=== PATIENT | female | born 1955 | race Caucasian/White ===

== ENCOUNTER 2022-06-26 14:57 | Outpatient (REF) | payer OTHER, SELFPAY ==
[2022-06-26 15:29] LABS: Abs Immature Grans 0.02 10^3/uL (0.0-0.06); Absolute Basophil Count 0.05 10^3/uL (0.0-0.2); Absolute Eosinophil Count 0.04 10^3/uL (0.0-0.7); Absolute Monocyte Count 0.63 10^3/uL (0.1-0.8); Absolute Neutrophil Count 4.91 10^3/uL (1.2-6.7); Basophils % 0.7; Eosinophils % 0.5; HCT 41.4 % (36.0-46.0); HGB 14.4 g/dL (11.2-15.7); Immature Grans % 0.3; Lymphocytes % 25.2; MCH 32.6 pg (27.0-33.0); MCHC 34.8 % (32.0-36.0); MCV 94 fL (80-95); MPV 9.5 fL (8.0-11.0); Monocytes % 8.3; Platelet Count 318 10^3/uL (130-400); RBC 4.42 10^6/uL (3.93-5.22); RDW 11.6 % (11.7-14.6); RDW-SD 40.3 fL; WBC 7.55 10^3/uL (4.4-10.8)
[2022-06-26 16:32] LABS: ALT 29 U/L (14-59); AST 20 U/L (15-37); Albumin 4.1 g/dL (3.4-5.0); Alkaline Phosphatase 99 U/L (46-116); Anion Gap 15.5 mmol/L (3-11); BUN 14 mg/dL (7-18); Bilirubin, Total 0.5 mg/dL (0.2-1.0); CO2 18.5 mmol/L (21.0-32.0); Calcium 9.5 mg/dL (8.5-10.1); Chloride 105 mmol/L (98-107); Estimated GFR 62.91 (mL/min/1.73m2); Glucose 101 mg/dL (74-106); Potassium 4.3 mmol/L (3.5-5.1); Sodium 139 mmol/L (136-145); Total Protein 7.5 g/dL (6.4-8.2)
== END 2022-06-26 14:58 | disposition home or self-care (01) ==
LOC: LBN 14:57
PROVIDERS: PCP Physician Assistant Medical; Visit Provider Nurse Practitioner Family
DX: R10.9 Unspecified abdominal pain (principal)
CPT/HCPCS: 80053; 85025; 87086

== ENCOUNTER 2022-07-04 22:45 | Outpatient (REF) | payer OTHER, SELFPAY ==
[2022-07-11 13:55] LABS: Source: Right Kidney
== END 2022-07-04 22:46 | disposition home or self-care (01) ==
LOC: LBN 22:45
PROVIDERS: PCP Physician Assistant Medical; Visit Provider Nurse Practitioner Family
DX: R10.9 Unspecified abdominal pain (principal)
CPT/HCPCS: 82365

== ENCOUNTER 2024-02-01 00:10 | Emergency (ER) | payer MEDICARE, OTHER, SELFPAY ==
[2024-02-01 00:14] VITALS: BP 150/63; PULSE 82; RESP 18; TEMP 36.8
--- NOTE | 2024-02-01 00:15 | ED.GENADUL_ITS ---
Discharge Plan Disposition Patient Disposition: Home Condition: Good Discharge Details Clinical Impression: Rash and other nonspecific skin eruption Primary Care Provider: Yadira Llanes ED Provider: Aldo Burr Home Meds and New Rx's Prescriptions: No Action No Known Home Meds Discharge Instructions Additional Instructions: You were seen in the ED for a rash on your wrist. Because it is itchy as opposed to painful with no extensive redness suspect more of an allergic type reaction as opposed to infection. Your exam is otherwise reassuring. Would recommend using a diphenhydramine cream or hydrocortisone cream for the next day or 2. Follow-up with primary care next week. Return to ED for any severe worsening pain, redness extending out and around the extremity, other concerns. HPI General Mode of arrival: ambulatory . Date/Time Provider Initiated Documentation: 02/01/24 00:15 . Limitations to Documentation: no limitations . Information obtained by: patient . HPI Narrative: Patient presenting to ED with concern for rash on her left wrist with associated temp at home of 99.9 and some nausea. Patient reports working out in her garden essentially all day. Aylett a pain in her wrist that she thought might have been an ant bite or something. Did not think anything of it. Started to feel tired and took a break for dinner. Then went back out and work another 3 hours. Was unable to fall asleep and did not feel well. She is having some pruritus in the wrist region but no pain. She took temperature at home. Continued to be restless and developed some nausea. Called her PCP and was referred to the ED. She has no headache, URI symptoms, chest pain, shortness of breath, abdominal pain, urinary symptoms. She has no pain in the wrist and has normal range of motion. She is now concerned after looking things up on the Internet that she was bit by a spider. Related Data Home Medications Medication Instructions Recorded Confirmed Unknown [No Known Home Meds] 02/01/24 02/01/24 Allergies Allergy/AdvReac Type Severity Reaction Status Date / Time No Known Allergies Allergy Unverified 02/01/24 00:18 Review of Systems Narrative: Per HPI Exam Narrative Exam Narrative: Const: WDWN female in NAD. VS per triage. HEENT: NC/AT. Normal facial exam. Neck: Supple. Trachea midline. Lungs: Normal respiratory effort. Lungs are clear. Cor: RRR without murmur. Good radial pulses. Neuro: A+O x 3. Normal speech, mentation, gait. Cranial nerves II - XII grossly intact. No gross motor or sensory deficit. Ext: No C/C/E. Skin: 3 small macular/papular lesions left anterior wrist which norris. No surrounding erythema. No warmth, no tenderness. Medical Decision Making Patient presenting with a nondescript rash on her left anterior wrist which she was concerned was related to a possible spider bite. This was the wrist she was wearing her watch on. If anything the maculopapular lesions look more reactive likely to the sweat and rubbing of her watch. Definitely no evidence of cellulitis or infection. She is afebrile here and technically was afebrile at home has a temp of 99.9 is not considered fever. She is not tachycardic. She otherwise looks completely well. In regards to potential poisonous spider bites she is not having symptoms of black or brown recluse bite. Patient reassured and asked to try diphenhydramine cream or hydrocortisone cream over the next day or 2 and follow-up with primary care. Return precautions provided. Quality:[facility] Health Related Social Needs: No Data to Display [facility] All Active Problems Rash and other nonspecific skin eruption (Acute) Medical History No significant past medical history Social History Smoking risk assessment performed?: No
== END 2024-02-01 00:39 | disposition home or self-care (01) ==
LOC: ER 00:54
PROVIDERS: Emergency Provider Emergency Medicine; PCP Physician Assistant Medical
DX: R21 Rash and other nonspecific skin eruption (principal)
CPT/HCPCS: 99282; 99283

== ENCOUNTER 2024-03-19 07:27 | Day surgery (SDC) | payer MEDICARE, OTHER, SELFPAY ==
[2024-03-19] VITALS (13 sets, daily range): BP systolic 124–152; BP diastolic 40–82; PULSE 56–78; RESP 13–20; TEMP 36.1–36.6; O2SAT 92–99; BMI 27.4
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
--- NOTE | 2024-03-19 08:05 | DI.RAD_ITS ---
Exam(s) XR FOREARM LT XR WRIST LT COMPLETE EXAM: XR WRIST LT COMPLETE CLINICAL HISTORY: fall likely distal rad/ulnar fracture. TECHNIQUE: 2D digital imaging was performed. Three views of the wrist. Two views of the forearm.. COMPARISON: CR XR FOREARM LT from 03/19/2024 FINDINGS: BONES: Comminuted intra-articular fracture of the distal radius. There is some impaction and dorsal angulation. Fracture of the ulnar styloid also present and not significantly displaced. Carpal bone s appear intact. No additional fractures are seen more proximally in the radius or ulna. no bony de structive lesion is seen. JOINTS: The carpal bones are normally aligned. The elbow alignment is normal. SOFT TISSUE: Normal swelling around wrist. IMPRESSION: Comminuted intra-articular fracture of the distal radius. Ulnar styloid fracture. DATA REPOSITORY: RADIATION DOSE DELIVERED:
--- NOTE | 2024-03-19 09:15 | DI.CT_ITS ---
Exam(s) CT UPPER EXTREMITY LT WO EXAM: CT UPPER EXTREMITY LT WO CLINICAL HISTORY: distal radius/ulnar fracture, pre op TECHNIQUE: Imaging Protocol: Axial computed tomography images with coronal and sagittal reformatted images were created and reviewed. CONTRAST MATERIAL: Noncontrast COMPARISON: CR XR WRIST LT COMPLETE from 03/19/2024 FINDINGS: Bones: Comminuted intra-articular fracture of the distal radius again noted. There is minimal separa tion at the articular surface at the level of the lunate. There is mild impaction and slight dorsal displacement. Nondisplaced ulnar styloid fracture. Carpal alignment is normal. No cellulitic or osteomyelitic changes are identified. No lytic or sclerotic lesions are identified. Mild degenerative changes. Soft Tissues: Swelling around wrist. IMPRESSION: Comminuted intra-articular fracture of the distal radius. Ulnar styloid fracture. RADIATION DOSE DELIVERED: 116.23mGy.cm Total DLP DATA REPOSITORY: All CT scans at this facility are submitted to the National Radiology Data Registry (NRDR) Dose Index Registry (DIR) with the [employer] (ACR). RADIATION OPTIMIZATION: All CT scans at this facility use at least one of these dose optimization te chniques: automated exposure control; mA and/or kV adjustment per patient size (includes targeted exa ms where dose is matched to clinical indication); or iterative reconstruction.
[2024-03-19] MEDS: Ketorolac 15 MG/ML VIAL IVP (10:18)
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
[2024-03-19] MEDS: Normal Saline Flush 10 ML SYR IVP (12:29)
[2024-03-19] MEDS: Lactated Ringers 1,000 ML 75 ML IV (12:30)
[2024-03-19] MEDS: Acetaminophen 500 MG TAB 1000 MG PO (12:41)
[2024-03-19] MEDS: Celecoxib 200 MG CAP 400 MG PO (12:42)
--- NOTE | 2024-03-19 13:10 | W.PM.DSUDISC ---
Date of service: 03/19/24 Time of Service: 13:11 Discharge Plan Disposition Patient Disposition: Home Condition: Good Discharge Details Reason For Visit: left wrist injury Attending Provider: Matty Minaya Primary Care Provider: Yadira Llanes Home Meds and New Rx's Prescriptions: New acetaminophen 500 mg tablet 1,000 mg PO TID Qty: 90 3RF ibuprofen 600 mg tablet 600 mg PO TID PRN (Reason: pain) Qty: 90 0RF oxycodone 5 mg tablet 5 mg PO Q8H MDD 15mg PRN (Reason: pain) Qty: 10 0RF Discharge Instructions Additional Instructions: Wrist Fracture Fixation Discharge Instructions Activity: You should keep the hand/wrist elevated as much as possible for the first few days. You may use the other fingers as tolerated but avoid trying to do too much too soon. You may perform light activities with the splint in place. Dressing/Cast: Your splint should stay in place at all times. Do NOT get it wet. You may loosen the SCOTT wrap if you feel it is too tight and then rewrap more loosely. Medications: - You should take Tylenol and Ibuprofen for baseline pain control. - You have been prescribed a stronger pain medication, Oxycodone, for breakthrough pain. - You may apply ice over the wrist, just double bag so it doesn't get wet. Follow-up: 10-14 days Referrals: Matty Minaya MD [ [facility] STAFF PHYSICIAN] - Equipment/Supplies: Splint Activity:: Elevate Remove Dressings/Wound Care:: Do Not Remove Shower/Bathe:: Cover Diet:: As Tolerated Discharge Orders Discharge Orders: Discharge Order (Routine); Ordered 03/19/24 Ordered By: Orville Monzon DS: Diagnosis Discharge Diagnosis (1) Intra-articular fracture of distal end of left radius with volar angulation: Status: Acute (2) Displaced fracture of left ulna styloid process, initial encounter for closed fracture: Status: Acute
[2024-03-19] MEDS: ceFAZolin 2 GM/50 ML BAG IVPB (13:55)
[2024-03-19] MEDS: Bupivacaine 0.5% Pres-Free W/EPI 30 ML VIAL (14:26)
--- NOTE | 2024-03-19 15:35 | ROE_ITS ---
Date of service: 03/19/24 Time of Service: 14:20 Operative Note Operative Note DATE OF PROCEDURE: 03/19/24 PRE-OP DIAGNOSIS: Left Intra-Articular Distal Radius Fracture POST-OP DIAGNOSIS: same PROCEDURE: Open Reduction and Internal Fixation of Left Distal Radius Intra-articular Fracture (2 parts) SURGEON: Matty Minaya ELECTRONIC ASSEMBLY: Orville Monzon ANESTHESIA TYPE: General LMA/ETT Refer to Anesthesia Record ESTIMATED BLOOD LOSS: 30 PATHOLOGY: none sent COMPLICATIONS: None Patient was transported to: PACU Patient's condition: stable Indications: Mag is a 68 year old female who I have seen for a distal radius fracture. Given the deformity, displacement, fracture pattern, and effect on daily function, I recommended surgical fixation. I reviewed the risk of the procedure to include bleeding, infection co-pay, stiffness, damage to nerves and vessels, damage to muscles and tendons, malunion, nonunion, hardware prominence, tendon rupture, need for repeat procedures. Despite these risks, the patient elected to proceed. Findings: There is a distal radius fracture which had 2 parts. It was reduced and fixed with a Synthes volar locking plate. Procedure Description: Mag was greeted in the preoperative holding area. The correct patient and site was confirmed and marked. The history and physical was updated. The consent was reviewed the patient and signed. The patient was taken to the operating room and placed in the supine position. All bony problems were well- padded. The left arm was placed onto a radiolucent hand table. A nonsterile tourniquet was placed high up on the arm. Prophylactic antibiotics in the form of cefazolin were administered. The left arm was prepped with ChloraPrep and draped in a standard fashion. A timeout was performed for safe surgery. A standard longitudinal incision was made overlying the flexor carpi radialis tendon starting at the distal wrist crease and moving proximally. The skin was incised sharply. The flexor carpi radialis tendon and its sheath is identified. The sheath was opened. The tendon was moved ulnarly in the floor of the sheath was incised. Blunt dissection the flexor pollicis longus muscle belly and tendon were also made radially exposing the pronator quadratus and the distal radius. The printer quadratus was elevated with an ulnar-based flap. This exposed the volar distal radius and the fracture. A georges elevator was used for full exposure of the volar surface of the distal radius. The primary fracture line was exposed. Using a series of elevators, curettes, and knife, the fracture was fully debrided of any fibrous tissue and callus formation. I used a freer elevator to help mobilize the fragments. There was a primary fracture line traversing across the volar aspect of the distal radius. I then performed a closed reduction. Using gentle traction and fracture manipulation, this reduction was held. Fluoroscopic images were used to confirm adequate reduction. An appropriately sized Synthes volar locking plate was then placed onto the bony surface of the distal radius. Was then held there with a distal radius clamp sandwiching the plate to the distal segment. A single K wire was placed through the distal end. Fluoroscopy was once again used to confirm appropriate positioning of the plate on the distal radius. A reduction K wire was placed into the slotted hole on the shaft but not tightened all the way to allow for manipulation of the distal segment onto the proximal shaft. A single nonlocking screw was placed to the distal portion of the plate securing the plate against the bone of the distal radial metaphysis. Once again, the plate was evaluated to make sure it was aligned appropriately. The single screw was also checked to make sure it was in appropriate positioning for trajectory of future screws. The remainder of the screws within the volar locking plate were filled with locking screws. These were made sure not to penetrate the dorsal cortex. Once these were applied the proximal portion of the plate was further reduced down onto the shaft, which further reduce the distal segment. This was held in position with a tightened reduction K wire. Fluoroscopy was then used against confirm appropriate reduction. Nonlocking screws were placed within the 3 shaft screw holes. Final x-rays were obtained which demonstrated adequate reduction and positioning of hardware. The dorsal sunrise view was also obtained to ensure correct sizing of screws. The wound was then thoroughly irrigated. The pronator quadratus was unable to be reapproximated. Sutures pulled through the muscle and the fascia. The fingers were warm and well-perfused. The deep dermal layer was closed with a 2-0 Vicryl. The skin was closed with 4-0 Monocryl in a buried, subcuticular fashion. The wound was dressed with Xeroform, 4 x 4's, web roll. A short arm splint was applied. At the end the case all counts are correct. Patient was transferred back to the PACU in stable condition.
--- NOTE | 2024-03-19 15:36 | DI.RAD_ITS ---
Exam(s) XR WRIST LT LIMITED EXAM: XR WRIST LT LIMITED CLINICAL HISTORY: Left distal radius fracture TECHNIQUE: 2D and realtime digital imaging was performed. CONTRAST MATERIAL: Refer to procedure report. COMPARISON: CR XR FOREARM LT from 03/19/[address] UPPER EXTREMITY LT WO from 03/19/2024 CR XR WRIST LT COMPLETE from 03/19/2024 FINDINGS: Fluoroscopy was provided for Dr. Minaya during the performance of a reduction and internal fixatio n of the distal radial fracture. Please refer to the procedure report for complete details. Kar=1.22 mGy IMPRESSION: RADIATION DOSE DELIVERED: 0.0 0.0 0
--- NOTE | 2024-03-21 11:55 | W.ANESPOSTOP ---
Postoperative Evaluation Date, Time and Location Date Performed: 03/19/24 Time Performed: 16:20 Patient Location: Day Surgery Unit Vital Signs Most Recent Imported Vital Signs: Most Recent Vital Signs Temp Pulse Resp BP Pulse Ox 36.2 C L 56 L 16 131/47 L 95 03/19/24 16:50 03/19/24 16:50 03/19/24 16:50 03/19/24 16:50 03/19/24 16:50 Pain Score Most Recent Pain Score: Most Recent Pain Score Pain Level 0 03/19/24 16:50 Assessment Mental Status: Awake (Alert & Oriented to Patient Baseline) Airway and Respiratory Function: Patent airway with normal (patient baseline) respiratory exam Cardiovascular Function: Hemodynamically Stable Hydration Status: Adequately Hydrated Nausea & Vomiting: No Nausea or Vomiting Pain: Pt. Denies Any Pain Peripheral Nerve Block: Patient did not receive a nerve block
== END 2024-03-19 17:40 | disposition home or self-care (01) ==
LOC: ER 10:09 → SUR 12:20
PROVIDERS: Emergency Provider Emergency Medicine; PCP Physician Assistant Medical; Visit Provider Student in an Organized Health Care Education/Training Program
PROC: (CPT 25606; principal; 2024-03-19 14:15)
DX: S52.572A Other intraarticular fracture of lower end of left radius, initial encounter for closed fracture (principal); S52.612A Displaced fracture of left ulna styloid process, initial encounter for closed fracture; V19.9XXA Pedal cyclist (driver) (passenger) injured in unspecified traffic accident, initial encounter
CPT/HCPCS: 25606; 76000; 73090; 73100; 73110; 73200; J0690; J1100; J1885; J2001; J2405; J2704; J3010

== ENCOUNTER 2024-03-27 13:38 | Outpatient (CLI) | payer MEDICARE, OTHER, SELFPAY ==
--- NOTE | 2024-03-27 13:15 | DI.RAD_ITS ---
Exam(s) XR WRIST LT LIMITED EXAM: XR WRIST LT LIMITED INDICATION: F/U FRACTURE. COMPARISON: RF XR WRIST LT LIMITED from 03/19/[address] UPPER EXTREMITY LT WO from 03/19/2024 TECHNIQUE: 2D digital imaging was performed. Two views. FINDINGS: There has been no change in fracture or hardware alignment. DATA REPOSITORY: RADIATION DOSE DELIVERED:
== END 2024-03-27 13:39 | disposition home or self-care (01) ==
LOC: DIORS 13:38
PROVIDERS: PCP Physician Assistant Medical; Referring Provider Physician Assistant Medical
DX: S52.572D Other intraarticular fracture of lower end of left radius, subsequent encounter for closed fracture with routine healing; X58.XXXD Exposure to other specified factors, subsequent encounter
CPT/HCPCS: 73100

== ENCOUNTER 2024-04-02 11:24 | Emergency (ER) | payer MEDICARE, OTHER, SELFPAY ==
[2024-04-02 11:33] VITALS: BP 151/70; PULSE 76; RESP 18; O2SAT 96
--- NOTE | 2024-04-02 12:08 | ED.GENADUL_ITS ---
Discharge Plan Disposition Patient Disposition: Home Condition: Stable Discharge Details Clinical Impression: Pain in throat, Cervical muscle strain Primary Care Provider: Yadira Llanes ED Provider: Adelita Gonsalves Home Meds and New Rx's Prescriptions: No Action No Known Home Meds Discharge Instructions Instructions: Cervical Muscle Strain, Sore Throat, Adult ED Additional Instructions: You may have strained the muscles in your neck. Please take the muscle relaxer when you get home as prescribed. This may make you sleepy. Alternate ice and heat. You are also given Maalox and lidocaine which will make your throat numb. No evidence for allergic reaction at this time. No rash. Please return to the ER for any worsening trouble swallowing, cough or wheezing lip swelling rash or concerns. Follow up with primary care provider in 3-5 days. Return to ED sooner if any worsening or concerns. Please take Tylenol or Ibuprofen with food every 4-6 hours as needed for pain and swelling. You may also gargle with warm salt water. Thank you for allowing us to care for you today. Referrals: Yadira Llanes [Primary Care Provider] - 3 days Discharge Data Discharge Date/Time-TO BE ENTERED AT DEPARTURE: 04/02/24 14:30 HPI General Mode of arrival: ambulatory . Date/Time Provider Initiated Documentation: 04/02/24 11:58 . Limitations to Documentation: no limitations . Information obtained by: patient, RN notes reviewed and old records reviewed . HPI Narrative: 68-year-old female presents to the ER with throat pain after eating some arugula approximately 2 hours ago, she is able to handle her secretions and is able to drink water, she is speaking in full sentences she has no stridor noted no wheezing no runny nose. She is complaining of pain to her throat which is worsening. She reports that it from her neck to her ears. Related Data Home Medications ?Medication ?Instructions ?Recorded ?Confirmed Unknown [No Known Home Meds] 03/27/24 04/02/24 Allergies Allergy/AdvReac Type Severity Reaction Status Date / Time No Known Allergies Allergy Unverified 03/27/24 13:27 General Stated Complaint: ThroatFB MAXWELL: 3 Review of Systems All systems reviewed & are unremarkable except as noted in HPI and below Constitutional Constitutional: Reports as per HPI ENT Ears, Nose, Mouth, and Throat: Reports dysphagia, Reports neck pain and Reports sore throat Gastrointestinal Gastrointestinal: Reports dysphagia Musculoskeletal Musculoskeletal: Reports neck pain Integumentary/Breasts Skin/Breast: Reports system reviewed and no additional complaints, except as documented Exam Narrative Exam Narrative: Constitutional: Alert and oriented x3. Appears stated age. Normal body habitus. Head: Normocephalic, no trauma. Eyes: Pupils PERRL, Red reflex noted, EOM's intact. Eyelids symmetrical without lesions, discharge, or swelling. ENT: Bilateral TM's WNL, External ear normal to inspection, no mastoid TTP, swelling, or erythema, Nasal turbinates WNL, no nasal discharge. Normal dentition, Posterior pharynx slightly red otherwise uvula midline, no swelling noted WNL, no exudate. Neck: Tenderness with palpation anteriorly, does have some tenderness with palpation posteriorly as well. No swelling no stridor, swallowing without difficulty, speaking in full sentences. Chest: RRR, Normal S1, S2, distal pulses intact. Resp: Lungs clear to auscultation bilaterally, no wheezes, rales, or rhonchi. Abdomen: Soft, non-distended, Normoactive bowel sounds all 4 quads. Musculoskeletal: Normal gait, Moves all 4 extremities without difficulty. Is wearing a brace on her left wrist. Skin: No suspicious rashes or lesions. Capillary refill less than 2 sec. Neurologic: Cranial nerves II-XII intact. Alert and oriented x 3. Motor: No def icits noted. Sensory: Intact bilaterally all 4 extremities. Hematologic/Lymphatic: No ecchymosis, no lymphadenopathy. Course Vital Signs Vital signs: Vital Signs Pulse 76 04/02/24 11:33 Respiratory Rate 18 04/02/24 11:33 Blood Pressure 151/70 H 04/02/24 11:33 Pulse Oximetry 96 04/02/24 11:33 Pulse 76 04/02/24 11:33 Respiratory Rate 18 04/02/24 11:33 Respiratory Effort Normal 04/02/24 11:43 Respiratory Pattern Normal 04/02/24 11:43 Blood Pressure 151/70 H 04/02/24 11:33 Blood Pressure Position Sitting 04/02/24 11:33 Pulse Oximetry 96 04/02/24 11:33 Oxygen Delivery Method Room Air 04/02/24 11:33 Oxygen Flow Rate 0 04/02/24 11:33 Pain Level 10 04/02/24 11:33 Medical Decision Making 68-year-old female presents to the ER with throat pain after eating some arugula approximately 2 hours ago, she is able to handle her secretions and is able to stable drink water, she is speaking in full sentences she has no stridor noted no wheezing no runny nose. She is complaining of pain to her throat which is worsening. She reports that it from her neck to her ears. She has no rash noted. No swelling of her lips or mouth uvula is midline, no posterior oropharynx swelling she does have slightly erythemic posterior oropharynx. She was at home when she was eating a salad denies any other food allergies. Denies any other associated symptoms or complaints. She is wearing a wrist splint to her left wrist. Will give 40 of Pepcid p.o. and 10 mg of dexamethasone p.o. 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 Will reevaluate in approximately 10 to 15 minutes after medication administration will consider effervescent granules if no improvement. On patient reevaluation she reports no change in the neck pain. She also reports that it is hurting in the back differential diagnosis includes but not limited to allergic reaction, cervical muscle strain, adverse reaction arugula. She denies any foreign body in her throat. Foreign body sensation. Will give her GI cocktail here in the department and 3 Flexeril tablets to go home with. Will instruct on home care, strict return instructions and follow-up care. This text was generated using [employer] dictation system, please disregard any oddities of phrase or misspellings. Quality:SDOH Health Related Social Needs: No Data to Display PFSH All Active Problems Cervical muscle strain (Acute) Pain in throat (Acute) Displaced fracture of left ulna styloid process, initial encounter for closed fracture (Acute 03/19/24) Intra-articular fracture of distal end of left radius with volar angulation (Acute 03/19/24) S/P ORIF: 03/19/2024 Medical History No significant past medical history Surgical History History of total left hip arthroplasty Social History Smoking/Tobacco Use Status: Never Smoking risk assessment performed?: Yes Alcohol Intake: never Drug use: Never Substance use type: does not use Housing: house Do you feel safe at home: Yes Do you feel safe in your relationship?: Yes
[2024-04-02] MEDS: Dexamethasone 10 MG/ML VIAL PO (12:30)
[2024-04-02] MEDS: Famotidine 20 MG TAB 40 MG PO (12:31)
[2024-04-02 13:23] VITALS: BP 120/74; PULSE 80; RESP 16; TEMP 36.6; O2SAT 98
[2024-04-02] MEDS: Cyclobenzaprine 10 MG TAB, 3 TABS/BTL PO (14:27)
[2024-04-02 14:29] VITALS: BP 116/70; PULSE 72; RESP 18; TEMP 36.7; O2SAT 98
== END 2024-04-02 14:30 | disposition home or self-care (01) ==
PROVIDERS: Emergency Provider Registered Nurse Emergency; PCP Physician Assistant Medical
DX: S16.1XXA Strain of muscle, fascia and tendon at neck level, initial encounter (principal); R07.0 Pain in throat; X50.0XXA Overexertion from strenuous movement or load, initial encounter
CPT/HCPCS: 99282; J1100

== ENCOUNTER 2024-04-21 03:20 | Emergency (ER) | payer MEDICARE, OTHER, SELFPAY ==
[2024-04-21 03:25] VITALS: BP 104/79; PULSE 79; RESP 18; O2SAT 95
--- NOTE | 2024-04-21 04:08 | W.ED.GENAD ---
Discharge Plan Disposition Patient Disposition: Eloped Condition: Good Discharge Details Chief Complaint: Orthopedic Clinical Impression: Acute pain of right knee Primary Care Provider: Yadira Llanes ED Provider: Marla Carter Home Meds and New Rx's Prescriptions: No Action No Known Home Meds Discharge Instructions Instructions: Knee Pain ED, Knee Brace ED Additional Instructions: Tylenol over the counter for pain; follow the directions on the bottle. Rest and ice. You can use the knee immobilizer if you find it helpful, until you are able to see your primary care doctor and discuss with them. Call your primary care doctor today to schedule an appointment within the next three days to followup on your visit here. You can also call your orthopedist to see if they can see you earlier than your currently scheduled followup appointment. Return to the emergency department for new or worsening symptoms including new/different/worse pain, swelling, numbness or weakness, or if you have any other concerns. Referrals: Yadira Llanes [Primary Care Provider] - [facility] General Mode of arrival: ambulatory. Date/Time Provider Initiated Documentation: 04/21/24 03:42. Limitations to Documentation: no limitations. Information obtained by: patient. HPI Narrative: 68yo F presenting with atraumatic right knee pain. Symptoms started about 4 days ago; during the prior week she began running up to 4 miles a day uphill, attempting to increase her activity level as she has been unable to bike due to a recent wrist fracture. 4 days ago she began to notice pain and tenderness in her right knee while running; continued to run (no pain no gain) . The next morning pain was severe, worse with ambulating. No falls or injury. No locking or popping. Minimal pain with flexing and extending while in bed. No numbness or tingling. Has tried tylenol, rest, ice, and heat with minimal improvement. Systemically well wtih no fevers, chills, rash, nausea, vomiting, or other concerns. Related Data Home Medications ?Medication ?Instructions ?Recorded ?Confirmed Unknown [No Known Home Meds] 03/27/24 04/21/24 Allergies Allergy/AdvReac Type Severity Reaction Status Date / Time No Known Allergies Allergy Unverified 04/21/24 03:28 General Stated Complaint: Orthopedic MAXWELL: 3 Review of Systems Narrative: see HPI Exam Narrative Exam Narrative: General: Alert, well appearing, well nourished, in no acute distress. Head: Normocephalic, atraumatic Neck: Trachea midline, ?Neck supple. ENT: ?MMM.? No oropharygeal lesions or exudate. Cardiac: No cyanosis. Resp: No respiratory distress. Speaking in full sentences. Abd: ?Non-distended, Extremities: ?No deformities.? No peripheral edema. Right knee with no bony tenderness at patella or fibular head. No palpable effusion. No warmth or erythema. Some tenderness over medial inferior aspect. Full active ROM. 5/5 strength with flexion and extension. Sensation to light touch intact and symmetric right compared to left. Neurologic: GCS 15. ? Moves all extremities freely against gravity Course Vital Signs Vital signs: Vital Signs Pulse 79 04/21/24 03:25 Respiratory Rate 18 04/21/24 03:25 Blood Pressure 104/79 04/21/24 03:25 Pulse Oximetry 95 04/21/24 03:25 Pulse 79 04/21/24 03:25 Respiratory Rate 18 04/21/24 03:25 Respiratory Effort Normal 04/21/24 03:28 Blood Pressure 104/79 04/21/24 03:25 Blood Pressure Position Sitting 04/21/24 03:25 Pulse Oximetry 95 04/21/24 03:25 Oxygen Delivery Method Room Air 04/21/24 03:25 Oxygen Flow Rate 0 04/21/24 03:25 Medical Decision Making 68yo F presenting with atraumatic right knee pain in the setting of recent increase in activity. Symptoms started about 4 days ago; during the prior week she began running up to 4 miles a day uphill, attempting to increase her activity level as she has been unable to bike due to a recent wrist fracture. 4 days ago she began to notice pain and tenderness in her right knee, worse with ambulating. No falls or injury. Vital signs reassuring on arrival. Neurovascular intact on exam, no palpable effusion, good active ROM. No bony tenderness. Unlikely bony injury however given patient age offered knee xray which patient declined; I believe this is reasonable. I am not concerned for septic joint, gout, DVT, dislocation; unlikely significant ligamentous injury. Drove herself to the ED and ambulated into triage. She presents primarily requesting corticosteroid injection to knee which I do not feel comfortably performing. We discussed symptomatic treatment at home with plan for IM toradol here (has GI distress with oral NSAIDs) and knee immobilizer for comfort for a short time and ambulation is quite painful; if able to ambulate and pain improved would discharge home otherwise would encourage her to accept XR and possibly PT consult in the morning. Patient subsequently able to ambulate to the bathroom without distress. Left department without waiting for re-assessment/repeat vital signs/discharge instructions. As we had already discussed the plan including followup and return precautions, will mail discharge instructions home. Prior to departure she had verbalized understanding of instructions and return precautions; all questions were answered. Quality:SDOH Health Related Social Needs: No Data to Display PFS All Active Problems Acute pain of right knee (Acute) Cervical muscle strain (Acute) Pain in throat (Acute) Displaced fracture of left ulna styloid process, initial encounter for closed fracture (Acute 03/19/24) Intra-articular fracture of distal end of left radius with volar angulation (Acute 03/19/24) S/P ORIF: 03/19/2024 Medical History No significant past medical history Surgical History History of total left hip arthroplasty Social History Smoking/Tobacco Use Status: Never Smoking risk assessment performed?: Yes Alcohol Intake: never Drug use: Never Substance use type: does not use Housing: house Do you feel safe at home: Yes Do you feel safe in your relationship?: Yes
--- OUTSIDE RECORDS SUMMARY | 2024-04-21 04:19 | XMS_ITS | Encounter Summary ---
Author Organization [facility] Address [address] [place] [address] Care Team Providers Care Pourer Off Name Role Phone Unknown, Provider Primary Care Provider [phone] Encounter Details Date Type Department Care Team (Late st Contact Info) Description 01/19/2019 Historical Results Only [facility] Radiology Results [address] [place], [place] [id number] Olegario Lee, INVESTOR RELATIONS MANAGER [address] [place], [place] [id number] Social History Tobacco Use Types Packs/Day Years Used Date Smoking Tobacco: Never Assessed Sex and Gender Information Value Date Recorded Sex Assigned at Not on file Gender Identity Not on file Sexual Orientation Not on file documented as of this encounter Plan of Treatment Not on file documented as of this encounter Procedures Procedure Name Priority Date/Time Associated Diagnosis Comments XR HIP LEFT 2-3 VIEWS, OPTIONAL PELVIS 01/19/2019 17:28 EDT documented in this encounter Results * XR HIP LEFT 2-3 VIEWS, OPTIONAL PELVIS (01/19/2019 17:28 EDT) Anatomical Region Laterality Modality Lower Extremities Left Other 01/19/2019 17:2 8 EDT Narrative 01/19/2019 17:28 EDT ? EXAM: RADIOLOGY EXPRESS CARE/EXP CARE HIP EX. D/ (1649) ? CLINICAL INFORMATION: ? M25.552, 6 MONTHS OF PROGRESSIVE PAIN. RULE OUT OA, JOINT EFFUSION. ? EXAM: ?XR Left Hip with Pelvis when Performed, 2 or 3 Views ? EXAM DATE/TIME: ?01/19/2019 4:38 PM ? CLINICAL HISTORY: ?63 years old, female; Hip pain; Bilateral; Additional info: ? M25.552, 6 months of progressive pain. Rule out oa, joint effusion. ? TECHNIQUE: ?Imaging protocol: XR Left hip with pelvis when performed, 2 or 3 ? views ? COMPARISON: ?No relevant prior studies available. ? FINDINGS: ?Bones/joints: There is severe joint space narrowing in both hips. ? There is a subchondral bony cystic change in both acetabular rims . ? In the left hip there is osteophytic spurring of the acetabular ? rims. Hip joint impingement is suspected. ? There is no sign of fracture or dislocation. ?Soft tissues: Normal. ? IMPRESSION: ? 1. Severe bilateral primary osteoarthritis in the hips. ? 2. Hip joint impingement is suspected in the left hip. ? REPORT SIGNED IN OTHER VENDOR SYSTEM 01/19/2019 ?Reported By: Amauri Calvert DO ? CC: ? Transcribed Date/Time: 01/19/2019 (6028) ? Lumber Piler: ? Printed Date/Time: 05/28/2019 (2602) ? PAGE 1 ? Signed Report ? Procedure Note Amauri Calvert DO - 07/15/2019 EXAM: RADIOLOGY EXPRESS CARE/EXP CARE HIP EX. D/ (1649) CLINICAL INFORMATION: M25.552, 6 MONTHS OF PROGRESSIVE PAIN. RULE OUT OA, JOINT EFFUSION. EXAM: XR Left Hip with Pelvis when Performed, 2 or 3 Views EXAM DATE/TIME: 01/19/2019 4:38 PM CLINICAL HISTORY: 63 years old, female; Hip pain; Bilateral; Additional info: M25.552, 6 months of progressive pain. Rule out oa, joint effusion. TECHNIQUE: Imaging protocol: XR Left hip with pelvis when performed, 2 or 3 views COMPARISON: No relevant prior studies available. FINDINGS: Bones/joints: There is severe joint space narrowing in both hips. There is a subchondral bony cystic change in both acetabular rims . In the left hip there is osteophytic spurring of the acetabular rims. Hip joint impingement is suspected. There is no sign of fracture or dislocation. Soft tissues: Normal. IMPRESSION: 1. Severe bilateral primary osteoarthritis in the hips. 2. Hip joint impingement is suspected in the left hip. REPORT SIGNED IN OTHER VENDOR SYSTEM 01/19/2019 Reported By: Amauri Calvert DO CC: Transcribed Date/Time: 01/19/2019 ([id number]) Lumber Piler: Printed Date/Time: 05/28/2019 (0870) PAGE 1 Signed Report Olegario Lee INVESTOR RELATIONS MANAGER IMG DIAGNOSTIC IMAG ING ORDERABLES documented in this encounter Visit Diagnoses Not on filedocumented in this encounter Care Teams Pourer Off Relationship Specialty Start Date End Date Unknown, Provider, PCP - General 12/24/12 documented as of this encounter
--- OUTSIDE RECORDS SUMMARY | 2024-04-21 04:19 | XMS_ITS | Referral Summary ---
Author Organization [facility] Address [address] [place] [address] Care Team Providers Care Inspector Subassembly Name Role Phone Unknown, Provider Primary Care Provider Allergies Active Allergy Reactions Criticality Noted Date Comments Codeine 04/06/2010 N & V Active Problems Problem Noted Date Diagnosed Date Headache 11/09/2007 Overview: ICD10 Update Auto Replacement Gastroesophageal reflux disease Overview: Esophagram 03/2008 Social History Tobacco Use Types Packs/Day Years Used Date Smoking Tobacco: Never Assessed Interpersonal Safety Answer Date Record ed Physically Hurt Never 04/11/2020 Verbally Threaten Not on file 04/11/2020 Sex and Gender Information Value Date Recorded Sex Assigned at Not on file Gender Identity Not on file Sexual Orientation Not on file Plan of Treatment Not on file Care Teams Inspector Subassembly Relationship Specialty Start Date End Date Unknown, Provider, PCP - General 12/24/12
--- OUTSIDE RECORDS SUMMARY | 2024-04-21 04:19 | XMS_ITS | Data Portability ---
Author Organization [place] [facility], Historical Import Interface Address [address] [place] [address] Assessment Encounter Date Assessment Date Assessment LastModified by Organization Details LastModified Time 12/25/2022 12/25/2022 DOS: 12/25/2022 [place]: BRIAN and FMX 90 min with res Completed Procedures D0220 - Intraoral - periapical first radiographic image Teeth:?? 18 D0140 - Limited oral evaluation - problem focused D7140 - Extraction, erupted tooth or exposed root (elevation and/or forceps removal) Teeth: 18 ?? Tx: JEISON, 1PA, Simple?? Ext #18 CC: presents for JEISON with CC I'm just here because this tooth is really hurting me lately, I lost a filling sometime ago ?? Hx: see EMR ?? BP: 141/72 P: 62 ?? HPI: ?? - Location: LL ?? - Onset: a few months (pt was not?? able name exactly when the tooth fractured or started having symptoms)?? - Quality: dull sharp throbbing aching ??--all depending on what she's doing - Sensitive to: cold sweet hot chewing ??-all of the above - Wakes pt up at night: no ?? - Improves with: pt does not like to take medication, pt does not take anything to soothe the pain - Swelling: yes at first but not as much now ?? - Fever/aches/chil ls: no ?? - Trouble swallowing/breat joanne:?? no ? Radiographic Findings:? #18: caries to the pulp, widened PDL space, PARL on distal root, fracture mesial tooth structure? #19: large composite, widened PDL, no apical radiolucency? Endo Testing for teeth #18 and #19:? - Thermal Sensitivity (cold): (+++) #18 (lingering cold sensitivity), (+) #19 (no lingering cold sensitivity)?? - Percussion: WNL both #18, 19 - Tooth Sleuth: WNL both #18, 19?? - Mobility: yes?? #18- Class III (recession on buccal ~4mm with exposed roots)?? #19- Class II ?? Diagnosis: ?? Pulpal:?? 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 Tooth #19 reversible pulpitis, symptomatic apical periodontitis? Discussion: - Informed pt of findings, tx options, risks benefits and potential consequences on no tx which pt understood. Addressed all pt? s questions and concerns.?? - Reviewed tx plan options for tooth #18 with RCT + crown vs. extraction.?? - Reviewed tx plan options for tooth #19 with crown d/t large composite with compromised seal and break down of composite. Recommend a crown to provide cuspal protection and reduce cold sensitivity.?? - Pt decided to extract tooth #18 today d/t finances, guarded prognosis, and the amount of visits needed to perform RCT and crown.?? - Pt expressed interest in a crown for #19 since it is the only molar on her LL, and is worried of losing #19.?? - Informed consent obtained for ext #18.? Consent forms reviewed and signed ?? Radiograph available? Anesthesia: ? 20% Benzocaine topical anesthesia ?? 1 carp 2% Lidocaine w/1:100k epi via local infiltration, IANB ?? 2 carp 4% Articaine w/1:200k epi via local infiltration? Procedure:? Simple: ?? Elevate and deliver with elevators and forceps without complications ?? Removed with root picks/elevators with no complications. ? Socket curetted ?? Copious irrigation with saline ?? No sinus communication detected ?? No nerve visualized? All adjacent teeth intact? No sutures necessary? Gauze placed? Good hemostasis achieved. ? P/O instructions given written and verbally, which pt understood? Pain Management: 600mg ibuprofen, 500mg acetaminophen q6h PRN pain? Pt tolerated procedure well, Pt was discharged in stable condition; alert, oriented and ambulatory ?? 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 pt mentions it is difficult for her to set aside time to take care of herself because she is busy with her work.? Pairing Machine Operator: Bisi ?? Bibi Bartholomew DMD? , 11:42 AM. I attest that the treatment rendered today is completed and treatment met the standard of care. , 1:58 PM. [id number] Not available 12/28/2022 15:03:23 Plan of Treatment Reminders Order Date Submit Date Provider Last Modified By Organization Details Last Modified Time Details Appointments None record ed. Lab None record ed. Referral None record ed. Procedures None record ed. Surgeries None record ed. Imaging None record ed. Medication Orders None record ed. Patient TargetsNo targets recorded. Patient InstructionsNo instructions recorded. Reason for Referral None Reported. Problems Name Status Onset Date Resolution Date Notes Provider Name and Address Organization Details Recorded Time Urinary tract infectious disease Active 2013 UTI; Entered By: Griselda Anaya PA-C Signed By: Griselda Anaya PA-C Not Available [facility] 3 14:12:37 Fracture of phalanx of foot Active 2021 Other physeal fracture of phalanx of left toe, subsequent encounter for fracture with routine healing; Entered By: Lidia Levin APRN Signed By: Lidia Levin APRN Annotate : 5th toe, happened when slipped on ice spring 2021 Not Available [facility] 3 14:12:37 Disorder of skin Active 2021 Skin lesions, multiple; Entered By: Lidia Levin APRN Signed By: Lidia Levin APRN Skin lesion; Entered By: Rosi Austin Signed By: Rosi Jordan Reason: Removed; Start Date : 01/20/2015 Sk in lesion; Entered By: Lidia Levin APRN Signed By: Lidia Levin APRN Stop Reason: Resolved; Start Date : 01/20/2015 Not Available [facility] 3 14:12:37 Chest pain Completed 201105/14/2013 CHEST PAIN; Entered By: Rosalia Duran Signed By: Rosalia Duran Stop Reason: Removed CHEST PAIN; Entered By: Katty Duran MD Signed By: Katty Duran MD Stop Reason: Ruled Out Not Available [facility] 3 14:12:37 Screening - health check Active 2012 PREVENTIVE HEALTH CARE; Entered By: Court Childerss Signed By: Court Childress Not Available [facility] 3 14:12:37 Procedure carried out on subject Active 2014 Nutrition treatment for vegetarianism ; Entered By: Lidia Levin APRN Signed By: Lidia Levin APRN Not Available [facility] 3 14:12:37 Osteoarthriti s of hip Completed 201810/22/2022 OA, hips, bilateral (h/o bilateral hip replacement); Entered By: Lidia Levin APRN Signed By: Lidia Levin APRN OA, hip, left; Entered By: Sydnee White PA-C Signed By: Sydnee White PA-C Stop Reason: Changed Not Available [facility] 3 14:12:38 Otitis media Completed 201412/05/2014 OM; Entered By: Yadira Llanes PA-C Signed By: Yadira Llanes PA-C Not Available [facility] 3 14:12:38 Fatigue Active 2021 Fatigue; Entered By: Lidia Levin APRN Signed By: Lidia Levin APRN Not Available [facility] 3 14:12:38 Menopausal syndrome Completed 201410/22/2022 Menopausal syndrome; Entered By: Rosi Austin Signed By: Rosi Jordan Reason: Changed MENOP AUSAL SYNDROME; Entered By: Rosalia Duran Signed By: Rosalia Jordan Reason: Removed; Start Date : 05/14/2012 ME NOPAUSAL SYNDROME; Entered By: Katty Duran MD Signed By: Katty Duran MD Stop Reason: Inactive; Start Date : 05/14/2012 Not Available [facility] 3 14:12:39 Pain of joint of knee Active 2021 Knee pain, left; Entered By: Lidia Levin APRN Signed By: Lidia Levin APRN Annotate : saw orthopedics, did PT Approx OnSet Date: spring 2021 Not Available [facility] 3 14:12:39 Vitamin D deficiency Active 2014 Vitamin D deficiency; Entered By: Lidia Levin APRN Signed By: Lidia Levin APRN Not Available [facility] 3 14:12:39 Ulcer of duodenum Active 2011 DUODENAL ULCER; Entered By: Katty Duran MD Signed By: Katty Duran MD Not Available [facility] 3 14:12:39 Infection of sebaceous cyst Completed 201710/22/2022 Sebacceous cyst-infected ; Entered By: Yadira Llanes PA-C Signed By: Yadira Llanes PA-C Stop Reason: Removed Sebac ceous cyst-infected ; Entered By: Lidia Levin APRN Signed By: Lidia Levin APRN Stop Reason: Resolved Not Available [facility] 3 14:12:40 Cough Completed 201506/16/2022 Cough; Entered By: Yadira Llanes PA-C Signed By: Yadira Llanes PA-C Stop Reason: Removed Cough ; Entered By: Lidia Levin APRN Signed By: Lidia Levin APRN Stop Reason: Resolved Not Available [facility] 3 14:12:40 Abdominal pain Completed 201201/10/2014 ABDOMINAL PAIN; Entered By: Yadira Llanes PA-C Signed By: Yadira Llanes PA-C Not Available [facility] 3 14:12:40 Pre-surgery evaluation Completed 201807/01/2019 Preoperative exam; Entered By: Griselda Anaya PA-C Signed By: Griselda Anaya PA-C Not Available [facility] 3 14:12:40 Spasm of piriformis muscle Completed 201510/22/2022 Piriformis muscle spasm, right; Entered By: Yadira Llanes PA-C Signed By: Yadira Llanes PA-C Stop Reason: Removed Pirif ormis muscle spasm, right; Entered By: Lidia Levin APRN Signed By: Lidia Levin APRN Stop Reason: Resolved Not Available [facility] 3 14:12:40 Heartburn Active 2011 HEARTBURN; Entered By: Katty Duran MD Signed By: Katty Duran MD Not Available [facility] 3 14:12:40 Chronic dacryocystiti s Active 2013 CHRONIC DACRYOCYSTITI S; Entered By: Griselda Anaya PA-C Signed By: Griselda Anaya PA-C Not Available [facility] 3 14:12:41 Osteoarthriti s of multiple joints Active 2021 Osteoarthriti s, multiple joints; Entered By: Lidia Levin APRN Signed By: Lidia Levin APRN Not Available [facility] 3 14:12:41 Abnormal weight gain Completed 201410/22/2022 Weight gain; Entered By: Yadira Llanes PA-C Signed By: Yadira Llanes PA-C Stop Reason: Removed Weigh t gain; Entered By: Lidia Levin APRN Signed By: Lidia Levin APRN Stop Reason: Resolved Not Available [facility] 3 14:12:41 Gastric ulcer Active 2011 GASTRIC ULCERS; Entered By: Katty Duran MD Signed By: Katty Duran MD Not Available [facility] 3 14:12:41 Knee pain Completed 201810/22/2022 Knee pain, left; Entered By: Mara Espana Signed By: Mara Espana Stop Reason: Changed Not Available [facility] 3 14:12:41 Postmenopausa l state Active 2014 Postmenopausa l state; Entered By: Lidia Levin APRN Signed By: Lidia Levin APRN Not Available [facility] 3 14:12:42 Alopecia areata Active 2017 Alopecia areata; Entered By: Griselda Anaya PA-C Signed By: Griselda Anaya PA-C Not Available [facility] 3 14:12:43 Melanoma in situ of face Active 2022 Lidia Levin APRN [address] [place], [address] , [facility] 3 07:07:08 Problem Notes None recorded. Medical Equipment None Reported. Allergies Allergen ID Allergen Name Allergen Category Reaction Reaction Severity Criticality Documentation Date Start Date Code Code System Note Provider Name and Address Organization Details Recorded Time 21946 codeine medicatio n nausea moderate Not available 10/21/20222011 2670 RxNorm React ion: nause a;Sev erity : Moder ate; Comme nt: Enter ed By: Peter Abraham Sig suman By: Peter Abraham Typ e: GPI C ode: [id number] Unco ded: N; Not Available [facility] 3 17:39:09 Medications Name Sig Start Date Stop Date Status Note LastModified by Organization Details LastModified Time cyclobenz aprine 10 mg tablet Take 1 tab 1 hour prior to bedtime 11/05 completed Entered By: Yadira vAina PA-C Sig suman By: Yadira Avina PA-C Unc max: N BMN: N Not Available Not Available Not Available Multi-Vit miner tablet occ 06/16 completed Entered By: Surya CHOPRA Sign ed By: Katty Shane MD Uncod ed: N BMN: N Not Available Not Available Not Available Akne-Myci n 2 % topical ointment Apply to 1/4 inch to inner canthus and inner aspect of lower eyelid, to affect eye, 3-4 times daily for 10 days. 01/10 completed Entered By: Brigette Dugan d By: Yadira Avina PA-C Unc max: N BMN: N Not Available Not Available Not Available Carafate 1 gram tablet Take one tablet four times per day for abd pain 12/04 completed Entered By: Yadira Avina PA-C Sig suman By: Yadira Avina PA-C Cli nical Date: 013 Rx ID: [id number] Authori zed By: Yadira Llanes PA-C [facility] max: N BMN: N Not Available Not Available Not Available aspirin 325 mg tablet Take one daily 04/29 completed Entered By: Carolina delarosa RN Carola d By: Yadira Avina PA-C [facility] max: N BMN: N Not Available Not Available Not Available Keflex 500 mg capsule Take one tablet three times per day FOR SKIN INFECTIO N 04/18 completed Entered By: Yadira Avina PA-C Sig suman By: Yadira Avina PA-C Cli nical Date: 018 Rx ID: [id number] Authori zed By: Yadira Llanes PA-C [facility] max: N BMN: N Not Available Not Available Not Available Nexium 40 mg capsule,d elayed release Take one tablet one time per day 12/04 completed Entered By: Yadira Avina PA-C Sig suman By: Yadira Avina PA-C [facility] max: N BMN: N Not Available Not Available Not Available amoxicill in 500 mg tablet Take 1 tablet every eight hours 06/16 completed Entered By: Marla Delvalle LPN Sign ed By: Marla Delvalle LPN Unco ded: N BMN: N Not Available Not Available Not Available meloxicam 7.5 mg tablet take one twice a day 02/17 completed Entered By: Drew Srivastava d By: Drew alcala RN Clini leny Date: Rx ID: [id number] Authori zed By: Sydnee White PA-C Unc max: N BMN: N Not Available Not Available Not Available doxycycli ne monohydra te 100 mg capsule Take one tablet two times per day 07/21 completed Entered By: Yadira Avina PA-C Sig suman By: Yadira Avina PA-C Cli nical Date: 016 Rx ID: [id number] Authori zed By: Yadira Llanes PA-C [facility] max: N BMN: N Not Available Not Available Not Available erythromy prasanna 5 mg/gram (0.5 %) eye ointment apply to eyes four times per day for 5-7 days 07/11 completed Entered By: Yadira Avina PA-C Sig suman By: Yadira Avina PA-C [facility] max: N BMN: N Not Available Not Available Not Available nitrofura ntoin macrocrys fara 100 mg capsule Take one tablet two times per day 11/05 completed Entered By: Yadira Avina PA-C Sig suman By: Yadira Leroy max: N BMN: N Not Available Not Available Not Available Advil 200 mg tablet take two three times a day for cyst discomfo rt. 04/29 completed Entered By: Son Jane LPN Sign ed By: Griselda Anaya PA-C [facility] max: N BMN: N Not Available Not Available Not Available omeprazol e 20 mg capsule,d elayed release Take one tablet one time per day for stomach acid 07/11 completed Entered By: Yadira Avina PA-C Sig suman By: Yadira Avina PA-C Cli nical Date: Rx ID: [id number] Authori zed By: Yadira Llanes PA-C [facility] max: N BMN: N Not Available Not Available Not Available Nitrostat 0.3 mg sublingua l tablet use as needed for esophage al spasm 12/04 completed Entered By: Surya CHOPRA Sign ed By: Griselda Anaya PA-C [facility] max: N BMN: N Not Available Not Available Not Available Pepcid 20 mg tablet Take one tablet two times per day 01/20 completed Entered By: Yadria Avina PA-C Sig suman By: Yadira Avina PA-C [facility] max: N BMN: N Not Available Not Available Not Available Vitamin D2 1,250 mcg (50,000 unit) capsule Take one capsule every week 07/11 completed Entered By: Yadira Avina PA-C Sig suman By: Yadira Avina PA-C [facility] max: N BMN: N Not Available Not Available Not Available doxycycli ne hyclate 100 mg tablet Take 1 tablet twice a day by oral route as directed for 10 days. 2022 active Not Available Not Available Not Avai lable Tylenol Extra Strength 500 mg tablet 1 tab daily for pain 04/29 completed Entered By: Son Jane LPN Sign ed By: Griselda Anaya PA-C [facility] max: N BMN: N Not Available Not Available Not Available Vitals None Recorded Social History None recorded. Functional Status None recorded. Mental Status None recorded. Family History Relationship Description Onset Age of this Age Resolved Age Notes Notes:Mother- [place] s/p CABG, [place], skin cancer (unsure what type but localized), MGM: 58 [place], Father- [place] age 57 s/p CABG, 60s, PGM: breast cancer, Children: one with Type I DM, otherwise healthy Medical History No medical history recorded. Gynecological HistoryNo gynecological history recorded. Obstetrics History GPAL:G 0 P 0 0 0 0 Immunizations Vaccine Type Date Status Provider Name and Address Organization Details Recorded Time influenza, unspecified formulation 03/28/2012 completed Not Available [facility] 10/21/2022 04:46:37 Past Encounters Encounter ID Performer Location Encounter Start Date Encounter Closed Date Diagnosis/Indication Diagnosis SNOMED-CT Code [id number] [facility] [address] [place] [address] 12/25/2022 08:24:42 12/28/2022 15:03:21 Health Concerns Section Related Observation LastModified by Organization Detai ls LastModified Time None Recorded Concern Status LastModified by Organization Details LastModified Time None Recorded Advance Directives Directive None Recorded Payers Encounter Date Sequence Insurance Name Policy Number Policy Bonds Covered Member ID Bonds Member ID Guarantor Name 12/25/2022 [employer]DER (MOVED TO HOLD) Mag Rider DENTALINSID Mag Rider 12/25/2022 *SELF PAY* [facility] Episode No OBEpisode recorded.
--- OUTSIDE RECORDS SUMMARY | 2024-04-21 04:19 | XMS_ITS | Continuity of Care Document ---
Author Organization [facility] Address [address] [place] [id number] Care Team Providers Care Technical Service Engineer Name Role Phone Yadira Llanes Primary Care Physician Encounter [facility] [id number] Date(s): 07/24/23 - 07/24/[address] Discharge Disposition: Home or Self Care Attending Physician: Joe Chamorro MD Admitting Physician: Joe Chamorro MD Referring Physician: Yadira Llanes Social History Social History Type Response Sex Female Patient Care team information Care Team Personnel Name: Yadira Llanes Position: No Access Member Role: Primary Care Physician Address: Address: [address] [place] [id number] [place]
--- OUTSIDE RECORDS SUMMARY | 2024-04-21 04:19 | XMS_ITS | Encounter Summary ---
Author Organization [facility] Address [address] [place] [address] Care Team Providers Care Tablet Making Machine Operator Name Role Phone Unknown, Provider Primary Care Provider [phone] Encounter Details Date Type Department Care Team (Late st Contact Info) Description 04/23/2019 Historical Results Only [facility] - Main [place] [address], [place] [address] Yadira Llanes PA [address] [place], [place] [id number] Social History Tobacco Use Types Packs/Day Years Used Date Smoking Tobacco: Never Assessed Sex and Gender Information Value Date Recorded Sex Assigned at Not on file Gender Identity Not on file Sexual Orientation Not on file documented as of this encounter Plan of Treatment Not on file documented as of this encounter Procedures Procedure Name Priority Date/Time Associated Diagnosis Comments PROTIME Routine 04/23/2019 16:30 EDT BASIC METABOLIC PANEL POCT - [facility] Routine 04/23/2019 12:06 EDT CBC W/PLT & DIFF,POINT OF CARE - [facility] Routine 04/23/2019 12:06 EDT documented in this encounter Results * PROTIME (04/23/2019 16:30 EDT) PROTHROMBIN TIME - [facility] 10.4 10.3 - 13.4 SECONDS 04/23/2019 18:12 EDT [facility] 04/23/2019 16:3 0 EDT 04/23/2019 17:51 EDT Narrative [facility] - 05/27/2019 16:21 EDT Does PT Have a Latex Allergy? NO Yadira DIAZ HEMATOLOGY & PF4 ORD ERABLES [facility] * (ABNORMAL) CBC W/PLT & DIFF,POINT OF CARE - [facility] (04/23/2019 12:06 EDT) Gran # 4.2 1.4 - 6.5 X10E3/UL 04/24/2019 12:07 [facility] GRAN % - [facility] 66.1 42.2 - 75.2 % 04/24/2019 12:07 [facility] HEMATOCRIT - [facility] 36.8 35.0 - 60.0 % 04/24/2019 12:07 [facility] HEMOGLOBIN - [facility] 12.1 11.0 - 18.0 G/DL 04/24/2019 12:07 [facility] LYMPH # - [facility] 1.8 1.2 - 3.4 X10E3/UL 04/24/2019 12:07 [facility] LYMPH% - [facility] 28.7 20.5 - 51.1 % 04/24/2019 12:07 [facility] MEAN CORPUSCULAR HGB - [facility] 32.5(H) 27.0 - 31.0 PG 04/24/2019 12:07 [facility] MEAN CORPUSCULAR HGB CONC - [facility] 32.9(L) 33.0 - 37.0 G/DL 04/24/2019 12:07 [facility] MEAN CELL VOLUME - [facility] 98.8 80.0 - 99.9 FL 04/24/2019 12:07 [facility] MONO # - [facility] 0.3 0.1 - 0.6 X10E3/UL 04/24/2019 12:07 [facility] MONO% - [facility] 5.2 1.7 - 9.3 % 04/24/2019 12:07 [facility] MEAN PLATELET VOLUME - [facility] 7.2(L) 7.8 - 11.0 FL 04/24/2019 12:07 [facility] PLATELET COUNT 377 150 - 450 X10E3/UL 04/24/2019 12:07 [facility] RED BLOOD COUNT - [facility] 3.73(L) 4.00 - 6.00 X10E6/UL 04/24/2019 12:07 [facility] RED CELL DISTRI WIDTH - [facility] 12.6 11.6 - 13.7 % 04/24/2019 12:07 [facility] WHITE BLOOD COUNT - [facility] 6.4 4.5 - 10.5 X10E3/UL 04/24/2019 12:07 [facility] 04/23/2019 12:0 6 EDT 04/23/2019 12:06 EDT Yadira DIAZ CHEMISTRY & BLOOD GA S ORDERABLES [facility] * BASIC METABOLIC PANEL POCT - [facility] (04/23/2019 12:06 EDT) BUN - [facility] 11 7.00 - 20.00 MG/DL 04/24/2019 12:07 [facility] CALCIUM - [facility] 9.4 8.50 - 10.50 MG/DL 04/24/2019 12:07 [facility] Chloride 106 98.00 - 107.00 MMOL/L 04/24/2019 12:07 [facility] CO2 Total 25 22.00 - 30.00 MMOL/L 04/24/2019 12:07 [facility] CREATININE 0.8 0.70 - 1.50 MG/DL 04/24/2019 12:07 [facility] Anion Gap 10 7 - 17 MMOL/L 04/24/2019 12:07 [facility] GLUCOSE - [facility] 92 70.00 - 100.00 MG/DL 04/24/2019 12:07 [facility] Potassium 3.9 3.50 - 5.10 MMOL/L 04/24/2019 12:07 EDT [facility] Sodium 141 137.00 - 145.00 MMOL/L 04/24/2019 12:07 EDT [facility] 04/23/2019 12:0 6 EDT 04/23/2019 12:06 EDT Yadira DIAZ POINT OF CARE TEST O RDERABLES [facility] documented in this encounter Visit Diagnoses Not on filedocumented in this encounter Care Teams Tablet Making Machine Operator Relationship Specialty Start Date End Date Unknown, Provider, PCP - General 12/24/12 documented as of this encounter
--- OUTSIDE RECORDS SUMMARY | 2024-04-21 04:19 | XMS_ITS | Encounter Summary ---
Author Organization [facility] Address [address] [place] [address] Care Team Providers Care Cutter Woodwind Reeds Name Role Phone Unknown, Provider Primary Care Provider Encounter Details Date Type Department Care Team (Late st Contact Info) Description 04/11/[address] [facility] Radiology Results [address] [place], [place] [address] Griselda Anaya PA [address] [place], [place] Social History Tobacco Use Types Packs/Day Years Used Date Smoking Tobacco: Never Assessed Sex and Gender Information Value Date Recorded Sex Assigned at Not on file Gender Identity Not on file Sexual Orientation Not on file documented as of this encounter Plan of Treatment Not on file documented as of this encounter Procedures Procedure Name Priority Date/Time Associated Diagnosis Comments XR KNEE LEFT 4 OR MORE VIEWS 04/11/2019 12:41 EDT documented in this encounter Results * XR KNEE LEFT 4 OR MORE VIEWS (04/11/2019 12:41 EDT) Anatomical Region Laterality Modality Lower Extremities Left Other 04/11/2019 12:4 1 EDT Narrative 04/11/2019 12:44 EDT ? EXAM: RADIOLOGY/KNEE COMPLETE LT 4+VIEW ?? EX. D/ (1050) ? CLINICAL INFORMATION: ? M25.562 (L) KNEE PAIN ? SNOWBOARDING ACCIDENT ? INDICATION: M25.562 (L) KNEE PAIN, SNOWBOARDING ACCIDENT . ? COMPARISON: None. ? TECHNIQUE: 4+ views of the left knee were obtained. ? FINDINGS: ? No bone, joint or soft tissue abnormality is identified. No fracture ? is seen. ? Impression: No radiographic abnormality identified. ? REPORT SIGNED IN OTHER VENDOR SYSTEM 04/11/2019 ?Reported By: Hugh Tinajero MD ? CC: Brett David MD ? Transcribed Date/Time: 04/11/2019 (8144) ? Stock Room Manager: ? Printed Date/Time: 05/28/2019 (0201) ? PAGE 1 ? Signed Report ? Procedure Note Hugh Tinajero MD - 07/15/2019 EXAM: RADIOLOGY/KNEE COMPLETE LT 4+VIEW EX. D/ (1050) CLINICAL INFORMATION: M25.562 (L) KNEE PAIN SNOWBOARDING ACCIDENT INDICATION: M25.562 (L) KNEE PAIN, SNOWBOARDING ACCIDENT . COMPARISON: None. TECHNIQUE: 4+ views of the left knee were obtained. FINDINGS: No bone, joint or soft tissue abnormality is identified. Nofracture is seen. Impression: No radiographic abnormality identified. REPORT SIGNED IN OTHER VENDOR SYSTEM 04/11/2019 Reported By: Hugh Tinajero MD CC: Brett David MD Transcribed Date/Time: 04/11/2019 (1244) Stock Room Manager: Printed Date/Time: 05/28/2019 (0852) PAGE 1 Signed Report Griselda DIAZ IMG DIAGNOSTIC IMAGI NG ORDERABLES documented in this encounter Visit Diagnoses Not on filedocumented in this encounter Care Teams Cutter Woodwind Reeds Relationship Specialty Start Date End Date Unknown, Provider, PCP - General 12/24/12 documented as of this encounter
--- OUTSIDE RECORDS SUMMARY | 2024-04-21 04:19 | XMS_ITS | Encounter Summary ---
Author Organization [facility] Address [address] [place] [address] Care Team Providers Care Vice President [employer] Name Role Phone Unknown, Provider Primary Care Provider [phone] Encounter Details Date Type Department Care Team (Late st Contact Info) Description 04/23/[address] [facility] Lab - Main [place] [address] [place], [place] [address] Yadira Llanes PA [address] [place], [place] [id number] Social History Tobacco Use Types Packs/Day Years [...] Diagnosis Comments PROTIME Routine 04/23/2019 16:30 EDT documented in this encounter Results * PROTIME (04/23/2019 16:30 EDT) INR - [facility] 0.9 0.9 - 1.1 04/23/2019 18:12 EDT [facility] Comment: Moderate Intensity Coumadin INR = 2.0-3.0 Adjustments in anticoagulant therapy dose should be based upon the INR and NOT the Protime. 04/23/2019 16:3 0 EDT 04/23/2019 17:51 EDT Narrative [facility] - 05/27/2019 16:21 EDT Does PT Have a Latex Allergy? NO Yadira DIAZ HEMATOLOGY & PF4 ORD ERABLES [facility] documented in this encounter Visit Diagnoses Not on filedocumented in this encounter Care Teams Vice President [employer] Relationship Specialty Start Date End Date Unknown, Provider, PCP - General 12/24/12 documented as of this encounter
--- OUTSIDE RECORDS SUMMARY | 2024-04-21 04:19 | XMS_ITS | Clinical Summary ---
Author Organization [facility] Address [address] [place] [address] Care Team Providers Care Secondary Education Professor Name Role Phone Unknown, Provider Primary Care Provider [phone] Allergies Active Allergy Reactions Criticality Noted Date Comments Codeine 04/06/2010 N & V Active Problems Problem Noted Date Diagnosed Date Headache 11/09/2007 Overview: ICD10 Update Auto Replacement Gastroesophageal reflux disease Overview: Esophagram 03/2008 Surgical History Surgery Date Site/Laterality Comments EYE SURGERY 11/09/2007 tear duct surgery Medical History Medical History Date Comments GERD (gastroesophageal reflux disease) Family History Medical History Relation Comments Heart Disease Father aortic disection *Other(comment) Mother cholecystectomy Arthritis-Rheumatoid Mother Coronary Artery Disease Mother Relation Status Comments Father Mother Social History Tobacco Use Types Packs/Day Years Used Date Smoking Tobacco: Never Assessed Interpersonal Safety Answer Date Record ed Physically Hurt Never 04/11/2020 Verbally Threaten Not on file 04/11/2020 Sex and Gender Information Value Date Recorded Sex Assigned at Not on file Gender Identity Not on file Sexual Orientation Not on file Obstetrics History Plan of Treatment Health Maintenance Due Date Last Done Comments Hepatitis C Screen 1955 RSV Immunization ( o r 60+ Years) (1 - 1-dose 60+ series) 2017 Fall Risk Screening 2022 COVID-19 Vaccine ( - 2022-24 season) 2023 Care Teams Secondary Education Professor Relationship Specialty Start Date End Date Unknown, Provider, PCP - General 12/24/12
--- OUTSIDE RECORDS SUMMARY | 2024-04-21 04:19 | XMS_ITS | Encounter Summary ---
Author Organization [facility] Address [address] [place] [address] Care Team Providers Care Independent Insurance Adjuster Name Role Phone Unknown, Provider Primary Care Provider [phone] Encounter Details Date Type Department Care Team (Latest Contact Info) Description 01/19/2019 13:20 EDT - 01/19/2019 23:59 EDT Hospital Encounter [facility] [address] [place] [address] Unknown, ProviderMD Discharge Disposition: Home or Self Care Social History Tobacco Use Types Packs/Day Years Used Date Smoking Tobacco: Never Assessed Sex and Gender Information Value Date Recorded Sex Assigned at Not on file Gender Identity Not on file Sexual Orientation Not on file documented as of this encounter Discharge Disposition Disposition Code Departure Means Destination Home or Self Jail documented in this encounter Plan of Treatment Not on file documented as of this encounter Visit Diagnoses Not on filedocumented in this encounter Care Teams Independent Insurance Adjuster Relationship Specialty Start Date End Date Unknown, Provider, PCP - General 12/24/12 documented as of this encounter
--- OUTSIDE RECORDS SUMMARY | 2024-04-21 04:19 | XMS_ITS | Encounter Summary ---
Author Organization [facility] Address [address] [place] [address] Care Team Providers Care Mass Spectrometry Manager Name Role Phone Unknown, Provider Primary Care Provider [phone] Encounter Details Date Type Department Care Team (Late st Contact Info) Description 02/14/2019 Historical Results Only [facility] Radiology Results [address] [place], [place] [address] Nataly Rendon PA-C [address] [facility] [address] [place], [place] [address] Social History Tobacco Use Types Packs/Day Years Used Date Smoking Tobacco: Never Assessed Sex and Gender Information Value Date Recorded Sex Assigned at Not on file Gender Identity Not on file Sexual Orientation Not on file documented as of this encounter Plan of Treatment Not on file documented as of this encounter Procedures Procedure Name Priority Date/Time Associated Diagnosis Comments FL GUIDED INJECT/ASPIR RIGHT HIP 02/14/2019 16:08 EDT FL GUIDED INJECT/ASPIR LEFT HIP 02/14/2019 11:00 EDT documented in this encounter Results * FL GUIDED INJECT/ASPIR RIGHT HIP (02/14/2019 16:08 EDT) Anatomical Region Laterality Modality Other 02/14/2019 16:0 8 EDT Narrative 02/14/2019 16:11 EDT ? EXAM: RADIOLOGY/FLUORO GUIDED INJEC/ASP R EX. D/ (1045) ? CLINICAL INFORMATION: ? M16.0 BILATERAL HIP JOINT ARTHRITIS ? Exam: Fluoroscopic guided right hip injection ? Indication: M16.0 BILATERAL HIP JOINT ARTHRITIS BILATERAL HIP JOINT ? ARTHRITIS ? Procedure: Following a discussion of the risks and benefits ? associated with this procedure (including, but not limited to; ? infection, bleeding, pain, damage to joint), informed verbal and ? written consent was obtained. Fluoroscopy time 12 seconds. ? On the right, The skin over the right hip was cleaned and draped in ? the usual sterile fashion. 5 mL of 1% lidocaine was placed for local ? anesthesia. A 3-1/2 inch 22-gauge spinal needle was then directed ? into the right hip joint utilizing an oblique anterior approach under ? fluoroscopic guidance. 1 mL 3 cc of the Omnipaque-300 was placed to ? confirm position. 6 mL of a solution containing 1 mL of 40 mg Kenalog ? and 1% lidocaine was administered. The needle was withdrawn and a ? sterile dressing applied. No immediate complications were ? experienced. ? On the left, The skin over the left hip was cleaned and draped in the ? usual sterile fashion. 5 mL of 1% lidocaine was placed for local ? anesthesia. A 3-1/2 inch 22-gauge spinal needle was then directed ? into the right hip joint utilizing an oblique anterior approach under ? fluoroscopic guidance. 1 mL 3 cc of the Omnipaque-300 was placed to ? confirm position. 6 mL of a solution containing 1 mL of 40 mg Kenalog ? and 1% lidocaine was administered. The needle was withdrawn and a ? sterile dressing applied. No immediate complications were ? experienced. ? Impression: ? 1. Bilateral hip fluoroscopic guided joint injection performed ? without immediate complication. ? REPORT SIGNED IN OTHER VENDOR SYSTEM 02/14/2019 ?Reported By: Fareed De MD ? CC: Nataly Rendon ? Transcribed Date/Time: 02/14/2019 (1611) ? Licsw: ? Printed Date/Time: 05/28/2019 (1157) ? PAGE 1 ? Signed Report ? Procedure Note Fareed De MD - 07/15/2019 EXAM: RADIOLOGY/FLUORO GUIDED INJEC/ASP R EX. D/ (1045) CLINICAL INFORMATION: M16.0 BILATERAL HIP JOINT ARTHRITIS Exam: Fluoroscopic guided right hip injection Indication: M16.0 BILATERAL HIP JOINT ARTHRITIS BILATERAL HIP JOINT ARTHRITIS Procedure: Following a discussion of the risks and benefits associated with this procedure (including, but not limited to; infection, bleeding, pain, damage to joint), informed verbal and written consent was obtained. Fluoroscopy time 12 seconds. On the right, The skin over the right hip was cleaned and draped in the usual sterile fashion. 5 mL of 1% lidocaine was placed forlocal anesthesia. A 3-1/2 inch 22-gauge spinal needle was then directed into the right hip joint utilizing an oblique anterior approachunder fluoroscopic guidance. 1 mL 3 cc of the Omnipaque-300 was placed to confirm position. 6 mL of a solution containing 1 mL of 40 mgKenalog and 1% lidocaine was administered. The needle was withdrawn and a sterile dressing applied. No immediate complications were experienced. On the left, The skin over the left hip was cleaned and draped inthe usual sterile fashion. 5 mL of 1% lidocaine was placed for local anesthesia. A 3-1/2 inch 22-gauge spinal needle was then directed into the right hip joint utilizing an oblique anterior approachunder fluoroscopic guidance. 1 mL 3 cc of the Omnipaque-300 was placed to confirm position. 6 mL of a solution containing 1 mL of 40 mgKenalog and 1% lidocaine was administered. The needle was withdrawn and a sterile dressing applied. No immediate complications were experienced. Impression: 1. Bilateral hip fluoroscopic guided joint injection performed without immediate complication. REPORT SIGNED IN OTHER VENDOR SYSTEM 02/14/2019 Reported By: Fareed De MD CC: Nataly Rendon Transcribed Date/Time: 02/14/2019 (8402) Licsw: Printed Date/Time: 05/28/2019 (7908) PAGE 1 Signed Report Nataly Rendon PA-C IMG FLUOROSC OPY ORDERABLES * FL GUIDED INJECT/ASPIR LEFT HIP (02/14/2019 11:00 EDT) Anatomical Region Laterality Modality Other 02/14/2019 11:0 0 EDT Narrative 02/14/2019 11:03 EDT ? EXAM: RADIOLOGY/FLUORO GUIDED INJEC/ASP L EX. D/ (1045) ? CLINICAL INFORMATION: ? M16.0 BILATERAL HIP JOINT ARTHRITIS ? Exam: Fluoroscopic guided left hip injection Indication: M16.0 ? BILATERAL HIP JOINT ARTHRITIS BILATERAL HIP JOINT ARTHRITIS ? Procedure: Following a discussion of the risks and benefits ? associated with this procedure (including, but not limited to; ? infection, bleeding, pain, damage to joint), informed verbal and ? written consent was obtained. Fluoroscopy time 12 seconds. ? The skin over the right and left hip was cleaned and draped in the ? usual sterile fashion. ? On the right, 5 mm of 1% lidocaine was placed for local anesthesia. A ? 3-1/2 inch 22-gauge spinal needle was then directed into the left hip ? joint utilizing an oblique anterior approach under fluoroscopic ? guidance. 1 mL of the Omnipaque-300 was placed to confirm position. 6 ? mL of a solution containing 1 mL of 40 mg Kenalog, 1% lidocaine was ? administered. The needle was withdrawn and a sterile dressing ? applied. No immediate complications were experienced. ? On the left, 5 mm of 1% lidocaine was placed for local anesthesia. A ? 3-1/2 inch 22-gauge spinal needle was then directed into the left hip ? joint utilizing an oblique anterior approach under fluoroscopic ? guidance. 1 mL of the Omnipaque-300 was placed to confirm position. 6 ? mL of a solution containing 1 mL of 40 mg Kenalog, 1% lidocaine was ? administered. The needle was withdrawn and a sterile dressing ? applied. No immediate complications were experienced. ? Impression: ? 1. Bilateral hip fluoroscopic guided joint injection performed ? without immediate complication. ? REPORT SIGNED IN OTHER VENDOR SYSTEM 02/14/2019 ?Reported By: Fareed De MD ? CC: Nataly Rendon ? Transcribed Date/Time: 02/14/2019 (1103) ? Licsw: ? Printed Date/Time: 05/28/2019 (1157) ? PAGE 1 ? Signed Report ? Procedure Note Fareed De MD - 07/15/2019 EXAM: RADIOLOGY/FLUORO GUIDED INJEC/ASP L EX. D/ (1045) CLINICAL INFORMATION: M16.0 BILATERAL HIP JOINT ARTHRITIS Exam: Fluoroscopic guided left hip injection Indication: M16.0 BILATERAL HIP JOINT ARTHRITIS BILATERAL HIP JOINT ARTHRITIS Procedure: Following a discussion of the risks and benefits associated with this procedure (including, but not limited to; infection, bleeding, pain, damage to joint), informed verbal and written consent was obtained. Fluoroscopy time 12 seconds. The skin over the right and left hip was cleaned and draped in the usual sterile fashion. On the right, 5 mm of 1% lidocaine was placed for local anesthesia.A 3-1/2 inch 22-gauge spinal needle was then directed into the lefthip joint utilizing an oblique anterior approach under fluoroscopic guidance. 1 mL of the Omnipaque-300 was placed to confirm position.6 mL of a solution containing 1 mL of 40 mg Kenalog, 1% lidocaine was administered. The needle was withdrawn and a sterile dressing applied. No immediate complications were experienced. On the left, 5 mm of 1% lidocaine was placed for local anesthesia.A 3-1/2 inch 22-gauge spinal needle was then directed into the lefthip joint utilizing an oblique anterior approach under fluoroscopic guidance. 1 mL of the Omnipaque-300 was placed to confirm position.6 mL of a solution containing 1 mL of 40 mg Kenalog, 1% lidocaine was administered. The needle was withdrawn and a sterile dressing applied. No immediate complications were experienced. Impression: 1. Bilateral hip fluoroscopic guided joint injection performed without immediate complication. REPORT SIGNED IN OTHER VENDOR SYSTEM 02/14/2019 Reported By: Fareed De MD CC: Nataly Rendon Transcribed Date/Time: 02/14/2019 (9701) Licsw: Printed Date/Time: 05/28/2019 (5004) PAGE 1 Signed Report Nataly Rendon PA-C IMG FLUOROSC OPY ORDERABLES documented in this encounter Visit Diagnoses Not on filedocumented in this encounter Care Teams Mass Spectrometry Manager Relationship Specialty Start Date End Date Unknown, Provider, PCP - General 12/24/12 documented as of this encounter
--- OUTSIDE RECORDS SUMMARY | 2024-04-21 04:19 | XMS_ITS | Encounter Summary ---
Author Organization [facility] Address [address] [place] [address] Care Team Providers Care [employer]form[employer] Developer Name Role Phone Unknown, Provider Primary Care Provider [phone] Encounter Details Date Type Department Care Team (Latest Contact Info) Description 05/02/2018 16:59 EDT - 05/02/2018 23:59 EDT Hospital Encounter [address] [address] James Cohen MD [address] [place] [address] Discharge Disposition: Home or Self Care Social History Tobacco Use Types Packs/Day Years Used Date Smoking Tobacco: Never Assessed Sex and Gender Information Value Date Recorded Sex Assigned at Not on file Gender Identity Not on file Sexual Orientation Not on file documented as of this encounter Discharge Diagnoses Diagnosis L98.9 Disorder of the skin and subcutaneous tissue, unspecified-L98.9[ICD-10-CM] documented in this encounter Discharge Disposition Disposition Code Departure Means Destination Home or Self Care documented in this encounter Plan of Treatment Not on file documented as of this encounter Visit Diagnoses Not on filedocumented in this encounter Care Teams Informix Developer Relationship Specialty Start Date End Date Unknown, ProviderMD PCP - General 12/24/12 documented as of this encounter
--- OUTSIDE RECORDS SUMMARY | 2024-04-21 04:19 | XMS_ITS | Encounter Summary ---
Author Organization [facility] Address [address] [place] [address] Care Team Providers Care Concierge Manager Name Role Phone Unknown, Provider Primary Care Provider [phone] Encounter Details Date Type Department Care Team (Late st Contact Info) Description 06/16/2020 Lab Requisition [facility] Pathology & Laboratory Medicine - [facility] [address] [place] [address] Froilan Macedo, PharmD [address] [place] [address] Encounter for screening for other viral diseases Social History Tobacco Use Types Packs/Day Years [...] Procedure Name Priority Date/Time Associated Diagnosis Comments COVID-19 GRAVES TEST Today 06/16/2020 11 :00 EDT Encounter for screening for other viral diseases documented in this encounter Results * COVID-19 GRAVES TEST (06/16/2020 11:00 EDT) SARS CoV-2 Specimen Source Nasopharynx 06/20/2020 14:42 EDT [facility] Patient Race Unknown 06/20/2020 14:42 EDT [facility] Patient Ethnicity Unknown 06/20/2020 14:42 EDT [facility] SARS-CoV-2 RNA Result Undetected Undetected 06/20/2020 14:42 EDT [facility] [employer] Comment: SARS-CoV-2 RNA absent. This result does not rule out COVID-19 in the patient, as the sensitivity of the test depends on the timing of the specimen collection and the quality of the specimen. Result should be correlated with patient's history and clinical presentation. Method Summary SEE NOTE 06/20/2020 14:42 EDT [facility] [employer] Comment: SANDI- This test uses the sandi SARS-CoV-2 assay ([employer] and is performed on the sandi [employer] System. It has received Emergency Use Authorization (EUA) by the U.S. Food and Drug Administration. Performance characteristics were verified by [facility] in a manner consistent with CLIA requirements. Fact sheets for this Emergency Use Authorization (EUA) can be found at the following links: https://www.fda.gov/media/550496/download for Healthcare Providers https://www.fda.gov/media/944606/download for Patients Test Performed by: [facility] [address] [place] [address] [employer] Cutting Machine Operator: Aneesh Villarreal M.D. Ph.D.; CLIA# [id number] Swab ENTIRE NASOPHARYNX / Unknown Swab / Unknown 06/16/2020 11:00 EDT 06/16/2020 22:14 EDT Froilan Macedo PharmD MICROBIOLOGY - G ENERAL ORDERABLES [facility] [address] [place] [address] documented in this encounter Visit Diagnoses Diagnosis Encounter for screening for other viral diseases documented in this encounter Care Teams Concierge Manager Relationship Specialty Start Date End Date Unknown, Provider, PCP - General 12/24/12 documented as of this encounter
--- OUTSIDE RECORDS SUMMARY | 2024-04-21 04:20 | XMS_ITS | Encounter Summary ---
Author Organization [facility] Address [address] [place] [address] Care Team Providers Care Molten Iron Pourer Name Role Phone Unknown, Provider Primary Care Provider [phone] Encounter Details Date Type Department Care Team (Late st Contact Info) Description 05/02/2018 Results Only [facility] [phone] James Cohen MD [address] [place] [address] Social History Tobacco Use Types Packs/Day Years Used Date Smoking Tobacco: Never Assessed Sex and Gender Information Value Date Recorded Sex Assigned at Not on file Gender Identity Not on file Sexual Orientation Not on file documented as of this encounter Plan of Treatment Not on file documented as of this encounter Procedures Procedure Name Priority Date/Time Associated Diagnosis Comments SURGICAL PATHOLOGY Routine 05/02/2018 14 :48 EDT documented in this encounter Results * SURGICAL PATHOLOGY (05/02/2018 14:48 EDT) Pathology Report: SURGICAL PATHOLOGY REPORT Reports generated via electronic interface contain original data; however they are lacking the format of the original report. Caution should be taken when reading/interpret ing unformatted reports. Name: ? CHRISTINA RIDER ? Accession #: ? [id number] ? : ? 1955 (Age: 62) ??F ? Collect Date: ? 05/02/2018 ? Location: ? [facility] ? Receive Date: ? 05/02/2018 ? Provider: JAMES COHEN MD Copy to: KOURTNEY DIAZ ? Final Pathologic Diagnosis: OUTSIDE SLIDES [facility] [id number] (2), PROCEDURE DATE 04/29/2018 SKIN OF SCALP, PUNCH BIOPSY: - Follicular cyst, infundibular type. ??See comment. Comment: Thank you for allowing us to review this case in consultation. ??The biopsy primarily consists of an epidermoid cyst that is disrupted by the biopsy. ??The cyst epithelium has overlapping features of follicular infundibular cyst and pilar cyst. ??Infundibular cyst is favored given the ostium to the surface of the skin and preserved granular layer throughout much of the cyst epithelium. ??We see no evidence of malignancy. ??Given that the majority of the biopsy consists of this cyst, evaluation for alopecia is not possible (need adequate follicular count to evaluate for alopecia). ??(Dr. Choe)/[facility] Microscopic Description: Sections consist of a somewhat disrupted portion of skin. ??The epidermis is mildly acanthotic and there is a central punctum that opens to a disrupted cyst. The cyst epithelium is of variable thickness. ??In areas, the granular layer is present but other areas are devoid of a granular layer. ??The cyst contains keratinous debris. ??The surrounding dermis has granulation tissue and mixed inflammation. ??(Dr. Choe)/[facility] Document reviewed and electronically signed by: MYRA CHOE MD Report ??Date: 05/08/2018 15:08 By the signature above, the attending physician certifies that he/she has personally conducted a gross and/or microscopic examination of the described specimens and rendered or confirmed the above diagnosis. Specimen(s) Received: OSLP [facility] [id number] (2); 1 block Clinical History: Skin lesion on scalp Gross Description: ? Two slides are received for review from [facility], one each labelled [id number] D1, [id number] D2. ??One block is also received for review labelled [id number]. ?? End of Report [facility] 05/02/2018 14:4 8 EDT 05/02/2018 14:48 EDT James Cohen MD PATHOLOGY ORDERABL ES [facility] [address] [place] [address] documented in this encounter Visit Diagnoses Not on filedocumented in this encounter Care Teams Molten Iron Pourer Relationship Specialty Start Date End Date Unknown, Provider, PCP - General 12/24/12 documented as of this encounter
--- OUTSIDE RECORDS SUMMARY | 2024-04-21 04:20 | XMS_ITS | Encounter Summary ---
Author Organization [facility] Address [address] [place] [address] Care Team Providers Care Jewel Supervisor Name Role Phone Unknown, Provider Primary Care Provider [phone] Encounter Details Date Type Department Care Team (Late st Contact Info) Description 05/01/2018 Historical Results Only [facility] - [facility] [place] [address] [place] [address] Kourtney Anaya PA [address] [place], [place] Social History Tobacco Use Types Packs/Day Years Used Date Smoking Tobacco: Never Assessed Sex and Gender Information Value Date Recorded Sex Assigned at Not on file Gender Identity Not on file Sexual Orientation Not on file documented as of this encounter Plan of Treatment Not on file documented as of this encounter Procedures Procedure Name Priority Date/Time Associated Diagnosis Comments [facility] Routine 05/01/2018 11:03 EDT documented in this encounter Results * [facility] (05/01/2018 11:03 EDT) [facility] Results Below () 05/09/2018 11:47 EDT [facility] Comment: SURGICAL PATHOLOGY REPORT ? Disclaimers: 1) ??Reports generated via electronic interface contain original data; ? however they are lacking the format of the original report. ? Caution should be taken when reading/interpreting unformatted reports. 2) ??Please reference the paper report if the text (End of Report) is not displayed. Name: ? MAG RIDER ? Accession #: ? [id number] ? : ? 1955 (Age: 62) ??F ? Location: ? [facility] ? Receive Date: ? 05/02/2018 ? Provider: ELISE LANGE MD ? Copy to: KOURTNEY DIAZ ? Final Pathologic Diagnosis: OUTSIDE SLIDES [facility] [id number] (2), PROCEDURE DATE 04/29/2018 SKIN OF SCALP, PUNCH BIOPSY: - Follicular cyst, infundibular type. ??See comment. ? Comment: ? Thank you for allowing us to review this case in consultation. The biopsy primarily consists of an epidermoid cyst that is disrupted by the biopsy. The cyst epithelium has overlapping features of follicular infundibular cyst and pilar cyst. Infundibular cyst is favored given the ostium to the surface of the skin and preserved granular layer throughout much of the cyst epithelium. We see no evidence of malignancy. Given that the majority of the biopsy consists of this cyst, evaluation for alopecia is not possible (need adequate follicular count to evaluate for alopecia). (Dr. Choe)/[facility] Microscopic Description: Sections consist of a somewhat disrupted portion of skin. The epidermis is mildly acanthotic and there is a central punctum that opens to a disrupted cyst. The cyst epithelium is of variable thickness. In areas, the granular layer is present but other areas are devoid of a granular layer. The cyst contains keratinous debris. The surrounding dermis has granulation tissue and mixed inflammation. (Dr. Choe)/[facility] Document reviewed and electronically signed by: ? MYRA CHOE MD Report Date: 05/08/2018 15:08 By the signature above, the attending physician certifies that he/she has personally conducted a gross and/or microscopic examination of the described specimens and rendered or confirmed the above diagnosis. Specimen(s) Received: OSLP [facility] [id number] (2); 1 block ?? Clinical History: Skin lesion on scalp Gross Description: Two slides are received for review from [facility], one each labelled [id number] D1, [id number] D2. ??One block is ?? also received for review labelled [id number]. ? End of Report ? Test Performed by: [place] [address] 05/01/2018 11:0 3 EDT 05/01/2018 11:03 EDT Kourtney DIAZ CHEMISTRY & BLOOD GA S ORDERABLES Performing Organization Address City/State/[facility] Co de Phone Number [facility] documented in this encounter Visit Diagnoses Not on filedocumented in this encounter Care Teams Jewel Supervisor Relationship Specialty Start Date End Date Unknown, Provider, PCP - General 12/24/12 documented as of this encounter
--- OUTSIDE RECORDS SUMMARY | 2024-04-21 04:20 | XMS_ITS | Encounter Summary ---
Author Organization [facility] [place] [address] Care Team Providers Care Credit Collection Associate Name Role Phone Yadira Llanes Primary Care Provider [phone] Encounter Details Date Type Department Care Team (Late st Contact Info) Description 06/26/2019 Telephone Orthopaedics at [place] [phone] Supriya Rodriguez RN Social History Tobacco Use Types Packs/Day Years Used Date Smoking Tobacco: Never Smokeless Tobacco: Never Alcohol Use Standard Drinks/Week Comments Never 0 (1 standard drink = 0.6 oz pur e alcohol) Sex and Gender Information Value Date Recorded Sex Assigned at Not on file Gender Identity Not on file Sexual Orientation Not on file documented as of this encounter Miscellaneous Notes * Telephone Encounter - Supriya Rodriguez RN - 06/26/2019 4:20 PM EDT Patient calls in to review note she has sent through [employer] -- I think I over did this Morning because it was going to rain I walked at 6AM and then again at 9 AM I have a lot of pain in my left leg especially in the glute muscles. m noticing that my new right leg is longer than my new left leg of Apr 29 Which is causing a lot of new pain in the left leg.... will this be temporary and in time things will even out? The pain is even in my left ankle. My new right hip I have pain in the leg musclesthemselves not pain in my new hip. Lubna already walked a total steps of almost 2 miles but I was instructed on the [employer] haim to walk 20 min 2x a day and that is what Lubna been doing... just today all inThe morning. I don think Im going to do the force exercises today Im in too much pain. Im laying on a heating pad for my left leg / buttocks pain.The PT told me to work through the right muscle leg pain the other day.... this Whole experience is different with the right hip replacement.With the left ... they cut a nerve and from the very start I had buttock pain and as the nerve started waking upthe pain got worse for a while. Before my right hip replacement surgery the left leg was not as painful as it is now for sure. The right hip replacement No pain in buttocks at all ever no pain in hipjoint .... just real pain in muscles in the leg. Where as the left I had no feeling in my leg muscles for weeks. Can I take an extra naproxen 500mg tablet --reviewed that this note has been sent to Tramaine for review for any further advice. We would not advise any increase in naproxen at this time dueto potential risks of bleeding. She is taking her tylenol, naproxen as prescribed and using ice andheat. She is reluctant to use her oxycodone as it makes her 'fuzzy'. reviewed options of acquiring a pill cutter and taking half or quarter tablet to see if this would help with side effects. Leg discrepancy can resolve on its own after the implant 'settles', she can certainly bring this up at her post op visit. Active listening and reassurance given. Reviewed signs of infection to monitor for, and that we will be in touch if Tramaine has further concerns documented in this encounter Plan of Treatment Upcoming Encounters Date Type Department Care Team (Late st Contact Info) Description 06/25/2024 1:00 PM EDT Office Visit Dermatology at [facility] [address] [place] [phone] Skyla Campbell MD [facility] [address] [place] [address] documented as of this encounter Visit Diagnoses Not on filedocumented in this encounter Care Teams Credit Collection Associate Relationship Specialty Start Date End Date Yadira Llanes PA [address] [place] [address] PCP - General Family Medicine 04/17/19 documented as of this encounter
--- OUTSIDE RECORDS SUMMARY | 2024-04-21 04:20 | XMS_ITS | Encounter Summary ---
Author Organization [facility] Address [facility] [place] [address] Care Team Providers Care Tensile Tester Name Role Phone Yadira Llanes Primary Care Provider [phone] Encounter Details Date Type Department Care Team (Latest Contact Info) Description 04/10/2023 8:02 AM EDT - 04/10/2023 9:44 PM EDT Hospital [place] [phone] Discharge Disposition: Home Social History Tobacco Use Types Packs/Day Years Used Date Smoking Tobacco: Never Smokeless Tobacco: Never Alcohol Use Standard Drinks/Week Comments Never 0 (1 standard drink = 0.6 oz pur e alcohol) Sex and Gender Information Value Date Recorded Sex Assigned at Not on file Gender Identity Not on file Sexual Orientation Not on file documented as of this encounter Medications at Time of Discharge Medication Sig Dispensed Refills Start Date End Date naproxen (NAPROSYN) 500 mg Tablet Take 1 tablet by mouth 2 times daily. 84 tablet 07/28/2019 oxyCODONE (ROXICODONE) 5 mg Tablet Take 1-2 tablets by mouth every 4 hours as needed for Pain. 42 tablet 06/19/2019 multivitamin (THERAGRAN) Tablet Take 1 tablet by mouth daily. documented as of this encounter Plan of Treatment Upcoming Encounters Date Type Department Care Team (Late st Contact Info) Description 06/25/2024 1:00 PM EDT Office Visit Dermatology at [facility] [address] [place] [address] Skyla Campbell MD [facility] [address] [place] [address] documented as of this encounter Visit Diagnoses Not on filedocumented in this encounter Care Teams Tensile Tester Relationship Specialty Start Date End Date Yadira Llanes PA [address] [place] [address] PCP - General Family Medicine 04/17/19 documented as of this encounter
--- OUTSIDE RECORDS SUMMARY | 2024-04-21 04:20 | XMS_ITS | Encounter Summary ---
Author Organization [facility] [facility] [place] [address] Care Team Providers Care Economics Professor Name Role Phone Yadira Llanes Primary Care Provider [phone] Reason for Referral * Physical Therapy (Routine) - Closed Specialty Diagnoses / Procedures Referred By Ray t Referred To Contact Physical Therapy Diagnoses Status post total replacement of left hip Brett David MD [facility] [place] [address] Physical Therapy, [facility] [address] [place] [address] Referral ID Status Reason Start Date Expiration Date V isits Requested Visits Authorized [id number] Closed Evaluate and Treat 07/08/2019 01/04/2020 20 20 Reason for Visit * Reason Onset Date Comments Other 07/08/2019 PT dischargin g Encounter Details Date Type Department Care Team (Late st Contact Info) Description 07/08/2019 Telephone [place] [address] Gisela Aguirre, RN Other (PT HH discharging) Social History Tobacco Use Types Packs/Day Years [...] encounter Miscellaneous Notes * Telephone Encounter - Yaneli Marie - 07/09/2019 4:46 PM EDT Referral was generated yesterday, and today it was faxed to [facility]. No further questions or concerns at this time. * Telephone Encounter - Gisela Aguirre RN - 07/08/2019 10:07 AM EDT [facility] [phone] called and goals met, will discharge on Sunday07/12/19. Pt hasagreed to outpatient therapy at [facility]. Please send updated referral as pt has been known to be too active on occastion. Thanks. documented in this encounter Plan of Treatment Upcoming Encounters Date Type Department Care Team (Late st Contact Info) Description 06/25/2024 1:00 PM EDT Office Visit Dermatology at [address] [address] Skyla Campbell MD [facility] [address] [place] [address] Scheduled Referrals Name Type Priority Associated Diagnoses Orde r Schedule Referral to Physical Therapy Outpatient Referral Routine Status post total replacement of left hip, DAA. Dr. David. 04/29/2019 Ordered: 07/08/2019 documented as of this encounter Visit Diagnoses Diagnosis Status post total replacement of left hip, DAA. Dr. David. 04/29/2019 documented in this encounter Care Teams Economics Professor Relationship Specialty Start Date End Date Yadira Llanes PA [address] [place] [address] PCP - General Family Medicine 04/17/19 documented as of this encounter
--- OUTSIDE RECORDS SUMMARY | 2024-04-21 04:20 | XMS_ITS | Encounter Summary ---
Author Organization [facility] Address [facility] [place] [address] Care Team Providers Care Junior Estimator Name Role Phone Yadira Llanes Primary Care Provider [phone] Encounter Details Date Type Department Care Team (Latest Contact Info) Description 07/18/2022 9:03 PM EST - 07/18/2022 11:59 PM EST Hospital [place] [phone] Discharge Disposition: Home Social History Tobacco Use [...] 1:00 PM EDT Office Visit Dermatology at [facility] [address] [place] [address] Skyla Campbell MD [facility] [address] [place] [address] documented as of this encounter Procedures Procedure Name Priority Date/Time Associated Diagnosis Comments SURGICAL PATHOLOGY REPORT Routine 07/18/2022 1:50 PM EST documented in this encounter Results * (ABNORMAL) Surgical Pathology Report (07/18/2022 1:50 PM EST) Final Diagnosis [id number] ? Location: [facility] The signing pathologist has (i) examined the relevant preparation(s) for the specimen(s) and (ii) rendered or confirmed the diagnosis(es). . ?Surgical Pathology DIAGNOSIS A - Left cheek, skin excision: - ??Residual melanoma in situ, focally ??extending to the peripheral margin at approx 9-11 o'clock (see discussion) - ??Reparative changes consistent with previous operative site - Intradermal melanocytic nevus B - Right lower leg, skin excision: - ??Basal cell carcinoma, superficial, nodular and focal micronodular patterns, ?present at the peripheral margin Electronically signed by: ?Tara ALFARO [facility] Verified: ??08/01/2022 13:25 ??Dermatopatholo gist Performed at: ??-[facility] Dept. of Pathology, [place] [address] Hand Chain Maker: Claudine Jaquez MD, FCAP, ??CLIA Certificate: [id number] DISCUSSION A. There is focal aggregate of melanocytes in the papillary dermis (0.2 mm deep) with PRAME expression, possibly representing tangential sectioning of ? melanoma in situ ??involving epidermis or adnexa. THIS RESULT REQUIRES PHYSICIAN/A.P.P. FOLLOW UP ADDITIONAL STUDIES A3, A3, A5. Examination of Melan-A and PRAME supports the diagnosis. SPECIMEN(S) SUBMITTED A - Left cheek, excision (1) B - R lower leg, excision (1) Referring Identifier: ?(not provided) CLINICAL INFORMATION A - Melanoma reexcision with 5+ millimeter clinical margins B - History of melanoma SPECIMEN PROCESSING A - Labeled/Fixative : Left cheek stitch at 12 o'clock, formalin. Quantity/Size: ??Single, 3.8 x 1.1 cm, excised to a depth of 0.4 cm. Tissue Description: Elliptical/cresc ent-shaped aviles-pink skin excision with a suture at one tip designating 12 o'clock. There is a 2.3 cm in length linear scar with no residual gross lesion Inkin-3-6 o'clock is marked black. ??6-9-12 o'clock is marked blue. Sections/Process ing: Serially sectioned and entirely submitted in 6 cassettes as follows: ?A1: ??12 o'clock tip ?A2: ??6 o'clock tip ?A3-A6: ??Body, sequentially submitted from 12 o'clock to 6 o'clock B - Labeled/Fixative : Right lower leg, formalin. Quantity/Size: ??Single, 2.0 x 1.17 m, excised to a depth of 0.3 cm. . SPECIMEN PROCESSING Tissue Description: Non-oriented ellipse of aviles skin without any gross lesion Sections/Process ing: Inked and entirely submitted in 3 cassettes as follows: ?B1: ??tips ?B2-B3: ??body ??ajw(A) 08/01/2022 1:25 PM EST [facility] SPECIMEN FROM SKIN / Unknown 07/18/2022 1:50 PM EST 07/18/2022 1:50 PM EST SPECIMEN FROM SKIN / Unknown 07/18/2022 1:50 PM EST 07/18/2022 1:50 PM EST Joe Chaomrro MD PATHOLOGY/CYTO LOGY ORDERABLES [facility] [place] [address] documented in this encounter Visit Diagnoses Not on filedocumented in this encounter Care Teams Junior Estimator Relationship Specialty Start Date End Date Yadira Llanes PA [address] [place] [address] PCP - General Family Medicine 04/17/19 documented as of this encounter
--- OUTSIDE RECORDS SUMMARY | 2024-04-21 04:20 | XMS_ITS | Encounter Summary ---
Author Organization [facility] Address [address] [place] [address] Care Team Providers Care Sausage Mixer Name Role Phone Unavailable Primary Care Provider Unavailabl e Encounter Details Date Type Department Care Team (Latest Contact Info) Description 11/12/2008 10:18 EST - 11/12/2008 11:59 EST Hospital Encounter [address] [address] Pratik Stoll MD [address] [place] [address] Jeannine Luis NP [address] [place] [address] Discharge Disposition: Auto Discharge Social History Tobacco Use Types Packs/Day Years Used Date Smoking Tobacco: Never Assessed Sex and Gender Information Value Date Recorded Sex Assigned at Not on file Gender Identity Not on file Sexual Orientation Not on file documented as of this encounter Discharge Disposition Disposition Code Departure Means Destination Auto Discharge documented in this encounter Plan of Treatment Not on file documented as of this encounter Visit Diagnoses Not on filedocumented in this encounter
--- OUTSIDE RECORDS SUMMARY | 2024-04-21 04:20 | XMS_ITS | Encounter Summary ---
Author Organization [facility]ly [facility], [facility] Address [facility] [place] [address] Care Team Providers Care Bioinformatics Scientist Name Role Phone Yadira Llanes Primary Care Provider [phone] Encounter Details Date Type Department Care Team (Latest Contact Info) Description 08/15/2022 1:07 PM EST - 08/15/2022 11:59 PM EST Hospital [place] [phone] Discharge Disposition: Home Social History Tobacco Use [...] 1:00 PM EDT Office Visit Dermatology at [facility] [address] [place] [address] Skyla Campbell MD [facility] DR [address]IQU[address] [place] [address] documented as of this encounter Procedures Procedure Name Priority Date/Time Associated Diagnosis Comments SURGICAL PATHOLOGY REPORT Routine 08/15/2022 8:30 AM EST documented in this encounter Results * (ABNORMAL) Surgical Pathology Report (08/15/2022 8:30 AM EST) Final Diagnosis [id number] ? Location: [facility] The signing pathologist has (i) examined the relevant preparation(s) for the specimen(s) and (ii) rendered or confirmed the diagnosis(es). . ? Addendum ADDENDUM DISCUSSION A - This case was discussed with the treating clinician by phone on 2021. Electronically signed by: ?Quinn Machuca MD Verified: ??08/29/2022 11:58 ??Dermatopathologist Performed at: ??-[facility] Dept. of Pathology, [place] [address] Yam Curer: Claudine Jaquez MD, AP, ??CLIA Certificate: [id number] ?Surgical Pathology DIAGNOSIS A - Left face, skin excision: - Negative for evidence of melanoma in the examined planes of section - ??Reparative changes consistent with previous operative site, present at the peripheral margins ??(see discussion) B - Back, skin excision: - Negative for evidence of residuum in the examined planes of section - ??Reparative changes consistent with previous operative site - Incidental minute ??verrucous keratosis C - Right leg, skin excision: - Negative for evidence of residuum ?? in the examined planes of section - Subtle fibrosis, compatible with ?? reparative changes of previous operative site Electronically signed by: ?Quinn Machuca MD Verified: ??08/29/2022 11:51 ??Dermatopathologist Performed at: ??-[facility] Dept. of Pathology, [place] [address] Yam Curer: Claudine Jaquez MD, AP, ??CLIA Certificate: [id number] DISCUSSION A - The reparative changes are at the peripheral margins, including the tip sections. Any potential adjacent, unsampled residuum would not be available for evaluation. THIS RESULT REQUIRES PHYSICIAN/A.P.P. FOLLOW UP ADDITIONAL STUDIES A - ??Interpretation of multiple slide sections from throughout the entire tip sections confirms the assessment above. This case was also reviewed by an additional intradepartmental dermatopathologist for consensus assessment. The report of the ??patient's prior biopsy ([id number] part A) has been examined. The office of the treating clinician was contacted by phone, regarding this case, on 2021. B - ??The report of the ??patient's prior biopsy ([id number]) has been examined. C - ??The report of the ??patient's prior biopsy ([id number] part B) has been examined. SPECIMEN(S) SUBMITTED A - L FACE, RE-EXCISION (1) B - BACK, EXCISION (1) C - RIGHT LEG, EXCISION (1) Referring Identifier: ?(not provided) . CLINICAL INFORMATION A - Melanoma, + margins. Stitch paiz 12 o'clock B - Prior biopsy site. Stitch paiz 12 o'clock C - History: BCC & melanoma SPECIMEN PROCESSING A - Labeled/Fixative: L face re-excision, formalin. Quantity/Size: ??Single, 1.5 x 0.4 x 0.4 cm. Tissue Description: Aviles-pink elliptical skin excision with a single orienting suture at one end, designated stitch paiz 12 o'clock. Inkin-3-6 o'clock is marked black. ??6-9-12 o'clock is marked blue. Sections/Processing: Serially sectioned and entirely submitted in 3 cassettes as follows: ?A1: ??12 o'clock tip ?A2: ??Body ?A3: ??6 o'clock tip B - Labeled/Fixative: Back excision, formalin. Quantity/Size: ??Single, 2.3 x 1.5 x 0.8 cm. Tissue Description: Aviles-white elliptical excision of a 1.0 x 0.8 cm variegated aviles- brown-black partially crusted plaque. At one ellipse tip is an orienting suture designated stitch paiz 12 o'clock. Inkin-3-6 o'clock is marked black. ??6-9-12 o'clock is marked blue. Sections/Processing: Inked, serially sectioned and entirely submitted in 4 cassettes as follows: ?B1: ??12 o'clock tip ?B2-B3: ??Central plaque and adjacent skin, 12-6 o'clock ?B4: ??6 o'clock tip C - Labeled/Fixative: Right leg, formalin. Quantity/Size: ??Single, 2.2 x 0.9 x 0.4 cm. Tissue Description: Wrinkled, mauricio-aviles, non-oriented elliptical skin excision of a 1.0 x 0.8 x 0.2 cm slightly raised, irregularly bordered mauricio-brown lesion Sections/Processing: Inked and entirely submitted in 3 cassettes as follows: ?C1: ??tips ?C2-C3: ??body ??shb(A) 08/29/2022 11:[address] [facility] SPECIMEN FROM SKIN / Unknown 08/15/2022 8:30 AM EST 08/15/2022 8:30 AM EST SPECIMEN FROM SKIN / Unknown 08/15/2022 8:30 AM EST 08/15/2022 8:30 AM EST SPECIMEN FROM SKIN / Unknown 08/15/2022 8:30 AM EST 08/15/2022 8:30 AM EST Joe Chamorro MD PATHOLOGY/CYTO LOGY ORDERABLES [facility] [place] [address] [facility] [place] [address] documented in this encounter Visit Diagnoses Not on filedocumented in this encounter Care Teams Bioinformatics Scientist Relationship Specialty Start Date End Date Yadira Llanes PA [address] [place] [address] PCP - General Family Medicine 04/17/19 documented as of this encounter
--- OUTSIDE RECORDS SUMMARY | 2024-04-21 04:20 | XMS_ITS | Encounter Summary ---
Author Organization [facility] Address [address] [place] [address] Care Team Providers Care Coffee Supervisor Name Role Phone Molly Collazo MD Primary Care Provid er Encounter Details Date Type Department Care Team (Late st Contact Info) Description 04/06/2010 Abstract [facility] Adult Primary Care - [address] [address] Molly Collazo MD [address] [place], [place] [address] Social History Tobacco Use Types Packs/Day Years Used Date Smoking Tobacco: Never Assessed Sex and Gender Information Value Date Recorded Sex Assigned at Not on file Gender Identity Not on file Sexual Orientation Not on file documented as of this encounter Plan of Treatment Not on file documented as of this encounter Visit Diagnoses Not on filedocumented in this encounter Care Teams Coffee Supervisor Relationship Specialty Start Date End Date Molly Collazo MD [address] [place], [place] [address] PCP - General 12/29/08 12/23/12 documented as of this encounter
--- OUTSIDE RECORDS SUMMARY | 2024-04-21 04:20 | XMS_ITS | Encounter Summary ---
Author Organization [facility] Address [facility] [place] [address] Care Team Providers Care Clinical Dermatologist Name Role Phone Yadira Llanes Primary Care Provider [phone] Encounter Details Date Type Department Care Team (Late st Contact Info) Description 11/30/2022 1:20 PM EDT Office Visit Dermatology at [facility] [address] [place] [address] Key Little MD [facility] DR [address]QUITA [place] [address] Neoplasm of unspecified behavior of bone, soft tissue, and skin; Seborrheic keratoses, inflamed; Seborrheic keratoses; Multiple nevi; Lentigines; Bennett angioma; History of melanoma in situ; History of dysplastic nevus; History of basal cell carcinoma (BCC) Social History Tobacco Use Types Packs/Day Years Used Date Smoking Tobacco: Never Smokeless Tobacco: Never Alcohol Use Standard Drinks/Week Comments Never 0 (1 standard drink = 0.6 oz pur e alcohol) Sex and Gender Information Value Date Recorded Sex Assigned at Not on file Gender Identity Not on file Sexual Orientation Not on file documented as of this encounter Progress Notes * Key Little MD - 11/30/2022 1:20 PM EDT Images from the original note were not included. DEPARTMENT OF DERMATOLOGY Medical Dermatology Clinic Provider: Key Little MD Patient's preferred name Mag Preferred contact method for results [x]Phone []myD-H []Letter Detailed phone message OK? Yes Are there any other people with whom we may discuss your care? No Past Medical History Date, location, treatment Melanoma Yes - 06/20/22 Left lower cheek, skin excision: - ??Melanoma in situ, present at the peripheral specimen margin (see Discussion) - Left upper cheek, skin excision: - ??Melanoma in situ, present at the peripheral specimen margin (see Discussion) Dysplastic nevi Yes - Right upper back, skin shave biopsy ONLY: - Severely atypical lentiginous junctional ?melanocytic proliferation ??arising in ??association with compound dysplastic nevus, ? present at the peripheral specimen ??edge s/p Excision at [facility] SCC No BCC Yes - Right calf per patient report AKs Yes - LN2 UV Exposure & Protection No Other relevant past medical history + Left brown ? 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 Patient returns to clinic today for afull skin exam. Patient reports multiple spots of concerns located on the left thigh, and back. Last visit at Dermatology: 07/25/2022 Last visit with this provider: 07/25/2022 Medications: Reviewed in eD-H Allergies: Reviewed in eD-H Skin Examination: Full skin examination: Patient asked to undress to their comfort level. Verbalized that the provider's preference is that patient remove all clothing and that the provider will not examine areas patient elects to keep covered. Examination of the scalp, hair, head, face, ears, neck, chest, axillae, abdomen, back, buttocks, and upper and lower extremities was normal with the exception of the findings below. Genitalia not examined. Assessment/Plan #. Nevus R/O Atypia - 6mm by 4mm irregular medium brown macule on the right medial clavicale (Figure 1). - Recommended a skin biopsy to confirm/clarify the nature of the skin lesion. After discussion of potential risks (scarring, bleeding, infection) and recurrence, patient agreed to proceed. - Patient denies known allergies to lidocaine and epinephrine. Procedure: Skin shave biopsy Location: Right medial clavicle Time of procedure: 1:48 PM Discussed indications for procedure and expectations including risks and benefits. Verbal consent obtained. Time out performed. Skin prepped with alcohol. Local anesthesia with 1% xylocaine, 1/100,000 epinephrine. A sample of the lesion was removed by shave technique to the level of the dermis and s ubmitted to Pathology. Hemostasis obtained (AlCl). There were no complications; patient tolerated the procedure well. Wound dressed. Post-procedure expectations, wound care and activity restrictions reviewed. - Follow-up based on pathology results. #. sBCC vs SK vs BLK - 7mm slightly raised pink papule on the right forehead. (Figure 2) - Discussed treatment with cryotherapy; patient would like to proceed. - Instructed patient to return to clinic for re-evaluation if lesion(s) does not resolve as expected with this treatment. Procedure: Destruction of malignant lesion(s) with cryotherapy (LN2). Location(s): Right forehead Number: 1 Discussed procedure and expectations, including risks (especially hypopigmentation) and benefits. Verbal consent obtained. Frozen with LN2, 45 second thaw time, twice. There were no complications; patient tolerated the procedure well. Post-procedure expectations and wound care were reviewed. #. sBCC - 1.1cm pink scaly plaque left lateral thigh (Figure 3) - Discussed treatment with cryotherapy; patient would like to proceed. - Instructed patient to return to clinic for re-evaluation if lesion(s) does not resolve as expected with this treatment. Procedure: Destruction of malignant lesion(s) with cryotherapy (LN2). Location(s): Left lateral thigh Number: 1 Discussed procedure and expectations, including risks (especially hypopigmentation) and benefits. Verbal consent obtained. Frozen with LN2, 45 second thaw time, twice. There were no complications; patient tolerated the procedure well. Post-procedure expectations and wound care were reviewed. #. Seborrheic Keratoses - Stuck on, waxy papules on the trunk and extremities. - Discussed benign nature of lesions and provided reassurance. No treatment necessary at this time. #. Melanocytic Nevi - Scattered medium brown, evenly pigmented macules and papules on the trunk andextremities with reassuring pigment pattern on dermoscopy. - Discussed benign appearing nature of lesions based on today's exam and provided reassurance. Willcontinue to monitor. #. Lentigines - Scattered light-brown, evenly pigmented, well-demarcated macules on sun-exposed areas of the trunk and extremities. - No worrisome pigmented lesions. Discussed benign nature of lesions and provided reassurance. Willcontinue to monitor. #. Bennett Angiomas - Multiple bright red, well-demarcated papules on the trunk and extremities. - Discussed benign nature of lesions and provided reassurance. No treatment necessary at this time. #. History of MIS - Well-healed scar on the left lower cheek and left upper cheek per skin history. - No evidence of recurrence; will continue to monitor. - will request records from Dr. White (Surgeon) at [facility] who performed excision #. History of DN - Well-healed scar on the right upper back per skin history. - No evidence of recurrence; will continue to monitor. - will request records from Dr. White (Surgeon) at [facility] who performed excision #. History of BCC - Well-healed scar on the right calf per skin history. - No evidence of recurrence; will continue to monitor. Figure 1 Figure 2 Figure 3 Photo(s) taken and charted with patient's verbal consent. Other: ??? Sun protection discussed (protective clothing and SPF30+ broad-spectrum sunscreen) RTC: 6 months for a full skin exam. []Note routed to secretary specialist [x]Recall placed in scheduling system []Appointment scheduled at checkout Scribe attestation: PEG Rosario has performed the documentation for this encounter in the presence of and acting as a scribe for Key Little MD. I performed the above scribed service and agree with the accuracy of the documentation in this encounter. Reviewed and signed by: Key Little MD Dermatology [facility] Patient seen and evaluated with staff roller skate repairer: Ricarda Kiser MD Dermatology [facility] * Ricarda Kiser MD - 11/30/2022 1:20 PM EDT I directly supervised the resident during this office visit. The resident physician presented the history and physical exam to me. I then saw and examined this patient with the resident. We reviewed the history and pertinent details and I confirmed the physical exam findings. I agree with the details of the history and physical exam as documented in the resident physician's note. Ricarda Kiser MD ([place]), FAAD Staff Physician [facility] Dermatology * Key Little MD - 11/30/2022 1:20 PM EDT Called pt and discussed bx results below. Moderate DN, no further tx indicated, will CTM. DIAGNOSIS A - Right medial clavicle, skin shave biopsy: - ??Lentiginous compound dysplastic ??melanocytic ??nevus with moderate atypia, focally ??irritated, ??close to the specimen edges in the examined planes of section documented in this encounter Plan of Treatment Upcoming Encounters Date Type Department Care Team (Late st Contact Info) Description 06/25/2024 1:00 PM EDT Office Visit Dermatology at [facility] [address] [facility] [place] [address] Skyla Campbell MD [facility] DR [address]QU[address] [place] [address] documented as of this encounter Procedures Procedure Name Priority Date/Time Associated Diagnosis Comments SPECIMEN TO PATHOLOGY Routine 11/30/2022 1:59 PM EDT Neoplasm of unspecified behavior of bone, soft tissue, and skin SURGICAL PATHOLOGY REPORT Routine 11/30/2022 1:42 PM EDT documented in this encounter Results * Specimen to Pathology (11/30/2022 1:59 PM EDT) AP Specimen 11/30/2022 1:59 PM EDT 11/30/2022 1:59 PM EDT Narrative [facility] - 11/30/2022 1:59 PM EDT Specimen requisition ordered. ??Separate Pathology report to follow Ricarda Kiser MD PATHOLOGY/CYTOLOGY ORDERABLES Performing Organization Address City/State/[facility] Co de Phone Number [facility] [place] [phone] * Surgical Pathology Report (11/30/2022 1:42 PM EDT) Final Diagnosis [id number] ? Location: [facility] The signing pathologist has (i) examined the relevant preparation(s) for the specimen(s) and (ii) rendered or confirmed the diagnosis(es). . ?Surgical Pathology DIAGNOSIS A - Right medial clavicle, skin shave biopsy: - ??Lentiginous compound dysplastic ??melanocytic ??nevus with moderate atypia, focally irritated, ??close to the specimen edges in the examined planes of section Electronically signed by: ?Quinn Machuca MD Verified: ??12/20/2022 13:47 ??Dermatopathol ogist Performed at: ??-[facility] Dept. of Pathology, [place] [address] Seed Pelleter: Claudine Jaquez MD, FCAP, ??CLIA Certificate: [id number] SPECIMEN(S) SUBMITTED A - Right medial clavicle, skin shave biopsy (1) CLINICAL INFORMATION Nevus rule out atypia-6 mm x 4 mm irregular medium brown macule SPECIMEN PROCESSING A - Labeled/Fixativ e: Patient demographics, formalin. Quantity/Size: ??Single, 0.8 x 0.4 x 0.1 cm. Tissue Description: Irregular shave of aviles-white skin with an ill-defined 10 brown macule, 0.5 x 0.4 cm. Sections/Proces sing: Inked, trisected and entirely submitted in 1 cassette labeled A1. ??pps 12/20/2022 1:47 PM EDT [facility] SPECIMEN FROM SKIN / Unknown 11/30/2022 1:42 PM EDT 11/30/2022 1:42 PM EDT Key Little MD PATHOLOGY/CYTOLOG Y ORDERABLES [place] [address] [facility] [place] [address] documented in this encounter Visit Diagnoses Diagnosis Neoplasm of unspecified behavior of bone, soft tissue, and skin Seborrheic keratoses, inflamed Seborrheic keratoses Multiple nevi Benign neoplasm of skin, site unspecified Lentigines Other dyschromia Bennett angioma Nevus, non-neoplastic History of melanoma in situ Personal history of malignant melanoma of skin History of dysplastic nevus Personal history of diseases of skin and subcutaneous tissue History of basal cell carcinoma (BCC) documented in this encounter Care Teams Clinical Dermatologist Relationship Specialty Start Date End Date Yadira Llanes PA [address] [place] [address] PCP - General Family Medicine 04/17/19 documented as of this encounter
--- OUTSIDE RECORDS SUMMARY | 2024-04-21 04:20 | XMS_ITS | Encounter Summary ---
Author Organization [facility] Address [address] [place] [address] Care Team Providers Care Picked Edge Sewing Machine Operator Name Role Phone Molly Collazo MD Primary Care Provid er Encounter Details Date Type Department Care Team (Late st Contact Info) Description 12/02/2007 Before PRISM Converted Visit (Maple) [facility] - Maple conversion [address] [place] [address] Pastora Alicea ANP Social History Tobacco Use Types Packs/Day Years Used Date Smoking Tobacco: Never Assessed Sex and Gender Information Value Date Recorded Sex Assigned at Not on file Gender Identity Not on file Sexual Orientation Not on file documented as of this encounter Plan of Treatment Not on file documented as of this encounter Visit Diagnoses * Evaluation - Pastora Alicea - 06/02/2009 [address] [address] NEW PATIENT EVALUATION - 12/02/2007 PROBLEM: Left-sided jaw pain. 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 A recent move from [place] to [place]. She does not smoke cigarettes, she drinksno alcohol. She takes no prescription medications; she does take aspirin or Excedrin regularly for her jaw pain. P#2: Drug allergies/intolerances Allergy to codeine is manifested by nausea and vomiting. PAST MEDICAL HISTORY Significant for tear duct problems; she has had eye surgeries for this. PROBLEM: Left jaw pain which has persisted for about a year. SUBJECTIVE Pain is around the TMJ, just behind the ear lobe and is described as a constant ache but also tender to the touch. She thought that this was probably a tooth problem and eventually saw a dentist whenthey had insurance again and after a detailed exam including x-rays, etc. She was told that this was not a tooth problem and unlikely to be TMJ. She takes aspirin about every six hours; two tablets. She also is very bothered by left eye twitching and in fact she is so worried about that, that she made this appointment today. She was afraid that something was going wrong with her eyes; she thinks she has had blurry vision in her left eye. She does have constant issues with tearing due to the tear duct problems. Overall, she has been feeling fatigued, she does have headaches but these are not new and are related to her menstrual cycle. She has been under significant stress caring for a motherwith Alzheimerwhich was a / responsibility. Now her mother has moved to [place] to be with another relative and this stress has temporarily been relieved. OBJECTIVE The patient looks well, blood pressure 138/78, pulse 78 and regular. She is afebrile. She rates herpain as6-8. HEENT exam reveals no adenopathy, she has tenderness which does not seem acute just posterior to the left ear lobe, over the TMJ and above the TMJ joint. When she opens and closes her jawI actually feel more clicking on the right side than the left. She has no increased impulse at the temporal artery. Pupils are equally reactive to light. Snellen chart exam reveals that vision in herleft eye is actually 20/25 and her right eye is 20/30. She has no thyromegaly. Lungs are clear to Aand P. Heart rate is regular without murmur or rub. ASSESSMENT Pain related to area of TMJ, may also be related to the position that she holds her head in when she plays the violin. Since she has had a thorough dental evaluation at this point, we will try long-acting anti-inflammatory. I will also draw a sed rate to rule out temporal arteritis, which seems unlikely. PLAN Relafen 750 mg one tab b.i.d. to take with food. Discontinue aspirin. Reassurance related to eye twitching, which is most likely muscle fatigue. Continue with heat to the area, sedimentation rate to be drawn today. Follow up in six weeks. Thirty five minutes was spent with patient, greater than 50% in counseling and coordination of care. Signed by CLYDE Man 12/09/2007 18:10 Dictated by: CLYDE Man D: - CLYDE Man A - EAG Job ID: [id number] Document ID: [id number] cc: documented in this encounter Care Teams Picked Edge Sewing Machine Operator Relationship Specialty Start Date End Date Molly Collazo MD [address] [place] [address] [id number] PCP - General 12/29/08 12/23/12 documented as of this encounter
--- OUTSIDE RECORDS SUMMARY | 2024-04-21 04:20 | XMS_ITS | Encounter Summary ---
Author Organization [facility] [place] [address] Care Team Providers Care Registered Nurse Post Partum Name Role Phone Yadira Llanes Primary Care Provider [phone] Reason for Referral * Comprehensive Melanoma Consult (Urgent) - Closed Specialty Diagnoses / Procedures Referred By Contindira t Referred To Contact Dermatology Diagnoses Malignant melanoma, unspecified site Joe Chamorro MD [address] [place] [phone] [facility] Dermatology [address] [place] [address] Referral ID Status Reason Start Date Expiration Date V isits Requested Visits Authorized [id number] Closed Consult, Test & Treat PCP Updated and/or Approved 07/14/2022 07/14/2023 6 6 Encounter Details Date Type Department Care Team (Late st Contact Info) Description 07/14/2022 Transcribe Orders eDH Incoming Referrals [phone] Joe Chamorro MD [address] [place] [address] [address] ENNIS [address] [place] [id number] Malignant melanoma, unspecified site Social History Tobacco Use Types Packs/Day Years [...] 1:00 PM EDT Office Visit Dermatology at [facility] [address] [place] [address] Skyla Campbell MD [facility] [address] [place] [address] Scheduled Referrals Name Type Priority Associated Diagnoses Order Schedule Referral to Comprehensive Melanoma Team Outpatient Referral Urgent Malignant melanoma, unspecified site Ordered: 07/14/2022 documented as of this encounter Visit Diagnoses Diagnosis Malignant melanoma, unspecified site documented in this encounter Care Teams Registered Nurse Post Partum Relationship Specialty Start Date End Date Yadira Llanes PA [address] [place] [id number] PCP - General Family Medicine 04/17/19 documented as of this encounter
--- OUTSIDE RECORDS SUMMARY | 2024-04-21 04:20 | XMS_ITS | Encounter Summary ---
Author Organization [facility] Address [facility] [place] [address] Care Team Providers Care Final Inspector Name Role Phone Yadira Llanes Primary Care Provider [phone] Encounter Details Date Type Department Care Team (Late st Contact Info) Description 04/06/2024 Notes Only Dermatology at [facility] [address] [place] [address] Skyla Campbell MD [facility] [address] [place] [address] Social History Tobacco Use Types Packs/Day Years Used Date Smoking Tobacco: Never Smokeless Tobacco: Never Alcohol Use Standard Drinks/Week Comments Never 0 (1 standard drink = 0.6 oz pur e alcohol) Sex and Gender Information Value Date Recorded Sex Assigned at Not on file Gender Identity Not on file Sexual Orientation Not on file documented as of this encounter Progress Notes * Skyla Campbell MD - 04/06/2024 3:13 PM EDT Discussed patient's case of the invasive melanoma, favor recurrent, s/p excisional biopsy in 04/2023, arising from prior MIS on the left cheek (see details in dermatology clinic note from 04/03/2024) with Dr. Barclay. Recommended clinical observation with very low threshold for re-biopsy for now. Called patient and left detailed voicemail. Asked pt to call back with any questions or concerns. Has aFSE scheduled for 06/25/2024. documented in this encounter Plan of Treatment Upcoming Encounters Date Type Department Care Team (Late st Contact Info) Description 06/25/2024 1:00 PM EDT Office Visit Dermatology at [address] [place] [address] Skyla Campbell MD [facility] [address] [place] [address] documented as of this encounter Visit Diagnoses Not on filedocumented in this encounter Care Teams Final Inspector Relationship Specialty Start Date End Date Yadira Llanes PA [address] [place] [address] PCP - General Family Medicine 04/17/19 documented as of this encounter
--- OUTSIDE RECORDS SUMMARY | 2024-04-21 04:20 | XMS_ITS | Encounter Summary ---
Author Organization [facility] Address [address] [place] [address] Care Team Providers Care Trimmer And Reinforcer Name Role Phone Unavailable Primary Care Provider Unavailabl e Encounter Details Date Type Department Care Team (Latest Contact Info) Description 12/02/2007 10:23 EDT - 12/02/2007 11:59 EDT Hospital Encounter [facility] - Maple conversion [address] [place] [address] Pastora Alicea ANP Discharge Disposition: Auto Discharge Social History Tobacco [...]
--- OUTSIDE RECORDS SUMMARY | 2024-04-21 04:20 | XMS_ITS | Encounter Summary ---
Author Organization [facility] Address [address] [place] [address] Care Team Providers Care String Winding Machine Operator Name Role Phone Molly Collazo MD Primary Care Provid er Encounter Details Date Type Department Care Team (Late st Contact Info) Description 01/29/2008 Before PRISM Converted Visit (Maple) [facility] - Maple conversion [address] [place] [address] Molly Collazo MD [address] [place], [place] [address] Social History Tobacco Use Types Packs/Day Years Used Date Smoking Tobacco: Never Assessed Sex and Gender Information Value Date Recorded Sex Assigned at Not on file Gender Identity Not on file Sexual Orientation Not on file documented as of this encounter Progress Notes * Molly Collazo MD - 06/04/2009 [address] [address] PROGRESS/FOLLOWUP NOTE - 01/29/2008 PRESENTING 52-year-old female new patient to me, here to discuss some spasming in her throat and eye twitching. CURRENT ISSUES 1. Throat spasming. Starting in 2002 has had episodes of spasming in her throat. One of theepisodesshe felt like she didn't have any wind or air, but now simply describes it as a tightness in the throat area that radiates into her back. The first episode lasted for several minutes but since then her episodes will last for 10 seconds at most.She describes it as a tightness or a spasm that releases and then she won't have any recurrent episodes for several days. These episodes are not related toexercise. They can occur when she is resting, talking or driving. They seem unrelated to stress,although she is quite busy and this will be discussed further under social history. She had a fairly thorough work up in the past. She tells me this has included a stress echo which was normal, a bronchoscopy which was normal and an esophagram which wasnormal. She tried inhalers and Prilosec which werenot helpful. She does not actually have her records her for me to review today. She is otherwise healthy and has been in and out of shape and is working on getting back into shape, exercise meredith and this does not seem to be worsening the spasming. Additionally, she tells me that she does not have any symptoms of heartburn or indigestion. 2. Eye twitching. Her left eye had been twitching in the past month. Her vision is fine. She does report that she started drinking caffeine and wonders if it is related. She does not have any other areas of twitching or neurologic complaints. 3. Left jaw discomfort. Saw Pastora Alicea a few months ago for some left jaw discomfort, was given some Relafen but she actually never took it. She then developed the flu and she has not had any pain since that time. She does also get bad headaches which she finds she gets one week before her menstrual period. She feels like she is handling this pretty well currently. PAST MEDICAL/SURGICAL HISTORY Reviewed with the patient. Listed on the chart. MEDICATIONS Not taking any regular prescription medications. FAMILY HISTORY Mom had a CABG and CAD in her 50s, she was a very heavy smoker. Mom also is status post cholecystectomy and also has rheumatoid arthritis. Dad had an aortic dissection. He was a tobacco smoker as well. SOCIAL HISTORY Ms. Rider lives with her and two of her children who are teenagers. Her other two children are grown and out of the house. They lived in [place] and [place], [place] and morerecently have moved to [facility]. 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 Apparently her bktgap-yt-enx was not very pleasant to Ms. Rider nor Ms. Rider's children and the family has now found other care for her and so she is no longer living with Ms. Rider's family. She has found that to be a great burden lifted. 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 She considers herself someone who is able to do many things at once and this has never been a source of stress for her. She is working on getting back into shape. She has been very physically active in the past. She recognizes that this is importantfor her health. PHYSICAL EXAMINATION Blood pressure 124/80, Temperature 98.9, weight 156. Generally she is pleasant, conversational, appears well. HEENT: Oropharynx is clear. She does not have any thyromegaly or thyroid nodules. Cranialnerves II-XII are grossly intact although cabrera were not checked. CARDIOVASCULAR: Regular rate andrhythm, no murmurs, rubs or gallops. LUNGS: Clear to auscultation bilaterally. ABDOMEN: Soft, nonten graciela and nondistended. ASSESSMENT AND PLAN 1. Throat spasming: I suspect that this actually represents esophageal spasm. I explained to her that this is not always picked up on an esophagram as it is quite sporadic and so one choice for her might be to think about a trial of a calcium channel tima. I think a benzodiazepine would not be very helpful as these episodes last for such a brief period of time, by the time she took a pill theywould be resolved. Regardless, we do need to get all of her records including her esophagram, her bronchoscopy and her pulmonary function tests. She also believes that she had a CT scan at some point. Once I have seen these we will touch base over the phone and consider either additional testing or medication trial. 2. Eye twitching: Discussed that this was likely related to her caffeine use. She will let me know if she develops any fasciculations elsewhere. 3. Followup: By phone once I have the results of her tests. Will also be due for a physical exam and at that point we can review her general health maintenance. Signed by Molly Collazo MD 02/13/2008 21:23 Molly Collazo MD - Molly Collazo MD - ANIL Job ID: [id number] Doc ID: [id number] cc: documented in this encounter Plan of Treatment Not on file documented as of this encounter Visit Diagnoses Not on filedocumented in this encounter Care Teams String Winding Machine Operator Relationship Specialty Start Date End Date Molly Collazo MD [address] [place] [id number] PCP - General 12/29/08 12/23/12 documented as of this encounter
--- OUTSIDE RECORDS SUMMARY | 2024-04-21 04:20 | XMS_ITS | Encounter Summary ---
Author Organization [facility] Address [facility] [place] [address] Care Team Providers Care Computer Systems Information Director Name Role Phone Yadira Llanes Primary Care Provider [phone] Encounter Details Date Type Department Care Team (Latest Contact Info) Description 04/10/2023 9:45 PM EDT - 04/10/2023 11:59 PM EDT [place] [phone] Discharge Disposition: Home Social History Tobacco Use [...] 1:00 PM EDT Office Visit Dermatology at [facility] [address] [place] [address] Skyla Campbell MD [facility] [address] [place] [address] documented as of this encounter Procedures Procedure Name Priority Date/Time Associated Diagnosis Comments SURGICAL PATHOLOGY REPORT Routine 04/10/2023 4:00 PM EDT documented in this encounter Results * Surgical Pathology Report (04/10/2023 4:00 PM EDT) Final Diagnosis [id number] ? Location: [facility] The signing pathologist has (i) examined the relevant preparation(s) for the specimen(s) and (ii) rendered or confirmed the diagnosis(es). . ?Surgical Pathology DIAGNOSIS A - Left face, skin excision: - ??Extensive melanoma in situ, with focal superficial invasion to the depth of 0.3 mm, non-ulcerated, pT1a (see synoptic report and discussion) - Scar B - Deep margin, soft tissue excision: - Negative for ??atypical melanocytic proliferation Electronically signed by: ?Tim ALFARO, PhD, [facility] Verified: ??04/20/2023 8:39 ?? Dermatopathologist Performed at: ??-[facility] Dept. of Pathology, [place] [address] Stonecutter: Claudine Jaquez MD, FCAP, ??IA Certificate: [id number] SYNOPTIC Specimen ? Procedure: ??Excision ? Specimen Laterality: ??Left Tumor ? Tumor Site: ??Skin of other and unspecified parts of face - Left face ? Histologic Type: ??Melanoma, not otherwise classified ? Maximum Tumor (Breslow) Thickness (Millimeters): ??0.3 mm ? Macroscopic Satellite Nodule(s): ??Cannot be determined ? Ulceration: ??Not identified ? Anatomic (Murphy) Level: ??II (Melanoma present in but does not fill and expand ?papillary dermis) ? Mitotic Rate: ??None identified ? Microsatellite(s): ??Not identified ? Lymphovascular Invasion: ??Not identified ? Neurotropism: ??Not identified ? Tumor-Infiltrating Lymphocytes: ??Present, brisk ? Tumor Regression: ??Not identified ? Margins ?Margin Status for Invasive Melanoma: ??All margins negative for invasive ? melanoma ?Margin Status for Melanoma in situ: ??Melanoma in situ close to the ? peripheral margin ? Regional Lymph Nodes ?Regional Lymph Node Status: ??Not applicable (no regional lymph nodes ? submitted or found) ? Pathologic Stage Classification (pTNM, AJCC 8th Edition) ?pT Category: ??pT1a ?pN Category: ??pN not assigned (no nodes submitted or found) ?[facility] 2021 Q1 Release DISCUSSION A - The specimen shows predominantly melanoma in situ adjacent to scar, with rare MelanA positive cells in the dermis associated with dense lymphohistiocytic infiltrate, consistent with superficial invasion to the depth of 0.3 mm. ADDITIONAL STUDIES Immunohistochemistry Studies: . ADDITIONAL STUDIES Formalin-fixed, paraffin-embedded tissue sections are studied using the polymer technique with appropriate positive and negative controls. ?These IHC studies provide the pathologist with adjunctive diagnostic information. Antibody specificity has been verified by testing antibodies on a series of in-house tissues with known immunohistochemical performance characteristics. The clinical interpretation of any antibody positive staining or its absence is evaluated within the context of clinical presentation, morphology, histopathological criteria and other diagnostic tests. Block ? Antibody ? Result (Positive/Negative) A2,A3 ?Melan-A ? Highlights ?? melanocytes SPECIMEN(S) SUBMITTED A - Left face skin lesion, skin excision B - deep margin Referring Identifier: ?(not provided) CLINICAL INFORMATION Prior melanoma in situ excised close, approximately 1 cm away. New skin lesion approximately 4 weeks old. Not in scar, but close. Recurrent melanoma SPECIMEN PROCESSING A - Labeled/Fixative: Left face lesion, formalin. Quantity/Size: ??Single, 1.4 x 0.8 x 0.3 cm. Tissue Description: Elliptical excision of white skin with a 0.5 x 0.4 cm pink eroded lesion Sections/Processing: Inked and entirely submitted in 3 cassettes as follows: ?A1: ??tips ?A2-A3: ??body B - Labeled/Fixative: Deep margin, formalin. Quantity/Size: ??Single, 0.8 x 0.5 x 0.4 cm. Tissue Description: Soft, pink-yellow tissue received without orientation. The fatty side, presumed deep margin, is inked black. Sections/Processing: Inked, trisected and entirely submitted in 1 cassette labeled B1. ??sns 04/20/2023 8:39 AM EDT [facility] SPECIMEN FROM SKIN / Unknown 04/10/2023 4:00 PM EDT 04/10/2023 4:00 PM EDT Margin 04/10/2023 4:00 PM EDT 04/10/2023 4:00 PM EDT Joe Chamorro MD PATHOLOGY/CYTO LOGY ORDERABLES [facility] [place] [address] [facility] [place] [address] documented in this encounter Visit Diagnoses Not on filedocumented in this encounter Care Teams Computer Systems Information Director Relationship Specialty Start Date End Date Yadira Llanes PA [address] [place] [address] PCP - General Family Medicine 04/17/19 documented as of this encounter
--- OUTSIDE RECORDS SUMMARY | 2024-04-21 04:20 | XMS_ITS | Encounter Summary ---
Author Organization [facility] Address [address] [place] [address] Care Team Providers Care Road Oiling Truck Driver Name Role Phone Molly Collazo MD Primary Care Provid er Encounter Details Date Type Department Care Team (Late st Contact Info) Description 10/16/2011 Abstract [facility] Adult Primary Care - [address] [address] Molly Collazo MD [address] [place], [place] [id number] Social History Tobacco Use Types Packs/Day Years Used Date Smoking Tobacco: Never Assessed Sex and Gender Information Value Date Recorded Sex Assigned at Not on file Gender Identity Not on file Sexual Orientation Not on file documented as of this encounter Plan of Treatment Not on file documented as of this encounter Visit Diagnoses Not on filedocumented in this encounter Care Teams Road Oiling Truck Driver Relationship Specialty Start Date End Date Molly Collazo MD [address] [place], [place] [address] PCP - General 12/29/08 12/23/12 documented as of this encounter
--- OUTSIDE RECORDS SUMMARY | 2024-04-21 04:20 | XMS_ITS | Encounter Summary ---
Author Organization [facility] Address [address] [place] [address] Care Team Providers Care Video Intern Name Role Phone Unknown, Provider Primary Care Provider [phone] Encounter Details Date Type Department Care Team (Late st Contact Info) Description 04/29/2018 Historical Results Only [facility] [place] [place] [address] [place], [place] [id number] Griselda Anaya PA [address] [place], [place] Social History Tobacco Use Types Packs/Day [...] Date/Time Associated Diagnosis Comments SURGICAL PATHOLOGY Routine 04/29/2018 documented in this encounter Results * SURGICAL PATHOLOGY (04/29/2018) 04/29/2018 04/30/2018 9:0 4 EDT Narrative [facility] - 05/09/2018 11:51 EDT ----- ------- Name: MAG RIDER ? : 59 ?Age/Sex: 63/F ?Unit#: [id number] ? Loc: LAB.THC ? Status: REG REF ?? Reg Date: 04/29/18 ? Pt.Phone Number: ? ----- ------- Specimen: [id number] ? STATUS: SOUT ?Spec Date:04/29/18 ? Physician Copies: ?Griselda Anaya PAC Tissues: A ?? Skin, other than cyst (SCALP-CROWN OF HEAD) ? CPT: 85213 ?? Units: ??1 ?FINAL DIAGNOSIS ? SKIN OF SCALP, CROWN OF HEAD, PUNCH BIOPSY; ? - Follicular cyst, infundibular type. ??SEE COMMENT. ? REFERENCE [facility] SURGICAL PATHOLOGY CONSULT REPORT [id number] ----- ------- ?COMMENT ? The biopsy was evaluated by [facility] Dermatopathology. ??The [facility] report comments: Thank you for allowing us to review [...] epithelium. We see no evidence of malignancy. ??Given that the majority of the biopsy consists of this cyst, evaluation for alopecia is not possible (need adequate follicular count to evaluate for alopecia). (Dr. Choe) ?? REFERENCE [facility] SURGICAL PATHOLOGY CONSULT REPORT [id number] ? GROSS DESCRIPTION ? Received in formalin labeled with the patient's name and Sample from crown ? head scalp is a punch biopsy of aviles skin measuring 0.6 cm in diameter x 0.8 cm ? thick. ??The biopsy is centered on a red lesion measuring 0.3 cm overall, ? bisected es 1 ??NM ?? PREOP DX/CLINICAL HISTORY ? 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 05/09/18 By the signature above, the attending physician certifies that he/she has personally conducted a gross and/or microscopic examination of the described specimens and rendered or confirmed the above diagnosis. Test Performed by [facility], [address] [place] [address] Social Worker Assistant: Ruth Lopez MD PHD ----- ------- Griselda DIAZ PATHOLOGY ORDERABLES Performing Organization Address City/State/[facility] Co de Phone Number [facility] documented in this encounter Visit Diagnoses Not on filedocumented in this encounter Care Teams Video Intern Relationship Specialty Start Date End Date Unknown, Provider, PCP - General 12/24/12 documented as of this encounter
--- OUTSIDE RECORDS SUMMARY | 2024-04-21 04:20 | XMS_ITS | Encounter Summary ---
Author Organization [facility] Address [address] [place] [address] Care Team Providers Care Dyed Yarn Operator Name Role Phone Unknown, Provider Primary Care Provider [phone] Encounter Details Date Type Department Care Team (Late st Contact Info) Description 01/20/2015 Historical Results Only [facility] [place] [facility] - Main [place] [address] [place], [place] [address] Rosi Austin MD [address] [place] [phone] Social History Tobacco Use Types Packs/Day Years Used Date Smoking Tobacco: Never Assessed Sex and Gender Information Value Date Recorded Sex Assigned at Not on file Gender Identity Not on file Sexual Orientation Not on file documented as of this encounter Plan of Treatment Not on file documented as of this encounter Procedures Procedure Name Priority Date/Time Associated Diagnosis Comments PAP TEST Routine 01/20/2015 18:55 EDT documented in this encounter Results * PAP TEST (01/20/2015 18:55 EDT) 01/20/2015 18:5 5 EDT 01/20/2015 18:[address] [facility] - 01/28/2015 14:44 EDT ----- ------- Name: JESSICAMAG ? : 59 ?Age/Sex: 63/F ?Unit#: [id number] ? Loc: LAB.OPX ? Status: REG REF ?? Reg Date: 01/20/15 ? Pt.Phone Number: ? ----- ------- Specimen: [id number] ?STATUS: SOUT ?Spec Date:01/20/15 ? Physician Copies: ?Rosi Austin MD ?? Tissues: ? VAG/CERV PAP ? CPT: 02444 ?? Units: ??1 ----- ------- ? CYTOLOGY DIAGNOSIS SPECIMEN ADEQUACY: ??Satisfactory for evaluation. Assessment of transformation zone not applicable (e.g. ??atrophy, vaginal sample, hysterectomy). Scant squamous epithelial component secondary to excessive contaminate which may include lubricant. GENERAL CATEGORIZATION: ?Negative for Intraepithelial Lesion or Malignancy DESCRIPTIVE DIAGNOSIS: ? Negative for Intraepithelial Lesion or Malignancy. ----- ------- ?HPV DNA RESULTS ?? 01/20/151906 HPV DNA RESULT ??NEG ? Negative for HPV types 16, 18, 31, 33, 35, 39, 45, 51, 52, ? 56, 58, 59, 66, 68. ? Method: Cervista HPV HR (High Risk) DNA test. ----- ------- ORDER QUERIES: LMP: ? - DELMA ? Post ?PREVIOUS ATYPICAL: ?? BCP/HRT? ?? Rad Rx? ?? IUD?PAP PLUS HPV? Y ??REFLEX TO HR-HPV IF ASCUS ?? REFLEX TO HPV 16/18 IF HPV POS/PAP NEG ?? HPV REGARDLESS?RFLX HPV IF LSIL ?? Signed ____(signature on file)____ Ruth Lopez M.D. 01/28/15 By the signature above, the attending physician certifies that he/she has personally conducted a gross and/or microscopic examination of the described specimens and rendered or confirmed the above diagnosis. Test Performed by [facility], [address] [place] [address] Lease Purchase Driver: Ruth Lopez MD PHD ----- ------- Rosi Austin MD PATHOLOGY ORDERABLES [facility] documented in this encounter Visit Diagnoses Not on filedocumented in this encounter Care Teams Dyed Yarn Operator Relationship Specialty Start Date End Date Unknown, Provider, PCP - General 12/24/12 documented as of this encounter
--- OUTSIDE RECORDS SUMMARY | 2024-04-21 04:20 | XMS_ITS | Clinical Summary ---
Author Organization [facility] Address [address] [facility] [place] [address] Care Team Providers Care Pilot Steam Yacht Name Role Phone Yadira Llanes Primary Care Provider [phone] Allergies Active Allergy Reactions Criticality Noted Date Comments Codeine Nausea And Vomiting Medium 04/06/2010 N & V Penicillins Anaphylaxis High 07/25/2022 Medications Medication Sig Dispensed Refills Start Date End Date Status multivitamin (THERAGRAN) Tablet Take 1 tablet by mouth daily. Active oxyCODONE (ROXICODONE) 5 mg Tablet Take 1-2 tablets by mouth every 4 hours as needed for Pain. 42 tablet 06/19/2019 Active Additional Information Patient not taking.Reported on 07/28/2019 naproxen (NAPROSYN) 500 mg Tablet Take 1 tablet by mouth 2 times daily. 84 tablet 07/28/2019 Active Additional Information Patient not taking.Reported on 07/25/2022 Active Problems Problem Noted Date Diagnosed Date s/p R DARRELL (Dr. David), 06/18/19 06/18/2019 Pain in extremity 06/09/2019 Debility 06/09/2019 Status post total replacemen t of left hip, DAA. Dr. David. 04/29/2019 04/29/2019 Primary osteoarthritis of both hips 04/14/2019 Encounters Date Type Department Care Team Description 04/06/2024 Notes Only Dermatology at [facility] [address] [place] [phone] Skyla Campbell MD 04/03/2024 9:40 AM EDT Office Visit Dermatology at [facility] [address] [place] [phone] Skyla Campbell MD Skin cancer screening; History of melanoma in situ; Multiple benign nevi; Lentigines; Bennett angioma 04/03/2024 Travel from Last 3 Months Family History Medical History Relation Comments Diabetes Neg Hx Social History Tobacco Use Types Packs/Day Years Used Date Smoking Tobacco: Never Smokeless Tobacco: Never Alcohol Use Standard Drinks/Week Comments Never 0 (1 standard drink = 0.6 oz pur e alcohol) Sex and Gender Information Value Date Recorded Sex Assigned at Not on file Gender Identity Not on file Sexual Orientation Not on file Last Filed Vital Signs Vital Sign Reading Time Taken Comments Blood Pressure 131/70 06/15/2021 4:00 PM EDT Pulse 75 06/15/2021 4:00 PM EDT Temperature 37.1 ??C (98.7 ??F) 06/15/2021 3:10 PM ED T Respiratory Rate 18 06/15/2021 4:00 PM EDT Oxygen Saturation 100% 06/15/2021 4:00 PM EDT Inhaled Oxygen Concentration - - Weight 68 kg (150 lb) 06/15/2021 3:10 PM EDT Height 162.6 cm (5' 4) 06/15/2021 3:10 PM EDT Body Mass Index 25.75 06/15/2021 3:10 PM EDT Plan of Treatment Upcoming Encounters Date Type Department Care Team (Late st Contact Info) Description 06/25/2024 1:00 PM EDT Office Visit Dermatology at [facility] [address] [place] [address] Skyla Campbell MD [facility] [address] [place] [address] Health Maintenance Due Date Last Done Comments CT Colonography 1957 Colonoscopy 1957 Colorectal Cancer Screening 1957 FIT DNA 1957 FIT 1957 Sigmoidoscopy (10 year) with FIT yearly 1957 Sigmoidoscopy 1957 Hepatitis C Screening 11/23/1975 Tdap adult 1976 Tetanus vaccine 1976 HPV test 11/23/1987 PAP Smear 11/23/1987 Breast Cancer Share Decision Needed 1997 Breast Cancer screening 1997 Zoster vaccine (1 of 2) 11/23/2007 Advance Directive 2012 Diabetes Screening (HgbA1C o r Glucose) 06/19/2022 06/19/2019, 06/09/2019, 04/30/2019 Bone Density Scan 2022 Pneumoccocal Vaccine: 65+ (1 of 1 - PCV) 2022 Covid-19 Vaccine (1 - 2022-24 season) 2023 Influenza (Flu) vaccine (1 o f 1 - Influenza standard series) 05/11/2024 Medical Devices Implanted Type Area Inspector Timers Device Identifier Shelf Expiration Date Model / Serial / Lot Shell,R3,Acet ,3hol,52mm ([id number]) (Autoreq) - [id number] Implanted:Qty : 1 on 04/29/2019 by Brett David MD at [facility] IMPLANTS Left: Hip [employer]PH 02/14/2029 [id number] / / [id number] Screw,Rflct,S phrcl,Hd,6.5x 30mm ([id number]) ([employer]oreq) - [id number] Implanted:Qty : 1 on 04/29/2019 by Brett David MD at [facility] IMPLANTS Left: Hip [employer] 12/25/2028 [id number] / / [id number] Screw,Rflct,S phrcl,Hd,6.5x 30mm ([id number]) ([employer]oreq) - [id number] Implanted:Qty : 1 on 04/29/2019 by Brett David MD at [facility] IMPLANTS Left: Hip [employer] - [employer] 01/03/2029 [id number] / / [id number] Liner R3 Acet 36x52 Xlpe 0dg ([id number]) ([employer]oreq) - [id number] Implanted:Qty : 1 on 04/29/2019 by Brett David MD at [facility] IMPLANTS Left: Hip [employer] 01/25/2029 [id number] / / [id number] Polarstem Cone Wcol 1214 Sz2 ([id number]) ([employer]oreq) - [id number] Implanted:Qty : 1 on 04/29/2019 by Brett David MD at [facility] IMPLANTS Left: Hip [employer] 10/20/2025 [id number] / / Head,Fmrl,Oxi n,+4mm,12/14, 36mm ([id number]) ([employer]oreq) - [id number] Implanted:Qty : 1 on 04/29/2019 by Brett David MD at [facility] IMPLANTS Left: Hip [employer] 02/03/2029 [id number] / / [id number] Inser,Altrx,N t,21o62mh ([id number]) ([employer]oreq) - [id number] Implanted:Qty : 1 on 06/18/2019 by Brett David MD at [facility] IMPLANTS Right: Hip [employer] 04/09/2024 [id number] / / [id number] Head,Dlta,Crm c,+1.5,12/14, 36mm ([id number]) ([employer]oreq) - [id number] Implanted:Qty : 1 on 06/18/2019 by Brett David MD at [facility] IMPLANTS Right: Hip [employer] - [employer] 05/10/2024 [id number] / / [id number] Stem,Actis,Fe ml,High,Sz4 ([id number]) ([employer]oreq) - [id number] Implanted:Qty : 1 on 06/18/2019 by Brett David MD at [facility] IMPLANTS Right: Hip [employer] - [employer] 03/09/2029 [id number] / / [id number] Cup,Hip,Acetb ,Grptn,Sctr,5 2mm ([id number]) ([employer]oreq) - [id number] Implanted:Qty : 1 on 06/18/2019 by Brett David MD at [facility] IMPLANTS Right: Hip [employer] - [employer] 05/10/2029 [id number] / / [id number] Screw,Cacls,P nncl,6.5x30mm ([id number]) ([employer]oreq) - [id number] Implanted:Qty : 1 on 06/18/2019 by Brett David MD at [facility] IMPLANTS Right: Hip [employer] [facility] [facility] - [employer] 03/09/2029 1217-30-500 / / [id number] Screw,Cacls,P nncl,6.5x30mm ([id number]) ([employer]oreq) - [id number] Implanted:Qty : 1 on 06/18/2019 by Brett David MD at [facility] IMPLANTS Right: Hip [employer] [facility] [facility] - [employer] 03/09/2029 1217-30-500 / / [id number] Procedures Procedure Name Priority Date/Time Associated Diagnosis Comments BASIC METABOLIC PANEL Routine 06/19/2019 2:51 AM EDT from Last 3 Months or Most Recently Relevant to Health Maintenance Results * (ABNORMAL) Basic Metabolic Panel (non-fasting) (06/19/2019 2:51 AM EDT) Glucose 157 65 - 199 mg/dL [facility] Comment:Diabetes: >=200 mg/d L plus symptoms Blood Urea Nitrogen 14 8 - 18 mg/dL [facility] Creatinine 0.58(L) 0.70 - 1.20 mg/dL [facility] Sodium 137 135 - 145 mmol/L [facility] Potassium 4.3 3.5 - 5.0 mmol/L [facility] Comment: Please note: ??Patients with WBC >100,000 may have falsely elevated Potassium levels. ??For accurate Potassium quantification in these patients send serum separator tube (gold top) for subsequent determinations. ??Contact the Clinical Chemistry Laboratory if there are any questions. Chloride 107 98 - 107 mmol/L [facility] Carbon Dioxide 21(L) 22 - 31 mmol/L [facility] Anion Gap 9 5 - 15 mmol/L [facility] Calcium 8.9 8.5 - 10.5 mg/dL [facility] Est Glomerular Filtration Rate 99 >=60 mL/min/1. 73 m?? [facility] Comment: The eGFR was calculated using the CKD-EPI equation. As with all creatinine based estimates of kidney function, eGFR values calculated with the CKD-EPI equation are not accurate in patients with acute kidney failure, extremes of body mass or the acutely ill. http://[employer]/DHMCnkf eGFR 115 >=60 mL/min/1. 73 m?? [facility] Comment: The eGFR was calculated using the CKD-EPI equation. As with all creatinine based estimates of kidney function, eGFR values calculated with the CKD-EPI equation are not accurate in patients with acute kidney failure, extremes of body mass or the acutely ill. 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 06/09/2019 3:49 PM [place] * Full Code (Latest Code Status on File) Date Activated Date Inactivated Comments 06/18/2019 9:03 AM 06/19/2019 3:42 PM Question Answer Comments Does patient have capacity to make decision: Yes * Full Code Date Activated Date Inactivated Comments 04/30/2019 6:57 AM 04/30/2019 3:14 PM Question Answer Comments Does patient have capacity to make decision: Yes * Full Code Date Activated Date Inactivated Comments 04/30/2019 6:48 AM 04/30/2019 6:57 AM Question Answer Comments Does patient have capacity to make decision: Yes * Full Code Date Activated Date Inactivated Comments 04/29/2019 11:03 AM 04/30/2019 6:48 AM Question Answer Comments Does patient have capacity to make decision: Yes Care Teams Pilot Steam Yacht Relationship Specialty Start Date End Date Yadria Llanes PA [address] [place] [address] PCP - General Family Medicine 04/17/19
--- OUTSIDE RECORDS SUMMARY | 2024-04-21 04:20 | XMS_ITS | Encounter Summary ---
Author Organization [facility] Address [facility] [place] [address] Care Team Providers Care Air And Water Filler Name Role Phone Yadira Llanes Primary Care Provider [phone] Reason for Visit * Reason Comments Follow-up R DARRELL ANT DOS 10.9.1 9, L DARRELL ANT DOS 04.29.19 Encounter Details Date Type Department Care Team (Late st Contact Info) Description 09/15/2019 8:00 AM EST Office Visit [place] [phone] Wesley Tovar PA [facility] [place] [address] s/p R DARRELL (Dr. David), 06/18/19; Status post total replacement of left hip, DAA. Dr. David. 04/29/2019 Social History Tobacco Use Types Packs/Day Years Used Date Smoking Tobacco: Never Smokeless Tobacco: Never Alcohol Use Standard Drinks/Week Comments Never 0 (1 standard drink = 0.6 oz pur e alcohol) Sex and Gender Information Value Date Recorded Sex Assigned at Not on file Gender Identity Not on file Sexual Orientation Not on file documented as of this encounter Last Filed Vital Signs Vital Sign Reading Time Taken Comments Blood Pressure 137/60 09/15/2019 7:58 AM EST Pulse 60 09/15/2019 7:58 AM EST Temperature - - Respiratory Rate - - Oxygen Saturation - - Inhaled Oxygen Concentration - - Weight 71.2 kg (157 lb) 09/15/2019 7:58 AM EST w eighed Height 162.6 cm (5' 4) 09/15/2019 7:58 AM EST v erbal Body Mass Index 26.95 09/15/2019 7:58 AM EST documented in this encounter Progress Notes * Wesley Tovar PA - 09/15/2019 8:00 AM EST Arthroplasty/Orthopaedic History: 1. Left DARRELL, DAA. Dr. Zambrano. 04/29/2019. 2. Right DARRELL, DAA. Dr. David. 06/18/2019. HPI: Mag Rider is a very pleasant 63 y.o. year-old female and is now 3 and 5 months postbilateral total hip replacement The patient has been doing great. She was able to complete a 6 milewalk recently. She is still working in PT. She has some back pain, working through this in PT. No issues on the right. She does have some pain on the left hip. She localizes this over the proximal lateral femur. She notes this when she is lying in bed. She denies any incision concerns. She denies groin pain, and instability. Pain is controlled without any medications.. No fevers, chills, nausea, vomiting, or symptoms of infection. Mag has been ambulating with no assistive device and working with PT. She is not taking narcotic pain medicine. Anticoagulation status ASA 81mg BID for 30 days discussed stop date. ROS: Denies: fever, chills, night sweats, nausea, or vomiting BP 137/60 Pulse 60 Ht 162.6 cm (5' 4) Comment: verbal Wt 71.2 kg (157 lb) Comment: weighed BMI 26.95 kg/m?? Physical Exam: Well-appearing female in no acute distress. Alert and Oriented x 3 and answers all questions appropriately. The incision is well healed, with no signs of infection. I have made the following determinations: Post Op Right Hip Exam: Leg length: Longer leg: equal Limb Length discrepancy: 0cm Motion: Flexion contracture: 0 Total degrees of Flexion:90 Total degrees of Abduction:40 Total degrees of Ext Rotation: 30 Total degrees of Internal Rotation: 20 Gait Abnormality: Normal Pulses Palpable: Right PT: Yes Right DP:Yes Motor/Sensory: Right Distal Motor: Normal Distal Sensory: Normal Hip Abductors 5 Trendelenburg test: negative Post Op Left Hip Exam: Leg Length: Longer leg: equal Limb Length discrepancy: 0cm Motion: Flexion contracture: 0 Total degrees of Flexion: 90 Total degrees of Abduction: 45 Total degrees of Ext Rotation: 40 Total degrees of Internal Rotation: 20 Gait Abnormality: Normal Pulses Palpable: Left PT: Yes Left DP: Yes Motor/Sensory: Left Distal Motor: Normal Distal Sensory: Normal Hip Abductors: 5 Trendelenburg test: negative X-RAYS: None new. Questionnaire Responses: [facility] Surgical Postop Visit 09/15/2019 PROMIS-10 General Health Excellent PROMIS-10 Quality of Life Excellent PROMIS-10 Physical Health Excellent PROMIS-10 Mental Health Excellent PROMIS-10 Social Activity Excellent PROMIS-10 Everyday Activities Completely PROMIS-10 Pain 1 PROMIS-10 Fatigue None PROMIS-10 Social Roles Excellent PROMIS-10 Anxious or Depressed Never PROMIS PHYSICAL HEALTH SCORE 61.9 PROMIS MENTAL HEALTH SCORE 67.6 HOOS JR Scores 85.26 KOOS JR Scores - Problems with surgical incision/wound after surgery No Gone to ER since knee surgery No Admitted to hospital since recent ortho surgery No Additional surgery on same body part No DARRELL Grade 9 Pain in other HIP Mild Back pain at this moment Moderate Satisfaction with Treatment Satisfied Choose Same Treatment Again Definitely yes [facility] Response 09/15/2019 HOOS JR Scores 85.26 KOOS JR Scores - [facility] 09/15/2019 HOOS JR Scores 85.26 KOOS JR Scores - ASSESSMENT/PLAN: Ms. Rider is a 63 y.o. year old female status post bilateral total hip replacement. Doing well postoperatively. Continue weightbearing as tolerated and working on range of motion. We will see her back in 9 months for repeat examination. X-rays will be needed at that time. Patient may return to normal activities as her pain and function allow. Reassurance provided Discussed standard precautions. Discussed reasons to call / follow up. Monitorincision for concerns, increasing pain, or systemic symptoms. 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 Reviewed RICES, NSAID, and abduction exercises. Patient very happy, and doing well. We discussed the appropriate precautions surrounding dental prophylaxis; according to the AAOS Appropriate Use Criteria we do not recommend antibiotic use prior to dental procedures for Mag. Recommended antibiotic: N/A If Mag has any changes in health status we recommend she contact our office prior to dental procedures for updated recommendations We also discussed maintaining good foot care and giving prompt attention to any source of infectionthroughout the body including foot ulcers and urinary tract infections. All questions were answered. Signed: JOE HASTINGS 09/15/2019 documented in this encounter Plan of Treatment Upcoming Encounters Date Type Department Care Team (Late st Contact Info) Description 06/25/2024 1:00 PM EDT Office Visit Dermatology at [facility] [address] [place] [address] Skyla Campbell MD [facility] [address] [place] [address] documented as of this encounter Visit Diagnoses Diagnosis s/p R DARRELL (Dr. David), 06/18/19 Hip joint replacement by other means Status post total replacement of left hip, DAA. Dr. David. 04/29/2019 documented in this encounter Care Teams Air And Water Filler Relationship Specialty Start Date End Date Yadira Llanes PA [address] [place] [address] PCP - General Family Medicine 04/17/19 documented as of this encounter
--- OUTSIDE RECORDS SUMMARY | 2024-04-21 04:20 | XMS_ITS | Encounter Summary ---
Author Organization [facility] Address [facility] [place] [address] Care Team Providers Care Marine Surveyor Name Role Phone Yadira Llanes Primary Care Provider [phone] Encounter Details Date Type Department Care Team (Late st Contact Info) Description 09/13/2022 Telephone Dermatology at [facility] [address] [place] [id number] Ruby Smith MD [facility] DR [address] [place] [address] Social History Tobacco Use Types Packs/Day Years [...] encounter Miscellaneous Notes * Telephone Encounter - Olivia Ferreira - 09/13/2022 11:07 AM EST Patient Mag Rider wants to reschedule her skin exam for November after her birthday with Dr. Smith. Please call her at [phone]. Thank you, Kandi documented in this encounter Plan of Treatment Upcoming Encounters Date Type Department Care Team (Late st Contact Info) Description 06/25/2024 1:00 PM EDT Office Visit Dermatology at [facility] [address] [place] [address] Skyla Campbell MD [facility] DR [address] [address] documented as of this encounter Visit Diagnoses Not on filedocumented in this encounter Care Teams Marine Surveyor Relationship Specialty Start Date End Date Yadira Llanes PA [address] [place] [id number] PCP - General Family Medicine 04/17/19 documented as of this encounter
--- OUTSIDE RECORDS SUMMARY | 2024-04-21 04:20 | XMS_ITS | Encounter Summary ---
Author Organization [facility] [place] [address] Care Team Providers Care Merchandising Stock Associate Name Role Phone Yadira Llanes Primary Care Provider [phone] Reason for Visit * Auth/Cert Specialty Diagnoses / Procedures Referred By Ray cornelius Referred To Contact Diagnoses Osteoarthritis of right hip Osteoarthritis of the hip Procedures PRO TOTAL HIP ARTHROPLASTY @TOTAL HIP ARTHROPLASTY, ANTERIOR APPROACH (WRVU 20.72) MODIFIER ACTIS HIP STEM DEPUY MODIFIER PINNACLE ACETABULUM DEPUY Referral ID Status Reason Start Date Expiration Date Visits Re quested Visits Authorized [id number] 1 1 Encounter Details Date Type Department Care Team (Latest Contact Info) Description 06/18/2019 7:39 AM EDT - 06/19/2019 1:00 PM EDT Hospital Encounter [address] [place] [address] Brett David MD [facility] [place] [address] s/p R DARRELL (Dr. David), 06/18/19 Discharge Disposition: Home with VNA Social History Tobacco Use Types Packs/Day Years [...] Sign Reading Time Taken Comments Blood Pressure 110/50 06/19/2019 7:30 AM EDT Pulse 68 06/18/2019 1:00 PM EDT Temperature 36.4 ??C (97.5 ??F) 06/19/2019 7:30 AM ED T Respiratory Rate 18 06/19/2019 7:30 AM EDT Oxygen Saturation 98% 06/19/2019 7:30 AM EDT Inhaled Oxygen Concentration - - Weight 66.7 kg (147 lb) 06/18/2019 5:41 PM EDT Height 162.6 cm (5' 4) 06/18/2019 5:41 PM EDT Body Mass Index 25.23 06/18/2019 5:41 PM EDT documented in this encounter Discharge Summaries * Sulma Bennett, SR. PRICING ANALYST - 06/19/2019 12:02 PM EDT Discharge Summary Patient Name: Mag Rider Patient Age: 63 y.o. Language: Austrian Race: White Ethnicity: Not nor Admit date: 06/18/2019 Discharge date and time: 06/19/2019 Attending Physician: Brett David MD Discharge Physician: Brett David MD Follow-up Recommendations for Providers: See discharge instructions for additional details. Future Appointments Date Time Provider Department Center 07/28/2019 9:45 AM [facility] DX ROOM 1 Xray [facility] Rad 07/28/2019 10:40 AM Wesley Tovar PA [facility] 3[facility] Inpatient Provider Contact Information: Brett David MD Orthopedics: [phone] After hours and weekends, call [facility] Still Tender, , and have the Orthopedic resident paged. Discharge Diagnoses (Hospital Problems) and Secondary Diagnoses (Chronic Problems): Active Hospital Problems Diagnosis ??? s/p R DARRELL (Dr. David), 06/18/19 Resolved Hospital Problems No resolved problems to display. Active Non-Hospital Problems Diagnosis ??? Pain in extremity ??? Debility ??? Status post total replacement of left hip, DAA. Dr. David. 04/29/2019 ??? Primary osteoarthritis of both hips Operations/Major Procedures: 06/18/2019 Surgeon(s) and Role: * Brett David MD - Primary * Wesley Tovar PA - Physician Informatics Educator * Lubna Valles MD - Resident Procedure(s): @TOTAL HIP ARTHROPLASTY, ANTERIOR APPROACH (WRVU 20.72) MODIFIER ACTIS HIP STEM DEPUY MODIFIER PINNACLE ACETABULUM DEPUY Intraoperative Findings: Arthritic changes in both the femoral head and acetabulum as evidenced by loss of cartilage, exposed eburnated bone and osteophyte formation. History of Presentation: Mag Rider is a 63 y.o. female who has been followed in the out- patient clinic with a history of progressively worsening right hip pain secondary to degenerative arthritis. After having failed conservative, non- surgical attempts at managing the pain and limitations of functional capabiliti es, it was felt that the only remaining option was surgical. A detailed conversation regarding the risks and benefits of hip arthroplasty surgery was had with the patient. The risks discussed included but were not limited to: bleeding (which may or may not require transfusion), infection, damage tonerves (specifically the LFCN) or blood vessels, deep venous thrombosis, pulmonary embolus, prosthetic failure, loosening, prosthetic fracture, femur or pelvic fracture, dislocation, leg-length inequality, persistent pain, need for future surgery, medical complications (including cardiac, respiratory and neurologic complications), anaesthetic complications, and . Subsequent to this conversation, all of the patient???s questions were answered in great detail and informed consent was obtained for a right total hip arthroplasty. She received preoperative medical clearance and was felt optimized for surgery. Hospital Course: The patient was admitted via Same Day Surgery for the above operation. DVT prophylaxis was: ASA 81mg BID for 30 days. Patient began rehab on POD#1 for weight bearing as tolerated of right leg and reinforcement of the DARRELL Precautions. On POD#1 patient was voiding spontaneously. Wound inspected POD#1 and found to be benign. Patient did not have a bowel movement prior to discharge but was passing flatus and was taking a diet without difficulty. By POD#1 the patient was medically stable and was cleared for safe discharge to home per PT. Vital Signs at Discharge: Weight: Wt Readings from Last 1 Encounters: 06/18/19 66.7 kg (147 lb) Height: Ht Readings from Last 1 Encounters: 06/18/19 162.6 cm (5' 4) HC: HC Readings from Last 1 Encounters: No data found for HC BMI: Body mass index is 25.23 kg/m??. Last value Range last 24 hrs Temperature Temp: 36.4 ??C (97.5 ??F) Temp: [36.4 ??C (97.5 ??F)-37.3 ??C (99.1 ??F)] Heart Rate Heart Rate: 68 Heart Rate: [59-68] Blood Pressure BP: 110/50 BP: (105-127)/(50-73) Respiratory Rate Resp: 18 Resp: [16-26] SpO2 SpO2: 98 % SpO2: [94 %-98 %] Art BP BP (Arterial Line): -- Functional and Cognitive Status: Patient mobilizing with assistance and FWW, cognitively intact at baseline mental status at time of discharge. Important Lab Data: Last 3 wbc, hgb, hct plt Recent Labs 06/19/19 02506/09/19 1641 04/30/19 0633 WBC 14.0* 6.7 14.6* HGB 10.3* 12.5 11.8 HCT 30.6* 38.2 34.5* PLATELET 285 365* 305 Last 3 Lytes Recent Labs 06/19/1925006/09/19 1641 04/30/19 0633 NA 137 142 142 K 4.3 4.5 4.7 CL 107 107 107 CO2 21* 24 21* BUN 14 15 14 CREATININE 0.58* 0.78 0.70 Studies: Xr Fluoro No Rad <1hr - Or Use Result Date: 06/18/2019 This exam is auto-finalizing. No interpretation was done. Xr Pelvis (generic) Result Date: 06/18/2019 EXAMINATION: XR PELVIS (GENERIC) CLINICAL HISTORY: s/p R DARRELL TECHNIQUE: 1 views of the pelvis COMPARISON: Pelvis radiograph on 04/29/2019, 05/22/2019, 06/09/2019 FINDINGS: There is interval RIGHT total hip arthroplasty. The previously present LEFT total hip arthroplasty is unchanged in position and alignment. No fracture, dislocation, or subluxation is present at either of the hips. Post RIGHT total hip arthroplasty without complication. Thank you for letting us participate in thecare of this patient. For questions regarding this report, please contact the number below. Xr Pelvis And Hip 2 Views Left Result Date: 06/09/2019 EXAMINATION: XR PELVIS AND HIP 2 VIEWS LEFT CLINICAL HISTORY: History of hip replacement TECHNIQUE:AP pelvis and 2 views of left hip. COMPARISON: 05/22/2019 FINDINGS: There is no interval change, specifically in the position of the acetabular and femoral components of the left total hip arthroplasty. No periprosthetic fracture or significant new periprosthetic lucency is seen. Again noted is severe osteoarthritis in the RIGHT hip with obliteration of the joint space superiorly. No change in appearance of left total hip arthroplasty. Thank you for letting us participate in thecare of this patient. For questions regarding this report, please contact the number below. Electronically signed by: Aneesh Orellana [facility] ([phone]), at 06/09/2019 2:44 PM Xr Pelvis And Hip 2 Views Left Result Date: 05/22/2019 EXAMINATION: XR PELVIS AND HIP 2 VIEWS LEFT CLINICAL HISTORY: L DARRELL TECHNIQUE: AP pelvis. AP and lateral view left hip. COMPARISON: 04/29/2019. FINDINGS: Left hip arthroplasty equipment in unchanged position, with no new or increased periprosthetic lucency seen. No periprosthetic fractures identified. Unchanged right hip arthropathy including prominent subchondral cystic changes by the acetabular roof and bony buttressing along the inferior right femoral neck. The remainder of the imaged portionof the bony pelvic ring is unchanged. Unchanged postarthroplasty appearance compared to 04/29/2019. Thank you for letting us participate in the care of this patient. For questions regarding this report, please contact the number below. Pending Studies and Lab Data at Discharge: * No orders in the log * Transfusions: No Discharge Conditions/Prognosis: Stable, awake, and alert. Mobilizing as noted above, pain controlled on oral medications. Discharge to: Home with VNA for home PT [facility] PHONE: [phone] FAX: [phone] Updated Allergies/ADRs: Allergies Allergen Reactions ??? Codeine Nausea And Vomiting N & V Immunizations Given this Hospitalization: There is no immunization history on file for this patient. Discharge Medications: Your Medications New Medications Dose Details acetaminophen 500 mg Cap Take 2 capsules by mouth every 8 hours for 10 days. Replaces: acetaminophen 500 mg Tab 1,000 mg Refills: 0 aspirin 81 mg Tbec Take 1 tablet by mouth 2 times daily for 30 days. 81 mg Quantity: 60 tablet Refills: 0 omeprazole 20 mg Cpdr Commonly known as: PriLOSEC Take 1 capsule by mouth daily for 42 days. 20 mg Quantity: 42 capsule Refills: 0 oxyCODONE 5 mg Tab Commonly known as: ROXICODONE Take 1-2 tablets by mouth every 4 hours as needed for Pain. 5-10 mg Quantity: 42 tablet Refills: 0 polyethylene glycol 17 gram/dose Powd Commonly known as: MIRALAX Take 17 g by mouth 2 times daily as needed for up to 30 days. 17 g Refills: 0 senna-docusate 8.6-50 mg Tab Commonly known as: PERICOLACE Take 2 tablets by mouth 2 times daily as needed for Constipation for up to 30 days. 2 tablet Refills: 0 Continued medications with new dosing Dose Details naproxen 500 mg Tab Commonly known as: NAPROSYN Take 1 tablet by mouth 2 times daily. What changed: when to take this 500 mg Quantity: 84 tablet Refills: 0 Continued medications, unchanged Dose Details multivitamin Tab Commonly known as: THERAGRAN Take 1 tablet by mouth daily. 1 tablet Refills: 0 STOPPED Medications acetaminophen 500 mg Tab Commonly known as: TYLENOL Replaced by: acetaminophen 500 mg Cap Smoking Status at Discharge: Social History Tobacco Use Smoking Status Never Smoker Smokeless Tobacco Never Used Instructions for Rehab Providers or PCP: See below Instructions Given to Patient at Discharge: Patient Instructions Activity: 1. Your weight-bearing status is - weight bearing as tolerated of right leg. 2. Remember to use a walker or crutches at all times for balance and protection. Your physical therapist may progress you to using a cane when appropriate. 3. Remember your hip precautions: Standard: You should transition from sit to stand and stand to sit utilizing a broad based stance with feet and knees wider than hips. Anticoagulation: Aspirin - You are being discharged on enteric-coated Aspirin 81 mg by mouth twice a day for 30 days. After your dose on 07/18/19 stop the Aspirin, unless you are told otherwise by your Orthopedic surgeon. Take this medication with food or large amounts (240 mL) of water or milk to minimize GI irritation. Diet: Resume your usual diet but increase your intake of fluids and fiber while you are on narcoticpain meds to prevent constipation. Driving: None until you are cleared to do so by your Orthopedic surgeon. You should not drive whileyou are on narcotic pain meds as they can affect your judgment and reaction time. Call your surgeonwith any questions/concerns. Medications: 1. The pain medication you are on can cause constipation so increase your intake of fluids and fiber while you are on them. The stool softener, Pericolace, that has been prescribed can also be taken to facilitate a bowel movement. You can also take an veqw-ecm-tftnxjv medication, Miralax if needed to combat constipation. 2. If you need a renewal on your narcotic pain medication, you need to give the Orthopedic clinic enough time to process your request. This can take up to three days, so plan accordingly. 3. Continue acetaminophen (Tylenol) 1,000mg every 8 hours around the clock until 06/28/19 (for ten days after your surgery). This can be effective in controlling pain along with your other medications. After that you can take Tylenol as needed per package insert. Do not take more than 3,000mg of acetaminophen in a 24 hour period. 4. You have been discharged on a short acting narcotic, oxycodone. You will be on this medication for a limited period of time only. Take the smallest dose possible to control your pain. As your painimproves take smaller, less frequent doses. You may break the tablet to achieve a smaller dose. 5. Continue your home naproxen (Aleve). 6. You are being discharged on a proton pump inhibitor (Prilosec OTC). This will decrease stomach irritation that may be caused by NSAIDs. Take this daily for the next 6 weeks while you are on the NSAID. 7. You are being discharged on gabapentin (Neurontin), a non-narcotic medication that will help with your pain at night and allow you to sleep better. Take this at night for the next 4 weeks. Shower (internal sutures): 1. You can shower but remember your activity limitations and always have a chair available for balance and protection. DO NOT submerge the dressing/incision. 2. (Mepilex) Do not let water run over the operative dressing. If it becomes wet lightly pat the dressing dry. DO NOT submerge the incision. When this operative dressing is removed you can let water gently run over the incision. Wound (Mepilex): 1. You do NOT have any external noel or sutures in place. Your sutures are internal and will be absorbed over time. 2. You have a Mepilex dressing in place. Do not lift the edge of the Mepilex dressing to inspect the incision, it will not re-adhere. Remove your operative dressing 7 days after your surgery (06/25/19). When it is removed you can leave the incision open to air or cover it with a light dressing. Some patients have an additional item called Prineo on their skin. If you have this it will appear as amesh dressing directly over the incision. Please leave this in place until your follow up with orthopedics. 3. If you have lots of drainage when you get home (and it is before 06/25/19), remove the operativedressing and replace it with dry sterile gauze. Continue with daily dressing changes (and as needed) until the drainage stops, then remove the dressing and leave the incision open to air or lightly covered. Misc: Remember that ICE and elevation are very important after surgery to help decrease swelling and control pain. Use ICE for 20-30 minutes at a time and keep your leg elevated as much as possible. Call your doctor ([phone]) if you develop: 1. Fever greater than 100.5 2. Severe nausea or vomiting 3. Increasing pain that is not controlled by pain medications 4. Increasing redness, swelling, or drainage from incisions 5. Change in sensation FOLLOW-UP APPOINTMENTS: 1. You will have follow-up appointments at [facility] as indicated below in Future Appointment and Orders. 2. You will need to have x-rays prior to your follow-up appointment on 07/28/19. Please come to Radiology, desk 3T, 1 hour BEFORE that appointment for these x-rays. Future Appointments Date Time Provider Department Center 07/28/2019 9:45 AM [facility] DX ROOM 1 Xray [facility] Rad 07/28/2019 10:40 AM Wesley Tovar PA [facility] [address] [place] [address] If you have questions or concerns: Sunday through Sunday, 8 AM - 5 PM, please call Dr. Brett David MD's office at . If it is after 5 PM, the weekend, or holidays, please call and ask to speak with theOrthopedic resident on-call. General Instructions None Future Appointments and Orders Future Appointments and Orders Future Appointments Provider Department Dept Phone 07/28/2019 9:45 AM [facility] DX ROOM 1 XRay at [facility] Arrive at: [place] [facility] [phone] Please go to [place] [facility] ([facility]). 07/28/2019 10:40 AM Wesley Tovar PA Orthopaedics at [facility] Arrive at: [place] [facility] 3C [phone] Future Orders Complete By Expires Referral to Home Health - at DISCHARGE [[id number] CPT(R)] As directed Process Instructions: Scheduling Instructions: Comments: DOCUMENTATION FOR VNA SERVICES (INCLUDING THOSE PATIENTS WITH MEDICARE COVERAGE REQUIRING HOME VNA SERVICES AND/OR HOSPICE SERVICES) Mag Rider Discharge to own home: [address] [place] [address] (home) Telephone Information: Practice Manager's Name: self In discussion with the attending physician, it is certified that this patient is under their care and that they, or a nurse practitioner, clinical nurse specialist or physician's bioinformatics assistant who is working directly with them, had a face to face encounter that meets the physician face to face encounter requirements with this patient on 06/19/2019 The encounter with the patient was in whole, or in part, for the following medical condition, whichis the primary reason for home health care services: right DARRELL Activity: WBAT RLE Closure: Resorbable sutures Dressing: Mepilex x 1 week Drain: No drain Anticoagulation: ASA 81mg BID for 30 days In discussion with the provider, it is certified that, based on their findings, the following services are medically necessary for home health services. To provide the following care/treatments with the clinical findings supporting the need for services as follows: Home Health Agency: [facility] PHONE: [phone] FAX: [phone] Home care orders for Total Hip Replacements w PT services only. Long-Term(SN) eval if indicated on admission visit 1. Assess wound, pain management, medication effectiveness and management, elimination, nutrition 2. Do not lift the edge of the mepilex dressing to observe the incision; this dressing needs to stay in place until 7 days after surgery. 3. Continue PT rehab for balance, endurance, joint mobility, ROM, Strength, DARRELL protocol FOR MEDICARE ONLY: (please delete this section if not Medicare) In discussion with the attending physician, it is certified that the clinical findings support thatthis patient is homebound ;i.e. absences from home require considerable and taxing effort Due to: Restricted mobility due to LE strength and motion due to recent surgery Unsteady Gait, poor balance , requiring assistive devices and/or assistance of another Please note that any additional orders needs or changes will need to be obtained from this patient's PCP: JOE Albrecht [address] [place] [address] All A agencies which cover the area of patient's residence have been reviewed, either verbally erick writing, and patient/family have chosen the home health care agency as noted for home services. Questions: Agency name and contact information: [facility] Patient location post discharge: home What services are requested: Physical Therapy Start date: Responsible MD post discharge contact info: Walker standard [[id number] Custom] As directed Process Instructions: Scheduling Instructions: Comments: Mag Rider [address] [place] [address] (home) Telephone Information: FWW Diagnosis: Right DARRELL with Unsteady gait Significant weakness, ataxia or gait abnormality Patient's: Hgt: 162.6 cm Wgt: 66.7 kg VENDOR: [facility] Ordering: Front wheel walker Deliver to pt's hospital room #: 326-A Questions: Vendor Name/Contact information: [facility] Primary Care Provider: JOE Albrecht [phone] Discharge References/Attachments None documented in this encounter Discharge Instructions * Patient Instructions* Sulma Bennett APRN - 06/18/2019 11:46 AM EDT Activity: 1. Your weight-bearing status is - weight bearing as tolerated of right leg. 2. Remember to use a walker or crutches at all times for balance and protection. Your physical therapist may progress you to using a cane when appropriate. 3. Remember your hip precautions: Standard: You should transition from sit to stand and stand to sit utilizing a broad based stance with feet and knees wider than hips. Anticoagulation: Aspirin - You are being discharged on enteric-coated Aspirin 81 mg by mouth twice a day for 30 days. After your dose on 07/18/19 stop the Aspirin, unless you are told otherwise by your Orthopedic surgeon. Take this medication with food or large amounts (240 mL) of water or milk to minimize GI irritation. Diet: Resume your usual diet but increase your intake of fluids and fiber while you are on narcoticpain meds to prevent constipation. Driving: None until you are cleared to do so by your Orthopedic surgeon. You should not drive whileyou are on narcotic pain meds as they can affect your judgment and reaction time. Call your surgeonwith any questions/concerns. Medications: 1. The pain medication you are on can cause constipation so increase your intake of fluids and fiber while you are on them. The stool softener, Pericolace, that has been prescribed can also be taken to facilitate a bowel movement. You can also take an oqox-vht-qfrzawl medication, Miralax if needed to combat constipation. 2. If you need a renewal on your narcotic pain medication, you need to give the Orthopedic clinic enough time to process your request. This can take up to three days, so plan accordingly. 3. Continue acetaminophen (Tylenol) 1,000mg every 8 hours around the clock until 06/28/19 (for ten days after your surgery). This can be effective in controlling pain along with your other medications. After that you can take Tylenol as needed per package insert. Do not take more than 3,000mg of acetaminophen in a 24 hour period. 4. You have been discharged on a short acting narcotic, oxycodone. You will be on this medication for a limited period of time only. Take the smallest dose possible to control your pain. As your painimproves take smaller, less frequent doses. You may break the tablet to achieve a smaller dose. 5. Continue your home naproxen (Aleve). 6. You are being discharged on a proton pump inhibitor (Prilosec OTC). This will decrease stomach irritation that may be caused by NSAIDs. Take this daily for the next 6 weeks while you are on the NSAID. 7. You are being discharged on gabapentin (Neurontin), a non-narcotic medication that will help with your pain at night and allow you to sleep better. Take this at night for the next 4 weeks. Shower (internal sutures): 1. You can shower but remember your activity limitations and always have a chair available for balance and protection. DO NOT submerge the dressing/incision. 2. (Mepilex) Do not let water run over the operative dressing. If it becomes wet lightly pat the dressing dry. DO NOT submerge the incision. When this operative dressing is removed you can let water gently run over the incision. Wound (Mepilex): 1. You do NOT have any external noel or sutures in place. Your sutures are internal and will be absorbed over time. 2. You have a Mepilex dressing in place. Do not lift the edge of the Mepilex dressing to inspect the incision, it will not re-adhere. Remove your operative dressing 7 days after your surgery (06/25/19). When it is removed you can leave the incision open to air or cover it with a light dressing. Some patients have an additional item called Prineo on their skin. If you have this it will appear as amesh dressing directly over the incision. Please leave this in place until your follow up with orthopedics. 3. If you have lots of drainage when you get home (and it is before 06/25/19), remove the operativedressing and replace it with dry sterile gauze. Continue with daily dressing changes (and as needed) until the drainage stops, then remove the dressing and leave the incision open to air or lightly covered. Misc: Remember that ICE and elevation are very important after surgery to help decrease swelling and control pain. Use ICE for 20-30 minutes at a time and keep your leg elevated as much as possible. Call your doctor ([phone]) if you develop: 1. Fever greater than 100.5 2. Severe nausea or vomiting 3. Increasing pain that is not controlled by pain medications 4. Increasing redness, swelling, or drainage from incisions 5. Change in sensation FOLLOW-UP APPOINTMENTS: 1. You will have follow-up appointments at [facility] as indicated below in Future Appointment and Orders. 2. You will need to have x-rays prior to your follow-up appointment on 07/28/19. Please come to Radiology, desk 3T, 1 hour BEFORE that appointment for these x-rays. Future Appointments Date Time Provider Department Center 07/28/2019 9:45 AM [facility] DX ROOM 1 MH Xray [facility] Rad 07/28/2019 10:40 AM Wesley Tovar PA [facility] [address] [place] [address] If you have questions or concerns: Sunday through Sunday, 8 AM - 5 PM, please call Dr. Brett David MD's office at . If it is after 5 PM, the weekend, or holidays, please call and ask to speak with theOrthopedic resident on-call. documented in this encounter Medications at Time of Discharge Medication Sig Dispensed Refills Start Date End Date oxyCODONE (ROXICODONE) 5 mg Tablet Take 1-2 tablets by mouth every 4 hours as needed for Pain. 42 tablet 06/19/2019 multivitamin (THERAGRAN) Tablet Take 1 tablet by mouth daily. acetaminophen 500 mg Capsule Take 2 capsules by mouth every 8 hours for 10 days. 0 06/19/2019 06/29/2019 aspirin 81 mg Tablet, Delayed Release (E.C.) Take 1 tablet by mouth 2 times daily for 30 days. 60 tablet 06/19/2019 07/19/2019 omeprazole (PRILOSEC) 20 mg Capsule, Delayed Release(E.C.) Take 1 capsule by mouth daily for 42 days. 42 capsule 06/19/2019 07/31/2019 polyethylene glycol (MIRALAX) 17 gram/dose Powder Take 17 g by mouth 2 times daily as needed for up to 30 days. 0 06/19/2019 07/19/2019 senna-docusate (PERICOLACE) 8.6-50 mg Tablet Take 2 tablets by mouth 2 times daily as needed for Constipation for up to 30 days. 0 06/19/2019 07/19/2019 naproxen (NAPROSYN) 500 mg Tablet Take 1 tablet by mouth 2 times daily. 84 tablet 06/19/2019 07/28/2019 documented as of this encounter Progress Notes * Sulma Cruz - 06/19/2019 12:40 PM EDT Patient discharged to home with [facility]. Discharge summary faxed to [facility], reviewed with patient per RN. IV removed, medications reviewed, pain managed prior to discharge, questions encouraged and answered. Patient with no further requests at this time, please see MAR and flowsheets for details. * Tiesha Soriano RN - 06/19/2019 11:17 AM EDT Advised that patient needs a FWW. 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 Patient requests referral to [facility] for FWW. Expected date of discharge: TODAY (DC at 12:00 noon) Referral routed to the Demolition Worker for matching with agency/vendor and to provide any required information. Tiesha Soriano RN Pager [phone] * Lubna Valles MD - 06/19/2019 5:59 AM EDT Orthopaedic Surgery Progress Note SURGERY/ISSUE: Right total hip arthroplasty ATTENDING: Dr. David Patient Active Problem List Diagnosis Code ??? Primary osteoarthritis of both hips M16.0 ??? Status post total replacement of left hip, DAA. Dr. David. 04/29/2019 Z96.642 ??? Pain in extremity M79.609 ??? Debility R53.81 ??? s/p R DARRELL (Dr. David), 06/18/19 Z96.641 Interval History: No acute events, afebrile. Pain controlled, has mobilized to bathroom overnight. Voiding on own volition, tolerating PO intake, voiding on own volition. Temp: [36.4 ??C (97.5 ??F)-37.4 ??C (99.3 ??F)] Heart Rate: [59-69] Resp: [16-26] BP: (105-132)/(51-73) SpO2: [94 %-100 %] Heart Rate from SpO2: [57 bpm-85 bpm] I/O last 3 completed shifts: In: 1315.1 [I.V.:1205; IV Piggyback:110.1] Out: 1650 [Urine:1350; Blood:300] I/O this shift: In: 960 [P.O.:960] Out: 400 [Urine:400] PE: Gen- AOx3, NAD HEENT- NCAT CV- RRR checked peripherally Pulm- No incr WOB RLE Dressing C/D/I SILT in DP/SP/T Firing EHL/TA/GC Foot WWP Last 3 wbc, hgb, hct plt Recent Labs 06/19/19 0251 06/09/19 1641 04/30/19 0633 WBC 14.0* 6.7 14.6* HGB 10.3* 12.5 11.8 HCT 30.6* 38.2 34.5* PLATELET 285 365* 305 Last 3 Coags No results for input(s): PT, INR, PTT in the last 168 hours. Last CRP, SEDRATENo results for input(s): CRP, SEDRATE in the last 7068 hours. Imaging: AP pelvis: Interval placement of right total hip arthroplasty without radiographic complication identified A/P: 63 y.o. female now POD #1 s/p R DARRELL. No acute events, pain controlled, has ambulated to bathroom overnight. Will plan for PT/OT evaluation and disposition per their recommendations. Activity: WBAT RLE Closure: Resorbable sutures Dressing: Mepilex x 1 week Drain: No drain Anticoagulation: ASA 81mg BID for 30 days Antibiotics: Ancef x 24 hours Consults: PT/OT Dispo: Per PT Follow-up: As scheduled LUBNA VALLES MD Future Appointments Date Time Provider Department Center 07/28/2019 9:45 AM [facility] DX ROOM 1 MH Xray [facility] Rad 07/28/2019 10:40 AM Wesley Tovar PA [facility] [address] [place] [address] * Maggie Bryant RN - 06/18/2019 5:00 PM EDT Patient arrived to floor via bed. Patient A&O x 3, lungs clear, heart rate regular. Patient hasan IV of NS infusing at 75mL an hour in to their Left hand. Patient states their pain level is 5/10in R hip. Patient denies chest pain, shortness of breath, numbness or tingling. Patient oriented toroom and call lew in reach. RN will monitor patient. See assessment. 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 She states that she had the chicken pox as a child and has not had any symptoms. [facility] was consulted and they suggested the patient does not need to put on airborne precautions. * Juanito Caal MD - 06/18/2019 12:54 PM EDT ORTHOPAEDIC SURGERY INPATIENT PROGRESS NOTE Patient Name: Mag Rider Age: 63 y.o. Surgery/Issue: Right Total Hip Arthroplasty Attending: Brett David MD Date of surgery: 06/18/2019 SUBJECTIVE / INTERVAL HISTORY: Ms. Rider is a pleasant lady that is doing well post-op. Denies CP, SOB, nausea, vomiting, weakness. Pain well controlled. Expected post-op numbness from spinal anesthesia. FOCUSED REVIEW OF SYSTEMS: as above. Active Hospital Problems Diagnosis ??? s/p R DARRELL (Dr. David), 06/18/19 Resolved Hospital Problems No resolved problems to display. Active Non-Hospital Problems Diagnosis ??? Pain in extremity ??? Debility ??? Status post total replacement of left hip, DAA. Dr. David. 04/29/2019 ??? Primary osteoarthritis of both hips MEDICATIONS: ??? acetaminophen (TYLENOL) tablet 1,000 mg ??? sodium chloride 0.9% infusion ??? traMADol (ULTRAM) tablet 25-50 mg ??? BUpivacaine (PF) (MARCAINE) 0.25 % (2.5 mg/mL) injection ??? cloNIDine injection ??? ketorolac (TORADOL) injection ??? naloxone (NARCAN) injection 0.04 mg ??? HYDROmorphone (DILAUDID) injection 0.2-0.4 mg ??? prochlorperazine (COMPAZINE) injection 5 mg ??? promethazine (PHENERGAN) injection 12.5 mg ??? sodium chloride 0.9% 75 mL/hr (06/18/19 1138) OBJECTIVE: Temp: [37.1 ??C (98.8 ??F)-37.4 ??C (99.3 ??F)] Heart Rate: [59-69] Resp: [16-24] BP: (118-132)/(51-62) Intake/Output Summary (Last 24 hours) at 06/18/2019 1255 Last data filed at 06/18/2019 1200 Gross per 24 hour Intake 1165.11 ml Output 1150 ml Net 15.11 ml There is no height or weight on file to calculate BMI. PE: General: NAD, awake/alert CV: RRR assessed peripherally Resp: Breathing comfortably on RA RLE: Dressing c/d/i. Motor intact to EHL, FHL, TA. Sensation intact but decreased in foot/calf/thigh. Brisk capillary refill distally, palpable DP/PT Lab Results Component Value Date NA 142 06/09/2019 K 4.5 06/09/2019 CL 107 06/09/2019 CO2 24 06/09/2019 BUN 15 06/09/2019 CREATININE 0.78 06/09/2019 GLUCOSE 98 06/09/2019 CALCIUM 9.4 06/09/2019 Lab Results Component Value Date WBC 6.7 06/09/2019 HGB 12.5 06/09/2019 HCT 38.2 06/09/2019 MCV 101.3 (H) 06/09/2019 PLATELET 365 (H) 06/09/2019 Lab Results Component Value Date INR 1.0 06/09/2019 Imaging: AP Pelvis The right hip is reduced. There is no evidence of intra-op fracture. Prior L DARRELL evident. ASSESSMENT / PLAN: Mag Rider is a 63 y.o. female Day of Surgery s/p right DARRELL, progressing well with stable vitals. Activity: WBAT RLE Closure: Resorbable sutures Dressing: Mepilex x 1 week Drain: No drain Anticoagulation: ASA 81mg BID for 30 days Antibiotics: Ancef x 24 hours Consults: PT/OT Dispo: Per PT Follow-up: As scheduled Juanito Caal MD 06/18/2019 Future Appointments Date Time Provider Department Center 07/28/2019 9:45 AM [facility] DX ROOM 1 MH Xray [facility] Rad 07/28/2019 10:40 AM Wesley Tovar PA [facility] [address] [place] [address] * Gisela Hubbard RN - 06/18/2019 11:23 AM EDT 1116- pt arrived to PACU, attached to monitors, alarms on, settings appropriate for pt. No nausea or pain noted. 1150- xray complete 1200- pt catheterized without difficulty 1300- pt meets recovery criteria 1630- pt bladder scanned for 745- placed on bed mccracken 1635- Report called to JAYNA Serrano 1640- pt successful on bedpan- see chart documented in this encounter H&P Notes * Lubna Valles MD - 06/18/2019 8:54 AM EDT The patient's history and physical exam have been reviewed and completed. There has been no interval change from that of the pre-operative history and physical exam done within the last 30 days. documented in this encounter Miscellaneous Notes * Plan of Care - Bethanie Sagastume, PT - 06/19/2019 10:32 AM EDT Physical Therapy Evaluation Patient profile: Mag Rider is a 63 y.o. female admitted on 06/18/[address] Brett David MD s/p R DARRELL on 06/18/19. Patient with the following active problems: Past Medical History: Diagnosis Date ??? Peptic ulcer disease has issues after taking a lot of NSAIDS; now okay Past Surgical History: Procedure Laterality Date ??? ENDOSCOPY, UPPER GI, SIMPLE PRIMARY EXAM ??? JOINT REPLACEMENT left THR ??? PRG RADEX HIP UNILATERAL WITH PELVIS MINIMUM 4 VIEWS Left 04/29/2019 HIP INTRAOP RADIOLOGIC EXAMINATION, UNILATERAL, W PELVIS; 4+ VIEWS (WRVU 0.27) performed by Brett David MD at [facility] OR ??? PRO TOTAL HIP ARTHROPLASTY Left 04/29/2019 @TOTAL HIP ARTHROPLASTY, ANTERIOR APPROACH (WRVU 20.72) performed by Brett David MD at [facility] OR ??? PRO TOTAL HIP ARTHROPLASTY Right 06/18/2019 @TOTAL HIP ARTHROPLASTY, ANTERIOR APPROACH (WRVU 20.72) performed by Brett David MD at [facility] OR ??? TEAR DUCT SURGERY Bilateral 1990s OSEGUERA TUBE PLACED THEN REMOVED SUBSEQUENT OPEN AREA IN SINUS Social History: Home set-up: Pt lives alone in a multilevel home. Her sister in law is planning to stay with her through the weekend. Bathroom Set-up: tub shower, seat Stairs: 1 FOS to bedroom with B/L rails Baseline Mobility: independent was using FWW from previous hip replacement surgery on other leg Equipment at home: FWW, canes Fall history: pt reports no falls Precautions/Special Considerations: Full code, High risk for skin breakdown, At risk to fall, Room air Lines: PIV and luana Activity Orders: WBAT RLE Mobility and Positioning Recommendations: ?? Pt. to utilize FWW and supervision for ambulation and transfers with nursing. ?? Please encourage up to chair for meal times as able. ?? Pt encouraged to ambulate frequently with staff, getting into the bathroom for toileting and walking out in the fatima >/= 3 times daily as able. Subjective: ???What exercises should I do??? Objective: Pt seen for evaluation today. Pain: Number Location At rest 2/10 R hip With activity 5/10 R hip Vital Signs: VSS throughout session. Mental Status: alert, oriented to person, place, and time Skin: incision covered with bandage, CDI Musculoskeletal: ROM: grossly WFL, RLE not tested Strength: grossly WFL Sensation: intact Bed Mobility: Supine to Sit: independent Sit to Supine: independent Transfers: Sit to Stand: supervisionx1 with FWW Stand to Sit: supervisionx1 with FWW Gait: Distance: 150' Device used: FWW Level of assist: supervisionx1 Gait mechanics: reduced weight acceptance (R), reduced taurus, step-length decreased, swing-to gait and weight shifting ability decreased Stairs: pt ascended/descend practice stairs (3 steps) 4x with use of railing simulating home set up. Pt educated to use double sided support if unable to reach both side railings (cane - pt has at home). Pt utilized step to and step over step pattern. Balance: Sitting Static: good Sitting Dynamic: good Standing Static: good Standing Dynamic / Gait: good Therapeutic Exercise: Pt provided post op exercise handout and was encouraged to perform 10x 3x/day. Pt verbalized and demonstrated understanding. Education: family has been educated on Bed mobility, Transfers, Assistive device/technique, Stairs,Exercise, Positioning, Safety , Precautions/protocol, Equipment use, Gait , Home program, Role of therapy, Balance and Discharge planning and verbalizes understanding. Patient status, treatment, and mobility recommendations discussed with nursing. Pt left long sitting in bed, with all needs met and with call lew in reach RN updated following visit. Assessment: Mag Rider was seen today for physical therapy evaluation. Pt initially reclined in bed, agreeable to participate. Pt presents with the following impairments/limitations: aerobic capacity/endurance, ergonomics and body mechanics, gait, locomotion, and balance, integumentary integrity , joint integrity and mobility, muscle performance, posture and ROM (range of motion). Pt reports they were independent at baseline. Pt provided post op exercise handout and demonstrated understanding. Pt has met all inpatient PT goals and can be discharged home with assist and home health when medically ready. No further inpatient PT needs. Discharge Recommendations: Based on the current findings, Anticipated Discharge Disposition: home with assist, home with home health when medically ready for hospital discharge. Consult Recommendations: No other consults recommended at this time. Equipment needs: Rolling walker - pt has one and requested a second so she can keep one on each floor of her house Goals: evaluation only: Plan: Therapy Frequency: evaluation only. Patient/family understand and agree with plan as stated above. 2017 PT Evaluation Code Rationale: ?? Diagnosis & Pertinent Co-Morbidities, personal factors, and present illness affecting Plan of Care: (see above); Additional personal factors or co- morbidities that impact plan: multilevel home, lives alone ?? Total # of Factors: 0 1-2 3+ X ?? Examination of body system impairments, functional limitations and behaviors, and/or participation restrictions (Cardiovascular, Integumentary, Muscular, Nervous, Respiratory and Skeletal) Addressing 1-2 elements Addressing 3 + elements Addressing 4 + elements X ?? Clinical presentation: See assessment above. pain Stable/Uncomplicated Evolving/Fluctuating Symptoms Unstable/Unpredictable X ?? Clinical decision making of moderate complexity based on pt's functional performance as outlinedin this evaluation. Time IN / OUT: 10:00 - 10:32 Total Evaluation Minutes, Physical Therapy: 32(eval) Bethanie Sagastume, PT, DPT Pager: [phone] Physical Therapy Inpatient Rehabilitation Department * Plan of Care - Alex Goodson OT - 06/19/2019 10:21 AM EDT Chart reviewed and orders received. Patient dressing self on her own with recent ant DARRELL sx. Patient denied OT needs. We will monitor till d/c. Alex Goodson OTR/L [id number] * Initial Assessments - Tiesha Soriano RN - 06/19/2019 9:11 AM EDT Office of Care Management Assessment Medical record reviewed. Plan of care and patient status discussed with direct care RN and/or Care Team. CM introduced self and role with understanding. Screenin y.o. female here for Right DARRELL Present on Admission: ??? s/p R DARRELL (Dr. David), 06/18/19 Patient has not been admitted to a hospital within the last 30 days. Patient receiving hospital care under Inpatient status. Admission order reviewed. Primary Insurance on file: [employer] Secondary Insurance on file: N/A Prescription Insurance: yes Primary care provider on file: JOE Albrecht [phone] Advance Directive on file and Code Status: <no information>, Full Code Functional Status prior to admission:Had surgery 6 weeks ago for other hip. Reports has been independent with FWW. Living situation: Patient Lives alone but Sister in law will stay with her for 2 nights. Supports: She has support if she needs it. She has her Brother and his friends. Daughter lives nextdoor. 2 stairs without handrail to enter, Bedroom on second floor, stairs with handrail. Tub showerwith out grab bar/shower chair. Functional Status current: Pending PT consult. 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 A letter describing our affiliations was reviewed with them and they were educated about their right to choose where referrals are placed. Patient requests referral to: [facility] [employer] [facility] [employer] [employer] PHONE: [phone] FAX: [phone] Expected date of discharge: today Referral routed to the Demolition Worker for matching with agency/vendor and to provide any required information. Assessment: Patient with no apparent or limited RNCM/SW needs at this time. No housing, transportation, insurance, resources concerns identified at this time. Supports in place to achieve a safe post-hospital transition. No identified barriers to accessing necessary care and/or follow-up after discharge. Pt feels prepared to dc home. She states I just had other hip done 6 weeks ago so I know what to expect. Plan: Patient to d/c to home via private car (family) when medically ready with resumption of home care services. care process manager/Technical Spec will continue to follow patient???s progress and remain available if situation changes for coordination of care, psychosocial support and/or discharge planning. Tiesha Soriano RN Pager [phone] * Plan of Care - Glenn Beltran RN - 06/19/2019 3:19 AM EDT Problem: Patient Care Overview Goal: Plan of Care Review Outcome: Ongoing (Interventions Implemented as Appropriate) 06/19/19 0309 Coping/Psychosocial Plan Of Care Reviewed With patient Plan of Care Review Progress progress toward functional goals as expected OUTCOME EVALUATION NOTE: OUTCOME SUMMARY: Pt is A&Ox4 all shift. Still experiencing pain despite utilizing prns and scheduled pain meds-see NOV. VSS, resting in between care, able to verbalize needs. Ambulating to BR with 1A and FWW, drinking and voiding adequately-see I&O flowsheet. Mepilex to R hip CDI, ice packs with fair effect. Still c/o swelling and pain in R hip. PLAN MOVING FORWARD: Mobilize PT/OT Dc planning INDIVIDUALIZED FALL PREVENTION INTERVENTIONS: Patient-specific fall risk factors per assessment: [current deficits]: Impaired mobility, pain, weakness Assistance [level of assistance required for transfers and ambulation]: 1A and FWW Supervision [direct monitoring required during toileting and ADLs]: 1A -SBA Surveillance [continuous indirect monitoring]: Masimo, hourly rounding, eyes on Patient-specific fall prevention interventions for sensory deficits provided, if applicable: [X] No CPG GOAL OUTCOME EVALUATION: * Op Note - Brett David MD - 06/18/2019 10:52 AM EDT [facility] Operative Note Patient Name: Mag Rider : [id number] MR#: [id number] Case Date: 06/18/2019 Surgeon: Surgeon(s) and Role: * Brett David MD - Primary * Wesley Tovar PA - Physician Informatics Educator * Lubna Valles MD - Resident Preoperative Diagnosis: Osteoarthritis right Hip Postoperative Diagnosis: Same Procedure Performed: right Total Hip Arthroplasty (CPT code 02113) Anesthesia: Spinal IVF: 1000ml of crystaloid Estimated Blood Loss: 300ml Urine Output: No rodriguez Drains: none Specimens removed during surgery: None Surgical Closure: Primary Closure - skin incision is completely closed without any wires, fela, drains or other devices Complications: None apparent Indications for the Procedure: Ms. Rider is a 63 y.o. year old female who has been followed in the out- patient clinic with a history of progressively worsening right hip pain secondary to degenerative arthritis. After having failed conservative, non- surgical attempts at managing the pain and limitations of functional capab ilities, it was felt that the only remaining option was surgical. A detailed conversation regardingthe risks and benefits of hip arthroplasty surgery was had with the patient. The risks discussed included but were not limited to: bleeding (which may or may not require transfusion), infection, damage to nerves (specifically the LFCN) or blood vessels, deep venous thrombosis, pulmonary embolus, prosthetic failure, loosening, prosthetic fracture, femur or pelvic fracture, dislocation, leg-length inequality, persistent pain, need for future surgery, medical complications (including cardiac, respiratory and neurologic complications), anaesthetic complications, and . Subsequent to this conve rsation, all of the patient???s questions were answered in great detail and informed consent was obtained for a right total hip arthroplasty. She received preoperative medical clearance and was felt optimized for surgery. Today, she identified the right hip as the correct operative side. Implants: Femoral Stem: DePuy Actis, Size 4 Femoral Stem Type: High Offset Femoral Head: 36mm +1.5 biolox Acetabulum: DePuy [place] Gription, Size 52 Adjuvant 6.5mm screw fixation x 2 (30mm, 30mm) Liner: Altrx polyethylene, Size [id number] Intraoperative Findings: Arthritic changes in both the femoral head and acetabulum as evidenced by loss of cartilage, exposed eburnated bone and osteophyte formation. Procedure: The patient was met in the pre-operative holding area where the appropriate site was marked, 24 hour update completed, and the pre-operative checklist completed. She was then brought to the operatingroom on a stretcher where the above anesthetic was administered. With the patient still on their hospital stretcher, the feet and ankles were wrapped in webril and coban. The well-padded feet were then placed into the traction boots, which were then tightened. SCDs were applied to both legs. Distalperfusion was checked to ensure good capillary refill into the toes while in the boots. The patientwas carefully transfered onto HANA table with the leg support under the non-op leg. The boots were c onnected into the leg spars. A well padded central post was placed and the patient was carefully positioned to abut the post. The arms were placed on well padded arm boards. A clinical time-out was held confirming the correct patient name, MRN, , planned procedure, site, antibiotic start time and agent, and outline of any surgical concerns. All in attendance were in agreement to proceed. Weight based dosing of tranexamic acid was administered prior to making an incision. Skin Preparation: The skin was prepped using alcohol and Duraprep from midline, posterior to the greater trochanter, from one hand breadth above the ASIS extending distally to allow access to the lateral femoral condyle. The prep was allowed to fully dry and sterile drapes were applied. Surgical Approach: The skin was infiltrated with 10cc of 0.25% plain marcaine prior to making the incision. The skin was then incised starting approximately 1-2 cm distal and posterior to the ASIS and angled posteriorly approximately 30 degrees towards the fibular head and lateral femoral condyle. Hemostasis was obtained using bovie electrocautery. The fascia over the TFL was exposed and the muscle and deep tissue was injected using a combination of 0.25% marcaine, 50mcg clonidine and 30mg of toradol. Throughout the case this anesthetic mixture was used to inject any tissue in the surgical field for a total of 50cc. The translucent fascia of the TFL was incised at the junction of the anterior 1/3 and posterior 2/3s in line with the muscle fibers being cautious to stay within the fascial compartment to minimize the risk to the lateral femoral cutaneous nerve. The anterior edge of the fascia was identified and finger dissection was used to come around the medial side of the TFL which was retracted laterally using a cerebellar retractor (Hueter approach). The lateral femoral circumflex vessels were identified distally in the incision where they were clamped and cauterized using the bovie. A blunt cobrawas then placed over the superior femoral neck. The pre-capsular fat and fascial tissue was excisedusing electrocautery. The vastus lateralis was identified distally and a black handle cobra was placed anterior to this over the inferior femoral neck. The direct head of the rectus femoris was elevated off the capsule medially using a Purdy and a sharp bent lance retractor was placed under it. An inverted T-shaped capsulotomy was performed starting on the superior edge of the acetabulum extending down toward the intertrochanteric line then releasing the capsule inferior towards the christina and around the neck. The superior capsular was release around the medial aspect of the trochanter. #3 vicryl tagging suture was then placed in the capsular limbs. The leg was then externally rotated to 50 degrees to aid in exposure for the neck cut. An oscillating saw was used to make the femoral neck osteotomy starting at the calcar using the pre-operative template as a guide and exiting the lateral neck near the shoulder being cautious to protect the greater trochanter. Three cranks of traction was applied to the operative leg. A corkscrew on power was drilled into the center of the femoral head and it was removed being careful to protect the soft tissues. Acetabular Prep: A narrow bent lance retractor was placed anteriorly under the rectus over the anterior column and a wide cobra was placed posteriorly around the posterior column. The labrum and pulvinar were completely removed and the true floor of the acetabulum was identified. The acetabulum was reamed under direct visualization and using fluoroscopic guidance up to 51mm at which excellent hemispheric contactwas noted. A healthy bed of bleeding bone was identified and the acetabulum was irrigated. The definitive 52mm acetabular implant was then impacted into place and fully seated. Appropriate abduction and anterversion were assessed clinically and with the C-arm. Adjuvant screw fixation was achieved with two 6.5mm acetabular screws which were placed after drilling and measuring the appropriate screwlength. The socket was irrigated and the definitive liner was impacted into place and noted to fully seat and engage the locking mechanism. Femoral Prep: Traction was removed from the leg. The black handle cobra was then placed outside the superior limbof the capsule and it was released towards the trochanter avoiding any damage to the surrounding muscle. The cobra was then placed around the inferior limb of capsule and as the leg was externally rotated the capsule was released around the femur. Once the proximal femur was adequately exposed by splitting the capsule towards the protuberance on the trochanter and it could be maximally rotated without significant tension, the leg was adducted and hyperextended by lowering the leg spar to the ground. Care was taken to assure the greater trochanter was free from behind the acetabulum. The blackhandle cobra was placed over the femoral neck and a Oropeza retractor was placed around the greatertrochanter. Any residual lateral femoral neck was removed with a rongeur. A box osteotome was used to enter the canal laterally. A starter broach was advanced in the appropriate version and a curved rasp was used to identify the canal. The canal was sequentially broached up to a size 4 using the preoperative template as a guide. Excellent torsional stability was noted. A calcar planar was used toplane the proximal femur even with the broach. A trial high offset neck was placed and a trial size 36+1.5mm head was affixed. The leg spar was brought up to level. Light traction and internal rotation was used and gentle pressure was applied to the head to reduce it into the acetabulum. All traction was released. C-Arm was used to assess component positioning, verify leg length, and offset christian. Satisfied, the hip was dislocated using traction and external rotation. The retractors were repositioned around the proximal femur and the leg was externally rotated, extended and adducted again. Thebroach trial was removed after confirming continued stability. The canal was irrigated, the definitive stem was pressfit, noted to seat fully, and achieve excellent stablity. The definitive head was impacted onto a cleansed and dried perry taper. All retractors were removed and the hip was reduced without issue. Definitive implant position, alignment and fit were re-verified with C-Arm and the relevant images were saved into the medical record. Closure: The wound was copiously irrigated. The capsule was repaired with #3 vicryl. The wound was irrigatedagain. The fascia of the TFL was closed using a running barbed suture. The wound was irrigated again and the deep tissues were closed using a 0 vicryl. A running 2-0 vicryl was used to close the subcutaneous layer. The skin was closed with a running monocryl and skin glue was used as biologic sealant. A sterile Mepilex dressing was applied to the wound. The needle, sponge and instrument counts were correct at the end of the procedure. The patient was then [facility] Attestation: Case Date: 06/18/2019 I was present and I participated during the entire procedure (does not need to include opening and closing). This case was performed with a Physician Informatics Educator who was crucial in aiding with patient positioning and retraction during surgery. BRETT DAVID MD 06/18/2019 Post-operative Plan: (avoid IV narcotics) ?? for breakthrough pain 15 mg Toradol iv or im q 6 hours (max 4 doses) ?? 1000mg Tylenol po??? q8 hour ?? Tramadol 50mg q6hr PRN if patient sensitive to narcotics ?? 600 mg Neurontin po qhs for 2 days followed by 300 mg Neurontin po qhs for 4 weeks (for insomnia) ?? Celebrex 200 mg po q 12 hours while in house with transition to Naprosyn 500mg bid at discharge ?? Dexamethasone 4 mg po q 24 hours for 2 days (if diabetic add SSI) ?? Protonix 20mg qd x 2 weeks (or other PPI) ?? Zofran 4 mg po/iv q 8 hours PRN nausea ?? AP Pelvis in PACU ?? Perioperative prophylactic antibiotics for the next 24 hours ?? Weight bearing status of operative extremity: Weight bearing as tolerated ?? Wound closure: Subcuticular absorbable suture with skin glue ?? Dressing changes: Mepilex Silver (Do not change for 7 days then a dry sterile dressing). Prineo skin glue to fall off on it's own. ?? Follow-up Plan: As scheduled prior to surgery (approx. 5 weeks with x-rays) ?? Anticoagulation: ASA 81mg BID for 30 days ?? Any possible barriers to discharge: None ?? Plan for hospital stay: Standard ?? Anticipated Length of Stay: 1-2 days Implant Summary: Implant Name Type Inv. Item Serial No. Part Maker Lot No. LRB No. Used Action CUP,HIP,ACETB,GRPTN,SCTR,52MM ([id number]) (AutoReq) - [id number] IMPLANTS CUP,HIP,ACETB,GRPTN,SCTR,52MM ([id number]) (AutoReq) [employer] NANCY ALBERTO [id number] Right 1 Implanted SCREW,CACLS,PNNCL,6.5X30MM ([id number]) (AutoReq) - [id number] IMPLANTS SCREW,CACLS,PNNCL,6.5X30MM ([id number]) (AutoReq) Next Glass [facility] ALBERTO [id number] Right 1 Implanted SCREW,CACLS,PNNCL,6.5X30MM ([id number]) (AutoReq) - [id number] IMPLANTS SCREW,CACLS,PNNCL,6.5X30MM ([id number]) (AutoReq) Next Glass [facility] ALBERTO [id number] Right 1 Implanted INSER,ALTRX,NT,[id number] ([id number]) (AutoReq) - [id number] IMPLANTS INSER,ALTRX,NT,[id number] ([id number]) (AutoReq) Next Glass [facility] ALBERTO [id number] Right 1 Implanted HEAD,DLTA,CRMC,+1.5,12/14,36MM ([id number]) (AutoReq) - [id number] IMPLANTS HEAD,DLTA,CRMC,+1.5,12/14,36MM ([id number]) (AutoReq) [employer] [facility] ALBERTO [id number] Right 1 Implanted STEM,ACTIS,FEML,HIGH,SZ4 ([id number]) (AutoReq) - [id number] IMPLANTS STEM,ACTIS,FEML,HIGH,SZ4 ([id number]) (AutoReq) Next Glass [facility] ALBERTO [id number] Right 1 Implanted documented in this encounter Plan of Treatment Upcoming Encounters Date Type Department Care Team (Late st Contact Info) Description 06/25/2024 1:00 PM EDT Office Visit Dermatology at [address] [place] [phone] Skyla Campbell MD [facility] DR CHIQUITA [facility] [address] documented as of this encounter Procedures Procedure Name Priority Date/Time Associated Diagnosis Comments HEMOGRAM Routine 06/19/2019 2:51 AM EDT DIFFERENTIAL, AUTOMATED Routine 06/19/2019 2:51 AM EDT HC CBC,PLT & AUTO DIFF Routine 06/19/2019 2:51 AM EDT BASIC METABOLIC PANEL Routine 06/19/2019 2:51 AM EDT XR PELVIS Routine 06/18/2019 11:53 AM EDT XR FLUORO NO RAD <1HR - OR USE Routine 06/18/2019 10:53 AM EDT MODIFIER PINNACLE GRIPTION ACETABULUM DEPUY Yes 06/18/2019 9:37 AM EDT Osteoarthritis of the hip MODIFIER ACTIS HIP STEM DEPUY Yes 06/18/2019 9:37 AM EDT Osteoarthritis of the hip Arthroplasty Acetabular/Prox Fem Prostc Agrft/Algrft (22181) Yes 06/18/2019 9:37 AM EDT Osteoarthritis of the hip documented in this encounter Results * (ABNORMAL) Differential, Automated (06/19/2019 2:51 AM EDT) Neutrophil % 86.0 % [facility] Neutrophil Absolute 12.05(H) 1.70 - 6.10 x10(3)/mc L [facility] Lymph % 5.6 % [facility] Lymphocytes Abs 0.8(L) 0.9 - 3.2 x10(3)/mc L [facility] Monocyte % 7.8 % [facility] Monocyte Abs 1.1(H) 0.3 - 0.9 x10(3)/mc L [facility] Eos % 0.0 % [facility] Eosinophils Abs 0.0 0.0 - 0.4 x10(3)/mc L [facility] Basophil % 0.1 % [facility] Baso Absolute 0.0 0.0 - 0.1 x10(3)/mc L [facility] Immature Gran % 0.50 % [facility] Comment: Immature granulocytes(IG's)percentage and absolute count will include metamyelocytes, myelocytes, and promyelocytes. Blood smears from CBCs yielding IG's will be scanned manually for concordance. If this scan disagrees with the automated IG or if promyelocytes are noted, a manual differential will be performed. Immature Gran Absolute 0.07(H) 0.00 - 0.04 x10(3)/ L [facility] Blood specimen (specimen) 06/19/2019 2:51 AM EDT 06/19/2019 3:22 AM EDT Narrative Resulting Agency Comment Spec In Lab Lubna Valles MD HEMATOLOGY ORDERABL ES [facility] [place] [address] * (ABNORMAL) Hemogram (06/19/2019 2:51 AM EDT) White Blood Cell 14.0(H) 4.0 - 9.5 x10(3)/mc L [facility] Red Blood Cell 3.10(L) 4.00 - 5.21 x10(6)/[facility] Hemoglobin 10.3(L) 11.7 - 15.5 gm/dL [facility] Hematocrit 30.6(L) 35.7 - 45.8 % [facility] Mean Cell Volume 98.7(H) 82.6 - 94.4 fL [facility] Mean Cell Hemoglobin 33.2(H) 27.1 - 32.0 pg [facility] Mean Cell Hemoglobin Concentration 33.7 31.7 - 35.0 gm/dL [facility] Platelet 285 145 - 357 x10(3)/mc L [facility] RDW Standard Deviation 42.5 37.0 - 46.0 [facility] RDW coefficient of variation 11.8 11.5 - 14.1 % [facility] Mean Platelet Volume 9.6 7.6 - 12.9 [facility] NRBC% auto 0.0 % [facility] NRBC Absolute 0.000 0.000 - 0.000 x10(3)/ L [facility] Blood specimen (specimen) 06/19/2019 2:51 AM EDT 06/19/2019 3:22 AM EDT Narrative Resulting Agency Comment Spec In Lab Lubna Valles MD HEMATOLOGY ORDERABL ES [facility] [place] [address] * (ABNORMAL) Basic Metabolic Panel (non-fasting) (06/19/2019 2:51 AM EDT) Glucose 157 65 - 199 mg/dL [facility] Comment:Diabetes: >=200 mg/d L plus symptoms Blood Urea Nitrogen 14 8 - 18 mg/dL [facility] Creatinine 0.58(L) 0.70 - 1.20 mg/dL [facility] Sodium 137 135 - 145 mmol/L [facility] Potassium 4.3 3.5 - 5.0 mmol/L [facility] Comment: Please note: ??Patients with WBC >100,000 may have falsely elevated Potassium levels. ??For accurate Potassium quantification in these patients send serum separator tube (gold top) for subsequent determinations. ??Contact the Clinical Chemistry Laboratory if there are any questions. Chloride 107 98 - 107 mmol/L [facility] Carbon Dioxide 21(L) 22 - 31 mmol/L [facility] Anion Gap 9 5 - 15 mmol/L [facility] Calcium 8.9 8.5 - 10.5 mg/dL [facility] Est Glomerular Filtration Rate 99 >=60 mL/min/1. 73 m?? [facility] Comment: The eGFR was calculated using the CKD-EPI equation. As with all creatinine based estimates of kidney function, eGFR values calculated with the CKD-EPI equation are not accurate in patients with acute kidney failure, extremes of body mass or the acutely ill. [email or web address] eGFR 115 >=60 mL/min/1. 73 m?? [facility] Comment: The eGFR was calculated using the CKD-EPI equation. As with all creatinine based estimates of kidney function, eGFR values calculated with the CKD-EPI equation are not accurate in patients with acute kidney failure, extremes of body mass or the acutely ill. [email or web address] Blood specimen (specimen) 06/19/2019 2:51 AM EDT 06/19/2019 3:22 AM EDT Narrative Resulting Agency Comment Spec In Lab Brett David MD CHEMISTRY ORDERABLE S [facility] [place] [address] * XR Pelvis (Generic) (06/18/2019 11:53 AM EDT) Anatomical Region Laterality Modality Pelvis N/A Digital Radiogra phy Impressions 06/18/2019 1:52 PM EDT Post RIGHT total hip arthroplasty without complication. Thank you for letting us participate in the care of this patient. For questions regarding this report, please contact the number below. ? Narrative 06/18/2019 1:52 PM EDT EXAMINATION: XR PELVIS (GENERIC) CLINICAL HISTORY: s/p R DARRELL TECHNIQUE: 1 views of the pelvis COMPARISON: Pelvis radiograph on 04/29/2019, 05/22/2019, 06/09/2019 FINDINGS: There is interval RIGHT total hip arthroplasty. The previously present LEFT total hip arthroplasty is unchanged in position and alignment. No fracture, dislocation, or subluxation is present at either of the hips. Procedure Note Aldo Arroyo MD - 06/18/2019 EXAMINATION: XR PELVIS (GENERIC) CLINICAL HISTORY: s/p R DARRELL TECHNIQUE: 1 views of the pelvis COMPARISON: Pelvis radiograph on 04/29/2019, 05/22/2019, 06/09/2019 FINDINGS: There is interval RIGHT total hip arthroplasty. The previously presentLEFT total hip arthroplasty is unchanged in position and alignment. Nofracture, dislocation, or subluxation is present at either of the hips. IMPRESSION Post RIGHT total hip arthroplasty without complication. Thank you for letting us participate in the care of this patient. Forquestions regarding this report, please contact the number below. Brett SMITH DX ORDERABLES * XR Fluoro No Rad <1Hr - OR Use (06/18/2019 10:53 AM EDT) Narrative RAD - 06/18/2019 10:55 AM EDT This exam is auto-finalizing. No interpretation was done. Brett SMITH FLUORO ORDERABL ES Performing Organization Address City/State/[facility] Co de Phone Number [place], [place] documented in this encounter Visit Diagnoses Diagnosis s/p R DARRELL (Dr. David), 06/18/19- Primary Hip joint replacement by other means s/p R DARRELL (Dr. David), 06/18/19 Hip joint replacement by other means documented in this encounter Admitting Diagnoses Diagnosis Presence of right artificial hip joint Hip joint replacement by other means documented in this encounter Administered Medications Inactive Administered Medications - up to 3 most recent administrations Medication Order MAR Action Action Date Dose Rate Site acetaminophen (TYLENOL) tablet 1,000 mg 1,000 mg, Oral, ONCE, 1 dose, On Sun06/18/19 at 0845, Administer on arrival in Same Day Program, Day of Surgery (Day of Procedure), Routine Given 06/18/2019 8:36 AM EDT 1,000 mg acetaminophen (TYLENOL) tablet 1,000 mg 1,000 mg, Oral, EVERY 8 HOURS SCHEDULED, First dose on Sun06/18/19 at 1400, Until Discontinued, Maximum dose of acetaminophen is 4000 mg from all sources in 24 hours., Routine Given 06/19/2019 8:02 AM EDT 1,000 mg Given 06/19/2019 12:20 AM EDT 1,000 mg Given 06/18/2019 5:36 PM EDT 1,000 mg aspirin EC tablet 81 mg 81 mg, Oral, 2 TIMES DAILY, First dose on Sun06/18/19 at 2100, Until Discontinued, Routine Given 06/19/2019 8:02 AM EDT 81 mg Given 06/18/2019 9:55 PM EDT 81 mg celecoxib (CeleBREX) capsule 200 mg 200 mg, Oral, 2 TIMES DAILY, First dose on Sun06/18/19 at 2100, Until Discontinued, Routine Given 06/19/2019 8:02 AM EDT 200 mg Given 06/18/2019 9:51 PM EDT 200 mg celecoxib (CeleBREX) capsule 400 mg 400 mg, Oral, ONCE, 1 dose, On Sun06/18/19 at 0845, Administer on arrival to Same Day Program, Day of Surgery (Day of Procedure), Routine Given 06/18/2019 8:36 AM EDT 400 mg dexamethasone (DECADRON) tablet 4 mg 4 mg, Oral, DAILY, 2 doses, First dose on Sun06/18/19 at 1730, Last dose on Sun06/19/19 at 0900, Routine Given 06/18/2019 5:36 PM EDT 4 mg gabapentin (NEURONTIN) capsule 300 mg 300 mg, Oral, NIGHTLY, First dose on Sun06/20/19 at 2100, Until Discontinued, Routine gabapentin (NEURONTIN) capsule 600 mg 600 mg, Oral, ONCE, 1 dose, On Sun06/18/19 at 0845, Administer on arrival in Same Day Program, Day of Surgery (Day of Procedure), Routine Given 06/18/2019 8:36 AM EDT 600 mg gabapentin (NEURONTIN) capsule 600 mg 600 mg, Oral, NIGHTLY, 2 doses, First dose on Sun06/18/19 at 2100, Last dose on Sun06/19/19 at 2100, Routine ketorolac (TORADOL) injection 15 mg 15 mg, Intravenous, EVERY 6 HOURS PRN, Starting on Sun06/18/19 at 1446, Until Sun06/19/19 at 1537, Pain, Routine Given 06/19/2019 12:20 AM EDT 15 mg ondansetron (ZOFRAN) injection 4 mg 4 mg, Intravenous, EVERY 8 HOURS PRN, Starting on Sun06/18/19 at 1703, Until Becky 06/19/19 at 1537, Nausea, May repeat times one in 30 minutes if ineffective. If multiple antiemetics are ordered, use ondansetron first, Recovery (Recovery-Hospital Unit) ondansetron (ZOFRAN) tablet 4 mg 4 mg, Oral, EVERY 8 HOURS PRN, Starting on Sun06/18/19 at 1703, Until Becky 06/19/19 at 1537, Nausea, Vomiting, If multiple antiemetics are ordered, use ondansetron first. PO Preferred. If patient unable to take PO, may give IV if ordered. May repeat times one in 45 minutes if ineffective., Recovery (Recovery-Hospital Unit), Routine oxyCODONE (ROXICODONE) immediate release tablet 10-15 mg 10-15 mg, Oral, EVERY 4 HOURS PRN, Starting on Becky 06/19/19 at 0830, Until Becky 06/19/19 at 1537, Pain, severe pain (7-10), Initial dose 10mg. If pain control not adequate in 60 minutes, give additional 5mg, Routine Given 06/19/2019 8:53 AM EDT 10 mg oxyCODONE (ROXICODONE) immediate release tablet 5 mg 5 mg, Oral, EVERY 4 HOURS PRN, Starting on Becky 06/19/19 at 0332, Until Becky 06/19/19 at 0831, Pain, Routine Given 06/19/2019 3:40 AM EDT 5 mg oxyCODONE (ROXICODONE) immediate release tablet 5 mg 5 mg, Oral, EVERY 4 HOURS PRN, Starting on Becky 06/19/19 at 1227, Until Becky 06/19/19 at 1537, Pain, Routine Given 06/19/2019 12:36 PM EDT 5 mg oxyCODONE (ROXICODONE) immediate release tablet 5-10 mg 5-10 mg, Oral, EVERY 4 HOURS PRN, Starting on Becky 06/19/19 at 0830, Until Becky 06/19/19 at 1537, Pain, moderate pain (4-6), Initial dose 5mg. If pain control not adequate in 60 minutes, give additional 5mg, Routine Given 06/19/2019 9:47 AM EDT 5 mg pantoprazole (PROTONIX) tablet 20 mg 20 mg, Oral, DAILY, First dose on Sun06/18/19 at 1730, Until Discontinued, DO NOT CRUSH OR OPEN Given 06/19/2019 8:03 AM EDT 20 mg Given 06/18/2019 5:36 PM EDT 20 mg polyethylene glycol (MIRALAX) packet 17 g 17 g, Oral, 2 TIMES DAILY, First dose on Sun06/18/19 at 2100, Until Discontinued, Routine Given 06/19/2019 8:02 AM EDT 17 g Given 06/18/2019 9:52 PM EDT 17 g senna-docusate (PERICOLACE) 8.6-50 mg per tablet 2 tablet 2 tablet, Oral, 2 TIMES DAILY, First dose on Sun06/18/19 at 2100, Until Discontinued, Routine Given 06/19/2019 8:02 AM EDT 2 tablets Given 06/18/2019 9:52 PM EDT 2 tablets sodium chloride 0.9 % (flush) flush 5 mL 5 mL, Intravenous, 2 TIMES DAILY, First dose on Sun06/18/19 at 2100, Until Discontinued, Recovery (Recovery-Hospital Unit), Routine Given 06/19/2019 9:20 AM EDT 5 mLs Given 06/18/2019 9:52 PM EDT 5 mLs sodium chloride 0.9% infusion 75 mL/hr, Intravenous, CONTINUOUS, Starting on Sun06/18/19 at 1115, Until Sun06/18/19 at 2314, Recovery (Recovery-Hospital Unit) [place] 06/18/2019 11:38 AM EDT 75 mL/hr 75 mL /hr traMADol (ULTRAM) tablet 25-50 mg 25-50 mg, Oral, EVERY 6 HOURS PRN, Starting on Sun06/18/19 at 1055, Until Becky 06/19/19 at 0333, Pain, For mild pain (1-3) give 25 mg. For moderate to severe pain (4-10) give 50 mg., Routine Given 06/18/2019 9:52 PM EDT 50 mg Given 06/18/2019 3:20 PM EDT 50 mg documented in this encounter Active and Recently Administered Medications Times are shown in EDT. Scheduled Medication Order 06/17/2019 06/18/2019 06/19/2019 acetaminophen (TYLENOL) tablet 1,000 mg (COMPLETED) 1,000 mg, Oral, ONCE, 1 dose, On Sun06/18/19 at 0845, Administer on arrival in Same Day Program, Day of Surgery (Day of Procedure), Routine 08 (Given - Provider: Adina Bee, JAYNA) acetaminophen (TYLENOL) tablet 1,000 mg 1,000 mg, Oral, EVERY 8 HOURS SCHEDULED, First dose on Sun06/18/19 at 1400, Until Discontinued, Maximum dose of acetaminophen is 4000 mg from all sources in 24 hours., Routine 1735 (Given - Provider: Maggie Bryant RN) 19 (Given - Provider: Glenn Beltran RN)801 (Given - Provider: Sulma Cruz) aspirin EC tablet 81 mg 81 mg, Oral, 2 TIMES DAILY, First dose on Sun06/18/19 at 2100, Until Discontinued, Routine 2154 (Given - Provider: Glenn Beltran RN) 08 (Given - Provider: Sulma Cruz) ceFAZolin (ANCEF) 2g in dextrose 5% 100 mL (COMPLETED) 2 g, Intravenous, EVERY 3 HOURS, 1 dose, First dose on Sun06/18/19 at 0845, Administer over 30 Minutes, Redose after 3 hours., Intra-Operative (Intra-Procedure), Indication for (Active or Suspected): Prophylaxis 0942 (Given - Provider: Camilo Bush CRNA) celecoxib (CeleBREX) capsule 200 mg 200 mg, Oral, 2 TIMES DAILY, First dose on Sun06/18/19 at 2100, Until Discontinued, Routine 2150 (Given - Provider: Glenn Beltran RN) 08 (Given - Provider: Sulma Cruz) celecoxib (CeleBREX) capsule 400 mg (COMPLETED) 400 mg, Oral, ONCE, 1 dose, On Sun06/18/19 at 0845, Administer on arrival to Same Day Program, Day of Surgery (Day of Procedure), Routine 0836 (Given - Provider: Adina Bee, JAYNA) dexamethasone (DECADRON) tablet 4 mg 4 mg, Oral, DAILY, 2 doses, First dose on Sun06/18/19 at 1730, Last dose on Becky 10/10/19 at 0900, Routine 1736 (Given - Provider: Maggie Bryant RN) 0900 (Hold - Provider: Sulma Cruz - Reason: Order parameters not met - Comment: Dose rescheduled for 173) gabapentin (NEURONTIN) capsule 300 mg(Linked Group 1) 300 mg, Oral, NIGHTLY, First dose on Sun06/20/19 at 2100, Until Discontinued, Routine gabapentin (NEURONTIN) capsule 600 mg (COMPLETED) 600 mg, Oral, ONCE, 1 dose, On Sun06/18/19 at 0845, Administer on arrival in Same Day Program, Day of Surgery (Day of Procedure), Routine 08 (Given - Provider: Adina Bee RN) gabapentin (NEURONTIN) capsule 600 mg(Linked Group 1) 600 mg, Oral, NIGHTLY, 2 doses, First dose on Sun06/18/19 at 2100, Last dose on Sun06/19/19 at 2100, Routine 2151 (Not Given - Provider: Glenn Beltran RN - Reason: Patient/family refused) pantoprazole (PROTONIX) tablet 20 mg 20 mg, Oral, DAILY, First dose on Sun06/18/19 at 1730, Until Discontinued, DO NOT CRUSH OR OPEN 173 (Given - Provider: Maggie Bryant RN) 0803 (Given - Provider: Sulma Cruz) polyethylene glycol (MIRALAX) packet 17 g 17 g, Oral, 2 TIMES DAILY, First dose on Sun06/18/19 at 2100, Until Discontinued, Routine 2151 (Given - Provider: Glenn Beltran RN) 08 (Given - Provider: Sulma Cruz) senna-docusate (PERICOLACE) 8.6-50 mg per tablet 2 tablet 2 tablet, Oral, 2 TIMES DAILY, First dose on Sun06/18/19 at 2100, Until Discontinued, Routine 215 (Given - Provider: Glenn Beltran RN) 08 (Given - Provider: Sulma Cruz) sodium chloride 0.9 % (flush) flush 5 mL 5 mL, Intravenous, 2 TIMES DAILY, First dose on Sun06/18/19 at 2100, Until Discontinued, Recovery (Recovery-Hospital Unit), Routine 2151 (Given - Provider: Glenn Beltran RN) 0920 (Given - Provider: Sulma Cruz) tranexamic acid (CYKLOKAPRON) 1,000 mg in sodium chloride 0.9% 110 mL (COMPLETED) 1,000 mg, Intravenous, ONCE, 1 dose, On Sun06/18/19 at 0845, Administer over 30 Minutes, Day of Surgery (Day of Procedure) 0942 (New Bag - Provider: Camilo Bush, CLIENT MANAGER - Comment: over 30 minutes) Continuous Medication Order 06/17/2019 06/18/2019 06/19/2019 sodium chloride 0.9% infusion () 75 mL/hr, Intravenous, CONTINUOUS, Starting on Sun06/18/19 at 1115, Until Sun06/18/19 at 2314, Recovery (Recovery-Hospital Unit) 1138 (New Bag - Provider: Gisela Hubbard RN) PRN Medication Order 06/17/2019 06/18/2019 06/19/2019 bisacodyl (DULCOLAX) EC tablet 10 mg 10 mg, Oral, 2 TIMES DAILY PRN, Starting on Sun06/18/19 at 1703, Until Becky 06/19/19 at 1537, Constipation, DO NOT CRUSH OR OPEN Administer if needed per patient's routine or if no bowel movement within 48 hours to achieve: (1) One bowel movement every 48 hours, AND (2) without straining. If multiple PRN bowel medications ordered, start with lactulose, then oral bisacodyl, then bisacodyl suppository. Multiple medications may be given concomitantly for constipation., Routine bisacodyl (DULCOLAX) suppository 10 mg 10 mg, Rectal, DAILY PRN, Starting on Sun06/18/19 at 1703, Until Becky 06/19/19 at 1537, Constipation, Administer if needed per patient's routine or if no bowel movement within 48 hours to achieve: (1) One bowel movement every 48 hours, AND (2) without straining. If multiple PRN bowel medications ordered, start with lactulose, then oral bisacodyl, then bisacodyl suppository. Multiple medications may be given concomitantly for constipation., Routine BUpivacaine (PF) (MARCAINE) 0.25 % (2.5 mg/mL) injection (CANCELED) ONCE PRN, Starting on Sun06/18/19 at 1004, Until Becky 06/19/19 at 1537, Intra-Operative (Intra-Procedure), Routine 1004 (Given - Provider: Brett David MD)1005 (Given - Provider: Brett David MD - Comment: 50 ml 0.25% sensorcaine mixed with 30 mg toradol, 50 mcg clonidine and injected as local.) cloNIDine injection (CANCELED) ONCE PRN, Starting on Sun06/18/19 at 1005, Until Becky 06/19/19 at 1537, Intra-Operative (Intra-Procedure), Routine 1005 (Given - Provider: Brett David MD - Comment: 50 ml 0.25% sensorcaine mixed with 30 mg toradol, 50 mcg clonidine and injected as local.) ketorolac (TORADOL) injection 15 mg 15 mg, Intravenous, EVERY 6 HOURS PRN, Starting on Sun06/18/19 at 1446, Until Becky 06/19/19 at 1537, Pain, Routine 0020 (Given - Provid er: Glenn Beltran RN) ketorolac (TORADOL) injection (CANCELED) ONCE PRN, Starting on Sun06/18/19 at 1005, Until Becky 06/19/19 at 1537, Intra-Operative (Intra-Procedure), Routine 1005 (Given - Provider: Brett David MD - Comment: 50 ml 0.25% sensorcaine mixed with 30 mg toradol, 50 mcg clonidine and injected as local.) lactulose (Chronulac) (0.67 gram/mL) oral liquid 10 g 10 g, Oral, DAILY PRN, Starting on Sun06/18/19 at 1703, Until Becky 06/19/19 at 1537, Constipation, Administer if needed per patient's routine or if no bowel movement within 48 hours to achieve: (1) One bowel movement every 48 hours, AND (2) without straining. If multiple PRN bowel medications ordered, start with lactulose, then oral bisacodyl, then bisacodyl suppository. Multiple medications may be given concomitantly for constipation., Routine lidocaine (XYLOCAINE) 10 mg/mL (1 %) injection 3 mg 3 mg (0.3 mL), Subcutaneous, ONCE PRN, 1 dose, Starting on Sun06/18/19 at 1703, Until Becky 06/19/19 at 1537, for discomfort with PIV insertion, Recovery (Recovery-Hospital Unit), Routine ondansetron (ZOFRAN) injection 4 mg(Linked Group 2) 4 mg, Intravenous, EVERY 8 HOURS PRN, Starting on Sun06/18/19 at 1703, Until Becky 06/19/19 at 1537, Nausea, May repeat times one in 30 minutes if ineffective. If multiple antiemetics are ordered, use ondansetron first, Recovery (Recovery-Hospital Unit) ondansetron (ZOFRAN) tablet 4 mg(Linked Group 2) 4 mg, Oral, EVERY 8 HOURS PRN, Starting on Sun06/18/19 at 1703, Until Becky 06/19/19 at 1537, Nausea, Vomiting, If multiple antiemetics are ordered, use ondansetron first. PO Preferred. If patient unable to take PO, may give IV if ordered. May repeat times one in 45 minutes if ineffective., Recovery (Recovery-Hospital Unit), Routine oxyCODONE (ROXICODONE) immediate release tablet 10-15 mg(Linked Group 3) 10-15 mg, Oral, EVERY 4 HOURS PRN, Starting on Becky 06/19/19 at 0830, Until Becky 06/19/19 at 1537, Pain, severe pain (7-10), Initial dose 10mg. If pain control not adequate in 60 minutes, give additional 5mg, Routine 0853 (Given - Provid er: Sulma Cruz)0947 (See Alternative - Provider: Sulma Cruz) oxyCODONE (ROXICODONE) immediate release tablet 5 mg (CANCELED) 5 mg, Oral, EVERY 4 HOURS PRN, Starting on Becky 06/19/19 at 0332, Until Becky 06/19/19 at 0831, Pain, Routine 0340 (Given - Provid er: Glenn Beltran RN) oxyCODONE (ROXICODONE) immediate release tablet 5 mg 5 mg, Oral, EVERY 4 HOURS PRN, Starting on Becky 06/19/19 at 1227, Until Becky 06/19/19 at 1537, Pain, Routine 1236 (Given - Provid er: Sulma Cruz) oxyCODONE (ROXICODONE) immediate release tablet 5-10 mg(Linked Group 3) 5-10 mg, Oral, EVERY 4 HOURS PRN, Starting on Sun06/19/19 at 0830, Until Sun06/19/19 at 1537, Pain, moderate pain (4-6), Initial dose 5mg. If pain control not adequate in 60 minutes, give additional 5mg, Routine 0853 (See Alternativ e - Provider: Sulma Cruz)0947 (Given - Provider: Sulma Cruz - Comment: Patient reports pain uncontrolled with 10mg) sodium chloride 0.9 % (flush) flush 5-20 mL 5-20 mL, Intravenous, EVERY 1 MIN PRN, Starting on Sun06/18/19 at 1703, Until Sun06/19/19 at 1537, flush, Flush pertains to all indwelling lines. Flush per protocol found in the job aid using the link provided on this medication record., Recovery (Recovery-Hospital Unit), Routine traMADol (ULTRAM) tablet 25-50 mg (CANCELED) 25-50 mg, Oral, EVERY 6 HOURS PRN, Starting on Sun06/18/19 at 1055, Until Becky 06/19/19 at 0333, Pain, For mild pain (1-3) give 25 mg. For moderate to severe pain (4-10) give 50 mg., Routine 1520 (Given - Provider: Gisela Hubbard RN)2152 (Given - Provider: Glenn Beltran RN) Linked Groups Order Group 1: gabapentin (NEURONTIN) capsule 600 mgJump to med 600 mg, Oral, NIGHTLY, 2 doses, First dose on Sun06/18/19 at 2100, Last dose on Sun06/19/19 at 2100, Routine Followed by gabapentin (NEURONTIN) capsule 300 mgJump to med 300 mg, Oral, NIGHTLY, First dose on Sun06/20/19 at 2100, Until Discontinued, Routine Group 2: ondansetron (ZOFRAN) tablet 4 mgJump to med 4 mg, Oral, EVERY 8 HOURS PRN, Starting on Sun06/18/19 at 1703, Until Becky 06/19/19 at 1537, Nausea, Vomiting, If multiple antiemetics are ordered, use ondansetron first. PO Preferred. If patient unable to take PO, may give IV if ordered. May repeat times one in 45 minutes if ineffective., Recovery (Recovery-Hospital Unit), Routine Or ondansetron (ZOFRAN) injection 4 mgJump to med 4 mg, Intravenous, EVERY 8 HOURS PRN, Starting on 06/18/19 at 1703, Until Becky 06/19/19 at 1537, Nausea, May repeat times one in 30 minutes if ineffective. If multiple antiemetics are ordered, use ondansetron first, Recovery (Recovery-Hospital Unit) Group 3: oxyCODONE (ROXICODONE) immediate release tablet 5-10 mgJump to med 5-10 mg, Oral, EVERY 4 HOURS PRN, Starting on Becky 06/19/19 at 0830, Until Becky 06/19/19 at 1537, Pain, moderate pain (4-6), Initial dose 5mg. If pain control not adequate in 60 minutes, give additional 5mg, Routine Or oxyCODONE (ROXICODONE) immediate release tablet 10-15 mgJump to med 10-15 mg, Oral, EVERY 4 HOURS PRN, Starting on Becky 06/19/19 at 0830, Until Becky 06/19/19 at 1537, Pain, severe pain (7-10), Initial dose 10mg. If pain control not adequate in 60 minutes, give additional 5mg, Routine documented in this encounter Care Teams Merchandising Stock Associate Relationship Specialty Start Date End Date Yadira Llanes PA [address] [place] [address] PCP - General Family Medicine 04/17/19 documented as of this encounter
--- OUTSIDE RECORDS SUMMARY | 2024-04-21 04:20 | XMS_ITS | Encounter Summary ---
Author Organization [facility] Address [facility] [place] [address] Care Team Providers Care Clearance Diver Name Role Phone Yadira Llanes Primary Care Provider [phone] Reason for Visit * Reason Onset Date Comments Bumped Appointment 10/20/2022 Encounter Details Date Type Department Care Team (Late st Contact Info) Description 10/20/2022 Telephone [place] [address] Wesley Tovar PA [facility] [place] [address] Bumped Appointment Social History Tobacco Use Types Packs/Day Years [...] encounter Miscellaneous Notes * Telephone Encounter - Elidia Ang - 10/20/2022 10:19 AM ESTSummary: RECALL LETTER We have been unable to contact patient to schedule reminder appointment for RIGHT HIP with [facility]. Recall bumped out to 2023 documented in this encounter Plan of Treatment Upcoming Encounters Date Type Department Care Team (Late st Contact Info) Description 06/25/2024 1:00 PM EDT Office Visit Dermatology at [facility] [address] [place] [address] Skyla Campbell MD [facility] [address] [place] [address] documented as of this encounter Visit Diagnoses Not on filedocumented in this encounter Care Teams Clearance Diver Relationship Specialty Start Date End Date Yadira Llanes PA [address] [place] [id number] PCP - General Family Medicine 04/17/19 documented as of this encounter
--- OUTSIDE RECORDS SUMMARY | 2024-04-21 04:20 | XMS_ITS | Encounter Summary ---
Author Organization Formerly [facility], [facility]–1983 Address [facility] [place] [address] Care Team Providers Care Aircraft Machinist Name Role Phone Yadira Llanes Primary Care Provider [phone] Reason for Visit * Reason Comments Follow Up Surgery R ARGUETA Encounter Details Date Type Department Care Team (Late st Contact Info) Description 07/28/2019 10:40 AM EST Office [place] [phone] Wesley Tovar PA [facility] [place] [address] s/p R DARRELL (Dr. David), 06/18/19 Social History Tobacco Use Types Packs/Day Years [...] Sign Reading Time Taken Comments Blood Pressure 135/71 07/28/2019 10:20 AM EST Pulse 67 07/28/2019 10:20 AM EST Temperature 36.8 ??C (98.2 ??F) 07/28/2019 10:[address] Respiratory Rate - - Oxygen Saturation - - Inhaled Oxygen Concentration - - Weight 66.7 kg (147 lb) 07/28/2019 10:20 AM EST verbal Height 162.6 cm (5' 4) 07/28/2019 10:20 AM EST verbal Body Mass Index 25.23 07/28/2019 10:20 AM EST documented in this encounter Progress Notes * Wesley Tovar PA - 07/28/2019 10:40 AM EST Arthroplasty/Orthopaedic History: 1. Left DAA DARRELL DOS 04/29/19 2. Right DARRELL, DAA. Dr. David. 06/18/2019. HPI: Mag Rider is a very pleasant 63 y.o. year-old female and is now 6 weeks post right total hip replacement The patient has been doing great, as she feels like she is ahead of her left hip at this point in time. The patient is not having any pain.. No fevers, chills, nausea, vomiting, or symptoms of infection. Mag has been ambulating with no assistive device. She notes some stiffness, and tightness about her left hip, which is responding with PT. She asks for a note for air travel, and a refill of her naproxen. ROS: Denies: fever, chills, night sweats, nausea, or vomiting BP 135/71 Pulse 67 Temp 36.8 ??C (98.2 ??F) Ht 162.6 cm (5' 4) Comment: verbal Wt 66.7 kg (147 lb) Comment: verbal BMI 25.23 kg/m?? Physical Exam: Well-appearing female in no acute distress. Alert and Oriented x 3 and answers all questions appropriately. The incision is well healed, with no signs of infection. Hip Exam: Right Leg length: Longer leg: equal Limb Length discrepancy: 0cm Motion: Flexion contracture: 0 Total degrees of Flexion:100 Total degrees of Abduction:45 Total degrees of Ext Rotation: 30 Total degrees of Internal Rotation: 25 Gait Abnormality: Normal Pulses Palpable: Right PT: Yes Right DP:Yes Motor/Sensory: Right Distal Motor: Normal Distal Sensory: Normal Hip Abductors 5 Trendelenburg test: negative X-RAYS: Multiple radiographic views were obtained at my request and reviewed with the patient. X-rays show a well-placed prosthesis with no evidence of fracture, subsidence, loosening, or periprosthetic complication. No evidence of interval complication, s/p Right DARRELL. Stable Left DARRELL. Questionnaire Responses: [facility] Surgical Postop Visit 06/09/2019 PROMIS-10 General Health Excellent PROMIS-10 Quality of [...] Additional surgery on same body part No Pain in other HIP Mild Back pain at this moment Very mild Satisfaction with Treatment Satisfied Choose Same Treatment Again Definitely yes Orthopeadics [facility] Response 06/09/2019 HOOS JR Scores 85.26 KOOS JR Scores - Spine [facility] Response 06/09/2019 HOOS JR Scores 85.26 KOOS JR Scores - ASSESSMENT/PLAN: Ms. Rider is a 63 y.o. year old female status post right total hip replacement. Doing well postoperatively. Continue weightbearing as tolerated and working on range of motion.We will see her back in 8 weeks for repeat examination. No X-rays will be needed at that time. Patient may return to normal activities as her pain and function allow. Reassurance provided. We discussed her hips preoperatively in the setting of an arthritic hip and astiff hip postoperative terms for the soft tissue and muscles lengthening back out. We discussed this can take quite some time, 3-6 months. She did have severe arthritis and was quite stiff. She feels all of her joint pain is gone, working out some soft tissue discomfort in PT which is responding. We should see her in 8 weeks for repeat clinical check for both of her hips. She is thankful for today's visit. We discussed the appropriate precautions surrounding dental [...] All questions were answered. Signed: JOE HASTINGS 07/28/2019 documented in this encounter Plan of Treatment Upcoming Encounters Date Type Department Care Team (Late st Contact Info) Description 06/25/2024 1:00 PM EDT Office Visit Dermatology at [address] [place] [address] Skyla Campbell MD [facility] DR [address]QU[address] [place] [address] documented as of this encounter Visit Diagnoses Diagnosis s/p R DARRELL (Dr. David), 06/18/19 Hip joint replacement by other means documented in this encounter Care Teams Aircraft Machinist Relationship Specialty Start Date End Date Yadira Llanes PA [address] [place] [id number] PCP - General Family Medicine 04/17/19 documented as of this encounter
--- OUTSIDE RECORDS SUMMARY | 2024-04-21 04:20 | XMS_ITS | Encounter Summary ---
Author Organization [facility] Address [address] [place] [address] Care Team Providers Care Welding Rod Coater Name Role Phone Molly Collazo MD Primary Care Provid er Encounter Details Date Type Department Care Team (Late st Contact Info) Description 11/12/2008 Before PRISM Converted Visit (Maple) [facility] - [facility] [address] [place] [address] Jeannine Luis NP [address] [place] [address] Social History Tobacco Use Types Packs/Day Years Used Date Smoking Tobacco: Never Assessed Sex and Gender Information Value Date Recorded Sex Assigned at Not on file Gender Identity Not on file Sexual Orientation Not on file documented as of this encounter Plan of Treatment Not on file documented as of this encounter Procedures Procedure Name Priority Date/Time Associated Diagnosis Comments TEST, URINE Routine 11/12/2008 11:25 EST COMPLETE BLOOD COUNT Routine 11/12/2008 11:25 EST documented in this encounter Results * TEST, URINE (11/12/2008 11:25 EST) Result Neg Performed at [place], [place] [facility] 11/12/2008 11:2 5 EST 11/12/2008 11:41 EST Jeannine Luis FEDERAL JUDICIAL LAW CLERK URINALYSIS ORDERAB LES Performing Organization Address City/[facility]/ZIP Co de Phone Number [facility] [address] [place] [address] * (ABNORMAL) HEMAGRAM (11/12/2008 11:25 EST) WBC 6.07 4.0 - 12.4 K/cmm [facility] RBC 3.96 3.86 - 5.04 M/cmm [facility] Hemoglobin 13.5 11.6 - 15.2 gm/dl [facility] HCT 37.2 34.9 - 44.4 % [facility] MCV 94 81 - 98 fl [facility] MCH 33.9(H) 26.7 - 33.3 pg [facility] MCHC 36.2(H) 32.1 - 35.9 gm/dl [facility] PLT 365(H) 141 - 320 K/cmm [facility] RDW-CV 10.8(L) 11.7 - 14.6 % [facility] Comment:Performed at Ileana Nabeel [facility] [place], [place] 11/12/2008 11:2 5 EST 11/12/2008 11:40 EST Jeannine Luis FEDERAL JUDICIAL LAW CLERK HEMATOLOGY & PF4 O RDERABLES Performing Organization Address City/[facility] Co de Phone Number [facility] [address] [place] [address] documented in this encounter Visit Diagnoses Not on filedocumented in this encounter Care Teams Welding Rod Coater Relationship Specialty Start Date End Date Molly Collazo MD [address] [place] [address] PCP - General 12/29/08 12/23/12 documented as of this encounter
--- OUTSIDE RECORDS SUMMARY | 2024-04-21 04:20 | XMS_ITS | Encounter Summary ---
Author Organization [facility] Address [facility] [place] [address] Care Team Providers Care Data Entry Technician Name Role Phone Yadira Llanes Primary Care Provider [phone] Encounter Details Date Type Department Care Team (Latest Contact Info) Description 07/25/2022 Travel Social History Tobacco Use Types Packs/Day Years [...] 1:00 PM EDT Office Visit Dermatology at [facility] [address] [place] [address] Skyla Campbell MD [facility] [address] [place] [address] documented as of this encounter Visit Diagnoses Not on filedocumented in this encounter Care Teams Data Entry Technician Relationship Specialty Start Date End Date Yadira Llanes PA [address] [place] [address] PCP - General Family Medicine 04/17/19 documented as of this encounter
--- OUTSIDE RECORDS SUMMARY | 2024-04-21 04:20 | XMS_ITS | Encounter Summary ---
Author Organization [facility] [place] [address] Care Team Providers Care Veneer Sheet Repairer Name Role Phone Yadira Llanes Primary Care Provider [phone] Encounter Details Date Type Department Care Team (Late st Contact Info) Description 11/01/2020 Telephone Orthopaedics at [facility] [phone] Carrie Hernandez, RN Social History Tobacco Use Types Packs/Day [...] encounter Miscellaneous Notes * Telephone Encounter - Denae Martinez RMA - 11/04/2020 12:46 PM EST Mag called in and I reviewed the message from Dr David. She was grateful for that news . She reports that she is good and strong and did not fall at all while snowboarding. * Telephone Encounter - Prtaik Dee - 11/04/2020 12:26 PM EST LM#1 Asking for a call back to discuss and answer her recent questions. To date, there have been noissues with the implants she has. ??Most of the metal issues have been from Hi[employer]se and Chromium, and her hip does not have any of those metals. Dr. David is glad she is snowboarding and hope she stays safe. * Telephone Encounter - Carrie Hernandez RN - 11/01/2020 3:43 PM EST Patient was told by a friend yesterday that the some of the 2019 titanium hip prosthethis are leaking/. 06/18/2019 Surgeon(s) and Role: * Brett David MD - Primary * Wesely Tovar PA - Physician Teaching Pastor * Silvano Ruelas MD - Resident Procedure(s): @TOTAL HIP ARTHROPLASTY, ANTERIOR APPROACH (WRVU 20.72) MODIFIER ACTIS HIP STEM DEPUY MODIFIER PINNACLE ACETABULUM DEPUY ?? and Operations/Major Procedures: 04/29/2019 Surgeon(s) and Role: * Brett David MD - Primary Procedure(s): @TOTAL HIP ARTHROPLASTY, ANTERIOR APPROACH (WRVU 20.72) HIP INTRAOP RADIOLOGIC EXAMINATION, UNILATERAL, W PELVIS; 4+ VIEWS (WRVU 0.27) MODIFIER SCOTT [employer] NEPHEW - POLAR STEM CEMENTLESS MODIFIER SCOTT [employer] NEPHEW - R3 ACETABULAR CUP Patient is concerned about this. She would like to know what type of prosthetic you placed in her on 06/2019. And 04/29/2019. You can other call or write her a letter with information. If patient has one of metals that could have risk for leaking. Carrie Hernandez RN [facility] Ortho Team documented in this encounter Plan of Treatment Upcoming Encounters Date Type Department Care Team (Late st Contact Info) Description 06/25/2024 1:00 PM EDT Office Visit Dermatology at [facility] [address] [place] [address] Skyla Campbell MD [facility] [address] [place] [address] documented as of this encounter Visit Diagnoses Not on filedocumented in this encounter Care Teams Veneer Sheet Repairer Relationship Specialty Start Date End Date Yadira Llanes PA [address] [place] [address] PCP - General Family Medicine 04/17/19 documented as of this encounter
--- OUTSIDE RECORDS SUMMARY | 2024-04-21 04:20 | XMS_ITS | Encounter Summary ---
Author Organization [facility] Address [facility] [place] [address] Care Team Providers Care Instrumentation Controls Engineer Name Role Phone Yadira Llanes Primary Care Provider [phone] Encounter Details Date Type Department Care Team (Latest Contact Info) Description 05/01/2023 Travel Social History Tobacco Use Types Packs/Day [...] 1:00 PM EDT Office Visit Dermatology at [facility] [address] [place] [address] Skyla Campbell MD [facility] [address] [place] [address] documented as of this encounter Visit Diagnoses Not on filedocumented in this encounter Care Teams Instrumentation Controls Engineer Relationship Specialty Start Date End Date Yadira Llanes PA [address] [place] [address] PCP - General Family Medicine 04/17/19 documented as of this encounter
--- OUTSIDE RECORDS SUMMARY | 2024-04-21 04:20 | XMS_ITS | Encounter Summary ---
Author Organization [facility] Address [facility] [place] [address] Care Team Providers Care Program Services Planner Name Role Phone Yadira Llanes Primary Care Provider [phone] Encounter Details Date Type Department Care Team (Latest Contact Info) Description 04/03/2024 Travel Social History Tobacco Use Types Packs/Day [...] 1:00 PM EDT Office Visit Dermatology at [facility] [address] [place] [address] Skyla Campbell MD [facility] DR CHIQU[address] [place] [address] documented as of this encounter Visit Diagnoses Not on filedocumented in this encounter Care Teams Program Services Planner Relationship Specialty Start Date End Date Yadira Llanes PA [address] [place] [address] PCP - General Family Medicine 04/17/19 documented as of this encounter
--- OUTSIDE RECORDS SUMMARY | 2024-04-21 04:20 | XMS_ITS | Encounter Summary ---
Author Organization [facility] Address [facility] [place] [address] Care Team Providers Care Single Stayer Operator Name Role Phone Yadira Llanes Primary Care Provider [phone] Encounter Details Date Type Department Care Team (Latest Contact Info) Description 05/08/2023 Multidisciplinary Ca re Committee Dermatology at [facility] [address] [place] [address] Wesley Esteves MD [facility] DR CHIQU[address] [place] [address] Social History Tobacco Use Types Packs/Day Years Used Date Smoking Tobacco: Never Smokeless Tobacco: Never Alcohol Use Standard Drinks/Week Comments Never 0 (1 standard drink = 0.6 oz pur e alcohol) Sex and Gender Information Value Date Recorded Sex Assigned at Not on file Gender Identity Not on file Sexual Orientation Not on file documented as of this encounter Progress Notes * Ginny Diaz - 05/08/2023 11:24 AM EDT Melanoma - Tumor Board Note Date Presented: 05/08/2023 Presenting Physician: Diagnosis/Tumor Site: Left Face/Cheek Is this Metastatic Disease: unknown Synopsis of History/HPI: Imaging: Pathology/Histology: 04/10/23- [id number] -Left Cheek Extensive melanoma in situ, 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 Mohs vs Surg Onc. Is it residual or primary? Recommendations: Cannot determine if residual or primary. will speak with Dr. Barclay to see if he recommends MOHS. DISCLAIMER: The patient was discussed and the tumor board made recommendations but it is ultimatelyup to the treatment provider(s) and the patient to determine the patient???s care. * Wesley Esteves MD - 05/08/2023 11:24 AM EDT Spoke to patient on the phone to discuss next steps for MIS found on margin of left cheek excision.Patient informed me that since our last clinic visit (05/01/23), she sought a 2nd opinion at [facility]. She says that she is scheduling Mohs to be performed there. I informed her that we discussed at our interdisciplinary meeting performing Mohs here and that if for any reason she'd liketo have the procedure performed here, we can place the referral and schedule her. Patient declined but will continue to closely follow up with us in clinic. Her next appointment is on 06/15/23 ([facility]). I encouraged her to bring her medical records from [facility] so we can keep our recordsupdated. Patient verbalized understanding and in agreement with plan. documented in this encounter Plan of Treatment Upcoming Encounters Date Type Department Care Team (Late st Contact Info) Description 06/25/2024 1:00 PM EDT Office Visit Dermatology at [facility] [address] [place] [address] Skyla Campbell MD [facility] DR CHIQU[address] [place] [address] documented as of this encounter Visit Diagnoses Not on filedocumented in this encounter Care Teams Single Stayer Operator Relationship Specialty Start Date End Date Yadira Llanes PA [address] [place] [address] PCP - General Family Medicine 04/17/19 documented as of this encounter
--- OUTSIDE RECORDS SUMMARY | 2024-04-21 04:20 | XMS_ITS | Encounter Summary ---
Author Organization [facility] Address [address] [place] [address] Care Team Providers Care Sql Report Analyst Name Role Phone Unavailable Primary Care Provider Unavailabl e Encounter Details Date Type Department Care Team (Latest Contact Info) Description 04/02/2008 8:27 EDT - 04/02/2008 11:59 EDT Hospital Encounter [facility] [address] [place] [address] Molly Collazo MD [address] [place] [address] Discharge Disposition: Auto Discharge Social History Tobacco [...] Name Priority Date/Time Associated Diagnosis Comments FL ESOPHAGRAM (BARIUM SWALLOW) 04/02/2008 9:36 EDT documented in this encounter Results * FL ESOPHAGRAM (04/02/2008 9:36 EDT) Anatomical Region Laterality Modality Other 04/02/2008 9:36 EDT Narrative 02/21/2009 14:37 EDT burning chest pain and spasming FL ESOPHAGRAM ??Apr 02, 2008 9:36:00 AM Signs and Symptoms: ??burning chest pain and spasming. Findings: A disk recoater film was taken and shows no abnormalities. Esophagram with fluoroscopy shows the esophagus to be normally distensible with normal appearing mucosa. There is gastroesophageal reflux to the level of the aortic arch. The gastric fundus appears normal. No hiatal hernia is seen. Impression: Severe gastroesophageal reflux. I have personally reviewed the images and the above interpretation and agree with the findings. Procedure Note Fox Sullivan / Aldo Swenson MD - 02/21/2009 burning chest pain and spasming FL ESOPHAGRAM Apr 02, 2008 9:36:00 AM Signs and Symptoms: burning chest pain and spasming. Findings: A disk recoater film was taken and shows no abnormalities. Esophagram with fluoroscopy shows the esophagus to be normally distensible with normal appearing mucosa. There is gastroesophageal reflux to the level of the aortic arch. The gastric fundus appears normal. No hiatal hernia is seen. Impression: Severe gastroesophageal reflux. I have personally reviewed the images and the above interpretation and agree with the findings. Molly Collazo MD IMG FLUOROSC OPY ORDERABLES documented in this encounter Visit Diagnoses Not on filedocumented in this encounter
--- OUTSIDE RECORDS SUMMARY | 2024-04-21 04:20 | XMS_ITS | Encounter Summary ---
Author Organization [facility] Address [facility] [place] [address] Care Team Providers Care Custom Wood Stair Builder Name Role Phone Yadira Llanes Primary Care Provider [phone] Encounter Details Date Type Department Care Team (Latest Contact Info) Description 07/24/2023 6:39 PM EST - 07/24/2023 11:59 PM EST Hospital [place] [phone] Discharge Disposition: Home Social History Tobacco Use [...] 1:00 PM EDT Office Visit Dermatology at [facility] [address] [place] [address] Skyla Campbell MD [facility] DR [address]IQU[address] [place] [address] documented as of this encounter Procedures Procedure Name Priority Date/Time Associated Diagnosis Comments SURGICAL PATHOLOGY REPORT Routine 07/24/2023 8:30 AM EST documented in this encounter Results * Surgical Pathology Report (07/24/2023 8:30 AM EST) Final Diagnosis [id number] ? Location: [facility] The signing pathologist has (i) examined the relevant preparation(s) for the specimen(s) and (ii) rendered or confirmed the diagnosis(es). . ?Surgical Pathology DIAGNOSIS A - Right distal lower extremity, skin excision: - Irregular endophytic atypical squamous proliferation, margins negative ? (see Discussion) B - Right knee, skin ?? excision: - ??Lichenoid keratosis Electronically signed by: ?Tim ALFARO, PhD, [facility] Verified: ??08/02/2023 9:26 ?? Dermatopathologist Performed at: ??-[facility] [place], [place] [address] Palaeontologist: Claudine Jaquez MD, FCAP, ??CLIA Certificate: [id number] DISCUSSION A( Right distal lower extremity) - The differential diagnosis includes ??pseudoepitheliomato us hyperplasia versus evolving well differentiated squamous cell carcinoma. Nevertheless, this lesion is complete excised. SPECIMEN(S) SUBMITTED A - R Distal extremity (lower) B - R ??knee Referring Identifier: ?(not provided) CLINICAL INFORMATION History of multiple melanomas and basal cell carcinoma; skin cancer x 2 SPECIMEN PROCESSING A - Labeled/Fixative: Excision of right distal extremity, formalin. Quantity/Size: ??Single, 2.0 x 1.3 x 0.4 cm. Tissue Description: Elliptical excision of white skin with a 1.0 x 1.0 cm white plaque. ??The specimen is received oriented with a suture at 1 tip, undesignated. The suture will now be designated as 12:00. Inkin-3-6 o'clock is marked black. ??6-9-12 o'clock is marked blue. Sections/Processing: Serially sectioned and entirely submitted in 5 cassettes as follows: ?A1: ??12:00 tip ?A2-A4: ??Body from 12-6 o'clock ?A5: ??6:00 tip B - Labeled/Fixative: Right knee, formalin. Quantity/Size: ??Single, 2.4 x 1.3 x 0.4 cm. Tissue Description: Elliptical excision of white skin with a 1.2 x 0.8 cm pink- white eroded plaque. ??The specimen is received oriented with a suture at 1 tip, undesignated. ??The suture will now be designated as 12:00. Inkin-3-6 o'clock is marked black. ??6-9-12 o'clock is marked blue. Sections/Processing: Serially sectioned and entirely submitted in 5 cassettes as follows: ?B1: ??12:00 tip ?B2-B4: ??Body from 12-6 o'clock ?B5: ??6:00 tip ??sns 08/02/2023 9:26 AM EST [facility] SPECIMEN FROM SKIN / Unknown 07/24/2023 8:30 AM EST 07/24/2023 8:30 AM EST SPECIMEN FROM SKIN / Unknown 07/24/2023 8:30 AM EST 07/24/2023 8:30 AM EST Joe Chamorro MD PATHOLOGY/CYTO LOGY ORDERABLES [facility] [place] [address] [facility] [place] [address] documented in this encounter Visit Diagnoses Not on filedocumented in this encounter Care Teams Custom Wood Stair Builder Relationship Specialty Start Date End Date Yadira Llanes PA [address] [place] [id number] PCP - General Family Medicine 04/17/19 documented as of this encounter
--- OUTSIDE RECORDS SUMMARY | 2024-04-21 04:20 | XMS_ITS | Encounter Summary ---
Author Organization [facility] Address [facility] [place] [address] Care Team Providers Care Telegraphic Typewriter Mechanic Name Role Phone Yadira Llanes Primary Care Provider [phone] Reason for Visit * Reason Comments Skin Check * Comprehensive Melanoma Consult (Urgent) - Closed Specialty Diagnoses / Procedures Referred By Contindira t Referred To Contact Dermatology Diagnoses Malignant melanoma, unspecified site Joe Chamorro MD [address] [place] [id number] [facility] Dermatology [address] [place] [address] Referral ID Status Reason Start Date Expiration Date V isits Requested Visits Authorized [id number] Closed Consult, Test & Treat PCP Updated and/or Approved 07/14/2022 07/14/2023 6 6 Encounter Details Date Type Department Care Team (Late st Contact Info) Description 07/25/2022 9:00 AM EST Office Visit Dermatology at [facility] [address] [place] [address] Ruby Smith MD [facility] DR CHIQUITA [place] [address] [place] (actinic keratosis); Lentigines; Skin tag; Bennett angioma; History of melanoma in situ; SK (seborrheic keratosis); Skin neoplasm Social History Tobacco Use Types Packs/Day Years Used Date Smoking Tobacco: Never Smokeless Tobacco: Never Alcohol Use Standard Drinks/Week Comments Never 0 (1 standard drink = 0.6 oz pur e alcohol) Sex and Gender Information Value Date Recorded Sex Assigned at Not on file Gender Identity Not on file Sexual Orientation Not on file documented as of this encounter Patient Instructions * Patient Instructions* Taniya Lozada LPN - 07/25/2022 9:00 AM EST Treatment and Wound Care Instructions Your treatment today: You have had a shave biopsy of your skin, which is a removal of tissue for examination under a microscope. This wound will heal without stitches. Allow 3-6 weeks for the wound to heal. If bleeding occurs, hold firm pressure against the wound for 15 minutes. If bleeding continues, calls the office or go to your local emergency room. Please allow 1-2 weeks for the biopsy results to return. Your physician or nurse will contact you with the results by phone or letter; follow-up will be discussed at that time. Wound Care Instructions: You will need to keep the dressing placed over the wound dry and intact for 24 hours. Afterwards, perform the following wound care daily: Wash your hands before changing the dressing. Remove the bandage and clean the area with mild soap and water, then gently pat the area dry. Apply a small amount of Vaseline to the area, then cover the wound with a band- aid. Change your dressing daily until the wound is fully healed. A small amount of yellow drainage is part of normal healing. The area might appear as a small depression with redness around the edge of the wound. This is normal. Please contact the office you you notice any of the following signs of infection: increased tenderness, pain, drainage, or redness that becomes hot or hard around the wound. If you have further questions or concerns, please call the office at [phone]. If it is after 5PM, or a holiday or weekend, please call [phone] and ask for the Java Performance Engineer on-call. documented in this encounter Progress Notes * Ruby Smith MD - 07/25/2022 9:00 AM EST Images from the original note were not included. DEPARTMENT OF DERMATOLOGY Medical Dermatology Clinic Note Provider: Ruby Smith MD Patient's preferred name Mag Preferred contact method for results [x]Phone []myD-H []Letter Detailed phone message OK? Yes Are there any other people with whom we may discuss your care? N Past Medical History Date, location, treatment Melanoma 06/20/22 A - Left lower cheek, skin excision: - ??Melanoma in situ, present at the peripheral specimen margin (see Discussion) B - Left upper cheek, skin excision: - ??Melanoma in situ, present at the peripheral specimen margin (see Discussion) Dysplastic nevi N SCC N BCC N AKs N UV Exposure & Protection Other relevant past medical history 06/20/22 C - Right forearm, skin excision: - ??Seborrheic keratosis/lentigo and focal pigmented actinic keratosis - ?Pilar Cyst removal on vertex scalp per pt Family History Details Melanoma Unknown NMSC Unknown Other relevant family history Mother had an unknown skin cancer Social History 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 Patient is referred to the clinic at the request of Joe Chamorro for a full skin exam with multiple skin concerns today. Recentexcision of 2 MIS on left cheek from Dr. hCamorro. Has spot on left brown that is getting a little darker. Can't see her back so would like that evaluated. Review of Systems: General: Feeling well. Skin: No other skin concerns. Medications: Reviewed in eD-H Allergies: Reviewed in eD-H Skin Examination: Full skin examination: Patient asked to undress to their comfort level. Verbalized that the provider's preference is that patient remove all clothing and that the provider will not examine areas patient elects to keep covered. Examination of the scalp, hair, head, face, ears, neck, chest, axillae, abdomen, back, buttocks, genitalia, and upper and lower extremities was normal with the exception ofthe findings below. Assessment/Plan #. Nevus r/o Atypia - Right upper back: 8 x 7 mm brown thin papule - Recommended a skin biopsy to confirm/clarify the nature of the skin lesion. After discussion of potential risks (scarring, bleeding, infection) and recurrence, patient agreed to proceed. - Patient denies known allergies to lidocaine and epinephrine. Procedure: Skin shave biopsy. Location: Right Upper Back Time of procedure: 950 Discussed indications for procedure and expectations including risks and benefits. Verbal consent obtained. Skin prepped with alcohol. Local anesthesia with 1% xylocaine, 1/100,000 epinephrine. A sample of the lesion was removed by shave technique to the level of the dermis and submitted to Pathology. Hemostasis obtained (AlCl and/or electrocautery). There were no complications; patient toleratedthe procedure well. Wound dressed. Post-procedure expectations, wound care and activity restrictions reviewed. ?? - Follow-up based on pathology results. #. Actinic Keratoses - Ill-defined, gritty papule on the left forehead. - Explained premalignant potential of these lesions. - Discussed treatment with cryotherapy; patient elected to proceed. - Instructed patient to return to clinic for re-evaluation if lesion does not resolve with this treatment. Procedure: Destruction of lesion with cryotherapy (LN2). Location: As noted above. Number: 1 Discussed procedure and expectations, including risks (especially hypopigmentation) and benefits. Verbal consent obtained. Frozen with LN2, 15-30 second thaw time, twice. There were no complications;patient tolerated the procedure well. Post-procedure expectations and wound care reviewed. #. Lentigo vs SK EXAM: ~1 cm irregular brown patch on the left brown - No concerning features on dermoscopy - Will CTM - Patient instructed to return to clinic for re-evaluation of area if notes change, growth, bleeding, etc. #. Lentigines - Light-brown, evenly pigmented, well-demarcated macules scattered on sun-exposed areas of the trunk and extremities. - Discussed benign appearance on exam today and provided reassurance. No treatment necessary at this time. - Discussed importance of sun protection (protective clothing and use of SPF 30+ broad-spectrum sunscreen) and sun avoidance strategies). #. Skin Tags - 0.2-0.4 cm sessile, flesh-colored papules on the left inframammary. - Discussed benign nature of lesions and provided reassurance. No treatment necessary at this time. #. Seborrheic Keratoses - [place]-brown papules/plaques with waxy, stuck-on appearance scattered on the head, trunk, and extremities. - Explained that these are hereditary and adult-acquired. Reassured patient of benign nature. No treatment necessary. #. 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 - Discussed benign nature and provided reassurance. No treatment necessary. - Briefly explained option of laser removal, which is considered a cosmetic procedure and not covered by insurance. #. Excision with sutures in place on right brown - No signs or symptoms of infection noted. - excised by Dr. Joseph, pathology pending, diagnosis unclear - reviewed photo on patient's phone - may be consistent with sBCC vs SCCiS vs other #. Healing scar, h/o MIS on left cheek - Will continue to monitor. - Recommend FBSE q3 months Figure 1 Photo(s) taken and charted with patient's verbal consent. Other: ??? Reviewed external notes/records RTC: 3 months for a FSE. []Note routed to school attendance secretary []Recall placed in scheduling system [x]Appointment scheduled at checkout Scribe attestation: Taniya Lozada LPN has performed the documentation for this encounter in the presence of and acting as a scribe for Ruby Smith MD. I performed the above scribed service and agree with the accuracy of the documentation in this encounter. Reviewed and signed by: Ruby Smith MD Dermatology [facility] Patient seen and evaluated with staff oak tanner: Amalia Mathias MD Department of Dermatology [facility] * Amalia Mathias MD - 07/25/2022 9:00 AM EST I directly supervised Dr. Smith during this office visit. Dr. Smith presented the history and physical exam to me. I, then, saw and examined this patient with Dr. Smith . We reviewed the history and pertinentdetails and I confirmed the physical findings. I agree with the details of the history and physicalexam as documented in Dr. Smith's note. Amalia Mathias MD Staff Physician * Ruby Smith MD - 07/25/2022 9:00 AM EST Called patient to inform of biopsy results showing severely atypical DN, MIS arising in DN cannot be excluded. Patient informed that additional treatment is recommended, treatment option discussed and recommendation for excision was made. Pt would like to wait until she speaks to her friend who is a surgeon, who also excised the MIS on her face. States that he will likely remove this lesion as she has another excision scheduled with him. She will notify us of her decision. DIAGNOSIS Right upper back, skin shave biopsy ONLY: - Severely atypical lentiginous junctional ?melanocytic proliferation ??arising in ??association with compound dysplastic nevus, ? present at the peripheral specimen ??edge ??(see Discussion) Electronically signed by: ?Tim ALFARO, PhD, [facility] Verified: ??08/01/2022 8:31 ?? Dermatopathologist Performed at: ??-[facility], [place] [address] House Furnishings Supervisor: Claudine Jaquez MD, FCAP, ??CLIA Certificate: [id number] DISCUSSION Although this biopsy shows features of a background compound dysplastic nevus, the ??junctional component is broad and shows predominant lentiginous growth pattern with ??scattered pagetoid melanocytes, adnexal involvement, enlarged epithelioid cytology ??and partial PRAME positivity. This lesion is at least a severely atypical compound ??dysplastic nevus, ??melanoma in situ arising in dysplastic nevus ?cannot be excluded. ??Re-excision is recommended to ensure its complete removal. documented in this encounter Plan of Treatment Upcoming Encounters Date Type Department Care Team (Late st Contact Info) Description 06/25/2024 1:00 PM EDT Office Visit Dermatology at [facility] [address] [place] [address] Skyla Campbell MD [facility] DR CHIQUITA WARREN-DERMATOLOGY [place] [id number] documented as of this encounter Procedures Procedure Name Priority Date/Time Associated Diagnosis Comments SURGICAL PATHOLOGY REPORT Routine 07/25/2022 11:04 AM EST SPECIMEN TO PATHOLOGY Routine 07/25/2022 11:04 AM EST Skin neoplasm documented in this encounter Results * Surgical Pathology Report (07/25/2022 11:04 AM EST) Final Diagnosis [id number] ? Location: [facility] The signing pathologist has (i) examined the relevant preparation(s) for the specimen(s) and (ii) rendered or confirmed the diagnosis(es). . ?Surgical Pathology DIAGNOSIS Right upper back, skin shave biopsy ONLY: - Severely atypical lentiginous junctional ?melanocytic proliferation ??arising in association with compound dysplastic nevus, ? present at the peripheral specimen edge ??(see Discussion) Electronically signed by: ?Tim ALFARO, PhD, [facility] Verified: ??08/01/2022 8:31 ?? Dermatopathologist Performed at: ??-[facility] [place], [place] [address] House Furnishings Supervisor: Claudine Jaquez MD, AP, ??CLIA Certificate: [id number] DISCUSSION Although this biopsy shows features of a background compound dysplastic nevus, the junctional component is broad and shows predominant lentiginous growth pattern with scattered pagetoid melanocytes, adnexal involvement, enlarged epithelioid cytology and partial PRAME positivity. This lesion is at least a severely atypical compound dysplastic nevus, ??melanoma in situ arising in dysplastic nevus ?cannot be excluded. Re-excision is recommended to ensure its complete removal. ADDITIONAL STUDIES Immunohistochemistry Studies: Formalin-fixed, paraffin-embedded tissue sections of A1 are studied for MelanA and PRAME using the polymer technique with appropriate positive and negative controls. ?? These IHC studies provide the pathologist with adjunctive diagnostic information. Antibody specificity has been verified by testing antibodies on a series of in-house tissues with known immunohistochemical performance characteristics. The clinical interpretation of any antibody positive staining or its absence is evaluated within the context of clinical presentation, morphology, histopathological criteria and other diagnostic tests. SPECIMEN(S) SUBMITTED A - Right Upper Back, skin shave biopsy ONLY (1) CLINICAL INFORMATION 8 x 7 mm red-brown thin papule; nevus R/O atypia SPECIMEN PROCESSING A - Labeled/Fixative: Right upper back, formalin. Quantity/Size: ??Single, 0.8 x 0.7 x 0.1 cm. Tissue Description: Shave of mottled, aviles-brown skin. Sections/Processing: Inked, trisected and entirely submitted in 1 cassette labeled A1. ??pps 08/01/2022 8:31 AM EST [facility] SPECIMEN FROM SKIN / Unknown 07/25/2022 11:04 AM EST 07/25/2022 11:04 AM EST Ruby Smith MD PATHOLOGY/CYTOLOGY [facility] [place] Performing Organization Address City/[facility]/ZIP Co de Phone Number [facility] [place] [address] * Specimen to Pathology (07/25/2022 11:04 AM EST) AP Specimen 07/25/2022 11:0 4 AM EST 07/25/2022 11:04 AM EST Narrative [facility] - 07/25/2022 11:04 AM EST Specimen requisition ordered. ??Separate Pathology report to follow Amalia Mathias MD PATHOLOGY/CYTOLOGY O [place] [facility] [place] [phone] documented in this encounter Visit Diagnoses Diagnosis AK (actinic keratosis) Actinic keratosis Lentigines Other dyschromia Skin tag Unspecified hypertrophic and atrophic condition of skin Bennett angioma Nevus, non-neoplastic History of melanoma in situ Personal history of malignant melanoma of skin SK (seborrheic keratosis) Other seborrheic keratosis Skin neoplasm Neoplasm of unspecified nature of bone, soft tissue, and skin documented in this encounter Care Teams Telegraphic Typewriter Mechanic Relationship Specialty Start Date End Date Yadira Llanes PA [address] [place] [address] PCP - General Family Medicine 04/17/19 documented as of this encounter
--- OUTSIDE RECORDS SUMMARY | 2024-04-21 04:20 | XMS_ITS | Encounter Summary ---
Author Organization [facility] [place] [address] Care Team Providers Care Ski Tow Operator Name Role Phone Yadira Llanes Primary Care Provider [phone] Reason for Visit * Reason Comments Left Hip Pain Encounter Details Date Type Department Care Team (Late st Contact Info) Description 06/15/2021 3:53 PM EDT - 06/15/2021 4:44 PM [place]T [place] [phone] Pain in left hip (Primary Dx) Discharge Disposition: Home Social History Tobacco Use [...] Mass Index 25.75 06/15/2021 3:10 PM EDT documented in this encounter Discharge Instructions * Discharge Instructions* [place], Sotero C, PA - 06/15/2021 4:25 PM EDT You were seen in the emergency department for hip pain after a fall. Your exam and x-rays were reassuring. Please take kvgj-gya-abywzsv pain medication such as Tylenol and/or ibuprofen as needed. Please rest and ice the area. If you have persistent pain please have repeat x-rays in approximately 10to 12 days. Return to the emergency department if you have increased pain, numbness or any other questions or concerns. documented in this encounter Medications at Time [...] mouth daily. documented as of this encounter ED Notes * Sotero Fortune PA - 06/15/2021 4:08 PM EDT ED Provider Note HPI: Mag Rider is a 65 y.o. female who presents to the Emergency Department with left hip pain. The patient was walking earlier today and she slipped and fell in a block. She fell directly ontoher left hip. Since that time she has had left lateral hip pain that has improved since her fall. She describes the pain as sharp, nonradiating discomfort that is worse with weightbearing and palpation of the area. She denies any other injuries. She did not hit her head or neck and has no head or neck pain. No new numbness or tingling. Review of Systems Pertinent positives and negatives are included in the HPI, otherwise at least 7 systems were reviewed and negative. Past Medical and Surgical Histories, Social History, Medications, Allergies were reviewed in the chart. Vitals: ED Triage Vitals [06/15/21 1510] BP: 149/69 Heart Rate: 70 Resp: 16 Temp: 37.1 ??C (98.7 ??F) Temp src: Tympanic SpO2: 99 % O2 Device: RA O2 Flow Rate (L/min): n/a Physical Exam Constitutional: Appears well-developed and well-nourished. No distress. Head: Normocephalic and atraumatic. Eyes: EOM are normal. Neck: Normal range of motion. Cardiovascular: Normal rate and regular rhythm. Pulmonary/Chest: Effort normal and breath sounds normal. Musculoskeletal: Tenderness palpation of the left lateral hip over the greater trochanter and lesser trochanter. The patient has painless logroll and flexion, extension, AB/adduction of the hip. She is able to weight-bear/ambulate and stand on just to the left lower extremity. Distal pulses intact.Sensation is intact to light touch. Neurological: Alert and oriented to person, place, and time. Skin: Skin is warm and dry. ED Course: X-ray independently reviewed: No obvious acute bony abnormalities Procedures Assessment and Plan: 65 y.o. female presents the emergency department with left hip pain after falling directly on her left hip. On exam she is neurovascular intact. She has full range of motion and is able to weight-bear. Her x-rays do not show any obvious bony abnormalities. She will try conservative therapy including rest, ice, xvgk-imy-szkvydr pain medication and will return to the emergency department if she hasworsening pain or any other questions or concerns. The visit findings, diagnosis, and care plan were discussed with the patient. The diagnosis and care plans discussions were outlined in the discharge instructions. The patient expressed understanding of the details of the visit, the return precautions and that she should return to the ER at any time for worsening symptoms, new symptoms, or other concerns. she agrees with thefollow- up plan. Sotero Fortune PA 06/15/21 1800 * Chinmay Gao PA - 06/15/2021 3:08 PM EDT 65 y/o F with hx of bilateral total hip repplacements in 2 years ago presents with left hip pain. She [place] around 10Am this morning when she fell on her left hip. She denies any other injuries. She is able to walk on it. No numbness or tingling in the leg. X-ray left hip ordered. Chinmay Gao PA 06/15/21 1513 documented in this encounter Miscellaneous Notes * ED Triage - Alanis Cantu, RN - 06/15/2021 3:12 PM EDT HPI (Adult) Stated Reason for Visit: grabbed her grandson and he fell on her, left hip painful, walked to triage History Obtained From: patient documented in this encounter Plan of Treatment Upcoming Encounters Date Type Department Care Team (Late st Contact Info) Description 06/25/2024 1:00 PM EDT Office Visit Dermatology at [facility] [address] [place] [address] Skyla Campbell MD [facility] DR CHIQUITA [place] [address] documented as of this encounter Procedures Procedure Name Priority Date/Time Associated Diagnosis Comments XR PELVIS AND HIP 2 VIEWS LEFT STAT 06/15/2021 3:24 PM EDT documented in this encounter Results * XR Pelvis and Hip 2 Views Left (06/15/2021 3:24 PM EDT) Anatomical Region Laterality Modality Pelvis, Hip Left Digital Radiogra phy Impressions 06/15/2021 3:36 PM EDT Left total hip arthroplasty with no periprosthetic fracture. Normal alignment of the left hip prosthesis. Thank you for letting us participate in the care of this patient. ??If you are a health care provider and have any questions regarding this report, please contact the number below. ??For patients who have questions please contact the health child care director that requested your imaging first. ? Electronically signed by: Griselda Moraes MD, [facility] ([phone]), at 06/15/2021 3:36 PM Narrative 06/15/2021 3:36 PM EDT EXAMINATION: XR PELVIS AND HIP 2 VIEWS LEFT CLINICAL HISTORY: trauma left hip (as entered by ordering provider in the order requisition) TECHNIQUE: AP view the pelvis. AP and frog leg lateral views of the left hip COMPARISON: Pelvis and right hip radiographs 07/28/2019. Pelvic radiograph 06/18/2019. FINDINGS: Status post left total hip arthroplasty. No periprosthetic fracture or bone resorption. Small amount of heterotopic ossification adjacent to the left hip. The femoral head component is centered within the acetabular cup. There is a right total hip arthroplasty in place. Procedure Note Griselda Moraes MD - 06/15/2021 EXAMINATION: XR PELVIS AND HIP 2 VIEWS LEFT CLINICAL HISTORY: trauma left hip (as entered by ordering provider in theorder requisition) TECHNIQUE: AP view the pelvis. AP and frog leg lateral views of the left hip COMPARISON: Pelvis and right hip radiographs 07/28/2019. Pelvic ljrnggnjxy73/9/2019. FINDINGS: Status post left total hip arthroplasty. No periprosthetic fracture orbone resorption. Small amount of heterotopic ossification adjacent to the lefthip. The femoral head component is centered within the acetabular cup. There is a right total hip arthroplasty in place. IMPRESSION Left total hip arthroplasty with no periprosthetic fracture. Normalalignment of the left hip prosthesis. Thank you for letting us participate in the care of this patient. If youare a health care provider and have any questions regarding this report,please contact the number below. For patients who have questions please contactthe health child care director that requested your imaging first. Electronically signed by: Griselda Moraes MD, [facility]([phone]), at 06/15/2021 3:36 PM Matty Estrada MD IMG DX ORDERABLES documented in this encounter Visit Diagnoses Diagnosis Pain in left hip- Primary Pain in joint, pelvic region and thigh documented in this encounter Care Teams Ski Tow Operator Relationship Specialty Start Date End Date Yadira Llanes PA [address] [place] [address] PCP - General Family Medicine 04/17/19 documented as of this encounter
--- OUTSIDE RECORDS SUMMARY | 2024-04-21 04:20 | XMS_ITS | Encounter Summary ---
Author Organization [facility] Address [address] [place] [address] Care Team Providers Care Mica Layer Name Role Phone Unavailable Primary Care Provider Unavailabl e Encounter Details Date Type Department Care Team (Latest Contact Info) Description 04/04/2008 18:49 EDT Hospital Encounter [address] [address] Sandy Mckeon MD [address] [place] [address] [address] [place] [address] Discharge Disposition: Auto Discharge Social History Tobacco [...]
--- OUTSIDE RECORDS SUMMARY | 2024-04-21 04:20 | XMS_ITS | Encounter Summary ---
[facility] Organization [facility] Address [facility] [place] [address] Care Team Providers Care Urban Planning Professor Name Role Phone Yadira Llanes Primary Care Provider [phone] Encounter Details Date Type Department Care Team (Latest Contact Info) Description 07/28/2019 9:23 AM EST - 07/28/2019 11:59 PM [facility] Hospital Encounter XRay at [address] [place] [address] Primary osteoarthritis of right hip; Debility; Pain in extremity, unspecified extremity Discharge Disposition: Home Social History Tobacco Use [...] Tablet Take 1 tablet by mouth daily. omeprazole (PRILOSEC) 20 mg Capsule, Delayed Release(E.C.) Take 1 capsule by mouth daily for 42 days. 42 capsule 06/19/2019 07/31/2019 documented as of this encounter Plan of Treatment Upcoming Encounters Date Type Department Care Team (Late st Contact Info) Description 06/25/2024 1:00 PM EDT Office Visit Dermatology at [facility] [address] [place] [address] [facility] [address] [address] documented as of this encounter Procedures Procedure Name Priority Date/Time Associated Diagnosis Comments XR PELVIS AND HIP 2 VIEWS RIGHT Routine 07/28/2019 9:31 AM EST Primary osteoarthritis of right hip Debility Pain in extremity, unspecified extremity documented in this encounter Results * XR Pelvis and Hip 2 Views Right (07/28/2019 9:31 AM EST) Anatomical Region Laterality Modality Pelvis, Hip Right Digital Radiogra phy Impressions 07/28/2019 10:50 AM EST Right DARRELL in near anatomic alignment and without complication. Thank you for letting us participate in the care of this patient. For questions regarding this report, please contact the number below. ? Electronically signed by: Minerva Catalan [facility] ([phone]), at 07/28/2019 10:50 AM Narrative 07/28/2019 10:50 AM EST EXAMINATION: XR PELVIS AND HIP 2 VIEWS RIGHT CLINICAL HISTORY: History of hip replacement TECHNIQUE: A frontal radiograph of the pelvis was obtained, along with AP and frog-leg lateral views of the right hip. COMPARISON: 07/08/2019 FINDINGS: There is a right total hip arthroplasty in unchanged, near anatomic alignment. There is no evidence of hardware loosening or periprosthetic fracture. There is also a left total hip arthroplasty in near anatomic alignment. Procedure Note Minerva Catalan MD - 07/28/2019 EXAMINATION: XR PELVIS AND HIP 2 VIEWS RIGHT CLINICAL HISTORY: History of hip replacement TECHNIQUE: A frontal radiograph of the pelvis was obtained, along with AP andfrog-leg lateral views of the right hip. COMPARISON: 07/08/2019 FINDINGS: There is a right total hip arthroplasty in unchanged, near anatomicalignment. There is no evidence of hardware loosening or periprosthetic fracture.There is also a left total hip arthroplasty in near anatomic alignment. IMPRESSION Right DARRELL in near anatomic alignment and without complication. Thank you for letting us participate in the care of this patient. Forquestions regarding this report, please contact the number below. Electronically signed by: Minerva Catalan [facility]([phone]), at 07/28/2019 10:50 AM Brett David MD IMG DX ORDERABLES documented in this encounter Visit Diagnoses Diagnosis Primary osteoarthritis of right hip Primary localized osteoarthrosis, pelvic region and thigh Debility Debility, unspecified Pain in extremity, unspecified extremity documented in this encounter Care Teams Urban Planning Professor Relationship Specialty Start Date End Date Yadira Llanes PA [address] [address] PCP - General Family Medicine 04/17/19 documented as of this encounter
--- OUTSIDE RECORDS SUMMARY | 2024-04-21 04:20 | XMS_ITS | Encounter Summary ---
Author Organization [facility] Address [address] [place] [address] Care Team Providers Care Automotive Sales Associate Name Role Phone Unavailable Primary Care Provider Unavailabl e Encounter Details Date Type Department Care Team (Latest Contact Info) Description 01/29/2008 9:46 EDT - 01/29/2008 11:59 EDT Hospital Encounter [facility] [address] [place] [address] Molly Collazo MD [address] [place] [address] Discharge Disposition: Auto Discharge Social History Tobacco [...]
--- OUTSIDE RECORDS SUMMARY | 2024-04-21 04:20 | XMS_ITS | Encounter Summary ---
Author Organization [facility] Address [facility] [place] [address] Care Team Providers Care Podiatric Medicine Doctor Name Role Phone Yadira Llanes Primary Care Provider [phone] Encounter Details Date Type Department Care Team (Latest Contact Info) Description 11/30/2022 Travel Social History Tobacco Use Types Packs/Day [...] EDT Office Visit Dermatology at [facility] [address] [place] [address] Skyla Campbell MD [facility] DR [address]IQU[address] [place] [address] documented as of this encounter Visit Diagnoses Not on filedocumented in this encounter Care Teams Podiatric Medicine Doctor Relationship Specialty Start Date End Date Yadira Llanes PA [address] [place] [address] PCP - General Family Medicine 04/17/19 documented as of this encounter
--- OUTSIDE RECORDS SUMMARY | 2024-04-21 04:20 | XMS_ITS | Encounter Summary ---
Author Organization [facility] Address [address] [place] [address] Care Team Providers Care Director Of Collections Name Role Phone Molly Collazo MD Primary Care Provid er Encounter Details Date Type Department Care Team (Late st Contact Info) Description 04/09/2008 Office Visit [facility] [address] [place] [address] Prema Ledezma MD [address] [place] [address] Social History Tobacco Use Types Packs/Day Years Used Date Smoking Tobacco: Never Assessed Sex and Gender Information Value Date Recorded Sex Assigned at Not on file Gender Identity Not on file Sexual Orientation Not on file documented as of this encounter Progress Notes * Prema Ledezma MD - 10/29/2009 4179 EST [facility] Center - Physician Summary Registration Date/Time: 04/09/2008 12:16 Time Seen: 12:38. Arrived- By private vehicle. Historian- patient. HISTORY OF PRESENT ILLNESS Chief Complaint- EYE PAIN and REDNESS. This started 1 weeks ago, involves the right eye and is characterized as mild. She did not sustain an injury. Associated symptoms: Eye matting (in the AM). Mild eye pain (intermittent).Mild eyelid swelling. 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 Seen for similar symptoms. Evaluation/treatment: antibiotic prescribed. Diagnosis: conjunctivitis. (Redness has improved, but still has matting. ). REVIEW OF SYSTEMS No fever, sore throat or cough. PAST HISTORY See nurses notes. No history of prior eye injury or diabetes mellitus. The patient does not wear contact lenses. Has not had glaucoma. 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 tear ducts scarred over and does not drain tears. Has had 2 surgeries to repair ducts which did not succeed. Medications: Nexium. Allergies: No known drug allergies. SOCIAL HISTORY Is a local resident. ADDITIONAL NOTES The nursing notes have been reviewed. PHYSICAL EXAM Appearance: Alert. Oriented X3. No acute distress. Vital Signs: Have been reviewed. Eyes: Visual acuity noted- see nurse's notes. Corneas appear normal to inspection. Pupils equal, round and reactive to light. Accommodation normal. EOMs intact. Periorbital areas appear normal to inspection. Right upper eyelid (Lashes with matting). Right lower eyelid (s/p surgery with site of implantation of artificial duct visible. Lashes with matting). Rt Eye: Mildly injected conjunctiva (lateral). No foreign body under the eyelid. Lt Eye: Left eye exam normal. Neck: No lymphadenopathy. Neuro: Oriented X 3. PROGRESS AND PROCEDURES Patient counseled regarding the patient's need for follow-up. Disposition: Discharged home in stable condition (13:06). CLINICAL IMPRESSION Right conjunctivitis. INSTRUCTIONS (See instructions for conjunctivitis. Change to the eye ointment, which may work better than the drops for you. Be sure to wash the eyelashes with non- burning soap or shampoo. ). Your Current Medications: Your current home medications have been reviewed by the Emergency Department physician. (stop Garamycin eye drops). Continue taking the following medications: Nexium. Prescription Medications: Erythromycin ophthalmic ointment 0.5%: Apply 1/2 inch to inner aspect of the lower lid on the affected eye every 4 hours while awake for 1 week. Dispense 3.5gm. No refills. (Electronically signed by Prema Ledezma M.D. 04/10/2008 13:50) Care Center - Nursing Summary Registration Date/Time: 04/09/2008 12:16 TRIAGE Initial Assessment Triage time 12:25. --1230 Shakira CarlinPCris BP: 120 / 60. HR: 60. RR: 18. Temp: 97.5 F. --1232 Shakira CarlinP.NCarol Visual acuity performed without corrective lenses: left eye 20/20; right eye 20/20; both eyes 20/15. --1235 Shakira CarlinPCarolN.. Medications Nexium. --1230 Shakira CarlinP.N.. Allergies No known drug allergies. --1230 Rubia Ayala L.P.NCarol. History Chief Complaint: RECHECK and (eye infection-right eye). Location (right eye). Pain level now: 7/10. (drainage and crusting every morning, itching). Previous treatment: Previously seen at this facility six days ago. (Garamycin 0.3 %). PAST HX: Gastroesophageal reflux disease.HX: Nonsmoker. No alcohol use. Arrived by private vehicle. Historian: patient. --1230 Shakira CarlinPCris SOCIAL HX: Functional assessment: no impairments noted. The nutritional risk assessment revealed nodeficiencies. No report of abuse. --1314 Shakira CarlinP.N.. PHYSICAL ASSESSMENT Ambulatory to room. Alert. Oriented X 3. (right eye, swollen lower lid, red sclera, yellow drainage). --1236 Shakira CarlinPCarolN.. NURSING PROGRESS NOTES Patient identifiers checked. Call light placed in reach. Bed placed in lowest position. Brakes of bed on. Patient ready for evaluation. --1236 Shakira CarlinP.NCarol (Dr. Ledezma was present in the office suite and immediately available to provide assistance and direction through the time the services were performed). --1238 Shakira CarlinPCarolN.. DISPOSITION / DISCHARGE Condition at departure: unchanged. Patient reports pain level on departure as 7/10. No learning barriers present. Discharge instructions reviewed with the patient. Reviewed warnings (reviewed with patient). Reviewed medication dosing and course; prescription (s) given to the patient (Erythromycin Opthalmic Ointment). Patient verbalized understanding. Written instructions provided in Cook Islander. The patient was discharged home. The patient left the Emergency Department ambulatory and via private vehicle. Patient driving. --1314 Rubia Ayala L.P.N.. Locked/Releasedat 04/09/2008 13:15 by Rubia Ayala L.P.N. documented in this encounter Plan of Treatment Not on file documented as of this encounter Visit Diagnoses Not on filedocumented in this encounter Care Teams Director Of Collections Relationship Specialty Start Date End Date Molly Collazo MD [address] [place] [address] PCP - General 12/29/08 12/23/12 documented as of this encounter
--- OUTSIDE RECORDS SUMMARY | 2024-04-21 04:20 | XMS_ITS | Encounter Summary ---
Author Organization [facility] Address [address] [place] [address] Care Team Providers Care Spray Gun Operator Name Role Phone Molly Collazo MD Primary Care Provid er Encounter Details Date Type Department Care Team (Late st Contact Info) Description 12/02/2007 Results Only [facility] Adult Primary Care - [address] [address] Pastora Alicea ANP Social History Tobacco Use Types Packs/Day Years Used Date Smoking Tobacco: Never Assessed Sex and Gender Information Value Date Recorded Sex Assigned at Not on file Gender Identity Not on file Sexual Orientation Not on file documented as of this encounter Plan of Treatment Not on file documented as of this encounter Procedures Procedure Name Priority Date/Time Associated Diagnosis Comments SED RATE Routine 12/02/2007 11:44 EDT documented in this encounter Results * SED. RATE:KALLI (12/02/2007 11:44 EDT) Sed. Rate Kalli 16 0 - 30 mm/hr [facility] 12/02/2007 11:4 4 EDT 12/02/2007 11:45 EDT Pastora TANG HEMATOLOGY & PF4 ORD ERABLES [facility] [address] [place] [address] documented in this encounter Visit Diagnoses Not on filedocumented in this encounter Care Teams Spray Gun Operator Relationship Specialty Start Date End Date Molly Collazo MD [address] [place] [address] PCP - General 12/29/08 12/23/12 documented as of this encounter
--- OUTSIDE RECORDS SUMMARY | 2024-04-21 04:20 | XMS_ITS | Encounter Summary ---
Author Organization [facility] Address [facility] [place] [address] Care Team Providers Care Tappet Adjuster Name Role Phone Yadira Llanes Primary Care Provider [phone] Reason for Visit * Reason Onset Date Comments Other 07/11/2019 discharging from Encounter Details Date Type Department Care Team (Late Contact Info) Description 07/11/2019 [place] [address] Giseal Aguirre RN Other (discharging from ) Social History Tobacco Use Types Packs/Day Years [...] encounter Miscellaneous Notes * Telephone Encounter - Gisela Aguirre RN - 07/11/2019 3:27 PM EDT [facility] [phone] is discharging patient. goals have been met. She will do outpatient PT in [facility] documented in this encounter Plan of Treatment Upcoming Encounters Date Type Department Care Team (Late Contact Info) Description 06/25/2024 1:00 PM EDT Office Visit Dermatology at [facility] [address] [place] [address] Skyla Campbell MD [facility] DR [address]QU[address] [place] [address] documented as of this encounter Visit Diagnoses Not on filedocumented in this encounter Care Teams Tappet Adjuster Relationship Specialty Start Date End Date Yadira Llanes PA [address] [place] [address] PCP - General Family Medicine 04/17/19 documented as of this encounter
--- OUTSIDE RECORDS SUMMARY | 2024-04-21 04:20 | XMS_ITS | Encounter Summary ---
Author Organization [facility] Address [address] [place] [address] Care Team Providers Care Raymond Mill Operator Name Role Phone Molly Collazo MD Primary Care Provid er Encounter Details Date Type Department Care Team (Late st Contact Info) Description 04/04/2008 Office Visit [facility] [address] [place] [address] Sandy Mckeon MD [facility] [address] [place] [phone] Social History Tobacco Use Types Packs/Day Years Used Date Smoking Tobacco: Never Assessed Sex and Gender Information Value Date Recorded Sex Assigned at Not on file Gender Identity Not on file Sexual Orientation Not on file documented as of this encounter Progress Notes * Sandy Mckeon MD - 10/29/2009 0709 EST Care Center - Physician Summary Registration Date/Time: 04/04/2008 18:50 Arrived- By private vehicle. Historian- patient. HISTORY OF PRESENT ILLNESS Chief Complaint- EYE REDNESS and IRRITATION. This started 2 days ago, involves the right eye and ischaracterized as moderate in severity. She did not sustain an injury. Associated symptoms: Eye discomfort, redness, irritation, discharge and matting. No photophobia or loss of vision. REVIEW OF SYSTEMS No fever, sore throat or cough. PAST HISTORY See nurses notes. frequent conjunctivitis- has blocked tear ducts so touches eyes frequently to wipe them making them susceptible. The patient does not wear contact lenses. Medications: nexium. The patient's medications have been reviewed. Allergies: No known drug allergies. The patient's allergies have been reviewed. SOCIAL HISTORY Nonsmoker. ADDITIONAL NOTES The nursing notes have been reviewed. PHYSICAL EXAM Appearance: Alert. Oriented X3. No acute distress. Vital Signs: Have been reviewed. Eyes: Visual acuity noted- see nurse's notes. Eyelids appear normal to inspection. Corneas appear normal to inspection. Pupils equal, round and reactive to light. Accommodation normal. EOMs intact. Periorbital areas appear normal to inspection. Rt Eye: Moderately injected conjunctiva. Moderate exudate present. Lt Eye: Left eye exam normal. Conjunctiva not injected. No exudate present. Neck: Neck supple. Normal inspection. Respiratory: No respiratory distress. Neuro: Oriented X 3. Mood/affect normal. PROGRESS AND PROCEDURES Patient/family counseled. Disposition: Condition: stable. Discharged home. CLINICAL IMPRESSION Acute right conjunctivitis. INSTRUCTIONS (Please return if there is any worsening. See the warning signs listed and return if any of these appear. please wash hands frequently and keep them away from your eyes.). Warnings: GENERAL WARNINGS: Return or contact your physician immediately if your condition worsens or changesunexpectedly, if not improving as expected, or if other problems arise. Prescription Medications: ophthalmic solution 0.3%: Instill 1 drop into affected eye every 4 hours while awake for 1 week. Dispense 5 mL. No refills. Generic substitute OK (Dispensed at [facility]). (Electronically signed by Sandy Mckeon MD 04/04/2008 21:27) Care Center - Nursing Summary Registration Date/Time: 04/04/2008 18:50 TRIAGE Initial Assessment BP: 110 / 80. HR: 60. RR: 12. Temp: 97.0 oral. Visual acuity performed: left eye 20/40; right eye 20/40; both eyes 20/40. --1902 Jocelyne Sinha, . Medications (generic for Nexium). --1933 Jocelyne Sinha, . Allergies No known drug allergies. --1933 Jocelyne Sinha, . History Chief Complaint: (right eye infection). Onset (2 days ago). --1902 Jocelyne Sinha, PAST HX: Gastroesophageal reflux disease. Parasites (eyes 20 years ago). (eyes surgery). --1933 Jocelyne Sinha, (redness ). PAST HX: (blocked tear ducts). --1955 Margarita Lopez R.N. Pain level now: 4/10. Pain level (right). (itchiness. ). --1956 Margarita Lopez R.N. Mechanism- pt was in hospital with daughter. Pain level now: 2/10. Pain level (left eye). No photophobia or blurred vision. --1957 Margarita Lopez R.N. SOCIAL HX: Nonsmoker. --1957 Margarita Lopez R.N. PAST HX: No infectious disease exposure. SOCIAL HX: No alcohol use. No report of abuse. --1957 Margarita Lopez R.N.. PHYSICAL ASSESSMENT Alert. moderate redness of the right conjunctiva. Respirations not labored. Skin is warm and dry. --1957 Margarita Lopez R.N. Ambulatory to room. --1957 Margarita Lopez R.N.. NURSING PROGRESS NOTES (Dr. Mckeon was present in the office suite and immediately available to provide assistance and direction through the time the services were performed.). --2017 Margarita Lopez R.N. (Garamycin 1 bottle given to go. pt wants to apply eye drops herself). --2017 Margarita Lopez R.N.. DISPOSITION / DISCHARGE Condition at departure: unchanged. Patient reports pain level on departure as 4/10. No learning barriers present. Discharge instructions reviewed with the patient. Patient verbalized understanding. Written instructions provided in Upper Sorbian. The patient was discharged home. The patient left the Emergency Department ambulatory and via private vehicle. Patient driving. --2019 Margarita Lopez R.N.. Locked/Released at 04/04/2008 20:20 by Margarita Lopez R.N. documented in this encounter Plan of Treatment Not on file documented as of this encounter Visit Diagnoses Not on filedocumented in this encounter Care Teams Raymond Mill Operator Relationship Specialty Start Date End Date Molly Collazo MD [address] [place] [address] PCP - General 12/29/08 12/23/12 documented as of this encounter
--- OUTSIDE RECORDS SUMMARY | 2024-04-21 04:20 | XMS_ITS | Encounter Summary ---
Author Organization [facility] Address [facility] [place] [address] Care Team Providers Care Celery Packer Name Role Phone Yadira Llanes Primary Care Provider [phone] Reason for Visit * Reason Onset Date Comments Appointment 07/28/2019 Encounter Details Date Type Department Care Team (Late st Contact Info) Description 07/28/2019 [place] [phone] Wesley Tovar PA [facility] [place] [address] Appointment Social History Tobacco Use Types Packs/Day [...] encounter Miscellaneous Notes * Telephone Encounter - Herminia Barajas - 08/04/2019 8:56 AM EST Unable to contact, sent letter. * Telephone Encounter - Herminia Barajas - 07/30/2019 9:48 AM EST LM#2 to schedule follow up with Wesley Tovar in 8 wks for NXR DOS 06/18/19 RIGHT DARRELL ANT, Left THAANT DOS 04/29/19 * Telephone Encounter - Lor Pang - 07/28/2019 12:18 PM EST LM#1 to schedule follow up with Wesley Tovar in 8 wks for NXR DOS 06/18/19 RIGHT DARRELL ANT. documented in this encounter Plan of Treatment Upcoming Encounters Date Type Department Care Team (Late st Contact Info) Description 06/25/2024 1:00 PM EDT Office Visit Dermatology at [facility] [address] [place] [address] Skyla Campbell MD [facility] [address] CHIQUITA [place] [address] documented as of this encounter Visit Diagnoses Not on filedocumented in this encounter Care Teams Celery Packer Relationship Specialty Start Date End Date Yadira Llanes PA [address] [place] [address] PCP - General Family Medicine 04/17/19 documented as of this encounter
--- OUTSIDE RECORDS SUMMARY | 2024-04-21 04:20 | XMS_ITS | Encounter Summary ---
Author Organization [facility] Address [facility] [place] [address] Care Team Providers Care Disassembler Name Role Phone Yadira Llanes Primary Care Provider [phone] Encounter Details Date Type Department Care Team (Latest Contact Info) Description 06/20/2022 9:32 PM EDT - 06/20/2022 11:59 PM EDT Hospital [place] [phone] Discharge Disposition: Home Social History Tobacco Use [...] 1:00 PM EDT Office Visit Dermatology at [facility] [address] [place] [address] Skyla Campbell MD [facility] [address] [address] documented as of this encounter Procedures Procedure Name Priority Date/Time Associated Diagnosis Comments SURGICAL PATHOLOGY REPORT Routine 06/20/2022 9:30 AM EDT documented in this encounter Results * Surgical Pathology Report (06/20/2022 9:30 AM EDT) Final Diagnosis [id number] ? Location: [facility] The signing pathologist has (i) examined the relevant preparation(s) for the specimen(s) and (ii) rendered or confirmed the diagnosis(es). . ?Surgical Pathology DIAGNOSIS A - Left lower cheek, skin excision: - ??Melanoma in situ, present at the peripheral specimen margin (see Discussion) B - Left upper cheek, skin excision: - ??Melanoma in situ, present at the peripheral specimen margin (see Discussion) C - Right forearm, skin excision: - ??Seborrheic keratosis/lentigo and focal pigmented actinic keratosis Electronically signed by: ?Tim ALFARO, PhD, [facility] Verified: ??07/03/2022 11:09 ??Dermatopathologist Performed at: ??-[facility] Dept. of Pathology, [place], [place] DISCUSSION A and B( Left lower cheek and left upper cheek)- Both specimens show similar features of ??melanoma in situ overlying dense dermal lymphohistiocytic infiltrate. Rare MelanA positive cells are seen in the papillary dermis, favor tangentially sectioned ??junctional melanocytes with adnexal involvement, not sufficient for the diagnosis of invasion. Multiple deeper levels have been examined. ADDITIONAL STUDIES Immunohistochemistry Studies: Formalin-fixed, paraffin-embedded tissue sections of A3,A4,B3 and B4 are studied for MelanA using the polymer technique with appropriate positive [...] other diagnostic tests. SPECIMEN(S) SUBMITTED A - L lower cheek, excision (1) B - L upper cheek, excision (1) C - R forearm, excision (1) Referring Identifier: ?(not provided) CLINICAL INFORMATION A-C: Pigmented skin lesion. SPECIMEN PROCESSING A - Labeled/Fixative: L lower cheek, suture at 12 o'clock, formalin. Quantity/Size: ??Single, 1.6 x 0.9 cm, excised to a depth of 0.2 cm. Tissue Description: Aviles-hood skin ellipse with a suture at one end designating 12 o'clock. There is a 0.7 x 0.4 cm aviles-brown macule which comes to within less than 0.1 cm from the closest 9 o'clock margin Inkin-3-6 o'clock is marked black. ??6-9-12 o'clock is marked blue. Sections/Processing: Serially sectioned and entirely submitted in 4 cassettes as follows: . SPECIMEN PROCESSING ?A1: ??12 o'clock tip ?A2: ??6 o'clock tip ?A3-A4: ??Body, sequentially submitted from 12 to 6 o'clock B - Labeled/Fixative: L upper cheek, stitch at 12 o'clock, formalin. Quantity/Size: ??Single, 1.5 x 0.6 cm, excised to a depth of 0.3 cm. Tissue Description: Aviles-mauricio skin ellipse with a suture at one end designating 12 o'clock. There is a 0.6 x 0.4 cm ill-defined aviles macule which comes to within 0.1 cm from the closest 2 o'clock margin. Inkin-3-6 o'clock is marked black. ??6-9-12 o'clock is marked blue. Sections/Processing: Serially sectioned and entirely submitted in 4 cassettes as follows: ?B1: ??12 o'clock tip ?B2: ??6 o'clock tip ?B3-B4: ??Body, sequentially submitted from 12 to 6 o'clock C - Labeled/Fixative: R forearm, formalin. Quantity/Size: ??Single, 2.0 x 1.1 cm, excised to depth of 0.2 cm. Tissue Description: Aviles-mauricio skin ellipse with a 1.0 x 0.9 cm ill-defined aviles discoloration which comes to within 0.1 cm from the closest margin. Sections/Processing: Inked and entirely submitted in 3 cassettes as follows: ?C1: ??Tips ?C2-C3: ??Body ??jnr 07/03/2022 11:[address] [facility] SPECIMEN FROM SKIN / Unknown 06/20/2022 9:30 AM EDT 06/20/2022 9:30 AM EDT SPECIMEN FROM SKIN / Unknown 06/20/2022 9:30 AM EDT 06/20/2022 9:30 AM EDT SPECIMEN FROM SKIN / Unknown 06/20/2022 9:30 AM EDT 06/20/2022 9:30 AM EDT Joe Chamorro MD PATHOLOGY/CYTO LOGY ORDERABLES [facility] [place] [id number] documented in this encounter Visit Diagnoses Not on filedocumented in this encounter Care Teams Disassembler Relationship Specialty Start Date End Date Yadira Llanes [place] [address] [place] [address] PCP - General Family Medicine 04/17/19 documented as of this encounter
--- OUTSIDE RECORDS SUMMARY | 2024-04-21 04:20 | XMS_ITS | Encounter Summary ---
Author Organization [facility] Address [facility] [place] [address] Care Team Providers Care Home Restoration Service Cleaner Name Role Phone Yadira Llanes Primary Care Provider [phone] Encounter Details Date Type Department Care Team (Late st Contact Info) Description 04/03/2024 9:40 AM EDT Office Visit Dermatology at [facility] [address] [place] [address] Skyla Campbell MD [facility] [address] [place] [address] Skin cancer screening; History of melanoma in situ; Multiple benign nevi; Lentigines; Bennett angioma Social History Tobacco Use Types Packs/Day Years [...] Progress Notes * Skyla Campbell MD - 04/03/2024 9:40 AM EDT Images from the original note were not included. DEPARTMENT OF DERMATOLOGY Medical Dermatology Clinic Provider: Skyla Campbell MD Patient's preferred name Mag Preferred contact method for results [x]Phone []myD-H []Letter Detailed phone message OK? Yes Are there any other people with whom we may discuss your care? No Past Medical History Date, location, treatment Melanoma Left face (<1cm away from prior MIS), specimen A) left face, Invasive melanoma (depth 0.3mm, non-ulcerated, pT1a) with extensive MIS s/p excisional biopsy on 04/10/23; specimen B) deep margin - negative - Left upper and lower cheek, MIS, s/p biopsy 06/2022, s/p excision in 07/2022 with positive margins, s/p re-excision in 08/2022 at [facility] Dysplastic nevi Right upper back, severely atypical nevus (MIS could not be excluded), s/p excisionin 08/2022 at [facility] Right medial clavicle, moderately atypical nevus in 11/2022 SCC No BCC Right lower leg, BCC superficial and focal micronodular, s/p excision in 07/2022 at [facility] AKs No UV Exposure & Protection Other relevant past medical history No Family History Details - Mother unknown skin cancer Melanoma Yes - uncle NMSC Unknown Other relevant family history No Social 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 Patient returns to clinic today for afull skin exam. - Patient reports she has a spot on her left upper cheek that has been present for a few months. She states it has gotten slightly bigger and more red. - Patient reports that she saw a doctor and a surgeon in [place] and was told that the margins for the melanoma on her left cheek margins was clear so she did not need to have additional surgery as this would be disfiguring. Reports that she met with a moh's surgeon to discuss her case and was told directly that she would if she did chose not to proceed with surgery and she did not have a goodexperience. Patient would like to avoid surgery if possible, but would also go through another surgical procedure if it is medically necessary. Last visit at Dermatology: 05/08/2023 Medications: Reviewed in eD-H Allergies: Reviewed in eD-H Skin Examination: Full skin examination: Patient asked to undress to their comfort level. Verbalized that the provider???s preference is that the patient remove all clothing and that the provider will not examine areas patient elects to keep covered. Patient elects to keep underwear on and have the following examined: scalp, hair, face, ears, neck, chest, axillae, abdomen, back, and upper and lower extremities. Genitalia not examined. Assessment/Plan #. History of Invasive Melanoma (Likely Recurrent) and Melanoma in Situ - Well- healed scar on the left cheek per skin history. - Left upper and lower cheek biopsied 06/2022 consistent with MIS s/p excision 07/2022 with residual MIS focally extending to peripheral margin, s/p excision 08/2022 with negative margins. All completed at [facility] with Dr. Joe Chamorro in general surgery. - New lesion <1cm away from prior MIS on left face (likely recurrent) s/p excisional biopsy 04/10/2023 - all margins negative for invasive melanoma, but MIS close to peripheral margins. - Case presented to melanoma tumor board with recommendation for moh's surgery at [facility]. - Referred by Dr. Chamorro to [facility] dermatology (Dr. Rakesh Lira) for a second opinion due to concern for facial disfigurement if she undergoes additional surgery. - Met with Dr. Lira in dermatology 05/15/2023 - Discussed options including close surveillance vs. additional surgery. Dr. Lira recommended re-excision either with moh's surgery or WLE, since there is concern that the MIS may be incompletely excised and could progress to invasive disease, particularly given that it has done so in this site previously. Referred to [facility] ENT (Dr. José Miguel Morrell). - Met with Dr. Morrell in ENT 05/22/23 - Discussed WLE with 5mm margin vs. clinical surveillance. Ptwas unsure and no decision was made during the visit. - No clinical evidence of recurrence today. - Photo taken today for clinical monitoring of left cheek. - Patient would like to avoid surgery if possible, but would also go through another surgical procedure if it is medically necessary. - Will discuss with our moh's surgeon Dr. Barclay regarding indication for moh's surgery at this time and consider re-presenting patient at melanoma tumor board for pathology review if appropriate. Note forwarded to Dr. Barclay. - Called pt after clinic visit to re-discuss these plans and left voicemail to call back. #. History of Moderate and Severe Dysplastic Nevi - Well healed scar per history above. - NER: will continue to clinically monitor. #. Lentigo - brown patch on the left cheek, approximately 2cm above her prior excision scar. - Discussed benign appearance today. - Photo taken today for clinical monitoring of left cheek. - Recheck in 3 months. #. Seborrheic Keratoses - Stuck on, waxy papules on the trunk and extremities. - Discussed benign nature of lesions and provided reassurance. No treatment necessary at this time. #. Melanocytic Nevi - Scattered medium brown, evenly pigmented macules and papules on the trunk andextremities with reassuring pigment pattern on dermoscopy. - Discussed benign nature of lesions and provided reassurance. Will continue to monitor. #. Lentigines - Scattered light-brown, [...] reassurance. No treatment necessary at this time. Other - Reviewed outside medical records and interpreted results. RTC: 3 months for FSE []Note routed to church secretary []Recall placed in scheduling system [x]Appointment scheduled at checkout Scribe attestation: Zaida Tadeo [facility] has performed the documentation for this encounter in the presence of and acting as a scribe for Skyla Campbell MD. I performed the above scribed service and agree with the accuracy of the documentation in this encounter. Reviewed and signed by: Skyla Campbell MD Dermatology [facility] Patient seen and evaluated with staff talent associate: Ricarda Kiser MD Dermatology [facility] * Ricarda Kiser MD - 04/03/2024 9:40 AM EDT I directly supervised Skyla Campbell MD in the care of this Dermatology patient in person. I saw and evaluated this patient with Skyla Campbell MD. Skyla Campbell MD presented the history and physical exam details to me, then we saw the patient together, and I confirmed these findings. I agree with details as written. My physical examination confirms Skyla Campbell MD's findings. The assessment and plan were formulated in discussion with me at the time of visit, and I agree with them as documented. Ricarda Kiser MD Staff Exercise Science Instructor Department of Dermatology [facility] documented in this encounter Plan of Treatment Upcoming Encounters Date Type Department Care Team (Late st Contact Info) Description 06/25/2024 1:00 PM EDT Office Visit Dermatology at [facility] [address] [place] [address] Skyla Campbell MD [facility] [place] [address] documented as of this encounter Visit Diagnoses Diagnosis Skin cancer screening Screening for malignant neoplasm of the skin History of melanoma in situ Personal history of malignant melanoma of skin Multiple benign nevi Benign neoplasm of skin, site unspecified Lentigines Other dyschromia Bennett angioma Nevus, non-neoplastic documented in this encounter Care Teams Home Restoration Service Cleaner Relationship Specialty Start Date End Date Yadira Llanes PA [address] [place] [id number] PCP - General Family Medicine 04/17/19 documented as of this encounter
--- OUTSIDE RECORDS SUMMARY | 2024-04-21 04:20 | XMS_ITS | Encounter Summary ---
Author Organization [facility] Address [address] [place] [address] Care Team Providers Care Hotel Service Manager Name Role Phone Unavailable Primary Care Provider Unavailabl e Encounter Details Date Type Department Care Team (Late st Contact Info) Description 04/09/2008 12:16 EDT Hospital Encounter [address] [address] Prema Ledezma MD [address] [place] [phone] Discharge Disposition: Auto Discharge Social History Tobacco [...]
--- OUTSIDE RECORDS SUMMARY | 2024-04-21 04:20 | XMS_ITS | Encounter Summary ---
Author Organization [facility] Address [facility] [place] [address] Care Team Providers Care Roving Department Supervisor Name Role Phone Yadira Llanes Primary Care Provider [phone] Encounter Details Date Type Department Care Team (Late st Contact Info) Description 05/01/2023 9:40 AM EDT Office Visit Dermatology at [facility] [address] [place] [address] Wesley Esteves MD [facility] [address] [place] [address] History of melanoma in situ; History of melanoma Social History Tobacco Use Types Packs/Day Years Used Date Smoking Tobacco: Never Smokeless Tobacco: Never Alcohol Use Standard Drinks/Week Comments Never 0 (1 standard drink = 0.6 oz pur e alcohol) Sex and Gender Information Value Date Recorded Sex Assigned at Not on file Gender Identity Not on file Sexual Orientation Not on file documented as of this encounter Progress Notes * Wesley Esteves MD - 05/01/2023 9:40 AM EDT Images from the original note were not included. DEPARTMENT OF DERMATOLOGY Medical Dermatology Clinic Provider: Wesley Esteves MD Patient's preferred name Mag Preferred contact method for results [x]Phone []myD-H []Letter Detailed phone message OK? Yes Are there any other people with whom we may discuss your care? 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 S/p Excision Other relevant past medical history No Family [...] y.o. Patient returns to clinic today for coordination of care after recent excisional biopsy of the left cheek. - General surgeon Dr. Joe Chamorro performed excisional biopsy of concerning lesion on left cheek - Pathology report showed Extensive melanoma in situ, with focal superficial invasion to the depthof 0.3 mm, non-ulcerated, pT1a Last visit at Dermatology: 11/30/2022 Last visit with this provider: 11/30/2022 Medications: Reviewed in eD-H Allergies: Reviewed in eD-H Skin Examination: Focused skin examination of the left cheek was normal with the exception of the findings below. Assessment/Plan #. Excisional Biopsy-Proven MIS with Focal Melanoma, pT1a - linear excisional scar on the left cheel - History of MIS on the left upper cheek and left lower cheek in 06/2022; c/b positive margin requiring re-excision in 07/2022 - Excisional biopsy performed by Joe Chamorro on 04/10/2023; clinical margins of excisional biopsyunclear at this moment - Pathology report showed extensive MIS, with focal superficial invasion to the depth of 0.3 mm, non-ulcerated, pT1a with all margins negative for invasive melanoma and MIS close to the peripheral margin - Will request clinical report from Dr. Joe Chamorro; unable to access document via CareEverywhere - Will present case to melanoma tumor board - Likely will require Mohs surgery to clear additional margins Other: N/A RTC: 06/15/[address] Smith []Note routed to escrow secretary []Recall placed in scheduling system []Appointment scheduled at checkout Scribe attestation: Angle Noguera [facility] has performed the documentation for this encounter in the presence of and acting as a scribe for Wesley Esteves MD. I performed the above scribed service and agree with the accuracy of the documentation in this encounter. Reviewed and signed by: Wesley Esteves MD Derm[facility] Patient seen and evaluated with staff milk collector: Pastor Covington MD Dermatology [facility] * Pastor Covington MD - 05/01/2023 9:40 AM EDT I directly supervised Dr. Esteves in the care of this patient. I saw and evaluated this patient with Dr. Esteves. He presented the history and physical exam detailsto me, then we saw the patient together and I confirmed these findings. I agree with details as written. My physical examination confirms his findings. The assessment and plan were formulated in discussion with me at the time of visit and I agree withthem as documented. PASTOR COVINGTON MD FAAD Staff Physician documented in this encounter Plan of Treatment Upcoming Encounters Date Type Department Care Team (Late st Contact Info) Description 06/25/2024 1:00 PM EDT Office Visit Dermatology at [facility] [address] [place] [address] Skyla Campbell MD [facility] DR [address] [place] [address] documented as of this encounter Visit Diagnoses Diagnosis History of melanoma in situ Personal history of malignant melanoma of skin History of melanoma Personal history of malignant melanoma of skin documented in this encounter Care Teams Roving Department Supervisor Relationship Specialty Start Date End Date Yadira Llanes PA [address] [place] [address] PCP - General Family Medicine 04/17/19 documented as of this encounter
--- OUTSIDE RECORDS SUMMARY | 2024-04-21 04:20 | XMS_ITS | Encounter Summary ---
Author Organization [facility] Address [address] [place] [address] Care Team Providers Care Affiliate Marketing Specialist Name Role Phone Molly Collazo MD Primary Care Provid er Encounter Details Date Type Department Care Team (Late st Contact Info) Description 11/12/2008 [facility] [address] [place] [address] Jeannine Luis NP [address] [place] [address] Social History Tobacco Use Types Packs/Day Years Used Date Smoking Tobacco: Never Assessed Sex and Gender Information Value Date Recorded Sex Assigned at Not on file Gender Identity Not on file Sexual Orientation Not on file documented as of this encounter Progress Notes * Denise Luis NP - 12/18/2009 2140 EDT [facility] - Physician Summary Registration Date/Time: 11/12/2008 10:19 Time Seen: 11:24. Arrived- By private vehicle. Historian- patient. HISTORY OF PRESENT ILLNESS Chief Complaint: EARACHE (Patient reports a 1 week history of right ear pain. ). Location- right ear. The pain is described as moderate. She has had ear pain. The patient has had nasal congestion alix nasal discharge and sore throat. No ear drainage, hearing loss, sinus pressure, complaint of foreign body in the ear or ear trauma. No recent barotrauma, tinnitus, toothache, jaw pain or facial pain. Patient has not had similar symptoms previously. Not recently seen/assessed. REVIEW OF SYSTEMS Last normal menstrual period- patient has curently had her menses X 2 weeks - normally regular until 2 months ago, when she had 2 cycles close together.. The patient has had a cough. She has had difficulty breathing (chest congestion). No fever (2 weeks ago with onset of muscle aches, cough, and flu symptoms, all of which are now resolving.). No chills, chest pain, headache, nausea or vomiting. No abdominal pain or difficulty with urination. Has not had decreased oral intake. Denies current . PAST HISTORY See nurses notes. Medications: None. Allergies: The patient's allergies have been reviewed. See nurses notes. SOCIAL HISTORY Nonsmoker. No alcohol use or drug use. No recent travel. Is a local resident. FAMILY HISTORY mother with endometriosis - no gynecologic malignancies.. ADDITIONAL NOTES The nursing notes have been reviewed with agreement regarding the chief complaint, HPI, ROS, PMH and patient medications and allergies. PHYSICAL EXAM Appearance: Alert.No acute distress. Vital Signs: Normal. Eyes: Eyes normal inspection. Ear (left): Left ear normal. Left tympanic membrane normal. Ear (right): There is moderate fluid behind the tympanic membrane and moderate bulging of the tympanic membrane. No erythema of the tympanic membrane, dullness of the tympanic membrane or perforationof the tympanic membrane. Does not have loss of tympanic membrane landmarks. Nose: Nose normal. Throat: Pharynx normal. Neck: Normal inspection. Neck supple. CVS: Normal heart rate and rhythm. Heart sounds normal. Respiratory: No respiratory distress. Breath sounds normal. Abdomen: Abdomen soft and nontender. Back: Normal inspection. Skin: Normal skin color and turgor. Skin warm and dry. Neuro: Oriented X 3. LABS, X-RAYS, AND EKG CBC: CBC is normal except as noted. Platelets 365. MCH: 33.9 MCHC: 36.2 RDW: 10.8. Urinalysis: Urine dipstick positive for moderate blood. Urine dipstick negative for leukocyte esterase, nitrite, glucose, ketones and protein. Urine dipstick negative for bilirubin. HCG: Urine HCG negative. PROGRESS AND PROCEDURES ED Attending on duty and available for supervision: Charles Sotll. Disposition: Discharged home in stable condition. CLINICAL IMPRESSION Eustachian tube dysfunction. Moderate vaginal bleeding. resolving viral illness. INSTRUCTIONS Rest. Drink plenty of fluids. (As we discussed, you should make an appointment with for a follow up evaluation, of both your fatigue (especially if it does not continue to improve), as well as the changes in your mestrual cycle. If you develop any new or worsening symptoms, return to the [facility] in [facility] or present tot Emergency Department. Try using a decongestant with pseudoephedrine in it (ask the pharmacist), as this may help with your ear discomfort.). Warnings: Further evaluation is necessary. GENERAL WARNINGS: Return or contact your physician immediately if your condition worsens or changesunexpectedly, if not improving as expected, or if other problems arise. OTC Medications: Motrin (available over the counter): take according to label instructions. Understanding of the discharge instructions verbalized by patient. (Electronically signed by Woody Luis N.P. 11/13/2008 18:14) Care Center - Nursing Summary Registration Date/Time: 11/12/2008 10:19 TRIAGE Initial Assessment Triage time 10:41 AM. BP: 108 / 68sitting R arm. HR: 60 regular. RR: 16 regular. Temp: 98.1 oral. --1045 Griselda Mart, . Medications None. --1100 Kandi Ayala, R.N.. Allergies (Codeine causes nausea.). No known drug allergies. --1100 Kandi Ayala, R.N.. History ChiefComplaint: FATIGUE (Right ear pain). Onset (1 weeks ago). Arrived by private vehicle and unaccompanied. Historian: patient. --1045 Griselda Mart, Pain level now: 02/17. The patient has had fever (initially). (Has had ear pain intermittently for the past week. It waxes ands wanes. Feels she had the flu a couple weeks ago with body aches, fever and nasal congestion and chest congestion. Now feeling weak and tired. Has had a period lasting more than 2 weeks now as well. Normally exercises alot. ). PAST HX: Negative. History of previous surgery. (Eye surgery). Last normal menstrual period- Says periods had been somewhat more regular but a couple months ago she had a period 2 weeks apart.. SOCIAL HX: Nonsmoker. Noalcohol use. Abuse assessment: The patient was asked Do you feel safe in your home?. No report of abuse. --1100 Kandi Ayala R.N.. PAST HX. PHYSICAL ASSESSMENT Alert. Oriented X 3. Respirations not labored. Skin intact. Skin is warm and dry. --1101 Kandi Ayala R.N.. NURSING PROGRESS NOTES Patientgowned. --1045 Griselda Mart, Patient ready for evaluation. --1101 Kandi Ayala R.N. Time-out completed immediately before the procedure: verified identity of patient (name and birthdate). . --1146 Kandi Ayala R.N. Blood samples drawn by nurse per protocol and sent to lab: [facility]. --1146 Kandi Ayala R.N. (Urine dipped and positive for blood. See documentation. aware. Pt has her period.). --1147 Kandi Ayala R.N. Care transferred and report given (to LACY Loving LPN). --1219 Kandi Ayala R.N. Two patient identifiers checked. Checked patient name and birthdate. --1251 Melani Brennan R.N.. DISPOSITION / DISCHARGE Condition at departure: stable. Patient reports pain level on departure as 4/10. No learning barriers present. Discharge instructions reviewed with the patient. Patient verbalized understanding. Written instructions provided in Grenadian. The patient was discharged home. The patient left the Emergency Department ambulatory. --1251 Melani Brennan R.N.. Locked/Released at 11/12/2008 12:51 byMelani Brennan R.N. documented in this encounter Plan of Treatment Not on file documented as of this encounter Visit Diagnoses Not on filedocumented in this encounter Care Teams Affiliate Marketing Specialist Relationship Specialty Start Date End Date Molly Collazo MD [address] [place] [address] PCP - General 12/29/08 12/23/12 documented as of this encounter
--- OUTSIDE RECORDS SUMMARY | 2024-04-21 04:20 | XMS_ITS | Encounter Summary ---
Author Organization [facility] Address [facility] [place] [address] Care Team Providers Care Hired Worker Name Role Phone Yadira Llanes Primary Care Provider [phone] Reason for Visit * Reason Onset Date Comments Fall 06/15/2021 Encounter Details Date Type Department Care Team (Late st Contact Info) Description 06/15/2021 Telephone Orthopaedics at [facility] [place] [phone] Denae Martinez RMA Fall Social History Tobacco Use Types Packs/Day Years [...] Telephone Encounter - Denae Martinez RMA - 06/15/2021 10:53 AM EDTSummary: Fall Triage Note Subjective: Fall 1. Sp Left DARRELL DAA. Dr. Zambrano. 04/29/2019. 2. Right DARRELLANASTASIA. Dr. David. 06/18/2019. Harper questions/Assessment: Mag called in stating that a 1/2 hour ago she fell outside in the [place]. She was stepping over a heather and her grandson started to slip and she reached out and she went down. She stated that she is unable to bear weight. Mag stated that she is going to come to our ED at [facility] today. She is afraid that she dislocated her hip. documented in this encounter Plan of Treatment Upcoming Encounters Date Type Department Care Team (Late st Contact Info) Description 06/25/2024 1:00 PM EDT [facility] [address] [place] [address] Skyla Campbell MD [facility] DR [address] [place] [address] documented as of this encounter Visit Diagnoses Not on filedocumented in this encounter Care Teams Hired Worker Relationship Specialty Start Date End Date Yadira Llanes PA [address] [place] [address] PCP - General Family Medicine 04/17/19 documented as of this encounter
--- OUTSIDE RECORDS SUMMARY | 2024-04-21 04:21 | XMS_ITS | Encounter Summary ---
Author Organization [facility] Address [facility] [place] [address] Care Team Providers Care Architecture Consultant Name Role Phone Yadira Llanes Primary Care Provider [phone] Reason for Visit * Auth/Cert Specialty Diagnoses / Procedures Referred By Ray cornelius Referred To Contact Diagnoses Hip osteoarthritis Procedures PRO TOTAL HIP ARTHROPLASTY PRG RADEX HIP UNILATERAL WITH PELVIS MINIMUM 4 VIEWS @TOTAL HIP ARTHROPLASTY, ANTERIOR APPROACH (WRVU 20.72) HIP INTRAOP RADIOLOGIC EXAMINATION, UNILATERAL, W PELVIS; 4+ VIEWS (WRVU 0.27) MODIFIER SCOTT & NEPHEW - POLAR STEM CEMENTLESS MODIFIER SCOTT & NEPHEW - R3 ACETABULAR CUP Referral ID Status Reason Start Date Expiration Date Visits Re quested Visits Authorized [id number] 1 1 Encounter Details Date Type Department Care Team (Late Contact Info) Description 04/29/2019 9:40 AM EDT Ancillary Procedure Radiology Xray at [facility] [place] [phone] Social History Tobacco Use Types Packs/Day Years [...] 1:00 PM EDT Office Visit Dermatology at [facility] [address] [place] [address] Skyla Campbell MD [facility] DR [address] MELVIN-DERMATOLOGY [place], [place] [id number] documented as of this encounter Procedures Procedure Name Priority Date/Time Associated Diagnosis Comments XR PELVIS Routine 04/29/2019 9:51 AM EDT documented in this encounter Results * XR Pelvis (Generic) (04/29/2019 9:51 AM EDT) Anatomical Region Laterality Modality Pelvis N/A Digital Radiogra phy Impressions 04/29/2019 11:37 AM EDT Left hip total hip arthroplasty. No acute complication. Thank you for letting us participate in the care of this patient. For questions regarding this report, please contact the number below. ? Narrative 04/29/2019 11:37 AM EDT EXAMINATION: XR PELVIS (GENERIC) CLINICAL HISTORY: s/p DARRELL TECHNIQUE: 1 views of the pelvis COMPARISON: Preoperative x-ray 01/19/2019 FINDINGS: A noncemented total hip arthroplasty has been performed on the left. No fracture, dislocation or other acute complication is identified. As seen on the preoperative x-ray severe arthropathy is present at the contralateral hip. Procedure Note Medardo Moyer MD - 04/29/2019 EXAMINATION: XR PELVIS (GENERIC) CLINICAL HISTORY: s/p DARRELL TECHNIQUE: 1 views of the pelvis COMPARISON: Preoperative x-ray 01/19/2019 FINDINGS: A noncemented total hip arthroplasty has been performed on the left. No fracture, dislocation or other acute complication is identified. As seenon the preoperative x-ray severe arthropathy is present at the contralateralhip. IMPRESSION Left hip total hip arthroplasty. No acute complication. Thank you for letting us participate in the care of this patient. Forquestions regarding this report, please contact the number below. Brett David MD IMG DX ORDERABLES documented in this encounter Visit Diagnoses Not on filedocumented in this encounter Care Teams Architecture Consultant Relationship Specialty Start Date End Date Yadira Llanes PA [address] [place] [id number] PCP - General Family Medicine 04/17/19 documented as of this encounter
--- OUTSIDE RECORDS SUMMARY | 2024-04-21 04:21 | XMS_ITS | Encounter Summary ---
Author Organization [facility] Address [facility] [place] [address] Care Team Providers Care Internal Revenue Service Agent Name Role Phone Yadira Llanes Primary Care Provider [phone] Encounter Details Date Type Department Care Team (Latest Contact Info) Description 06/09/2019 2:17 PM EDT - 06/09/2019 11:59 PM EDT Hospital Encounter XRay at [address] [place] [address] Brett David MD [facility] [place] [address] Debility; Pain of left lower extremity; Primary osteoarthritis of both hips Discharge Disposition: Home Social History Tobacco Use [...] 2 times daily. 84 tablet 06/19/2019 07/28/2019 naproxen (NAPROSYN) 500 mg Tablet Take 500 mg by mouth 2 times daily (with meals). 06/19/2019 omeprazole (PRILOSEC) 20 mg Capsule, Delayed Release(E.C.) Take 20 mg by mouth daily. 06/17/2019 acetaminophen (TYLENOL) 500 mg Tablet Take 1 tablet by mouth every 4 hours. 30 tablet 1 04/30/2019 06/19/2019 documented as of this encounter Plan of Treatment Upcoming Encounters Date Type Department Care Team (Late st Contact Info) Description 06/25/2024 1:00 PM EDT Office Visit Dermatology at [address] [place] [address] Skyla Campbell MD [facility] DR [address] [place] [address] documented as of this encounter Procedures Procedure Name Priority Date/Time Associated Diagnosis Comments XR PELVIS AND HIP 2 VIEWS LEFT Routine 06/09/2019 2:35 PM EDT Debility Pain of left lower extremity Primary osteoarthritis of both hips documented in this encounter Results * XR Pelvis and Hip 2 Views Left (06/09/2019 2:35 PM EDT) Anatomical Region Laterality Modality Pelvis, Hip Left Digital Radiogra phy Impressions 06/09/2019 2:44 PM EDT No change in appearance of left total hip arthroplasty. Thank you for letting us participate in the care of this patient. For questions regarding this report, please contact the number below. ? Electronically signed by: Aneesh Orellana [facility] ([phone]), at 06/09/2019 2:44 PM Narrative 06/09/2019 2:44 PM EDT EXAMINATION: XR PELVIS AND HIP 2 VIEWS LEFT CLINICAL HISTORY: History of hip replacement TECHNIQUE: AP pelvis and 2 views of left hip. COMPARISON: 05/22/2019 FINDINGS: There is no interval change, specifically in the position of the acetabular and femoral components of the left total hip arthroplasty. No periprosthetic fracture or significant new periprosthetic lucency is seen. Again noted is severe osteoarthritis in the RIGHT hip with obliteration of the joint space superiorly. Procedure Note Aneesh Orellana MD - 06/09/2019 EXAMINATION: XR PELVIS AND HIP 2 VIEWS LEFT CLINICAL HISTORY: History of hip replacement TECHNIQUE: AP pelvis and 2 views of left hip. COMPARISON: 05/22/2019 FINDINGS: There is no interval change, specifically in the position of theacetabular and femoral components of the left total hip arthroplasty. No periprosthetic fracture or significant new periprosthetic lucency is seen. Again notedis severe osteoarthritis in the RIGHT hip with obliteration of the jointspace superiorly. IMPRESSION No change in appearance of left total hip arthroplasty. Thank you for letting us participate in the care of this patient. Forquestions regarding this report, please contact the number below. Electronically signed by: Aneesh Orellana [facility]([phone]), at 06/09/2019 2:44 PM Brett David MD IMG DX ORDERABLES documented in this encounter Visit Diagnoses Diagnosis Debility Debility, unspecified Pain of left lower extremity Primary osteoarthritis of both hips Primary localized osteoarthrosis, pelvic region and thigh documented in this encounter Care Teams Internal Revenue Service Agent Relationship Specialty Start Date End Date Yadira Llanes PA [address] [place] [address] PCP - General Family Medicine 04/17/19 documented as of this encounter
--- OUTSIDE RECORDS SUMMARY | 2024-04-21 04:21 | XMS_ITS | Encounter Summary ---
Author Organization [facility] Address [facility] [place] [address] Care Team Providers Care Spar Cap Beveler Name Role Phone Yadira Llanes Primary Care Provider [phone] Reason for Visit * Reason Comments [facility] XR 04/29/19 LEFT DARRELL ANT Encounter Details Date Type Department Care Team (Latest Contact Info) Description 06/09/2019 3:00 PM EDT [place] [address] Brett David MD [facility] [place] [address] Status post total replacement of left hip, DAA. Dr. David. 04/29/2019; Primary osteoarthritis of right hip; Debility; Pain in extremity, unspecified extremity Social History Tobacco Use Types Packs/Day Years [...] Sign Reading Time Taken Comments Blood Pressure 133/74 06/09/2019 2:49 PM EDT Pulse 70 06/09/2019 2:49 PM EDT Temperature 36.7 ??C (98 ??F) 06/09/2019 2:49 PM EDT Respiratory Rate - - Oxygen Saturation - - Inhaled Oxygen Concentration - - Weight 66.7 kg (147 lb) 06/09/2019 2:49 PM EDT p t. reported Height 162.6 cm (5' 4) 06/09/2019 2:49 PM EDT p t. reported Body Mass Index 25.23 06/09/2019 2:49 PM EDT documented in this encounter Progress Notes * Wesley Tovar PA - 06/09/2019 3:00 PM EDT Arthroplasty/Orthopaedic History: 1. Left DARRELL, DAA. Dr. David. 04/29/2019. HPI: Mag Rider is a very pleasant 63 y.o. year-old female and is now 5 weeks post left total hip replacement The patient has been doing great. The patient is not having any pain.. No fevers, chills, nausea, vomiting, or symptoms of infection. Mag has been ambulating with no assistive device and working with PT. She is not taking narcotic pain medicine. Patient's flare of pain that she was previously seen for has calmed down. Her left hip is doing great, and is screaming. Patient denies any incision site concerns. Patient denies any concerns for infection. Anticoagulation status ASA 81mg BID for 30 days discussed stop date: Completed. ROS: Denies: fever, chills, night sweats, nausea, or vomiting BP 133/74 (BP Location (NBP): Right arm, Patient Position: Sitting, BP Cuff Sizes: Adult (25-34 cm)) Pulse 70 Temp 36.7 ??C (98 ??F) Ht 162.6 cm (5' 4) Comment: pt. reported Wt 66.7 kg (147 lb) Comment: pt. reported BMI 25.23 kg/m?? Physical Exam: Well-appearing female in no acute distress. Alert and Oriented x 3 and answers all questions appropriately. The incision is well healed, with no signs of infection. Hip Exam: Left Leg Length: Longer leg: equal Limb Length discrepancy: 0cm Motion: Flexion contracture: 0 Total degrees of Flexion: 90 Total degrees of Abduction: 45 Total degrees of Ext Rotation: 40 Total degrees of Internal Rotation: 20 Gait Abnormality: Normal Pulses Palpable: Left PT: Yes Left DP: Yes Motor/Sensory: Left Distal Motor: Normal Distal Sensory: Normal Hip Abductors: 5 Trendelenburg test: negative Right hip: Reproduction of right groin pain with flexion, adduction, and internal rotation. X-RAYS: Multiple radiographic views were obtained at my request and reviewed with the patient. X-rays show a well-placed prosthesis with no evidence of fracture, subsidence, loosening, or periprosthetic complication. No evidence Questionnaire Responses: [facility] Surgical Postop Visit 06/09/2019 PROMIS-10 General Health [...] Choose Same Treatment Again Definitely yes Orthopeadics [facility] Response 06/09/2019 HOOS JR Scores 85.26 KOOS JR Scores - Spine [facility] Response 06/09/2019 HOOS JR Scores 85.26 KOOS JR Scores - ASSESSMENT/PLAN: Ms. Rider is a 63 y.o. year old female status post left total hip replacement. Doing well postoperatively. Continue weightbearing as tolerated and working on range of motion. We will see her back in 1 years for repeat examination, in terms of her left hip. X-rays will be needed at that time. Patient may return to normal activities as her pain and function allow. In regards to her right hip, We discussed the elective management of osteoarthritis treatment. We discussed the arthritis ladder, attempting conservative therapy first with [id number] anti-inflammatories such as ibuprofen or naproxen along with acetaminophen if they can be tolerated. We also discussed attempting formal physical therapy, as that can help keep core and letty musculature strong, in conjunction with focusing on range of motion. We also discussed using walking aids, continue and regular exercise along with maintaining an appropriate weight. The patient is receptive to this. We also discussed corticosteroid injection. Risks and benefits explained including but not limited tosteroid flare, increase in blood glucose, infection, continued pain, bleeding, damage to nerves andvessels and can safely be given every 3-4 months. We reviewed the indications of total hip arthroplasty and th elective management of this. We discussed the procedure, recovery, and expectations post- operatively. We reviewed risks and benefits, which include but are not limited to infection, bleeding, damage to nerves and vessels, hardware failure, fracture, dislocation, blood clot, heart attack,stroke, adverse reaction to anesthesia, and continued pain. Patient demonstrates and understanding of the above. She would like to proceed with a DARRELL on the right. Orders placed. We discussed the appropriate precautions surrounding dental [...] All questions were answered. Signed: JOE HASTINGS 06/09/2019 * Brett David MD - 06/09/2019 3:00 PM EDT Arthroplasty History/Previous Hip Surgery: 1. Left DAA DARRELL DOS 04/29/19 This note is recorded by Rajat Harrison acting as a scribe for Dr. Maribel David. PREOPERATIVE VISIT Interval History: Mag Rider is a pleasant 63 y.o. year old female with severe osteoarthritis of the hip being seen today to discuss a RIGHT total hip arthroplasty. Her history and physical exam were reviewed in detail. Her history in regards to her hip was once again discussed and is outlined in a previous note. She states the hip pain and disability is unchanged since their previous visit. They have reviewed theiroptions and at this point are expressing a desire to proceed with surgery. She does not endorse a history of DVT/PE or clotting Physical Exam: Exam is previously documented in my note and is essentially unchanged. Clinical Leg Length Discrepancy - 0cm Inspection of her skin in the intertriginous groin fold on the operative side demonstrates No skin breakdown. Significant Medical Comorbidities Patient Active Problem List Diagnosis Code ??? Primary osteoarthritis of both hips M16.0 ??? Status post total replacement of left hip, DAA. Dr. David. 04/29/2019 Z96.642 ??? Pain in extremity M79.609 ??? Debility R53.81 VITALS: BP Readings from Last 1 Encounters: 06/09/19 133/74 Pulse Readings from Last 1 Encounters: 06/09/19 70 Height: 162.6 cm (5' 4)(pt. reported) Weight: 66.7 kg (147 lb)(pt. reported) Body mass index is 25.23 kg/m??. Relevant Lab Studies Lab Results Component Value Date WBC 14.6 (H) 04/30/2019 HGB 11.8 04/30/2019 HCT 34.5 (L) 04/30/2019 PLATELET 305 04/30/2019 CREATININE 0.70 04/30/2019 BUN 14 04/30/2019 NA 142 04/30/2019 K 4.7 04/30/2019 No results for input(s): HA1C in the last 7068 hours. No results for input(s): ALBUMIN in the last 168 hours. CrCl cannot be calculated (Patient's most recent lab result is older than the maximum 30 days allowed.). Questionnaire Response [facility] Surgical Preop Visit 06/09/2019 PROMIS-10 General Health Excellent PROMIS-10 Quality of Life Excellent PROMIS-10 Physical Health Excellent PROMIS-10 Mental Health Excellent PROMIS-10 Social Activity Excellent PROMIS-10 Everyday Activities Completely PROMIS-10 Pain 1 PROMIS-10 Fatigue None PROMIS-10 Social Roles Excellent PROMIS-10 Anxious or Depressed Never PROMIS PHYSICAL SCORE (range 16-68) 61.9 PROMIS MENTAL SCORE (range 21-68) 67.6 HOOS JR Scores 85.26 KOOS JR Scores - Pain in other HIP Mild Back pain at this moment Very mild Orthopeadics [facility] Response 06/09/2019 HOOS JR Scores 85.26 KOOS JR Scores - Spine [facility] Response 06/09/2019 HOOS JR Scores 85.26 KOOS JR Scores - Radiographic evidence of joint damage: [0= normal; 1=minimal ; 2= some osteophytes , some narrowing ; 3= moderate osteophytes, significantnarrowing, mild deformity; 4= large osteophytes, marked narrowing, obvious deformity]: 4= large osteophytes, marked narrowing, obvious deformity Assessment and Plan: This is a pleasant 63 y.o. year-old female who presents for a preoperative appointment today for RIGHT hip OA. I had a long discussion with her regarding the risks and benefits of total hip arthroplasty. I indicated that in my opinion, this is the treatment option most likely to restore a more normal, pain-free level of function and that we have exhausted reasonable non-operative alternatives. I used total hip implants to demonstrate how I perform the procedure and all of their questions were answered. Ms. Rider expressed a desire to pursue this option. We then discussed in great detail the risks associated with the proposed surgery. These included but were not limited to: bleeding (which may or may not require transfusion), infection, deep venous thrombosis, pulmonary embolus, prosthetic failure, loosening, prosthetic fracture, femur or pelvic fracture, dislocation, leg-length inequality, persistent pain, need for revision, medical complications (including cardiac, respiratory and neurologic complications), anaesthetic complications, and . The patient seemed to understand the nature of this procedure's risks. We also discussed the likely benefit of improved stride length, improved range of motion, decreasedpain, decreased need for pain medications and decrease functional limitations. The patient is awarethat it would take on average 2 days in the hospital, followed by approximately 12-18 months to full rehabilitation. I did review the history and physical today which says the patient is cleared for surgery and has no specific recommendations for further testing. I reviewed the labs and did not identify anything that would warrant surgical delay. We discussed DNR status and she is a Full Code We reviewed options for postoperative DVT prophylaxis, based on AAOS guidelines. We discussed the pros and cons of different anticoagulants in terms of effectiveness and clot / embolus preventions vs. risks of bleeding and wound complications. We also reviewed their preferences regarding use of blood products and confirmed that while we would endeavor to minimize the risks of needing any transfusions, if circumstances were such that one ormore were indeed required, she would NOT refuse a blood transfusion. Opioid PDMP 06/09/2019 [place] PDMP Query Date 06/09/2019 [place] PDMP Query Date 06/09/2019 [place] PDMP Query Date 06/09/2019 Mag Rider will be prescribed a prescription opioid for the treatment of acute post-operative pain related to Orthopedic surgery. Mag Rider will be advised to take the smallest dose possible to control their pain and as their pain improves to take smaller doses and increase thetime between doses. In addition to this medication, non-opioid medications will be prescribed for adjunct treatment of their pain. Non-pharmacological treatment such as ice, elevation and activity modification will be recommended as appropriate. The Acute Opioid Therapy Informed Consent form has been completed and sent to medical records for scanning to chart. We discussed with them the possible discharge scenarios including going home versus needing to go to a rehab facility depending on how well their mobility progresses post-operatively. TJA Clotting and Bleeding Assessment Genetic predisposition or history of DVT or PE: No Hypercoaguable state?: No History of bleeding disorder?: No GI bleed or history of hemorrhagic stroke within the past 2 years: No Patient on lifelong anticoagulant for other reasons: No Discharge anticoagulation plan: ASA 81mg BID for 30 days Infection Prevention Patient demonstrated appropriate skin integrity/infection knowledge level after instructions provided: Yes Patient demonstrated appropriate dental prophylaxis knowledge level after instructions provided: Yes Patient demonstrated appropriate understanding of pre-op chlorhexideine wash and mupirocin ointmentuse after instructions provided: Yes General Assessment Total joint preparedness for surgery: Received binder, Other (see comment)(FORCE) Patient understands when to call the office pre-op and post-op: Verbalizes understanding Assistive device(s) used pre-op: None Patient currently on narcotics: No Patient has narcotic agreement signed: No Prep for Surgery Advance Directive: Does not have one (does not want to fill out) Recommend referral to Patient Financial Services: Yes Living arrangement: House Home layout: Two level, Stairs to enter w/o rails Number of stairs within home: 13 Who will provide post-op care and support: sister in law Who will provide transportation home: brother Patient's desired discharge disposition: home w/ VNA Top 3 nursing choice facilities: n/a VNA preference: [place], [place] Outpatient PT preference: TBD Discharge barriers and challenges: none Will the patient require VNA services post-op: Yes; the patient/caregivers were provided with a list of VNA's which serve their preferred geographic location and they were educated about their right to choose where referrals are placed. Selection: [place]: No preference Any remaining questions were solicited from the patient and answered. Ms. Rider wishes to proceed accordingly and informed consent was subsequently obtained for a RIGHT total hip arthroplasty. I saw this patient in conjunction with Wesley Tovar PA-C. She status post left total hip replacement is quite happy with the results. She now is considering right total hip replacement. She is havingworsening pain in the right hip and groin and actually had consider bilateral hip replacements. Shehas an insurance deductible which resets in August and would like to consider surgery before then. I told her I would try to accommodate her to the best of my ability. She certainly has severe degenerative changes of her hip I think hip replacement is reasonable. Patient would like to proceed with this all questions were answered. We discussed using Celebrex while in house. We discussed using Naprosyn for 6 weeks after surgery for post-operative pain management. I ensured that the patient has the needed samples of hibiclens wash to use both the night before and the morning of the anticipated surgery. I have personally evaluated the patient and agree with the above note as recorded by Rajat Harrison MD 06/09/2019 documented in this encounter Plan of Treatment Upcoming Encounters Date Type Department Care Team (Late st Contact Info) Description 06/25/2024 1:00 PM EDT Office Visit Dermatology at [facility] [address] [place] [address] Skyla Campbell MD [facility] DR [address] [place] [address] Scheduled Orders Name Type Priority Associated Diagnoses Orde r Schedule CBC (with Diff) Lab Routine Primary osteoarthritis of right hip Debility Pain in extremity, unspecified extremity Expected: 06/09/2019, Expires: 12/09/2019 Basic Metabolic Panel (non-fasting) Lab Routine Primary osteoarthritis of right hip Debility Pain in extremity, unspecified extremity Expected: 06/09/2019, Expires: 12/09/2019 Prothrombin Time Lab Routine Primary osteoarthritis of right hip Debility Pain in extremity, unspecified extremity Expected: 06/09/2019, Expires: 12/09/2019 APTT Lab Routine Primary osteoarthritis of right hip Debility Pain in extremity, unspecified extremity Expected: 06/09/2019, Expires: 12/09/2019 documented as of this encounter Procedures Procedure Name Priority Date/Time Associated Diagnosis Comments TOTAL HIP ARTHROPLASTY, ANTERIOR APPROACH Routine 06/09/2019 3:05 PM EDT documented in this encounter Results [...] please contact the number below. ? Narrative 07/28/2019 10:50 AM EST EXAMINATION: XR [...] below. Brett David MD IMG DX ORDERABLES * EKG 12 Lead (06/09/2019 4:43 PM EDT) Ventricular rate 62 BPM MUSE SYSTEM Atrial Rate 62 BPM MUSE SYSTEM P-R Interval 142 ms MUSE SYSTEM QRS Duration 86 ms MUSE SYSTEM Q-T Interval 408 ms MUSE SYSTEM QTC Calculated (Bezet) 414 ms MUSE SYSTEM Calculated P Aurora 48 degrees MUSE SYSTEM Calculated R Aurora 64 degrees MUSE SYSTEM Calculated T Aurora 52 degrees MUSE SYSTEM INTERPRETATION Normal sinus rhythm Normal ECG No previous ECGs available Confirmed by MD FINA, CHARLENE ([id number]) on 06/10/2019 6:52:44 PM MUSE SYSTEM 06/09/2019 4:43 PM EDT 06/10/2019 6:52 PM EDT Brett David MD ECG ORDERABLES MUSE SYSTEM documented in this encounter Visit Diagnoses Diagnosis Status post total replacement of left hip, DAA. Dr. David. 04/29/2019 Primary osteoarthritis of right hip Primary localized osteoarthrosis, pelvic region and thigh Debility Debility, unspecified Pain in extremity, unspecified extremity Primary osteoarthritis of right hip Primary localized osteoarthrosis, pelvic region and thigh Debility Debility, unspecified Pain in extremity, unspecified extremity documented in this encounter Care Teams Spar Cap Beveler Relationship Specialty Start Date End Date Yadira Llanes PA [address] [place] [address] PCP - General Family Medicine 04/17/19 documented as of this encounter
--- OUTSIDE RECORDS SUMMARY | 2024-04-21 04:21 | XMS_ITS | Encounter Summary ---
Author Organization [facility] Address [facility] [place] [address] Care Team Providers Care Public Safety Police Name Role Phone Yadira Llanes Primary Care Provider [phone] Encounter Details Date Type Department Care Team (Late st Contact Info) Description 04/24/2019 [place] [address] Brett David MD [facility] [place] [address] Social History Tobacco Use Types Packs/Day Years [...] encounter Miscellaneous Notes * Telephone Encounter - GabsterlingRobinrichmond Akins - 04/24/2019 9:28 AM EDT Call placed to Mag to discuss upcoming procedure with Dr David. She does not have her Mupirocin or Hibiclens; I phoned the mupirocin into her local pharmacy, reviewed purchasing the hibiclens wash and/or dial soap. I sent her messages on FORCE for reminders. She is amenable to same-day discharge, we discussed that she would be discharged same day and that will likely receive VNA services as this is her preference. Discussed return to driving after surgery; she would need to be off of narcotics prior to return to driving. She does have a walker which she will bring her 30 of surgery. She plans to drive herself to [facility] and her family will meet her there to pick her up. I will review with [employer] whether they are okay with this. H&P was completed yesterday however we do not have the records that I placed a follow-up call to her primary care doctor's office to obtain these. They will be faxing them to her surgical scheduling team. She knows to contact us with any further questions or concerns via force or phone. She also said that she is having left knee pain and had imaging done of a [facility] however we still do not have these images in place. She would like us to try and obtain these again, I did let her know that there was a order placed for left knee series and that her x-rays shehad completed also likely do not contain all of the orthopedic views of the knee that we need. Mag verbalized understanding of instructions and voiced no other questions or concerns at this time. documented in this encounter Plan of Treatment Upcoming Encounters Date Type Department Care Team (Late st Contact Info) Description 06/25/2024 1:00 PM EDT Office Visit Dermatology at [facility] [address] [place] [address] Skyla Campbell MD [facility] DR [address] [place] [address] documented as of this encounter Visit Diagnoses Not on filedocumented in this encounter Care Teams Public Safety Police Relationship Specialty Start Date End Date Yadira Llanes PA [address] [place] [address] PCP - General Family Medicine 04/17/19 documented as of this encounter
--- OUTSIDE RECORDS SUMMARY | 2024-04-21 04:21 | XMS_ITS | Encounter Summary ---
Author Organization [facility] Address [facility] [place] [address] Care Team Providers Care Hedge Trimmer Name Role Phone Yadira Llanes Primary Care Provider [phone] Encounter Details Date Type Department Care Team (Late st Contact Info) Description 04/29/2019 Telephone Orthopaedics at [facility] [place] [address] Catie Cross MSW [place] [address] Social History Tobacco Use Types Packs/Day Years [...] encounter Miscellaneous Notes * Telephone Encounter - Catie Cross MSW - 04/29/2019 10:12 AM EDT OFFICE OF CARE MANAGEMENT CCM Per Debbie Schmid ATC, patient dropped off for surgery noting her niece who was to be her nonfarm animal caretaker has now declined. Patient in surgery. Contacted daughter Adeline who expressed relief and was looking to contact someone as she did not feel good and did feel concerned about her mother. Adeline reports her mother made arrangements without confirming her exact needs with her and her cousin. Cousin and actually live in the home with Ms. Rider, Adeline lives in an attached apartment. Ms. Rider does have a bedroom an bathroom up about 10 stairs. She has a good recliner and bathroom downstairs. She has gotten a raised toilet seat and walker and Adeline will consider getting a tub bench from local [facility]. Adeline and niece's main concerns are that Adeline is 21 weeks and niece has rheumatoid arthritis and they were not clear if Ms. Rider might need significant assistance with transfer which they cannot provide. Reassurance and education offered. Encouraged them to watch the Force videos on Ms. Rider's phone and noted they can communicate with Ortho staff. Confirmed before discharge Ms. Rider will have demonstrated ability to transfer bed to chair, ambulate and likely practice some stairs. Agreed VNA to support her learning to manage stairs to her bedroom etc might be helpful prefer [facility]. Adeline confirms given that expectations for minimal assistance and help w meals etc she and her niece will in fact help. She feels worried her mother is still upset and I have confirmed I will have [employer] social worker delinquency prevention update and reassure her regarding our talk. She identifies no further questions or concerns and I have wished them all well and encouraged them to be in touch. PLAN: 1) update to Enoch [employer] Supervisor who will visit and pro vide w reassurance and pend VNA orders 2) Update to healthcare team. 3) Daughter confirms she is standing by to pickle maker Ms. Rider either later today or tomorrow pending discharge time. documented in this encounter Plan of Treatment Upcoming Encounters Date Type Department Care Team (Late st Contact Info) Description 06/25/2024 1:00 PM EDT Office Visit Dermatology at [facility] [address] [place] [address] Skyla Campbell MD [facility] DR [address] [address] documented as of this encounter Visit Diagnoses Not on filedocumented in this encounter Care Teams Hedge Trimmer Relationship Specialty Start Date End Date Yadira Llanes PA [address] [place] [address] PCP - General Family Medicine 04/17/19 documented as of this encounter
--- OUTSIDE RECORDS SUMMARY | 2024-04-21 04:21 | XMS_ITS | Encounter Summary ---
Author Organization [facility] Address [facility] [place] [address] Care Team Providers Care Business Development Manager Name Role Phone Yadira Llanes Primary Care Provider [phone] Reason for Visit * Reason Onset Date Comments Pre Procedure Call 06/11/2019 Encounter Details Date Type Department Care Team (Late st Contact Info) Description 06/11/2019 Telephone [place] [address] Brett David MD [facility] [place] [address] Pre Procedure Call Social History Tobacco Use Types Packs/Day Years [...] encounter Miscellaneous Notes * Telephone Encounter - Key Luciano - 06/11/2019 9:52 AM EDT Left a message to confirm that patient is having surgery on 06/18/[address] David. Asked patient to call us back so we can go over safety questions and we can let her know the times of her appointments on 06/16/19. Left our direct number. documented in this encounter Plan of Treatment Upcoming Encounters Date Type Department Care Team (Late Contact Info) Description 06/25/2024 1:00 PM EDT Office Visit Dermatology at [facility] [address] [place] [address] Skyla Campbell MD [facility] DR [address] [address] documented as of this encounter Visit Diagnoses Not on filedocumented in this encounter Care Teams Business Development Manager Relationship Specialty Start Date End Date Yadira Llanes PA [address] [place] [address] PCP - General Family Medicine 04/17/19 documented as of this encounter
--- OUTSIDE RECORDS SUMMARY | 2024-04-21 04:21 | XMS_ITS | Encounter Summary ---
Author Organization [facility] Address [facility] [place] [address] Care Team Providers Care Ruby On Rails Web Developer Name Role Phone Yadira Llanes Primary Care Provider [phone] Reason for Visit * Reason Comments Follow-up Left hip pain s/p TH A DOS: 04/29/19 Encounter Details Date Type Department Care Team (Late st Contact Info) Description 05/22/2019 2:40 PM EDT Office [place] [phone] Wesley Tovar PA [facility] [place] [address] Status post total replacement of left hip, [...] Sign Reading Time Taken Comments Blood Pressure 158/67 05/22/2019 2:49 PM EDT Pulse 79 05/22/2019 2:49 PM EDT Temperature - - Respiratory Rate - - Oxygen Saturation - - Inhaled Oxygen Concentration - - Weight 68 kg (150 lb) 05/22/2019 2:49 PM EDT rep orted Height 162.6 cm (5' 4) 05/22/2019 2:49 PM EDT r eported Body Mass Index 25.75 05/22/2019 2:49 PM EDT documented in this encounter Progress Notes * Wesley Tovar PA - 05/22/2019 2:40 PM EDT Arthroplasty/Orthopaedic History: 1. Left DARRELL, DAA. Dr. David. 04/29/2019 HPI: Mag Rider is a very pleasant 63 y.o. year-old female and is now 3 weeks post left total hip replacement The patient has been doing great, until a few days ago where she was going up and down stairs, and she noted increasing pain. She has pain in three locations. She has pain in her groin, on the outside of the thigh, which travels down the leg, and in her upper lower back. She mateo es any falls or ITE. She denies any incision site concerns. She denies any instability episodes. She was shocked, as she had NO pain post-operatively, until this. She is worried she messed up her hipreplacement and presents today with an XR prior.. Pain is controlled without any medications.. No fevers, chills, nausea, vomiting, or symptoms of infection. Mag has been ambulating with no assistive device and working with PT. She is not taking narcotic pain medicine. ROS: Denies: fever, chills, night sweats, nausea, or vomiting BP 158/67 (BP Location (NBP): Left arm, Patient Position: Sitting, BP Cuff Sizes: Adult (25-34 cm)) Pulse 79 Ht 162.6 cm (5' 4) Comment: reported Wt 68 kg (150 lb) Comment: reported BMI 25.75 kg/m?? Physical Exam: Well-appearing female in no acute distress. Alert and Oriented x 3 and answers all questions appropriately. The incision is well healed, with no signs of infection. Hip Exam: Left Motion: Flexion contracture: 0 Total degrees of Flexion: 100 Total degrees of Abduction: 40 Total degrees of Ext Rotation: 40 Total degrees of Internal Rotation: 20 Gait Abnormality: Normal Pulses Palpable: Left PT: Yes Left DP: Yes Motor/Sensory: Left Distal Motor: Normal Distal Sensory: Normal Hip Abductors: 5 Trendelenburg test: negative Reproduction of sensitivity over the incision. TTP over the lateral haunch and GTB. X-RAYS: Multiple radiographic views were obtained at my request and reviewed with the patient. X-rays show a well-placed prosthesis with no evidence of fracture, subsidence, loosening, or periprosthetic complication. No evidence of complication. Questionnaire Responses: [facility] Surgical Postop Visit 04/14/2019 HOOS JR Scores 85.26 KOOS JR Scores 59.38 Orthopeadics [facility] Response 04/14/2019 HOOS JR Scores 85.26 KOOS JR Scores 59.38 Spine [facility] Response 04/14/2019 HOOS JR Scores 85.26 KOOS JR Scores 59.38 ASSESSMENT/PLAN: Ms. Rider is a 63 y.o. year old female status post left total hip replacement. Doing well postoperatively. Continue weightbearing as tolerated and working on range of motion. We will see her back in 3 weeks for repeat examination. X-rays will be needed at that time. Patient may return to normal activities as her pain and function allow. Radiographs and incision are benign. No evidence of subsidence or loosening. Reassuring that this is likely soft tissue. Recommend activity cessation, as she is already walking up to 2-4 miles per day, and being very active with cycling and the gym. She is only 3 weeks post-operatively. Discussed concern for dislocation. Recommend NSAID / RICES, going back to hip girdle strengthening, and smallerdistances during her walking. Recommend cessation for 2-3 days to allow things to calm down, and a gradual progression back to her activity. We discussed the appropriate precautions surrounding dental [...] All questions were answered. Signed: JOE HASTINGS 05/22/2019 documented in this encounter Plan of Treatment Upcoming Encounters Date Type Department Care Team (Late st Contact Info) Description 06/25/2024 1:00 PM EDT Office Visit Dermatology at [facility] [address] [place] [address] Skyla Campbell MD [facility] DR [address]IQUITA [place] [address] documented as of this encounter Visit Diagnoses Diagnosis Status post total replacement of left hip, DAA. Dr. David. 04/29/2019 documented in this encounter Care Teams Ruby On Rails Web Developer Relationship Specialty Start Date End Date Yadira Llanes PA [address] [place] [address] PCP - General Family Medicine 04/17/19 documented as of this encounter
--- OUTSIDE RECORDS SUMMARY | 2024-04-21 04:21 | XMS_ITS | Encounter Summary ---
Author Organization [facility] [place] [address] Care Team Providers Care Car Shunter Name Role Phone Yadira Llanes Primary Care Provider [phone] Reason for Visit * Auth/Cert Specialty Diagnoses / Procedures Referred By Ray cornelius Referred To Contact Diagnoses Osteoarthritis of right hip Osteoarthritis of the hip Procedures PRO TOTAL HIP ARTHROPLASTY @TOTAL HIP ARTHROPLASTY, ANTERIOR APPROACH (WRVU 20.72) MODIFIER ACTIS HIP STEM DEPUY MODIFIER PINNACLE ACETABULUM DEPUY Referral ID Status Reason Start Date Expiration Date Visits Re quested Visits Authorized [id number] 1 1 Encounter Details Date Type Department Care Team (Late st Contact Info) Description 06/18/2019 9:28 AM EDT Anesthesia Event [place] [address] Court Mcintosh MD [facility] [place] [address] Camilo Bush CRNA [facility] [place] [place] [address] Anesthesia Record Procedure Summary Procedure Name Responsible Anesthesiologist Anesthesia Start Time Anesthesia Stop Time TOTAL HIP ARTHROPLASTY, ANTERIOR APPROACH (WRVU 19.6) (Right: Hip) Court Mcintosh MD 06/18/19 0928 06/18/19 1118 Events Date Time Event Comment 06/18/2019 0915 0928 AN Verify 0928 Start 0931 Spinal 0937 An Start Data 0941 Anesthesia Ready 0949 Break/Relief In Camilo S Lehm erick, PASTRYCOOK'S ASSISTANT 1003 Break/Relief Out 1109 Procedure Stop 1110 an stop data 1118 Recovery or ICU Handoff Nidhi ent care was transferred to the destination unit staff after review of the patient's medical history, current anesthetic/surgical status and plan, according to the Provider Handoff Checklist. 1118 Stop Meds Name Total Midazolam 2 mg Propofol INF 367.18 mg ceFAZolin (ANCEF) 2g in dextrose 5% 100 mL 2 g tranexamic acid (CYKLOKAPRON) 1,000 mg i n sodium chloride 0.9% 110 mL 1,001 mg BUpivacaine 0.75% with Dextrose 12 mg Dexamethasone 8 mg Ondansetron 8 mg ePHEDrine 25 mg Lactated Ringers 1,000 mL * Agents Name O2 Air N2O O2 Auxiliary Flowmeter 1 * Blood No blood administrations on file. Lines, Drains, and Airways Type Details Placement Removal Incision 04/29/19; 08; hip; 05/08/22 (LDA cleanup utility RA#[id number]); 1715 (LDA cleanup utility RA#[id number]) 04/29/19 0822 by Natalia Stallworth RN 05/08/22 1715 by Toyin Velez (RETIRED) Peripheral IV Line - Single Lumen 06/18/19; 0853; median cubital vein (antecubital fossa), left; 20 gauge; Adina Bee RN; distraction; removed per policy/procedure, site care per policy/procedure, catheter/device intact; 06/19/19; 1156 06/18/19 0853 by Adina Bee RN 06/19/19 1156 by Marialuisa Escalona LNA Incision 06/18/19; 1003; hip; vertical; 05/08/22 (LDA cleanup utility RA#[id number]); 1715 (LDA cleanup utility RA#[id number]) 06/18/19 1003 by Devika Guillermo RN 05/08/22 1715 by Toyin Velez documented in this encounter Social History Tobacco Use Types Packs/Day Years Used Date Smoking Tobacco: Never Smokeless Tobacco: Never Alcohol Use Standard Drinks/Week Comments Never 0 (1 standard drink = 0.6 oz pur e alcohol) Sex and Gender Information Value Date Recorded Sex Assigned at Not on file Gender Identity Not on file Sexual Orientation Not on file documented as of this encounter OR Notes * Anesthesia Postprocedure Evaluation - Court Mcintosh MD - 06/18/2019 12:29 PM EDT Department of Anesthesiology Post-procedure Note Patient: Mag Rider Procedure Summary Date: 06/18/19 Room / Location: [facility] OR [address] [place] [address] MAIN OR Anesthesia Start: 927 Anesthesia Stop: 1117 Procedures: @TOTAL HIP ARTHROPLASTY, ANTERIOR APPROACH (WRVU 20.72) (Right Hip) MODIFIER ACTIS HIP STEM DEPUY (N/A Hip) MODIFIER PINNACLE ACETABULUM DEPUY (N/A Hip) Diagnosis: (Osteoarthritis of the hip) Surgeon: Brett David MD Responsible Provider: Court Mcintosh MD Anesthesia Type: spinal ASA Status: 2 All Anesthesia Providers: Anesthesiologist: Court Mcintosh MD PASTRYCOOK'S ASSISTANT: Camilo Bush CRNA Vitals Value Taken Time BP 120/58 06/18/2019 12:15 PM Temp 37.1 ??C (98.8 ??F) 06/18/2019 11:16 AM Pulse 60 06/18/2019 12:28 PM Resp 16 06/18/2019 12:28 PM SpO2 95 % 06/18/2019 12:28 PM Pain Level 0 06/18/2019 11:16 AM Vitals shown include unvalidated device data. Patient Location: PACU/[facility] Level of Consciousness: Awake and Alert Pain Management: Satisfactory Analgesia PONV: None Cardiovascular Status: At Baseline Respiratory Status: Room Air and Stable Respiratory Status Postoperative Fluid Status: Intravascular EUvolemia Possible Anesthetic Complications: NONE apparent at time of evaluation Final Primary Anesthesia Type: Spinal (The anesthetic type performed was the same as planned.) Comments: Ms. Rider tolerated the procedure well and without complication. VSS on RA. SAB resolving appropriately. * Anesthesia Procedure Notes - Camilo Bush CRNA - 06/18/2019 9:50 AM EDT Associated Order(s): Neuraxial Block Procedure: Neuraxial Block Primary Anesthetic Type: Spinal The patient was greeted. The sedation plan, its benefits, risks and alternatives were discussed with the patient. The patient has consented to the procedure. The medical history and chart were reviewed. The timeout was performed. Start time: 06/18/2019 9:29 AM End time: 06/18/2019 9:36 AM Patient Location: Block Room Patient Prep Position: Sitting Prep: Hand Hygiene, Hat, Mask, Sterile Gloves, Chlorhexidine and Patient Draped Injection technique: single-shot Skin Anesthetic Lidocaine 1% 3 ml Procedure Technique Level of needle insertion: L3-4 Needle approach: midline Needle Type: [facility] Gauge: 25 Needle length: 3.5 in Number of attempts: 1 Medications: Date/Time: 06/18/2019 9:32 AM BUpivacaine 0.75% with Dextrose, 12 mg Events/Notes Events: None, Pt tolerated the procedure well and remained hemodynamically stable throughout SAB placement. One attempt, +CSF without issue. Resident/PASTRYCOOK'S ASSISTANT: Camilo Bush CRNA Second Resident/PASTRYCOOK'S ASSISTANT: Fellow: Attending Physician: Court Mcintosh MD ~~~~~~~~~~~~~~~~~~~~~~~~~~~~~~~~~~~~~~~~~~~~~~~~~~~~~~~~~~~~ * Anesthesia Preprocedure Evaluation - Court Mcintosh MD - 06/18/2019 9:12 AM EDT Pre-Anesthesia Evaluation for: Mag Rider a 63 y.o. female. Procedure(s): @TOTAL HIP ARTHROPLASTY, ANTERIOR APPROACH (WRVU 20.72) MODIFIER ACTIS HIP STEM DEPUY MODIFIER PINNACLE ACETABULUM DEPUY Patient Active Problem List Diagnosis ??? s/p R DARRELL (Dr. David), 06/18/19 ??? Pain in extremity ??? Debility ??? Status post total replacement of left hip, DAA. Dr. David. 04/29/2019 ??? Primary osteoarthritis of both hips Past Medical History: Diagnosis Date ??? Peptic [...] 0.27) performed by Brett David MD at [facility] MAIN OR ??? PRO TOTAL HIP ARTHROPLASTY Left 04/29/2019 @TOTAL HIP ARTHROPLASTY, ANTERIOR APPROACH (WRVU 20.72) performed by Brett David MD at [facility] MAIN OR ??? TEAR DUCT SURGERY Bilateral 1990s OSEGUERA TUBE PLACED THEN REMOVED SUBSEQUENT OPEN AREA IN SINUS Social History Tobacco Use ??? Smoking status: Never Smoker ??? Smokeless tobacco: Never Used Substance Use Topics ??? Alcohol use: Never Frequency: Never Social History Substance and Sexual Activity Drug Use Never Allergies Allergen Reactions ??? Codeine Nausea And Vomiting N & V Medications: MAR and/or home medications have been reviewed. Physical Exam: Most Recent Vitals: 06/18/19 0823 BP: 123/59 Pulse: 68 Resp: 18 Temp: 37.4 ??C (99.3 ??F) SpO2: 97% There is no height or weight on file to calculate BMI. Airway Assessment: Mallampati: II TM distance: >3 FB Neck ROM: full Cardiovascular Assessment: Pulmonary Assessment: Dental Assessment: - normal exam Misc Assessment: IV access: Peripheral line Anesthesia Plan: ASA 2 spinal, with a(n) intravenous induction Ms. Rider is a 63 year old female with PMHx of OA who underwent a left DARRELL in 04/2019 under SAB without issue who presents for right DARRELL. Pt has an ADR to codeine. Plan for preoperative multimodal PO analgesics, SAB. Risks were discussed at length, and all questions and concerns were addressed. Consent was obtained, and the appropriate paperwork was placed in the patient's chart. Region - Other Informed Consent: Anesthetic plan and risks discussed with patient. Plan discussed with PASTRYCOOK'S ASSISTANT. PAT Clinic Note documented in this encounter Plan of Treatment Upcoming Encounters Date Type Department Care Team (Late st Contact Info) Description 06/25/2024 1:00 PM EDT Office Visit Dermatology at [facility] [address] [place] [address] Skyla Campbell MD [facility] [place] [address] documented as of this encounter Procedures Procedure Name Priority Date/Time Associated Diagnosis Comments ANE NEURAXIAL APS USE Routine 06/18/2019 9:50 AM EDT documented in this encounter Results * Neuraxial Block (06/18/2019 9:50 AM EDT) Narrative Camilo Bush CRNA - 06/18/2019 9:50 AM EDT Camilo Bush CRNA ? 06/18/2019 10:10 AM Procedure: ?? Neuraxial Block Primary Anesthetic Type: Spinal The patient was greeted. The sedation plan, its benefits, risks and alternatives were discussed with the patient. ??The patient has consented to the procedure. ??The medical history and chart were reviewed. ??The timeout was performed. Start time: 06/18/2019 9:29 AM End time: 06/18/2019 9:36 AM Patient Location: Block Room Patient Prep Position: Sitting Prep: Hand Hygiene, Hat, Mask, Sterile Gloves, Chlorhexidine and Patient Draped Injection technique: single-shot Skin Anesthetic Lidocaine 1% ??3 ml Procedure Technique Level of needle insertion: L3-4 Needle approach: midline Needle Type: [facility] Gauge: 25 Needle length: 3.5 in Number of attempts: 1 Medications: Date/Time: ??06/18/2019 9:32 AM BUpivacaine 0.75% with Dextrose, 12 mg Events/Notes Events: ??None, Pt tolerated the procedure well and remained hemodynamically stable throughout SAB placement. ?? One attempt, +CSF without issue. Resident/PASTRYCOOK'S ASSISTANT: ?Camilo Bush CRNA Second Resident/PASTRYCOOK'S ASSISTANT: Fellow: ? Attending Physician: ? Court Mcintosh MD ~~~~~~~~~~~~~~~~~~~~~~~~~~~~~~~~~~~~~~~~~~~~~~~~~~~~~~~~~~~~ Court Mcintosh MD [employer] documented in this encounter Visit Diagnoses Not on filedocumented in this encounter Administered Medications Inactive Administered Medications - up to 3 most recent administrations Medication Order MAR Action Action Date Dose Rate Site BUpivacaine 0.75% in dextrose 8.25% (intrathecal) (SENSORCAINE) 0.75 % (7.5 mg/mL) injection Intrathecal, Starting on Sun06/18/19 at 0950, Until Sun06/18/19 at 0932, Anesthesia Intra-op, Routine Given 06/18/2019 9:32 AM EDT 12 mg ceFAZolin (ANCEF) 2g in dextrose 5% 100 mL 2 g, Intravenous, EVERY 3 HOURS, 1 dose, First dose on Sun06/18/19 at 0845, Administer over 30 Minutes, Redose after 3 hours., Intra-Operative (Intra-Procedure), Indication for (Active or Suspected): Prophylaxis Given 06/18/2019 9:42 AM EDT 2 g dexamethasone (DECADRON) injection PRN, Starting on Sun06/18/19 at 0946, Until Sun06/18/19 at 1118, Anesthesia Intra-op, Routine Given 06/18/2019 9:46 AM EDT 8 mg ePHEDrine 5 mg/mL multi-dose injection PRN, Starting on Sun06/18/19 at 1011, Until Sun06/18/19 at 1118, Anesthesia Intra-op, Routine Given 06/18/2019 10:47 AM EDT 5 mg Given 06/18/2019 10:35 AM EDT 10 mg Given 06/18/2019 10:15 AM EDT 5 mg lactated ringers infusion CONTINUOUS PRN, Starting on Sun06/18/19 at 0928, Until Sun06/18/19 at 1118, Anesthesia Intra-op New Bag 06/18/2019 10:54 AM EDT New Bag 06/18/2019 9:28 AM EDT midazolam (PF) (VERSED) multi-dose injection Intravenous, PRN, Starting on Sun06/18/19 at 0928, Until Sun06/18/19 at 1118, Anesthesia Intra-op, Routine Given 06/18/2019 9:28 AM EDT 2 mg ondansetron (ZOFRAN) injection PRN, Starting on Sun06/18/19 at 1052, Until Sun06/18/19 at 1118, Anesthesia Intra-op, Routine Given 06/18/2019 10:52 AM EDT 8 mg propofol (DIPRIVAN) infusion Intravenous, CONTINUOUS PRN, Starting on Sun06/18/19 at 0946, Until Sun06/18/19 at 1118, Anesthesia Intra-op, Routine Rate/Dose Change 06/18/2019 10:51 AM EDT 60 mcg/kg/min 24 mL/hr Rate/Dose Change 06/18/2019 9:52 AM EDT 75 mcg/kg/min 30 m L/hr New Bag 06/18/2019 9:46 AM EDT 100 mcg/kg/min 40 mL/hr tranexamic acid (CYKLOKAPRON) 1,000 mg in sodium chloride 0.9% 110 mL 1,000 mg, Intravenous, ONCE, 1 dose, On Sun06/18/19 at 0845, Administer over 30 Minutes, Day of Surgery (Day of Procedure) New Bag 06/18/2019 9:42 AM EDT 1,001 mg documented in this encounter Care Teams Car Shunter Relationship Specialty Start Date End Date Yadira Llanes PA [address] [place] [address] PCP - General Family Medicine 04/17/19 documented as of this encounter
--- OUTSIDE RECORDS SUMMARY | 2024-04-21 04:21 | XMS_ITS | Encounter Summary ---
Author Organization [facility] Address [facility] [place] [address] Care Team Providers Care Lithographer Helper Name Role Phone Yadira Llanes Primary Care Provider [phone] Encounter Details Date Type Department Care Team (Late st Contact Info) Description 04/28/2019 9:00 AM EDT Telephone Pre-Admission Testing at [facility] [address] [place] [id number] Social History Tobacco Use Types Packs/Day Years [...] [facility] [address] [place] [address] Skyla Campbell MD [facility] [address] [place] [address] documented as of this encounter Visit Diagnoses Not on filedocumented in this encounter Care Teams Lithographer Helper Relationship Specialty Start Date End Date Yadira Llanes PA [address] [place] [address] PCP - General Family Medicine 04/17/19 documented as of this encounter
--- OUTSIDE RECORDS SUMMARY | 2024-04-21 04:21 | XMS_ITS | Encounter Summary ---
Author Organization [facility] Address [facility] [place] [address] Care Team Providers Care Tubing Drier Name Role Phone Yadira Llanes Primary Care Provider [phone] Encounter Details Date Type Department Care Team (Late st Contact Info) Description 05/08/2019 Telephone [place] [address] Brett David MD [facility] [place] [address] Social History Tobacco Use Types Packs/Day Years [...] encounter Miscellaneous Notes * Telephone Encounter - Marlene Riley - 05/08/2019 10:22 AM EDT Returned Mag's call regarding outpatient physical therapy in [facility]. I called and informed her that we recommend [facility] and that I have placed the order and sent it to them. If she has any questions/concerns regarding this to please call. documented in this encounter Plan of Treatment Upcoming Encounters Date Type Department Care Team (Late st Contact Info) Description 06/25/2024 1:00 PM EDT Office Visit Dermatology at [facility] [address] [place] [address] Skyla Campbell MD [facility] DR [address] [place] [address] documented as of this encounter Visit Diagnoses Not on filedocumented in this encounter Care Teams Tubing Drier Relationship Specialty Start Date End Date Yadira Llanes PA [address] [place] [address] PCP - General Family Medicine 04/17/19 documented as of this encounter
--- OUTSIDE RECORDS SUMMARY | 2024-04-21 04:21 | XMS_ITS | Encounter Summary ---
Author Organization [facility] Address [facility] [place] [address] Care Team Providers Care Painting Manager Name Role Phone Yadira Llanes Primary Care Provider [phone] Reason for Visit * Reason Onset Date Comments Leg Pain 05/21/2019 Encounter Details Date Type Department Care Team (Late st Contact Info) Description 05/21/2019 [place] [id number] Brett David MD [facility] [place] [address] Leg Pain Social History Tobacco Use Types Packs/Day Years [...] Miscellaneous Notes * Telephone Encounter - Denae Martinez, Nabeel - 05/21/2019 2:23 PM EDT Mag called today to report that she is having new pain in her surgical. She is status post left total hip arthroplasty anterior approach with Dr. David 04/29/19. She stated that she had been doing well and then in physical therapy they have been giving her new exercises to do. She is now experiencing pain when going upstairs and she did not Have pain there before. She reports that as she walks she is also getting pain that starts at the top the hip area that runs down the incision, pain in the buttocks. She reports that her physical therapist has her doing new exercises. She is doing lunges and what she called side to side steps. She denies any new trauma and reports she has not fallen at all. Mag reports that she is scared that this new pain is scaring her and she would like someone to check her out. I scheduled an appointment for her first May 22, 2019 with FRANCISCO Tovar at 2:40 PM. Mag it was grateful for this appointment and agreed with this plan. documented in this encounter Plan of Treatment Upcoming Encounters Date Type Department Care Team (Late st Contact Info) Description 06/25/2024 1:00 PM EDT Office Visit Dermatology at [facility] [address] [address] Skyla Campbell MD [facility] DR CH[address]QU[address] [place] [address] documented as of this encounter Visit Diagnoses Not on filedocumented in this encounter Care Teams Painting Manager Relationship Specialty Start Date End Date Yadira Llanes PA [address] [place] [address] PCP - General Family Medicine 04/17/19 documented as of this encounter
--- OUTSIDE RECORDS SUMMARY | 2024-04-21 04:21 | XMS_ITS | Encounter Summary ---
Author Organization [facility] Address [place] [address] Care Team Providers Care Wood Bucker Name Role Phone Yadira Llanes Primary Care Provider [phone] Reason for Referral * Physical Therapy (Routine) - Specialty Diagnoses / Procedures Referred By Ray t Referred To Contact Physical Therapy Diagnoses Status post total replacement of left hip Brett David MD [facility] [place] [address] Referral ID Status Reason Start Date Expiration Date V isits Requested Visits Authorized [id number] Evaluate and Treat 05/08/2019 11/04/2019 12 12 Encounter Details Date Type Department Care Team (Late st Contact Info) Description 05/08/2019 [place] [address] Brett David MD [facility] [place] [address] Status post total replacement of left hip, [...] 1:00 PM EDT Office Visit Dermatology at [facility] [address] [place] [address] Skyla Campbell MD [facility] DR CHIQU[address] [place] [address] Scheduled Referrals Name Type Priority Associated Diagnoses Orde r Schedule Referral to Physical Therapy Outpatient Referral Routine Status post total replacement of left hip, DAA. Dr. David. 04/29/2019 Ordered: 05/08/2019 documented as of this encounter Visit Diagnoses Diagnosis Status post total replacement of left hip, DAA. Dr. David. 04/29/2019 documented in this encounter Care Teams Wood Bucker Relationship Specialty Start Date End Date Yadira Llanes PA [address] [place] [address] PCP - General Family Medicine 04/17/19 documented as of this encounter
--- OUTSIDE RECORDS SUMMARY | 2024-04-21 04:21 | XMS_ITS | Encounter Summary ---
Author Organization [facility] [place] [address] Care Team Providers Care Ict Sales Representative Name Role Phone Yadira Llanes Primary Care Provider [phone] Encounter Details Date Type Department Care Team (Latest Contact Info) Description 06/09/2019 4:00 PM EDT Clinical Support Same Day at [facility] [place] [phone] Primary osteoarthritis of right hip; Debility; Pain in extremity, unspecified extremity; Pain of left lower extremity; Primary osteoarthritis of both hips Social History Tobacco Use Types Packs/Day Years Used Date Smoking Tobacco: Never Smokeless Tobacco: Never Alcohol Use Standard Drinks/Week Comments Never 0 (1 standard drink = 0.6 oz pur e alcohol) Sex and Gender Information Value Date Recorded Sex Assigned at Not on file Gender Identity Not on file Sexual Orientation Not on file documented as of this encounter Progress Notes * Marla Underwood RN - 06/09/2019 4:00 PM EDT PAT questionnaire reviewed with patient while in Pre Admission testing. Denies any issues with anesthesia; just recently had her other hip done at [facility] and wants the same anesthesia. Pre-operative instruction booklet reviewed. Patient verbalizes a good understanding of all information reviewed. PLAN: Testing: Labs and EKG Special medication instructions: Stop NSAIDS 5 days ahead Procedure date: Not booked but told 06/18/19 at main OR. documented in this encounter Plan of Treatment Upcoming Encounters Date Type Department Care Team (Late st Contact Info) Description 06/25/2024 1:00 PM EDT Office Visit Dermatology at [facility] [address] [place] [address] Skyla Campbell MD [facility] [address] documented as of this encounter Procedures Procedure Name Priority Date/Time Associated Diagnosis Comments EKG 12-LEAD Routine 06/09/2019 4:43 PM EDT Primary osteoarthritis of right hip Debility Pain in extremity, unspecified extremity HEMOGRAM Routine 06/09/2019 4:41 PM EDT Debility Pain of left lower extremity Primary osteoarthritis of both hips DIFFERENTIAL, AUTOMATED Routine 06/09/2019 4:41 PM EDT Debility Pain of left lower extremity Primary osteoarthritis of both hips HC VENIPUNCTURE Routine 06/09/2019 4:41 PM EDT Debility Pain of left lower extremity Primary osteoarthritis of both hips HC PROTHROMBIN TIME Routine 06/09/2019 4 :41 PM EDT Debility Pain of left lower extremity Primary osteoarthritis of both hips HC CBC,PLT & AUTO DIFF Routine 06/09/2019 4:41 PM EDT Debility Pain of left lower extremity Primary osteoarthritis of both hips BASIC METABOLIC PANEL Routine 06/09/2019 4:41 PM EDT Debility Pain of left lower extremity Primary osteoarthritis of both hips documented in this encounter Results * EKG 12 Lead (06/09/2019 4:43 PM EDT) Ventricular rate 62 BPM MUSE SYSTEM Atrial Rate 62 BPM MUSE SYSTEM P-R Interval 142 ms MUSE SYSTEM QRS Duration 86 ms MUSE SYSTEM Q-T Interval 408 ms MUSE SYSTEM QTC Calculated (Bezet) 414 ms MUSE SYSTEM Calculated P [place] 48 degrees MUSE SYSTEM Calculated R [place] 64 degrees MUSE SYSTEM Calculated T [place] 52 degrees MUSE SYSTEM INTERPRETATION Normal sinus rhythm Normal ECG No previous ECGs available Confirmed by MD FINA, CHARLENE ([id number]) on 06/10/2019 6:52:44 PM MUSE SYSTEM 06/09/2019 4:43 PM EDT 06/10/2019 6:52 PM EDT Brett David MD ECG ORDERABLES Performing Organization Address City/[facility]/ZIP Co de Phone Number MUSE SYSTEM * Differential, Automated (06/09/2019 4:41 PM EDT) Neutrophil % 57.7 % [facility] Neutrophil Absolute 3.86 1.70 - 6.10 x10(3)/[facility] Lymph % 32.1 % [facility] Lymphocytes Abs 2.2 0.9 - 3.2 x10(3)/[facility] Monocyte % 8.2 % [facility] Monocyte Abs 0.6 0.3 - 0.9 x10(3)/[facility] Eos % 1.5 % [facility] Eosinophils Abs 0.1 0.0 - 0.4 x10(3)/[facility] Basophil % 0.4 % [facility] Baso Absolute 0.0 0.0 - 0.1 x10(3)/[facility] Immature Gran % 0.10 % [facility] Comment: Immature granulocytes(IG's)percentage and absolute count will include metamyelocytes, myelocytes, and promyelocytes. Blood smears from CBCs yielding IG's will be scanned manually for concordance. If this scan disagrees with the automated IG or if promyelocytes are noted, a manual differential will be performed. Immature Gran Absolute 0.01 0.00 - 0.04 x10(3)/[facility] Blood specimen (specimen) 06/09/2019 4:41 PM EDT 06/09/2019 5:00 PM EDT Narrative Resulting Agency Comment Spec In Lab Brett David MD HEMATOLOGY ORDERABL ES Performing Organization Address City/[facility]/ZIP Co de Phone Number [facility] [place] [address] * (ABNORMAL) Hemogram (06/09/2019 4:41 PM EDT) Pathologist [facility] White Blood Cell 6.7 4.0 - 9.5 x10(3)/ L [facility] Red Blood Cell 3.77(L) 4.00 - 5.21 x10(6)/ L [facility] Hemoglobin 12.5 11.7 - 15.5 gm/dL [facility] Hematocrit 38.2 35.7 - 45.8 % [facility] Mean Cell Volume 101.3(H) 82.6 - 94.4 fL [facility] Mean Cell Hemoglobin 33.2(H) 27.1 - 32.0 pg [facility] Mean Cell Hemoglobin Concentration 32.7 31.7 - 35.0 gm/dL [facility] Platelet 365(H) 145 - 357 x10(3)/[facility] RDW Standard Deviation 45.0 37.0 - 46.0 [facility] RDW coefficient of variation 12.1 11.5 - 14.1 % [facility] Mean Platelet Volume 9.6 7.6 - 12.9 fL [facility] NRBC% auto 0.0 % [facility] NRBC Absolute 0.000 0.000 - 0.000 x10(3)/[facility] Blood specimen (specimen) 06/09/2019 4:41 PM EDT 06/09/2019 5:00 PM EDT Narrative Resulting Agency Comment Spec In Lab Brett David MD HEMATOLOGY ORDERABL ES [facility] [place] [address] * Basic Metabolic Panel (non-fasting) (06/09/2019 4:41 PM EDT) [facility] Glucose 98 65 - 199 mg/dL [facility] Comment:Diabetes: >=200 mg/d L plus symptoms Blood Urea Nitrogen 15 8 - 18 mg/dL [facility] Creatinine 0.78 0.70 - 1.20 mg/dL [facility] Sodium 142 135 - 145 mmol/L [facility] Potassium 4.5 3.5 - 5.0 mmol/L [facility] Comment: Please note: ??Patients with WBC >100,000 may have falsely elevated Potassium levels. ??For accurate Potassium quantification in these patients send serum separator tube (gold top) for subsequent determinations. ??Contact the Clinical Chemistry Laboratory if there are any questions. Chloride 107 98 - 107 mmol/L [facility] Carbon Dioxide 24 22 - 31 mmol/L [facility] Anion Gap 11 5 - 15 mmol/L [facility] Calcium 9.4 8.5 - 10.5 mg/dL [facility] Est Glomerular Filtration Rate 82 >=60 mL/min/1. 73 m?? [facility] Comment: The eGFR was calculated using the CKD-EPI equation. As with all creatinine based estimates of kidney function, eGFR values calculated with the CKD-EPI equation are not accurate in patients with acute kidney failure, extremes of body mass or the acutely ill. http://First Meta/[facility] TULSAnkf eGFR 95 >=60 mL/min/1. 73 m?? [facility] Comment: The eGFR was calculated using the CKD-EPI equation. As with all creatinine based estimates of kidney function, eGFR values calculated with the CKD-EPI equation are not accurate in patients with acute kidney failure, extremes of body mass or the acutely ill. http://First Meta/DHMCnkf Blood specimen (specimen) 06/09/2019 4:41 PM EDT 06/09/2019 5:00 PM EDT Narrative Resulting Agency Comment Spec In Lab Brett David MD CHEMISTRY ORDERABLE S [facility] [place] [address] * Prothrombin Time (06/09/2019 4:41 PM EDT) Prothrombin Time 11.0 9.4 - 12.5 sec [facility] International Normalization Ratio 1.0 [facility] Comment: An INR <2.0 indicates adequate procoagulant activity for hemostasis in most patients without underlying bleeding disorders, though the INR may not adequately reflect hemostatic capacity in patients with liver disease and synthetic impairment. The recommended target INR range for therapeutic anticoagulation is 2.0 ? 3.0 for most applications, though lower and higher ranges may be appropriate depending on clinical circumstances. Blood specimen (specimen) 06/09/2019 4:41 PM EDT 06/09/2019 5:00 PM EDT Narrative Resulting Agency Comment Spec In Lab Brett David MD HEMATOLOGY ORDERABL ES Performing Organization Address [facility] Co de Phone Number [facility] [place] [address] * APTT (06/09/2019 4:41 PM EDT) Partial Thromboplastin Time 28 25 - 37 sec [facility] Comment: The PTT is NOT appropriate for heparin monitoring. Use the Anti-Xa level for heparin monitoring (HEP UFH) or LMWH monitoring (HEP LMW). A PTT less than 37 seconds generally indicates adequate hemostasis. Blood specimen (specimen) 06/09/2019 4:41 PM EDT 06/09/2019 5:00 PM EDT Narrative Resulting Agency Comment Spec In Lab Brett David MD HEMATOLOGY ORDERABL ES Performing Organization Address City/[facility] Co de Phone Number [facility] [place] [address] documented in this encounter Visit Diagnoses Diagnosis Primary osteoarthritis of right hip Primary localized osteoarthrosis, pelvic region and thigh Debility Debility, unspecified Pain in extremity, unspecified extremity Pain of left lower extremity Primary osteoarthritis of both hips Primary localized osteoarthrosis, pelvic region and thigh documented in this encounter Care Teams Ict Sales Representative Relationship Specialty Start Date End Date Yadira Llanes PA [address] [place] [address] PCP - General Family Medicine 04/17/19 documented as of this encounter
--- OUTSIDE RECORDS SUMMARY | 2024-04-21 04:21 | XMS_ITS | Encounter Summary ---
Author Organization [facility] Address [facility] [place] [address] Care Team Providers Care Arm Rest Builder Name Role Phone Yadira Llanes Primary Care Provider [phone] Reason for Visit * Reason Onset Date Comments Questions 04/17/2019 Encounter Details Date Type Department Care Team (Late st Contact Info) Description 04/17/2019 Telephone [place] [id number] Brett David MD [facility] [place] [address] Questions Social History Tobacco Use Types Packs/Day Years [...] encounter Miscellaneous Notes * Telephone Encounter - Iram Royal - 04/17/2019 2:39 PM EDT Mag called into the CC today regarding questions about her upcoming surgery. She had questions onwhen she should stop taking Meloxicam, Excedrin, and tylenol. We discussed that she needed to stop taking the Meloxicam and Excedrin 7 days before surgery. She will also be seeing her PCP next week to complete her H&P and lab work that is needed priorto surgery. documented in this encounter Plan of Treatment Upcoming Encounters Date Type Department Care Team (Late st Contact Info) Description 06/25/2024 1:00 PM EDT Office Visit Dermatology at [address] [place] [address] Skyla Campbell MD [facility] [address] [place] [address] documented as of this encounter Visit Diagnoses Not on filedocumented in this encounter Care Teams Arm Rest Builder Relationship Specialty Start Date End Date Yadira Llanes PA [address] [place] [address] PCP - General Family Medicine 04/17/19 documented as of this encounter
--- OUTSIDE RECORDS SUMMARY | 2024-04-21 04:21 | XMS_ITS | Encounter Summary ---
Author Organization [facility] Address [facility] [place] [address] Care Team Providers Care Chef Kitchen Manager Name Role Phone Yadira Llanes Primary Care Provider [phone] Encounter Details Date Type Department Care Team (Late st Contact Info) Description 05/08/2019 Telephone [place] [address] [facility] [place] [address] Social History Tobacco Use Types Packs/Day Years [...] Telephone Encounter - Marlene Riley - 05/08/2019 10:35 AM EDT Mag called the AT phone line with questions regarding the physical therapy referral that I had entered and sent for her. She was concerned that the physical therapy was placed for another inpatientphysical therapy and wanted to ensure it was for outpatient and that they would call her. I ensuredthat the order was placed for outpatient physical therapy and that they would contact her once the referral had gone through. No further question/concerns at this time documented in this encounter Plan of Treatment Upcoming Encounters Date Type Department Care Team (Late st Contact Info) Description 06/25/2024 1:00 PM EDT Office Visit Dermatology at [facility] [address] [place] [address] [facility] [address] [address] documented as of this encounter Visit Diagnoses Not on filedocumented in this encounter Care Teams Chef Kitchen Manager Relationship Specialty Start Date End Date Yadira Llanes PA [address] [place] [address] PCP - General Family Medicine 04/17/19 documented as of this encounter
--- OUTSIDE RECORDS SUMMARY | 2024-04-21 04:21 | XMS_ITS | Encounter Summary ---
Author Organization [facility] [place] [address] Care Team Providers Care Patient Scheduling Manager Name Role Phone Unavailable Primary Care Provider Unavailabl e Encounter Details Date Type Department Care Team (Late st Contact Info) Description 03/31/2019 Orders [place] [address] Brett David MD [facility] [address] Bilateral hip pain; Left knee pain, unspecified chronicity Social History Tobacco Use Types Packs/Day Years [...] Dermatology at [facility] [address] [place] [address] Skyla Campbell MD [facility] [address] [address] documented as of this encounter Visit Diagnoses Diagnosis Bilateral hip pain Pain in joint, pelvic region and thigh Left knee pain, unspecified chronicity documented in this encounter
--- OUTSIDE RECORDS SUMMARY | 2024-04-21 04:21 | XMS_ITS | Encounter Summary ---
Author Organization [facility] Address [facility] [place] [address] Care Team Providers Care Core Drilling Supervisor Name Role Phone Yadira Llanes Primary Care Provider [phone] Reason for Visit * Reason Comments Bilateral Hip Pain Left Knee pain * Consultation (Routine) - Closed Specialty Diagnoses / Procedures Referred By Ray t Referred To Contact Orthopaedics Diagnoses BILAT HIP-? DARRELL Self mail [facility] [address] [place] [address] Referral ID Status Reason Start Date Expiration Date V isits Requested Visits Authorized [id number] Closed Consult, Test & Treat 02/21/2019 02/21/2020 1 1 Encounter Details Date Type Department Care Team (Latest Contact Info) Description 04/14/2019 9:00 AM EDT Office [place] [id number] Brett Silver MD [facility] [place] [address] Debility; Pain of left lower extremity; Primary [...] Sign Reading Time Taken Comments Blood Pressure 142/66 04/14/2019 8:47 AM EDT Pulse 69 04/14/2019 8:47 AM EDT Temperature - - Respiratory Rate - - Oxygen Saturation - - Inhaled Oxygen Concentration - - Weight 71.2 kg (157 lb) 04/14/2019 8:47 AM EDT w eighed Height 159.4 cm (5' 2.76) 04/14/2019 8:47 AM ED T measured Body Mass Index 28.03 04/14/2019 8:47 AM EDT documented in this encounter Progress Notes * Wesley Cortez MD - 04/14/2019 9:00 AM EDT Images from the original note were not included. Department of Orthopaedics Division of Adult Joint Reconstructive Surgery ARTHROPLASTY HISTORY/PREVIOUS HIP SURGERY: 1. Bilateral hip injection 02/09/2019 Subjective: Mag Rider is a 63 y.o. female who presents with Bilateral hip pain. she notes the bilateral hip is more symptomatic. Onset of the symptoms was several years ago. There was not an inciting event. She has had no prior hip problems. Mag's previous visits for this problem: none. Evaluationto date: plain films, which were abnormal severe bilateral hip arthritis, left worse than right. Previously she was a very active runner. Approximately six years ago she transitioned to walking and is now only able to bike. She reports she was able to bike up to 12 miles per day however she has almost completely stop this activity. She underwent bilateral hip injections in February 2019. This provided her with approximately three days of 95% relief. This was done under fluoroscopic guidance. Mag reports the hip pain is groin, buttock and lateral. She does report groin pain, does Not dorse thigh pain and does feel as if she walks with a limp. There is little radiation of the pain to theknee. Aggravating symptoms include: any weight bearing, going up and down stairs, running, squatting and walking. She feels that her hip pain is keeping her from activities of daily living. Mag has no pain at night.. She can weight bear on the both legs and does not use assistive devices. She climb stairs and does use the railing. She does have difficulty putting on her shoes and socks. She can sit comfortably in a chair. Mag has not tried physical therapy. She has injections into the joint: Cortisone. Use of NSAIDs/Pain meds: Meloxicam used and beneficial She does reports problems with the contralateral hip, does report problems with the ipsilateral knee and does not have a history of spine or back issues REVIEW OF SYSTEMS: Mag denies fevers, chills, night sweats, nausea, or vomiting. She does not endorse a history of DVT/PE or clotting disorder. QUESTIONNAIRE RESPONSES: General Health, Prior Treatments, PreExisting Condition, Health Habits, About You 04/14/2019 HOOS JR Scores 85.26 KOOS JR Scores 59.38 Orthope[facility]ics [facility] Response 04/14/2019 HOOS JR Scores 85.26 KOOS JR Scores 59.38 Spine [facility] Response 04/14/2019 HOOS JR Scores 85.26 KOOS JR Scores 59.38 ALLERGIES Allergies Allergen Reactions ??? Codeine N & V Allergies to metals: None. SOCIAL HISTORY: reports that she has never smoked. She has never used smokeless tobacco. She reports that she does not drink alcohol or use drugs. 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 Primary osteoarthritis of both hips M16.0 Objective: BP 142/66 Pulse 69 Ht 159.4 cm (5' 2.76) Comment: measured Wt 71.2 kg (157 lb) Comment: weighed BMI 28.03 kg/m?? General : alert, appears stated age and cooperative Gait: Abnormal. The patient can bear weight on the injured extremity. I have made the following determinations: Hip Exam: Right Prior surgery on this joint: No Leg length: Longer leg: right Limb Length discrepancy: 0.5cm Motion: Flexion contracture: 0 Total degrees of Flexion:110 Total degrees of Abduction:40 Total degrees of Ext Rotation: 35 Total degrees of Internal Rotation: 0 Gait Abnormality: Normal Radiographic evidence of joint damage: [0= normal; 1=minimal ; 2= some osteophytes , some narrowing ; 3= moderate osteophytes, significantnarrowing, mild deformity; 4= large osteophytes, marked narrowing, obvious deformity]: 4= large osteophytes, marked narrowing, obvious deformity Skin Integrity: Normal Pulses Palpable: Right PT: Yes Right DP:Yes Motor/Sensory: Right Distal Motor: Normal Distal Sensory: Normal Hip Abductors: 5 Trendelenburg test: negative I have made the following determinations: Hip Exam: Left Prior surgery on this joint:No Leg Length: Longer leg: right Limb Length discrepancy: 0.5cm Motion: Flexion contracture: 0 Total degrees of Flexion: 115 Total degrees of Abduction: 45 Total degrees of Ext Rotation: 40 Total degrees of Internal Rotation: 5 Gait Abnormality: Antalgic Radiographic evidence of joint damage: [0= normal; 1=minimal ; 2= some osteophytes , some narrowing ; 3= moderate osteophytes, significantnarrowing, mild deformity; 4= large osteophytes, marked narrowing, obvious deformity]: 4= large ostophytes, marked narrowing, obvious deformity Skin Integrity: Normal Pulses Palpable: Left PT: Yes Left DP: Yes Motor/Sensory: Left Distal Motor: Normal Distal Sensory: Normal Hip Abductors: 5 Trendelenburg test: positive Imaging: X-ray bilaterally: no fracture, dislocation, swelling or degenerative changes noted and with subchondreal cysts present on right and osteophyte formation bilateral. Assessment: Ms. Rider is a 63 y.o. year old female with severe osteoarthritis of her bilateral hip. Plan: Natural history and expected course discussed. Questions answered. Educational materials distributed. NSAIDs per medication orders. We reviewed the multiple treatment options available to her for this condition and the hurtful but non-harmful nature of arthritis. Both operative and nonoperative options were discussed as well as the pure elective nature of each. I reviewed the concept of the arthritis ladder with its step-meredith approach, rising in invasiveness based on either previous response or symptom severity/impact on lifestyle. Considering the apparent impact on her lifestyle and having explored non- operative treatment options, I indicated that in my opinion total hip arthroplasty would be a reasonable option to attempt to restore a more normal, pain-free level of function. I discussed how the procedure is performed and all of their questions were answered. I discussed the risks of the procedure and the potentially devastating consequences of complications. Ms. Rider expressed a desire to pursue total hip arthroplasty. We discussed the risks and benefits of operative nonoperative treatment. She would like to pursue arthroplasty as her left hip is a more sympathetic side we will start with her left hip. The wrist and specifically include infection, bleeding, nerve injury, problems with healing problems with anesthesia and medical complications including dislocation, fracture, need for revision surgery and major medical complications. Potential barriers to total joint arthroplasty: -BMI > 40: No -Active Tobacco use: No -Diabetes with hemoglobin A1C > 7.5: No She will seek out the needed medical clearance and undergo the needed testing to ensure medical suitability for the proposed surgical intervention. I will plan to meet her again in the weeks prior jason anticipated potential surgical date, to review her medical consult and testing, answer any and all questions, and formulate our definitive decisions regarding proceeding with surgery (or not) at that time only. Wesley Cortez MD * Brett Silver MD - 04/14/2019 9:00 AM EDT Images from the original note were not included. Department of Orthopaedics Division of Adult Joint Reconstructive Surgery April 14, 2019 I had the pleasure of evaluating Mag Rider in clinic in conjunction with Dr. Cortez. I have seen the patient and reviewed the history/physical and I agree with the details as written. The assessment and plan were formulated in discussion with me and I agree with them as documented. Ms. Rider is a 63 y.o. year old female with osteoarthritis of her bilateral hips left greater than right. She had progressive pain for many months. Her pain is predominantly in her groin. She is to be much more avid and activity specifically running and biking long distances but can no longer do this secondary to the pain. She reports her left hip is being significantly worse than her right hip. She is undergone intra-articular injections in the past with moderate relief. At this point she is entertaining the thought of joint replacement. We reviewed the multiple treatment options available to her for this condition. Both operative and nonoperative options were discussed as well as the pure elective nature of each. I reviewed the concept of the arthritis ladder with its step-meredith approach, rising in invasiveness based on either previous response or symptom severity/impact on lifestyle. At this point in time she would like to proceed with left total hip replacement and I think this isreasonable. We did discuss bilateral total hip replacement versus just starting with the left side. Because herleft side is most symptomatic right now I do think it is reasonable to proceed with a left hip replacement. We also discussed the difficulties in scheduling bilateral hip replacement as well as the greater surgical stress for elective surgery. Brett Silver MD, MS Cath Lab Tech, Division of Adult Reconstructive Aquaculture Farm ManagerAutomotive General Sales Manager of Orthopaedics Department of Orthopaedics [facility] [phone] [email or web address] * Mavis Lopez - 04/14/2019 9:00 AM EDT Patient is instructed to administer Mupirocin into the nares twice daily starting 5 days prior to surgery date. Additional instructions given to patient at time medication was dispensed. Patient was given Hibiclens to use the night before and the morning of surgery. documented in this encounter Miscellaneous Notes * Addendum Note - Mavis Lopez - 04/14/2019 9:00 AM EDTAddended by: MAVIS LOPEZ on: 04/18/2019 08:56 AM Modules accepted: Orders * Addendum Note - Brett Silver MD - 04/14/2019 9:00 AM EDTAddended by: BRETT SILVER on: 04/20/2019 09:12 PM Modules accepted: Orders documented in this encounter Plan of Treatment Upcoming Encounters Date Type Department Care Team (Late st Contact Info) Description 06/25/2024 1:00 PM EDT Office Visit Dermatology at [place] [address] [place] [address] Skyla Campbell MD [facility] [address] [facility] [address] documented as of this encounter Procedures Procedure Name Priority Date/Time Associated Diagnosis Comments TOTAL HIP ARTHROPLASTY, ANTERIOR APPROACH Routine 04/14/2019 9:29 AM EDT documented in this encounter Results * APTT (06/09/2019 4:41 PM EDT) Partial Thromboplastin Time 28 25 - 37 sec [facility] Comment: The PTT is NOT appropriate for heparin monitoring. Use the Anti-Xa level for heparin monitoring (HEP UFH) or LMWH monitoring (HEP LMW). A PTT less than 37 seconds generally indicates adequate hemostasis. Blood specimen (specimen) 06/09/2019 4:41 PM EDT 06/09/2019 5:00 PM EDT Narrative Resulting Agency Comment Spec In Lab Brett Silver MD HEMATOLOGY ORDERABL ES Performing Organization Address [facility] de Phone Number [facility] [place] [address] * Prothrombin Time (06/09/2019 4:41 PM EDT) Prothrombin Time 11.0 9.4 - 12.5 sec [facility] International Normalization Ratio 1.0 [facility] Comment: An INR <2.0 [...] Resulting Agency Comment Spec In Lab Brett Silver MD HEMATOLOGY ORDERABL ES Performing Organization Address [facility] Co de Phone Number [facility] [place] [address] * Basic Metabolic Panel (non-fasting) (06/09/2019 4:41 PM EDT) Glucose 98 65 - 199 mg/dL [facility] Comment:Diabetes: >=200 mg/d L plus symptoms Blood Urea Nitrogen 15 8 - 18 mg/dL [facility] Creatinine 0.78 0.70 - 1.20 mg/dL [facility] Sodium 142 135 - 145 mmol/L [facility] Potassium 4.5 3.5 - 5.0 mmol/L [facility] Comment: Please note: ??Patients with WBC >100,000 may have falsely elevated Potassium levels. ??For accurate Potassium quantification in these patients send serum separator tube (gold top) for subsequent determinations. ??Contact the Clinical Chemistry Laboratory if there are any questions. Chloride 107 98 - 107 mmol/L [facility] Carbon Dioxide 24 22 - 31 mmol/L [facility] Anion Gap 11 5 - 15 mmol/L [facility] Calcium 9.4 8.5 - 10.5 mg/dL [facility] Est Glomerular Filtration Rate 82 >=60 mL/min/1. 73 m?? [facility] Comment: The eGFR was calculated using the CKD-EPI equation. As with all creatinine based estimates of kidney function, eGFR values calculated with the CKD-EPI equation are not accurate in patients with acute kidney failure, extremes of body mass or the acutely ill. [email or web address] eGFR 95 >=60 mL/min/1. 73 m?? [facility] Comment: The eGFR was calculated using the CKD-EPI equation. As with all creatinine based estimates of kidney function, eGFR values calculated with the CKD-EPI equation are not accurate in patients with acute kidney failure, extremes of body mass or the acutely ill. [email or web address] Blood specimen (specimen) 06/09/2019 4:41 PM EDT 06/09/2019 5:00 PM EDT Narrative Resulting Agency Comment Spec In Lab Brett Silver MD CHEMISTRY ORDERABLE S [facility] [place] [address] * XR Pelvis and Hip 2 Views [...] below. ? Electronically signed by: Aneesh Orellana [facility] ([phone]), at 06/09/2019 2:44 PM Narrative 06/09/2019 2:44 [...] number below. Electronically signed by: Aneesh Orellana [facility]([phone]), at 06/09/2019 2:44 PM Brett Silver MD IMG DX ORDERABLES documented in this encounter Visit Diagnoses Diagnosis Debility Debility, unspecified Pain of left lower extremity Primary osteoarthritis of both hips Primary localized osteoarthrosis, pelvic region and thigh Debility Debility, unspecified Pain of left lower extremity Primary osteoarthritis of both hips Primary localized osteoarthrosis, pelvic region and thigh documented in this encounter Care Teams Core Drilling Supervisor Relationship Specialty Start Date End Date Yadira Llanes PA [address] [place] [id number] PCP - General Family Medicine 04/17/19 documented as of this encounter
--- OUTSIDE RECORDS SUMMARY | 2024-04-21 04:21 | XMS_ITS | Encounter Summary ---
Author Organization [facility] Address [facility] [place] [address] Care Team Providers Care Environmental Health Nurse Name Role Phone Yadira Llanes Primary Care Provider [phone] Reason for Visit * Auth/Cert Specialty Diagnoses / Procedures Referred By Ray cornelius Referred To Contact Diagnoses Hip osteoarthritis Procedures PRO TOTAL HIP ARTHROPLASTY PRG RADEX HIP UNILATERAL WITH PELVIS MINIMUM 4 VIEWS @TOTAL HIP ARTHROPLASTY, ANTERIOR APPROACH (WRVU 20.72) HIP INTRAOP RADIOLOGIC EXAMINATION, UNILATERAL, W PELVIS; 4+ VIEWS (WRVU 0.27) MODIFIER HOLM & NEPHEW - POLAR STEM CEMENTLESS MODIFIER HOLM & NEPHEW - R3 ACETABULAR CUP Referral ID Status Reason Start Date Expiration Date Visits Re quested Visits Authorized [id number] 1 1 Encounter Details Date Type Department Care Team (Late st Contact Info) Description 04/29/2019 7:35 AM EDT - 04/29/2019 10:03 AM EDT Surgery [place] [address] Brett David MD [facility] DR [place] [address] TOTAL HIP ARTHROPLASTY, ANTERIOR APPROACH (WRVU 19.6) Social History Tobacco Use Types Packs/Day Years [...] Sign Reading Time Taken Comments Blood Pressure 162/65 04/29/2019 10:00 AM EDT Pulse 92 04/29/2019 9:09 AM EDT Temperature 36.6 ??C (97.9 ??F) 04/29/2019 9:09 AM ED T Respiratory Rate 21 04/29/2019 10:00 AM EDT Oxygen Saturation 98% 04/29/2019 10:00 AM EDT Inhaled Oxygen Concentration - - Weight 68.9 kg (152 lb) 04/29/2019 6:44 AM EDT Height 162.6 cm (5' 4) 04/29/2019 6:44 AM EDT Body Mass Index 26.09 04/29/2019 6:44 AM EDT documented in this encounter Discharge Summaries * Wesley Tovar PA - 04/29/2019 7:27 AM EDT Images from the original note were not included. Discharge Summary Patient Name: Mag Rider Patient Age: 63 y.o. Language: Omani Race: White Ethnicity: Not nor Admit date: 04/29/2019 Discharge date and time: 04/30/2019 Attending Physician: Brett David MD Discharge Physician: Brett David MD Follow-up Recommendations for Providers: See discharge instructions for additional details. Future Appointments Date Time Provider Department Center 06/09/2019 2:[address] [facility] DX ROOM [address] [facility] Rad 06/09/2019 3:00 PM Brett David MD [facility] Inpatient Provider Contact Information: Brett David MD Orthopedics: [phone] After hours and weekends, call [facility] Electrical Tech/Project Manager, , and have the Orthopedic resident paged. Discharge Diagnoses (Hospital Problems) and Secondary Diagnoses (Chronic Problems): Active Hospital Problems Diagnosis ??? Status post total replacement of left hip, DAA. Dr. David. 04/29/2019 Resolved Hospital Problems No resolved problems to display. Active Non-Hospital Problems Diagnosis ??? Primary osteoarthritis of both hips Operations/Major Procedures: 04/29/2019 Surgeon(s) and Role: * Brett David MD - Primary Procedure(s): @TOTAL HIP ARTHROPLASTY, ANTERIOR APPROACH (WRVU 20.72) HIP INTRAOP RADIOLOGIC EXAMINATION, UNILATERAL, W PELVIS; 4+ VIEWS (WRVU 0.27) MODIFIER HOLM & NEPHEW - POLAR STEM CEMENTLESS MODIFIER HOLM & NEPHEW - R3 ACETABULAR CUP History of Presentation: Mag Rider is a 63 y.o. female Ms. Rider is a 63 y.o. year old female who has beenfollowed in the out-patient clinic with a history of progressively worsening left hip pain secondary to degenerative arthritis. After having failed conservative, non-surgical attempts at managing thepain and limitations of functional capabilities, it was felt that the only remaining option was surgical. A detailed conversation regarding the risks and benefits of hip arthroplasty surgery was had with the patient. The risks discussed included but were not limited to: bleeding (which may or may not require transfusion), infection, damage to nerves (specifically the LFCN) or blood vessels, deep v enous thrombosis, pulmonary embolus, prosthetic failure, loosening, prosthetic fracture, femur or pelvic fracture, dislocation, leg-length inequality, persistent pain, need for future surgery, medical complications (including cardiac, respiratory and neurologic complications), anaesthetic complications, and . Subsequent to this conversation, all of the patient???s questions were answered in great detail and informed consent was obtained for a left total hip arthroplasty. She received preoperative medical clearance and was felt optimized for surgery. Today, she identified the left hip as the correct operative side. Hospital Course: The patient was admitted via [facility] for the above operation. DVT prophylaxis was: ASA 81mg BID for 30 days. Patient began rehab on POD#1 for weight bearing as tolerated of bilateral legs. No Rodriguez and no drains were used for the procedure. Patient was voiding spontaneously. Wound inspected POD#0 and found to be benign. Patient did not have a bowel movement prior to discharge but was passing flatus and was taking a diet without difficulty. By POD#0 the patient was medically stable and was cleared for safe discharge to home per PT. Vital Signs at Discharge: Weight: Wt Readings from Last 1 Encounters: 04/29/19 68.9 kg (152 lb) Height: Ht Readings from Last 1 Encounters: 04/29/19 162.6 cm (5' 4) HC: HC Readings from Last 1 Encounters: No data found for HC BMI: Body mass index is 26.09 kg/m??. Last value Range last 24 hrs Temperature Temp: 36.1 ??C (97 ??F) Temp: [36.1 ??C (97 ??F)-36.8 ??C (98.2 ??F)] Heart Rate Heart Rate: 59 Heart Rate: [53-92] Blood Pressure BP: 119/58 BP: (119-162)/(55-68) Respiratory Rate Resp: 16 Resp: [16-23] SpO2 SpO2: 98 % SpO2: [96 %-100 %] Art BP BP (Arterial Line): -- Functional and Cognitive Status: Patient mobilizing with walker, cognitively intact at baseline mental status at time of discharge. Important Lab Data: Last wbc, hgb, hct plt No results for input(s): WBC, HGB, HCT in the last 72 hours. Invalid input(s): PLT Studies: Scan Doc: Diagnostic Radiology Result Date: 04/11/2019 Ordered by an unspecified provider. Pending Studies and Lab Data at Discharge: None Transfusions: No Discharge Conditions/Prognosis: Stable, awake, and alert. Mobilizing as noted above, pain controlled on oral medications. Discharge to: Home Updated Allergies/ADRs: Allergies Allergen Reactions ??? Codeine Nausea And Vomiting N & V Immunizations Given this Hospitalization: There is no immunization history on file for this patient. Discharge Medications: Your Medications New Medications Dose Details aspirin 81 mg Tbec Take 1 tablet by mouth 2 times daily for 30 days. 81 mg Quantity: 60 tablet Refills: 0 gabapentin 300 mg Cap Commonly known as: NEURONTIN Take 1 capsule by mouth every evening for 30 days. 300 mg Quantity: 30 capsule Refills: 0 naproxen 500 mg Tbec Commonly known as: EC NAPROSYN Take 1 tablet by mouth 2 times daily (with meals) for 36 days. 500 mg Quantity: 60 tablet Refills: 1 omeprazole 20 mg Cpdr Commonly known as: PriLOSEC Take 1 capsule by mouth daily for 30 days. Please take for 6 weeks post-op. 20 mg Quantity: 30 capsule Refills: 1 oxyCODONE 5 mg Tab Commonly known as: ROXICODONE Take 1-2 tablets by mouth every 4 hours as needed for Pain. 5-10 mg Quantity: 50 tablet Refills: 0 polyethylene glycol 17 gram Pwpk Commonly known as: MIRALAX Take 17 g by mouth daily as needed. 17 g Quantity: 14 each Refills: 0 senna-docusate 8.6-50 mg Tab Commonly known as: PERICOLACE Take 1 tablet by mouth 2 times daily. 1 tablet Quantity: 60 tablet Refills: 11 Continued medications with new dosing Dose Details * acetaminophen 500 mg Tab Commonly known as: TYLENOL Take 2 tablets by mouth every 6 hours as needed for Pain for up to 10 days. What changed: ?? medication strength ?? how much to take ?? when to take this ?? reasons to take this 1,000 mg Quantity: 30 tablet Refills: 1 * acetaminophen 500 mg Tab Commonly known as: TYLENOL Take 1 tablet by mouth every 4 hours. What changed: You were already taking a medication with the same name, and this prescription was added. Make sure you understand how and when to take each. 500 mg Quantity: 30 tablet Refills: 1 * This list has 2 medication(s) that are the same as other medications prescribed for you. Read thedirections carefully, and ask your doctor or other care provider to review them with you. STOPPED Medications meloxicam 7.5 mg Tab Commonly known as: MOBIC mupirocin 2 % Oint Commonly known as: BACTROBAN Smoking Status at Discharge: Social History Tobacco Use Smoking Status Never Smoker Smokeless Tobacco Never Used Instructions for Rehab Providers or PCP: 1. Anticoagulation: ASPIRIN take 81mg twice a day for 30 days. Last day = 05/29/2019 2. Activity: Standard: Full weight bearing as tolerated using walker/crutches at all times for balance and protection. Patient should transition from sit to stand and stand to sit utilizing a broad based stance with feet and knees wider than hips. 3. Diet: Regular but increase fluids and fiber while on narcotic pain meds. 4. [place]/Sutures: No external noel or sutures inplace. Sutures are internal and will be absorbed over time. 5. Dressing (Mepilex): Remove operative dressing 7 days from surgery (05/06/2019). When it is removed can leave the incision open to air or cover it with a light dressing. If +++ drainage and it is before 05/06/2019, remove this operative dressing and replace it with dry sterile gauze. Continue with daily dressing changes (and as needed) until the drainage stops, then remove the dressing and leave the incision open to air or lightly covered. 6. Shower: (Mepilex) yes but lightly pat the operative dressing dry if it becomes wet. DO NOT submerge the dressing/incision. 7. Aggressive bowel regimen - LBM = Miralax / Senna PRN. 8. Physical therapy per referral/order Instructions Given to Patient at Discharge: Patient Instructions Activity: 1. Your weight-bearing status is - weight bearing as tolerated of bilateral legs. 2. Remember to use a walker or [...] for 30 days. After your dose on 05/29/2019 stop the Aspirin, unless you are told otherwise by your Orthopedic surgeon. Take this medication with food or large amounts (240 mL) of water or milk tominimize GI irritation. Diet: Resume your usual diet [...] bowel movement. You can also take an ufdd-olj-mjtncpf medication, Miralax if needed to combat constipation. 2. If you need a renewal on your narcotic pain medication, you need to give the Orthopedic clinic enough time to process your request. This can take up to three days, so plan accordingly. 3. Continue acetaminophen (Tylenol) 1,000mg every 8 hours around the clock until 05/09/2019 (for tendays after your surgery). This can be effective in controlling pain along with your other medications. After that you can take Tylenol as needed per package insert. Do not take more than 3,000mg of acetaminophen in a 24 hour period. 4. You have been discharged on a short acting narcotic, Tramadol. You will be on this medication for a limited period of time only. Take the smallest dose possible to control your pain. As your pain improves take smaller, less frequent doses. You may break the tablet to achieve a smaller dose. 5. You are being discharged on prescription strength naproxen (Aleve). This medication is a type ofnonsteroidal anti-inflammatory (NSAID). This will help with your pain and inflammation. Take this twice a day for the next 6 weeks. Your last dose will be on . If you no longer are requiring the narcotic pain medication you may change the way you take the prescribed naproxen and instead take twice a day as needed. 6. You are being discharged on a proton pump inhibitor (Omeprazole). This will decrease stomach irritation that may [...] operative dressing 7 days after your surgery (05/06/2019). When it is removed you can leave the incision open to air or cover it with a light dressing. Some patients have an additional item called Prineo on their skin. If you have this it will appear as a mesh dressing directly over the incision. Please leave this in place until your follow up with orthopedics. 3. If you have lots of drainage when you get home (and it is before 05/06/2019), remove the operative dressing and replace it with dry sterile gauze. [...] as much as possible. Call your doctor ([phone]) if you develop: 1. Fever greater than 100.5 2. Severe nausea or vomiting 3. Increasing pain that is not controlled by pain medications 4. Increasing redness, swelling, or drainage from incisions 5. Change in sensation FOLLOW-UP APPOINTMENTS: 1. You will have follow-up appointments at [facility] as indicated below in Future Appointment and Orders. 2. You will need to have x-rays prior to your follow-up appointment on 06/09/2019. Please come to Radiology, desk 3T, 1 hour BEFORE that appointment for these x-rays. Future Appointments Date Time Provider Department Center 06/09/2019 2:[address] [facility] DX ROOM 3 Xray [facility] 06/09/2019 3:00 PM Brett David MD [address] If you have questions or concerns: Sunday through Sunday, 8 AM - 5 PM, please call Dr. Brett David MD's office at . If it is after 5 PM, the weekend, or holidays, please call and ask to speak with theOrthopedic resident on-call. General Instructions None Future Appointments and Orders Future Appointments and Orders Future Appointments Provider Department Dept Phone 06/09/2019 2:[address] [facility] DX ROOM 3 XRay at [place] Arrive at: Seam Press Operator Area 3T [phone] Please go to Seam Press Operator Area 3T ([place] Location). 06/09/2019 3:00 PM Brett David MD Orthopaedics at [facility] Arrive at: Seam Press Operator Area 3C [phone] Future Orders Complete By Expires Full code [COD2 Custom] As directed Process Instructions: 1. Completing this order indicates that the recording provider had a discussion with the patient and/or their agent regarding their wishes for resuscitation. 2. If the patient does not have decision making capacity, the provider must document within the order and in the contemporaneous progress note which of the patient's agents the discussion was held with. 3. If this Full Code Order is a revocation or cancellation of a previous DNR order and the providerrecording this order in the system is not the Attending of Record, then the recording provider willhave discussed this order with the Attending of Record and is documenting the decision of the Attending of Record obtained through explicit verbal review. Scheduling Instructions: Questions: Does patient have capacity to make decision: Yes Content of discussion: Referral to Home Health - at DISCHARGE [TBP6335 CPT(R)] As directed Process Instructions: Scheduling Instructions: Comments: DOCUMENTATION FOR VNA SERVICES (INCLUDING THOSE PATIENTS WITH MEDICARE COVERAGE REQUIRING HOME VNA SERVICES AND/OR HOSPICE SERVICES) This is preliminary information related to the patient's needs and confirmation of Face to Face Encounter. The denoted information will require completion and an electronic signature by the physicianupon finalization of these orders. PATIENT'S LOCATION: Home Address: [address] [place] [address] Tel. #: [phone] Clay Hoister's Name: self In discussion with the attending physician, it is certified that this patient is under their care and that they, or a nurse practitioner, clinical nurse specialist or physician's showroom sales assistant who is working directly with them, had a face to face encounter that meets the physician face to face encounter requirements with this patient on 04/29/2019. The encounter with the patient was in whole, or in part, for the following medical condition, whichis the primary reason for home health care services: s/p DARRELL In discussion with the provider, it is certified that, based on their findings, the following services are medically necessary for home health services. SERVICES REQUESTED: RN () COATINGS INSPECTOR (X) OT (X) PT (X) ST () WORKPLACE RELATIONS ADVISER () Hospice () To provide the following care/treatments with the clinical findings supporting the need for services as follows: HOME CARE ORDERS: PT 2/week, OT 2/week, COATINGS INSPECTOR to assess for shower safety and possible tub bench START OF CARE DATE: within 24 hours of discharge All VNA agencies which cover the area of patient's residence have been reviewed, either verbally erick writing, and patient/family have chosen the home health care agency as follows for home services: HOME HEALTH CARE AGENCY: [facility] Ordering Provider: Dr. Brett David Ordering Provider Phone #: [phone] [place] [phone] Questions: Agency name and contact information: [facility] Patient location post discharge: Home What services are requested: Physical Therapy Occupational Therapy Home Health Aide Start date: 04/30/2019 Responsible MD post discharge contact info: Dr. David Primary Care Provider: JOE Albrecht [phone] Discharge References/Attachments None Click refresh button immediately prior to signing DCS to ensure all cabrera are updated. documented in this encounter Discharge Instructions * Patient Instructions* Wesley Tovar PA - 04/29/2019 7:25 AM EDT Activity: 1. Your weight-bearing status is - weight bearing as tolerated of bilateral legs. 2. Remember to use a walker or [...] for 30 days. After your dose on 05/29/2019 stop the Aspirin, unless you are told otherwise by your Orthopedic surgeon. Take this medication with food or large amounts (240 mL) of water or milk tominimize GI irritation. Diet: Resume your usual diet [...] bowel movement. You can also take an cyzi-aqj-zkwvxop medication, Miralax if needed to combat constipation. 2. If you need a renewal on your narcotic pain medication, you need to give the Orthopedic clinic enough time to process your request. This can take up to three days, so plan accordingly. 3. Continue acetaminophen (Tylenol) 1,000mg every 8 hours around the clock until 05/09/2019 (for tendays after your surgery). This can be effective in controlling pain along with your other medications. After that you can take Tylenol as needed per package insert. Do not take more than 3,000mg of acetaminophen in a 24 hour period. 4. You have been discharged on a short acting narcotic, Tramadol. You will be on this medication for a limited period of time only. Take the smallest dose possible to control your pain. As your pain improves take smaller, less frequent doses. You may break the tablet to achieve a smaller dose. 5. You are being discharged on prescription strength naproxen (Aleve). This medication is a type ofnonsteroidal anti-inflammatory (NSAID). This will help with your pain and inflammation. Take this twice a day for the next 6 weeks. Your last dose will be on . If you no longer are requiring the narcotic pain medication you may change the way you take the prescribed naproxen and instead take twice a day as needed. 6. You are being discharged on a proton pump inhibitor (Omeprazole). This will decrease stomach irritation that may [...] operative dressing 7 days after your surgery (05/06/2019). When it is removed you can leave the incision open to air or cover it with a light dressing. Some patients have an additional item called Prineo on their skin. If you have this it will appear as a mesh dressing directly over the incision. Please leave this in place until your follow up with orthopedics. 3. If you have lots of drainage when you get home (and it is before 05/06/2019), remove the operative dressing and replace it with dry sterile gauze. [...] as much as possible. Call your doctor ([phone]) if you develop: 1. Fever greater than 100.5 2. Severe nausea or vomiting 3. Increasing pain that is not controlled by pain medications 4. Increasing redness, swelling, or drainage from incisions 5. Change in sensation FOLLOW-UP APPOINTMENTS: 1. You will have follow-up appointments at [facility] as indicated below in Future Appointment and Orders. 2. You will need to have x-rays prior to your follow-up appointment on 06/09/2019. Please come to Radiology, desk 3T, 1 hour BEFORE that appointment for these x-rays. Future Appointments Date Time Provider Department Center 06/09/2019 2:[address] [facility] DX ROOM [address] [facility] Rad 06/09/2019 3:00 PM Brett David MD [address] If you have questions or concerns: Sunday through Sunday, 8 AM - 5 PM, please call Dr. Brett David MD's office at . If it is after 5 PM, the weekend, or holidays, please call and ask to speak with theOrthopedic resident on-call. documented in this encounter Medications at Time of Discharge Medication Sig Dispensed Refills Start Date End Date naproxen (EC NAPROSYN) 500 mg Tablet, Delayed Release (E.C.) Take 1 tablet by mouth 2 times daily (with meals) for 36 days. 60 tablet 1 04/30/2019 06/05/2019 omeprazole (PRILOSEC) 20 mg Capsule, Delayed Release(E.C.) Take 1 capsule by mouth daily for 30 days. Please take for 6 weeks post-op. 30 capsule 1 04/30/2019 05/30/2019 aspirin 81 mg Tablet, Delayed Release (E.C.) Take 1 tablet by mouth 2 times daily for 30 days. 60 tablet 04/30/2019 05/30/2019 acetaminophen (TYLENOL) 500 mg Tablet Take 2 tablets by mouth every 6 hours as needed for Pain for up to 10 days. 30 tablet 1 04/30/2019 05/10/2019 gabapentin (NEURONTIN) 300 mg Capsule Take 1 capsule by mouth every evening for 30 days. 30 capsule 04/30/2019 05/30/2019 acetaminophen (TYLENOL) 500 mg Tablet Take 1 tablet by mouth every 4 hours. 30 tablet 1 04/30/2019 06/19/2019 polyethylene glycol (MIRALAX) 17 gram Powder in Packet Take 17 g by mouth daily as needed. 14 each 04/30/2019 06/09/2019 senna-docusate (PERICOLACE) 8.6-50 mg Tablet Take 1 tablet by mouth 2 times daily. 60 tablet 11 04/30/2019 06/09/2019 oxyCODONE (ROXICODONE) 5 mg Tablet Take 1-2 tablets by mouth every 4 hours as needed for Pain. 50 tablet 04/30/2019 06/09/2019 documented as of this encounter Progress Notes * Jia Agudelo RN - 04/30/2019 1:14 PM EDT Mag Rider discharged per provider order to home via private vehicle. All IV???s removed.Discharge instructions reviewed with patient. All questions or concerns answered at this time. Patient encouraged to call with any further questions or concerns. Copy of After Visit Summary given to patient at time of discharge. All personal belongings returned to patient, including prescription medications. Patient assisted to personal vehicle via staff member and wheelchair. Jia Agudelo RN, 04/30/2019 * Wesley Tovar PA - 04/30/2019 6:43 AM EDT .Orthopaedic Surgery Inpatient Progress Note Mag Rider is a 63 y.o. female who underwent a Left Total Hip Replacement on 04/29/2019 Subjective: The patient is doing well. Pain is under control. Denies chest pain, shortness of breath, nausea and vomiting. Patient denies any dizziness or lightheadedness. She explains issues with pain overnight, despite Celebrex, APAP, and Tramadol. Will transition to oxycodone in attempt for better pain control. Left foot and ankle motor function has completely returned. Objective: Temp: [36.1 ??C (97 ??F)-36.8 ??C (98.2 ??F)] Heart Rate: [53-92] Resp: [16-23] BP: (119-189)/(55-81) SpO2: [96 %-100 %] Heart Rate from SpO2: [59 bpm-92 bpm] I/O last 3 completed shifts: In: 3819 [P.O.:1280; I.V.:2539] Out: 2875 [Urine:2625; Blood:250] I/O this shift: In: 303 [P.O.:300; I.V.:3] Out: 1150 [Urine:1150] Physical Exam: General: Well appearing, no acute distress, AAOx3 Left Lower Extremity Exam: 2+ DP/PT pulses Sensation intact to light touch to DP/SP/T nerve distributions Motor intact to ADF/APF/EHL Dressing c/d/i Laboratory No results for input(s): WBC, HGB, HCT, PLATELET, NA, K, CL, CO2, BUN, CREATININE, INR in the last 72 hours. Xrays Post-operative films reviewed. No evidence of fracture of dislocation. Implants appear in appropriate position Assessment: 63 y.o. female s/p Left DARRELL doing well post-op Plan: Post-operative Plan: (avoid IV narcotics) ? for breakthrough pain 15 mg Toradol iv or im q 6 hours (max 4 doses) ?? 1000mg Tylenol po??? q8 hour ?? Oxycodone 5-10 mg Q 4 Hours PRN ?? 600 mg Neurontin po qhs for 2 days followed by 300 mg Neurontin po qhs for 4 weeks (for insomnia) ?? Celebrex 200 mg po q 12 hours while in house with transition to Naprosyn 500mg bid at discharge ? Dexamethasone 4 mg po q 24 hours [...] 7 days then a dry sterile dressing). ??Prineo skin glue to fall off on it's own. ?? Follow-up Plan: As scheduled prior to surgery (approx. 5 weeks with x-rays) ?? Anticoagulation:??ASA 81mg BID for 30 days ?? Any possible barriers to discharge:??None ?? Plan for hospital stay:??Standard Future Appointments Date Time Provider Department Center 06/09/2019 2:[address] [facility] DX ROOM [address] [facility] Rad 06/09/2019 3:00 PM Brett David MD [facility] 04/30/2019 * Madina Carter RN - 04/30/2019 6:21 AM EDT Patient did report high pain over night. Patient states baseline, piror to surgery, her pain level was usually around 8-9/10. Throughout the night it was 6-8/10. Patient provided PRN and scheduled medications, along with ice changes Q4hrs over night. Patient attempted to reposition to comfort with assistance, however, she was unable to rest comfortably on her right side. She did find some relief with a pillow under her left leg at one point over night. Patient ambulated to for voids; steady gait using walker and gait belt. She did provide minimal touch down WB to LLE related to increased pain to lateral leg and knee when applying weight. manager call center PA notified of patient's request to changefrom Tramadol to Oxycodone in hopes of finding better pain relief. JOE العراقي into see patient this am for rounds. See new orders for oxycodone; administered. * Katrin Browne, PT - 04/29/2019 4:36 PM EDT Attempt PT eval at 1515 and 1615. Pt continued to have numbness and decreased strength in L LE, so deferred eval to 04/30/19 AM. Pt educated extensively on pacing and resting on both attempts. Pt educated that people regain sensation and mobility and different rates and she is progressing within expectations. Pt educated that walking before LE has full strength and sensation may risk injury due toLE giving out, since has has decreased strength around knee and ankle. Pt educated to follow up with MD regarding questions about how the LE is moved during surgery, nerve injury, why the L LE is taking more time to regain function than L LE, and specifics of return to sports. Pt reporting increase in pain during second attempt, so nursing was notified. Time spent with pt: 20 min +15 min, charges: Self Care x1 * Jia Agudelo RN - 04/29/2019 4:02 PM EDT Pt noted to be demonstrating poor safety awareness. Some residual deficit likely from spinal anesthetic remains active to left foot and ankle, unable to fully dorsiflex with some remaining numbness. MD on unit and aware. Discussed at length with PT who was in to see pt. Two assist stand pivot with weight beared to RLE only for voiding on BSC. Tolerated well. Pt was given education on dangers of bearing weight through LLE if not fully cleared of anesthesia and verbalized understanding, however, did ambulate independently with walker from commode approx 10 feet without calling for staff after voiding. Pt re-educated. Will utilize alarms if continues with safety impairments. Safety reviewed, re sting in bed at this time. Call lew in reach. * Jia Agudelo RN - 04/29/2019 11:21 AM EDT Mag Rider arrived to Medical Surgical Unit from the PACU s/p Status post total replacement of left hip [Z96.642]. Patient is alert and oriented x4. See Adult Patient Care Summary for focused assessment upon admission. Dressing is CDI with fresh ice in place. Patient rates their pain as 2/10 to surgical hip at this time. Patient oriented to room and the units practice of purposeful rounding. Call lew within reach and all questions/concerns answered at this time. Will continue to monitor patient as necessary. Jia Agudelo RN, 04/29/2019 * Cee Hadley RN - 04/29/2019 10:57 AM EDT Patient required straight cath for urinary retention in PACU despite spontaneous voiding X2, she was unable to empty bladder. Patient also arrived from OR in a sinus rhythm with frequent PVCs and long runs of bigeminy, however as she recovered her PVCs subsided and were completely absent for more than 30 minutes prior to transferring to the [facility] unit. Pt somewhat anxious regarding her care, and is hoping to be discharged home today, however, there is some ambiguity regarding assistance at home at this point. Attempted to answer her many questions, particularly regarding activity and ROM, encouraged pt to refer to PT and surgeon for specifics. Report to Myah Agudelo RN, transferred to [facility] in hospital bed. documented in this encounter H&P Notes * Wesley Tovar PA - 04/29/2019 6:48 AM EDT Please see H&P note for visit documentation. The patient's history and physical exam have been reviewed and completed. There has been no interval change from that of the pre-operative history and physical exam done on 04/29/2019 (within the last30 days). Heart: RRR with no MRG. Lungs: Clear to Ausculation Bilaterally documented in this encounter Miscellaneous Notes * Care Management - Billy Chaudhari - 04/30/2019 1:14 PM EDT Met with pt and daughter to review progress and plan. Pt is doing well and will d/c home today. Shedenies any changes to plan from yesterday, she has no concerns about d/c today. Will follow as needed. * Care Management - Alexsandra Mojica - 04/30/2019 1:14 PM EDT VNA referral was sent to [facility]. Margarita in intake verified the referral was received and that they have all the needed information. * Initial Assessments - Katrin Browne, PT - 04/30/2019 8:18 AM EDT PT Initial Ortho Eval Diagnosis: L anterior DARRELL Rehab Potential: Good Evaluation Date: 04/29/2019; 04/30/19 Orders through:04/30/19 Referring Physician: Dr. David Anticipated DME and discharge needs: Shower chair Time In/Out: 04/29: 1515/1528, 1615/1631; 04/30: 0818/0840 Total time: 52 minutes Cognitive Status: Alert and Oriented x3 Patient Active Problem List Diagnosis ??? Status post total replacement of left hip, DAA. Dr. David. 04/29/2019 ??? Primary osteoarthritis of both hips Past Surgical History: Procedure Laterality Date ??? ENDOSCOPY, UPPER GI, SIMPLE PRIMARY EXAM ??? TEAR DUCT SURGERY Bilateral 1990s OSEGUERA TUBE PLACED THEN REMOVED SUBSEQUENT OPEN AREA IN SINUS Prior Hospital Care related to current admission: Elective (L) anterior DARRELL on 04/29/19 Precautions: Full code, Fall, up with assistance, regular diet Weight Bearing status: L LE WBAT Subjective Prior Level of Function: independent, community dwelling. Home Set Up: Niece lives with her, daughter lives next door. 2 stairs without handrail to enter, will fit walker. Bedroom on second floor, stairs with handrail. Tub shower with out grab bar/shower chair. Has riser with handrails for toilet. Toilets next to UE support. No trip hazards. Niece/daughter have pets, but they will be crated. Has night lights. Pain: Some pain with movement, no pain at rest. Objective Pt position at start of session: Semi reclined in bed, no visible discomfort at rest. Pt position and personal items at end of session: Semi reclined in bed, no visible discomfort at rest. Room phone, call lew, and personal items within reach. Range of Motion ?? Affected Joint: WNL ?? UE Quick Screen: WFL ?? LE Quick Screen: ?? 04/29 (R) LE WNL, (L) ankle DF PROM WNL, AROM <50% ?? 04/30: BLE WNL Strength: ?? Affected Joint: Able to move against gravity and accept weight bearing ?? UE Quick Screen: WFL ?? LE Quick Screen: ?? 04/29 (R) LE WNL (L) Ankle DF: 2+/5, (L) SLR: 10 deg lag ?? 04/30: BLE WNL Transfers: ??? Bed Mobility: Mod I o Comments: no significant impairments ??? Sit/stand: Mod I o Comments: Cues to use UE support ??? Ambulation: Mod I, 150 feetx2, FWW o Comments: Cues for normal gait pattern, intermittent L LE IR ??? Stairs: Mod I, 2x4 stairs with single handrail, x4 stairs with SPC o Comments: Cues for sequencing Today's Treatment: ?? PT Evaluation ?? Self Care/Training: ?? Pt education: pacing, safety, precautions, AD use Assessment Assessment: Pt is a pleasant 63 y.o. female who presents to acute PT following (L) anterior DARRELL performed by Dr. David on 04/29/19. Pt initially presented with decreased (L) lower LE strength and ROM, which improved slowly through the afternoon, so complete eval was deferred to 04/30/19. Pt reports return of LE function around 2 am. Her (L) hip strength and ROM was consistent with recent surgical history. Pt demonstrated good mobility, but required intermittent cues for proper compensatory movements. She did require extensive education on pacing, safety, and activity progression. Pt referred to Force for exercises and educated to not perform LE exercises outside of those in force unless pr escribed by home health PT. At this time, pt has demonstrated safe mobility as needed for home access. She is ready for discharge from acute PT and would benefit from continued PT following discharge. Plan No further PT needs at acute level identified. Recommend continued PT following discharge to address, strength, ROM, balance, and functional mobility. Plan of care has been discussed with the Pt and the Pt is in agreement Charges: Ev Low Com, Tha 2017 PT Evaluation Code Rationale: ?? Diagnosis & Pertinent Co-Morbidities, personal factors, and present illness affecting Plan of Care: (see above); Additional personal factors or co- morbidities that impact plan: ?? Total # of Factors: 0 1-2 3+ x ?? Examination of body system impairments, functional limitations and behaviors, and/or participation restrictions. Addressing 1-2 elements x Addressing 3 + elements Addressing 4 + elements ?? Clinical presentation: See assessment above. Stable/Uncomplicated Evolving/Fluctuating Symptoms Unstable/Unpredictable x ?? Clinical decision making of low complexity based on pt's functional performance as outlined in this evaluation. * Care Management - Billy Chaudhari - 04/29/2019 11:34 AM EDT Case Management Initial Assessment Billy Chaudhari reviewed record and discussed patient with Interdisciplinary Team. CM introduced selfand role of Case Management to patient and services accepted. Contact card left for patient and family???s reference. Source of Information: patient Reason for Hospitalization: Reason for Admission as Stated by Patient: left hip replacement Expected length of stay expressed by patient: D/c this afternoon Hospitalized in the last 30 days: denies Current decision making capacity: A&Ox3, has capacity Advance Care Planning: does not have and AD, declines forms Functional status prior to admission: Independent, working, pain limiting some activity Home environment: 2-3 steps to enter, bedroom on second floor with a full flight of stairs, no concerns about navigating home Social & Family Supports/Community Resources: daughter lives next door, niece lives with pt andcan provide some assistance as needed Behavioral Health History: denies Substance Use/Abuse: denies Primary Care Provider: JOE Albrecht [phone] Pharmacy: [facility] /Prescription Coverage: Primary Insurance: [employer] Secondary Insurance: N/A DME: has walker, raised toilet seat being delivered today, does not think she will need a tub bench, discussed how to obtain one if needed Community Resources: denies need VNA: [facility] Transportation: daughter Anticipated Barriers to discharge: denies Plan: likely d/c home this afternoon with VNA services and family support The best phone number to reach you post discharge is [phone]. A member of the Case Management team will continue to monitor progress and collaborate with the interdisciplinary team to create a safe discharge plan. See MCG guidelines for further clinical documentation during patient???s hospital stay. Billy Chaudhari * Op Note - Wesley Tovar PA - 04/29/2019 9:37 AM EDT [facility] Operative Note [facility] [address] [place] [address] ?? Patient Name: Mag Rider : [id number] MR#: [id number] ?? Case Date: 04/29/2019 Case Scheduled Time: 734 ?? Surgeon: Surgeon(s) and Role: * Brett David MD - Primary Wesley Tovar PA-C - assistant manager pt ?? Preoperative Diagnosis: Osteoarthritis left Hip ?? Postoperative Diagnosis: Same ?? Procedure Performed: left Total Hip Arthroplasty (CPT code 96168) Anesthesia: Spinal ?? IVF: 1600ml of crystaloid ?? Estimated Blood Loss: 250ml ?? Urine Output: No rodriguez ?? Drains: none ?? Specimens removed during surgery: None ?? Surgical Closure: Primary Closure - skin incision is completely closed without any wires, fela, drains or other devices ?? Complications: None apparent ?? Indications for the Procedure: Ms. Rider is a 63 y.o. year old female who has been followed in the out- patient clinic with a history of progressively worsening left hip pain secondary to degenerative arthritis. After havingfailed conservative, non-surgical attempts at managing the pain and limitations of functional capabilities, it was felt that the only remaining option was surgical. A detailed conversation regarding the risks and benefits of hip arthroplasty surgery was had with the patient. The risks discussed included but were not limited to: bleeding (which may or may not require transfusion), infection, damage to nerves (specifically the LFCN) or blood vessels, deep venous thrombosis, pulmonary embolus, pros thetic failure, loosening, prosthetic fracture, femur or pelvic fracture, dislocation, leg-length inequality, persistent pain, need for future surgery, medical complications (including cardiac, respiratory and neurologic complications), anaesthetic complications, and . Subsequent to this conver sation, all of the patient???s questions were answered in great detail and informed consent was obtained for a left total hip arthroplasty. She received preoperative medical clearance and was felt optimized for surgery. Today, she identified the left hip as the correct operative side. ?? Implants: Femoral Stem: Holm [employer] Nephew Size 2 Femoral Stem Type: Standard Femoral Head: 36mm +4 Oxinium Acetabulum: S+N R3, Size 52 Adjuvant 6.5mm screw fixation x 2 (30mm, 30mm) Liner: Size [id number] ?? Intraoperative Findings: Arthritic changes in both the femoral head and acetabulum as evidenced by loss of cartilage, exposed eburnated bone and osteophyte formation. ?? Procedure: The patient was met in the [...] was administered prior to making an incision. ?? Skin Preparation: The skin was prepped using alcohol and Duraprep from midline, posterior to the greater trochanter, from one hand breadth above the ASIS extending distally to allow access to the lateral femoral condyle. The prep was allowed to fully dry and sterile drapes were applied. ?? Surgical Approach: The skin was infiltrated with [...] was injected using a combination of 0.25% marcaine with epi, 50mcg clonidine and 30mg of toradol. Throughout the case this anesthetic mixture was used to inject any tissue in the surgical field for a total of 50cc. The translucent fascia of the TFL was incised at the junction of the anterior 1/3 andposterior 2/3s in line with the muscle fibers being cautious to stay within the fascial compartmentto minimize the risk to the lateral femoral cutaneous nerve. The anterior edge of the fascia was identified and finger dissection was used to come around the medial side of the TFL which was retracted laterally using a cerebellar retractor (Hueter approach). The lateral femoral circumflex vessels were identified distally in the incision where they were clamped and cauterized using the bovie. A blunt cobra was then placed over the superior femoral neck. The pre-capsular fat and fascial tissue was excised using electrocautery. The vastus lateralis was identified distally [...] being careful to protect the soft tissues. ?? Acetabular Prep: A narrow bent lance retractor was placed anteriorly under the rectus over the anterior column and a wide cobra was placed posteriorly around the posterior column. The labrum and pulvinar were completely removed and the true floor of the acetabulum was identified. The acetabulum was reamed under direct visualization and using fluoroscopic guidance up to 52mm at which excellent hemispheric contactwas noted. A [...] fully seat and engage the locking mechanism. ?? Femoral Prep: Traction was removed from the [...] was sequentially broached up to a size 2 using the preoperative template as a guide. Excellent torsional stability was noted. A calcar planar was used toplane the proximal femur even with the broach. ?? A trial standard offset neck was placed and a trial size 36+4mm head was affixed. The leg spar was brought up to level. Light traction and internal rotation was used and gentle pressure was applied to the head to reduce it into the acetabulum. All traction was released. C-Arm was used to assess component positioning, verify leg length, and offset advent. ?? Satisfied, the hip was dislocated using traction [...] images were saved into the medical record. ?? Closure: The wound was copiously irrigated. The [...] Mepilex dressing was applied to the wound. ?? The needle, sponge and instrument counts were correct at the end of the procedure. ?? The patient was then transferred off the HANA table back to the stretcher. ?? Attestation: Case Date: 04/29/2019 ?? I was present and I participated during the entire procedure (does not need to include opening and closing). ?? BRETT DAVID MD 04/29/2019 Post-operative Plan: (avoid IV narcotics) ?? for [...] None ?? Plan for hospital stay: Standard ? Implant Summary: Implant Name Type Inv. Item Serial No. Icu Rn Lot No. LRB No. Used Action SHELL,R3,ACET,3HOL,52MM ([id number]) (AutoReq) - [id number] IMPLANTS SHELL,R3,ACET,3HOL,52MM [id number])(AutoReq) ?? HOLM [employer]PHEW - HOLM NEPH [id number] Left 1 Implanted ? * Brief Op Note - Wesley Tovar PA - 04/29/2019 9:37 AM EDT [facility] Operative Note [facility] [address] [place] [address] ?? Patient Name: Mag Rider : [id number] MR#: [id number] ?? Case Date: 04/29/2019 Case Scheduled Time: 734 ?? Surgeon: Surgeon(s) and Role: * Brett David MD - Primary Wesley Tovar-C - assistant manager pt ?? Preoperative Diagnosis: Osteoarthritis left Hip ?? Postoperative Diagnosis: Same ?? Procedure Performed: left Total Hip Arthroplasty (CPT code 19859) Anesthesia: Spinal ?? IVF: 1600ml of crystaloid ?? Estimated Blood Loss: 250ml ?? Urine Output: No rodriguez ?? Drains: none ?? Specimens removed during surgery: None ?? Surgical Closure: Primary Closure - skin incision is completely closed without any wires, fela, drains or other devices ?? Complications: None apparent ?? Indications for the Procedure: Ms. Rider is a 63 y.o. year old female who has been followed in the out- patient clinic with a history of progressively worsening left hip pain secondary to degenerative arthritis. After havingfailed conservative, non-surgical attempts at managing the pain and limitations of functional capabilities, it was felt that the only remaining option was surgical. A detailed conversation regarding the risks and benefits of hip arthroplasty surgery was had with the patient. The risks discussed included but were not limited to: bleeding (which may or may not require transfusion), infection, damage to nerves (specifically the LFCN) or blood vessels, deep venous thrombosis, pulmonary embolus, pros thetic failure, loosening, prosthetic fracture, femur or pelvic fracture, dislocation, leg-length inequality, persistent pain, need for future surgery, medical complications (including cardiac, respiratory and neurologic complications), anaesthetic complications, and . Subsequent to this conver sation, all of the patient???s questions were answered in great detail and informed consent was obtained for a left total hip arthroplasty. She received preoperative medical clearance and was felt optimized for surgery. Today, she identified the left hip as the correct operative side. ?? Implants: Femoral Stem: Holm and Nephew Size 2 Femoral Stem Type: Standard Femoral Head: 36mm +4 Oxinium Acetabulum: S+N R3, Size 52 Adjuvant 6.5mm screw fixation x 2 (30mm, 30mm) Liner: Size [id number] ?? Intraoperative Findings: Arthritic changes in both the femoral head and acetabulum as evidenced by loss of cartilage, exposed eburnated bone and osteophyte formation. ?? Procedure: The patient was met in the [...] was administered prior to making an incision. ?? Skin Preparation: The skin was prepped using alcohol and Duraprep from midline, posterior to the greater trochanter, from one hand breadth above the ASIS extending distally to allow access to the lateral femoral condyle. The prep was allowed to fully dry and sterile drapes were applied. ?? Surgical Approach: The skin was infiltrated with [...] was injected using a combination of 0.25% marcaine with epi, 50mcg clonidine and 30mg of toradol. Throughout the case this anesthetic mixture was used to inject any tissue in the surgical field for a total of 50cc. The translucent fascia of the TFL was incised at the junction of the anterior 1/3 andposterior 2/3s in line with the muscle fibers being cautious to stay within the fascial compartmentto minimize the risk to the lateral femoral cutaneous nerve. The anterior edge of the fascia was identified and finger dissection was used to come around the medial side of the TFL which was retracted laterally using a cerebellar retractor (Hueter approach). The lateral femoral circumflex vessels were identified distally in the incision where they were clamped and cauterized using the bovie. A blunt cobra was then placed over the superior femoral neck. The pre-capsular fat and fascial tissue was excised using electrocautery. The vastus lateralis was identified distally [...] being careful to protect the soft tissues. ?? Acetabular Prep: A narrow bent lance retractor was placed anteriorly under the rectus over the anterior column and a wide cobra was placed posteriorly around the posterior column. The labrum and pulvinar were completely removed and the true floor of the acetabulum was identified. The acetabulum was reamed under direct visualization and using fluoroscopic guidance up to 52mm at which excellent hemispheric contactwas noted. A [...] fully seat and engage the locking mechanism. ?? Femoral Prep: Traction was removed from the [...] was sequentially broached up to a size 2 using the preoperative template as a guide. Excellent torsional stability was noted. A calcar planar was used toplane the proximal femur even with the broach. ?? A trial standard offset neck was placed and a trial size 36+4mm head was affixed. The leg spar was brought up to level. Light traction and internal rotation was used and gentle pressure was applied to the head to reduce it into the acetabulum. All traction was released. C-Arm was used to assess component positioning, verify leg length, and offset advent. ?? Satisfied, the hip was dislocated using traction [...] images were saved into the medical record. ?? Closure: The wound was copiously irrigated. The [...] Mepilex dressing was applied to the wound. ?? The needle, sponge and instrument counts were correct at the end of the procedure. ?? The patient was then [facility] the HANA [facility] ?? Attestation: Case Date: 04/29/2019 ?? I was present and I participated during the entire procedure (does not need to include opening and closing). ?? BRETT DAVID MD 04/29/2019 Post-operative Plan: (avoid IV narcotics) ?? for [...] None ?? Plan for hospital stay: Standard ? Implant Summary: Implant Name Type Inv. Item Serial No. Icu Rn Lot No. LRB No. Used Action SHELL,R3,ACET,3HOL,52MM ([id number]) (AutoReq) - [id number] IMPLANTS SHELL,R3,ACET,3HOL,52MM ([id number])(AutoReq) ?? [employer] - HOLM NEPH [id number] Left 1 Implanted ? * Op Note - Brett David MD - 04/29/2019 8:51 AM EDT [facility] Operative Note [facility] [address] [id number] Patient Name: Mag Rider : [id number] MR#: [id number] Case Date: 04/29/2019 Case Scheduled Time: 734 Surgeon: Surgeon(s) and Role: * Brett David MD - Primary Wesley Tovar-C - assistant manager pt Preoperative Diagnosis: Osteoarthritis left Hip Postoperative Diagnosis: Same Procedure Performed: left Total Hip Arthroplasty (CPT code 57288) Anesthesia: Spinal IVF: 1600ml of crystaloid Estimated Blood Loss: 250ml Urine Output: No rodriguez Drains: none Specimens removed during surgery: None Surgical Closure: Primary Closure - skin incision is completely closed without any wires, fela, drains or other devices Complications: None apparent Indications for the Procedure: Ms. Rider is a 63 y.o. year old female who has been followed in the out- patient clinic with a history of progressively worsening left hip pain secondary to degenerative arthritis. After havingfailed conservative, non-surgical attempts at managing the pain and limitations of functional capabilities, it was felt that the only remaining option was surgical. A detailed conversation regarding the risks and benefits of hip arthroplasty surgery was had with the patient. The risks discussed included but were not limited to: bleeding (which may or may not require transfusion), infection, damage to nerves (specifically the LFCN) or blood vessels, deep venous thrombosis, pulmonary embolus, pros thetic failure, loosening, prosthetic fracture, femur or pelvic fracture, dislocation, leg-length inequality, persistent pain, need for future surgery, medical complications (including cardiac, respiratory and neurologic complications), anaesthetic complications, and . Subsequent to this conver sation, all of the patient???s questions were answered in great detail and informed consent was obtained for a left total hip arthroplasty. She received preoperative medical clearance and was felt optimized for surgery. Today, she identified the left hip as the correct operative side. Implants: Femoral Stem: Hol[employer] Nephew Size 2 Femoral Stem Type: Standard Femoral Head: 36mm +4 Oxinium Acetabulum: S+N R3, Size 52 Adjuvant 6.5mm screw fixation x 2 (30mm, 30mm) Liner: Size [id number] Intraoperative Findings: Arthritic changes in both the [...] was injected using a combination of 0.25% marcaine with epi, 50mcg clonidine and 30mg of toradol. Throughout the case this anesthetic mixture was used to inject any tissue in the surgical field for a total of 50cc. The translucent fascia of the TFL was incised at the junction of the anterior 1/3 andposterior 2/3s in line with the muscle fibers being cautious to stay within the fascial compartmentto minimize the risk to the lateral femoral cutaneous nerve. The anterior edge of the fascia was identified and finger dissection was used to come around the medial side of the TFL which was retracted laterally using a cerebellar retractor (Hueter approach). The lateral femoral circumflex vessels were identified distally in the incision where they were clamped and cauterized using the bovie. A blunt cobra was then placed over the superior femoral neck. The pre-capsular fat and fascial tissue was excised using electrocautery. The vastus lateralis was identified distally [...] visualization and using fluoroscopic guidance up to 52mm at which excellent hemispheric contactwas noted. A [...] was sequentially broached up to a size 2 using the preoperative template as a guide. Excellent torsional stability was noted. A calcar planar was used toplane the proximal femur even with the broach. A trial standard offset neck was placed and a trial size 36+4mm head was affixed. The leg spar was brought up to level. Light traction and internal rotation was used and gentle pressure was applied to the head to reduce it into the acetabulum. All traction was released. C-Arm was used to assess component positioning, verify leg length, and offset advent. Satisfied, the hip was dislocated using traction [...] [facility] Attestation: Case Date: 04/29/2019 I performed this procedure without the involvement of a resident. This case was performed with a Physician Archeology Professor as there was no qualified resident available. BRETT DAVID MD 04/29/2019 Post-operative Plan: (avoid IV narcotics) ?? for [...] None ?? Plan for hospital stay: Standard Implant Summary: Implant Name Type Inv. Item Serial No. Icu Rn Lot No. LRB No. Used Action SHELL,R3,ACET,3HOL,52MM ([id number]) (AutoReq) - [id number] IMPLANTS SHELL,R3,ACET,3HOL,52MM ([id number])(AutoReq) [employer] - HOLM NEPH [id number] Left 1 Implanted documented in this encounter Plan of Treatment Upcoming Encounters Date Type Department Care Team (Late st Contact Info) Description 06/25/2024 1:00 PM EDT Office Visit Dermatology at [facility] [address] [place] [address] Skyla Campbell MD [facility] DR CHIQU[place] [address] documented as of this encounter Procedures Procedure Name Priority Date/Time Associated Diagnosis Comments HEMOGRAM Routine 04/30/2019 6:33 AM EDT DIFFERENTIAL, AUTOMATED Routine 04/30/2019 6:33 AM EDT HC VENIPUNCTURE Routine 04/30/2019 6:33 AM EDT BASIC METABOLIC PANEL Routine 04/30/2019 6:33 AM EDT XR PELVIS Routine 04/29/2019 9:51 AM EDT XR FLUORO NO RAD <1HR - OR USE Routine 04/29/2019 9:25 AM EDT MODIFIER HOLM [employer] NEPHEW - R3 ACETABULAR CUP 04/29/2019 7:28 AM EDT Hip osteoarthritis MODIFIER HOLM [employer] NEPHEW - POLAR STEM CEMENTLESS 04/29/2019 7:28 AM EDT Hip osteoarthritis Radex Hip Unilateral With Pelvis Minimum 4 Views ([id number]) 04/29/2019 7:28 AM EDT Hip osteoarthritis Arthroplasty Acetabular/Prox Fem Prostc Agrft/Algrft ([id number]) 04/29/2019 7:28 AM EDT Hip osteoarthritis ANTIBODY SCREEN GEL (APD/NLH) Routine 04/29/2019 7:07 AM EDT ABORH TYPE GEL (APD/NLH) Routine 04/29/2019 7:07 AM EDT HC BLOOD GROUP (ABO) Routine 04/29/2019 7:07 AM EDT ABORH RECHECK STATUS Routine 04/29/2019 7:07 AM EDT HIP INTRAOP RADIOLOGIC EXAMINATION, UNILATERAL, W PELVIS; 4+ VIEWS Routine 04/29/2019 6:39 AM EDT SCAN DOC: TELEMETRY STRIPS 04/29/2019 12:00 AM EDT documented in this encounter Results * (ABNORMAL) Differential, Automated (04/30/2019 6:33 AM EDT) Neutrophil % 86.0 % [facility] Neutrophil Absolute 12.54(H) 1.70 - 6.10 x10(3)/mc L [facility] Lymph % 6.6 % [facility] Lymphocytes Abs 1.0 0.9 - 3.2 x10(3)/mc L [facility] Monocyte % 7.0 % [facility] Monocyte Abs 1.0(H) 0.3 - 0.9 x10(3)/mc L [facility] Eos % 0.0 % [facility] Eosinophils Abs 0.0 0.0 - 0.4 x10(3)/mc L [facility] Basophil % 0.1 % [facility] Baso Absolute 0.0 0.0 - 0.1 x10(3)/mc L [facility] Immature Gran % 0.30 % [facility] Comment: Immature granulocytes(IG's)percentage and absolute count will include metamyelocytes, myelocytes, and promyelocytes. Blood smears from CBCs yielding IG's will be scanned manually for concordance. If this scan disagrees with the automated IG or if promyelocytes are noted, a manual differential will be performed. Immature Gran Absolute 0.04 0.00 - 0.04 x10(3)/mc L [facility] Blood specimen (specimen) 04/30/2019 6:33 AM EDT 04/30/2019 6:44 AM EDT Narrative Resulting Agency Comment Spec In Lab / APD Wesley DIAZ HEMATOLOGY ORDERABLE S [facility] [address] [place] [address] * (ABNORMAL) Hemogram (04/30/2019 6:33 AM EDT) White Blood Cell 14.6(H) 4.0 - 9.5 x10(3)/mc L [facility] Red Blood Cell 3.51(L) 4.00 - 5.21 x10(6)/mc L [facility] Hemoglobin 11.8 11.7 - 15.5 gm/dL [facility] Hematocrit 34.5(L) 35.7 - 45.8 % [facility] Mean Cell Volume 98.3(H) 82.6 - 94.4 fL [facility] Mean Cell Hemoglobin 33.6(H) 27.1 - 32.0 pg [facility] Mean Cell Hemoglobin Concentration 34.2 31.7 - 35.0 gm/dL [facility] Platelet 305 145 - 357 x10(3)/mc L [facility] RDW Standard Deviation 44.4 37.0 - 46.0 fL [facility] RDW coefficient of variation 12.1 11.5 - 14.1 % [facility] Mean Platelet Volume 9.7 7.6 - 12.9 fL [facility] Blood specimen (specimen) 04/30/2019 6:33 AM EDT 04/30/2019 6:44 AM EDT Narrative Resulting Agency Comment Spec In Lab / APD Wesley DIAZ HEMATOLOGY ORDERABLE S [facility] [address] [place] [address] * (ABNORMAL) Basic Metabolic Panel (non-fasting) (04/30/2019 6:33 AM EDT) Glucose 152 65 - 199 mg/dL [facility] Comment:Diabetes: >=200 mg/d L plus symptoms Blood Urea Nitrogen 14 8 - 18 mg/dL [facility] Creatinine 0.70 0.70 - 1.20 mg/dL [facility] Sodium 142 135 - 145 mmol/L [facility] Potassium 4.7 3.5 - 5.0 mmol/L [facility] Comment: Please note: ??Patients with WBC >100,000 may have falsely elevated Potassium levels. ??For accurate Potassium quantification in these patients send serum separator tube (gold top) for subsequent determinations. ??Contact the Clinical Chemistry Laboratory if there are any questions. Chloride 107 98 - 107 mmol/L [facility] Carbon Dioxide 21(L) 22 - 31 mmol/L [facility] Anion Gap 14 5 - 15 mmol/L [facility] Calcium 9.5 8.5 - 10.5 mg/dL [facility] Est Glomerular Filtration Rate 94 >=60 mL/min/1. 73 m?? [facility] Comment: The eGFR was calculated using the CKD-EPI equation. As with all creatinine based estimates of kidney function, eGFR values calculated with the CKD-EPI equation are not accurate in patients with acute kidney failure, extremes of body mass or the acutely ill. [email or web address] eGFR 108 >=60 mL/min/1. 73 m?? [facility] Comment: The eGFR was calculated using the CKD-EPI equation. As with all creatinine based estimates of kidney function, eGFR values calculated with the CKD-EPI equation are not accurate in patients with acute kidney failure, extremes of body mass or the acutely ill. [email or web address] Blood specimen (specimen) 04/30/2019 6:33 AM EDT 04/30/2019 6:44 AM EDT Narrative Resulting Agency Comment Spec In Lab / APD Brett David MD CHEMISTRY ORDERABLE S [facility] [address] [place] [address] * XR Pelvis (Generic) (04/29/2019 9:51 AM [...] Fluoro No Rad <1Hr - OR Use (04/29/2019 9:25 AM EDT) Narrative RAD - 04/29/2019 2:41 PM EDT This exam is auto-finalizing. No interpretation was done. Brett SMITH FLUORO ORDERABL ES [place], [place] * ABORH Recheck Status (04/29/2019 7:07 AM EDT) ABORH Recheck Order Order Placed [facility] ABORH Type Recheck Complete [facility] Blood specimen (specimen) 04/29/2019 7:07 AM EDT 04/29/2019 7:07 AM EDT Narrative Resulting Agency Comment Spec In Lab / APD Wesley DIAZ BLOOD BANK LAB ORDER OLAF Performing Organization Address [facility] Co de Phone Number [facility] [address] [place] [address] * Antibody Screen Gel (APD) (04/29/2019 7:07 AM EDT) AB Screen Interp Negative [facility] Blood specimen (specimen) 04/29/2019 7:07 AM EDT 04/29/2019 7:07 AM EDT Narrative Resulting Agency Comment Spec In Lab / APD Wesley DIAZ BLOOD BANK LAB ORDER OLAF Performing Organization Address [facility] de Phone Number [facility] [address] [place] [address] * ABORh type Gel (APD) (04/29/2019 7:07 AM EDT) Expires at 2359 on: 05/02/2019 [facility] ABORH Type A Pos [facility] Blood specimen (specimen) 04/29/2019 7:07 AM EDT 04/29/2019 7:07 AM EDT Narrative Resulting Agency Comment Spec In Lab / APD Wesley DIAZ BLOOD BANK LAB ORDER OLAF Performing Organization Address [facility] de Phone Number [facility] [address] [id number] * SCAN DOC: TELEMETRY STRIPS (04/29/2019 12:00 AM EDT) Narrative 04/29/2019 12:00 AM EDT Ordered by an unspecified provider. Scanning Provider MEDIA MGR SCAN EXT O RDR/RSLT documented in this encounter Visit Diagnoses Not on filedocumented in this encounter Administered Medications Inactive Administered Medications - up to 3 most recent administrations Medication Order MAR Action Action Date Dose Rate Site acetaminophen (TYLENOL) tablet 500 mg 500 mg, Oral, EVERY 4 HOURS SCHEDULED, First dose on Sun04/29/19 at 1200, Until Discontinued, Maximum dose of acetaminophen is 4000 mg from all sources in 24 hours., Recovery (Recovery-Hospital Unit), Routine Given 04/30/2019 11:41 AM EDT 500 mg 19- Surgical Site Given 04/30/2019 7:48 AM EDT 500 mg 19 - Surgical Site Given 04/30/2019 4:00 AM EDT 500 mg aspirin EC tablet 81 mg 81 mg, Oral, 2 TIMES DAILY, First dose on Sun04/29/19 at 2100, Until Discontinued, Recovery (Recovery-Hospital Unit), Routine Given 04/30/2019 7:48 AM EDT 81 mg Given 04/29/2019 8:11 PM EDT 81 mg BUpivacaine (PF) (MARCAINE) 0.25 % (2.5 mg/mL) injection ONCE PRN, Starting on Sun04/29/19 at 0841, Until Sun04/29/19 at 1054, Intra-Operative (Intra-Procedure), Routine Given 04/29/2019 8:41 AM EDT 10 mLs 19- Surgical Site BUpivacaine-EPINEPHrine 0.25 %-1:200,000 injection ONCE PRN, Starting on Sun04/29/19 at 0842, Until Sun04/29/19 at 1054, Intra-Operative (Intra-Procedure), Routine Given 04/29/2019 8:42 AM EDT 50 mLs 19- Surgical Site celecoxib (CeleBREX) capsule 200 mg 200 mg, Oral, 2 TIMES DAILY PRN, Starting on Sun04/29/19 at 1103, Until Sun04/30/19 at 1514, Pain, OR GIVE KETOROLAC - NOT BOTH, Recovery (Recovery-Hospital Unit), Routine Given 04/29/2019 11:17 PM EDT 200 mg dexamethasone (DECADRON) injection 4 mg 4 mg, Intravenous, 2 TIMES DAILY, First dose on Sun04/29/19 at 2100, Until Discontinued, Recovery (Recovery-Hospital Unit), Routine Given 04/30/2019 7:48 AM EDT 4 mg Given 04/29/2019 8:08 PM EDT 4 mg ketorolac (TORADOL) injection 30 mg 30 mg, Intravenous, EVERY 6 HOURS PRN, Starting on Sun04/29/19 at 1103, Until Sun04/30/19 at 1514, Pain, To be begin 6 hours post last dose given in OR Case, Recovery (Recovery-Hospital Unit), Routine Given 04/30/2019 6:21 AM EDT 30 mg Given 04/29/2019 4:51 PM EDT 30 mg ketorolac (TORADOL) injection ONCE PRN, Starting on Sun04/29/19 at 0842, Until Sun04/29/19 at 1054, Intra-Operative (Intra-Procedure), Routine Given 04/29/2019 8:42 AM EDT 30 mg ondansetron (ZOFRAN) injection 4 mg 4 mg, Intravenous, EVERY 8 HOURS PRN, Starting on Sun04/29/19 at 1103, Until Sun04/30/19 at 1514, Nausea, Vomiting, May repeat times one in 30 minutes if ineffective. If multiple antiemetics are ordered, use ondansetron first, Recovery (Recovery-Hospital Unit), Routine ondansetron (ZOFRAN) tablet 4 mg 4 mg, Oral, EVERY 8 HOURS PRN, Starting on Sun04/29/19 at 1103, Until Sun04/30/19 at 1514, Nausea, Vomiting, If multiple antiemetics are ordered, use ondansetron first. PO Preferred. If patient unable to take PO, may give IV if ordered. May repeat times one in 45 minutes if ineffective., Recovery (Recovery-Hospital Unit), Routine oxyCODONE (ROXICODONE) immediate release tablet 5-10 mg 5-10 mg, Oral, EVERY 4 HOURS PRN, Starting on Sun04/30/19 at 0602, Until Sun04/30/19 at 1514, Pain, 5 mg for moderate pain, 10 mg for severe pain, Routine Given 04/30/2019 11:41 AM EDT 10 mg 19- Surgical Site Given 04/30/2019 6:21 AM EDT 5 mg senna-docusate (PERICOLACE) 8.6-50 mg per tablet 1 tablet 1 tablet, Oral, 2 TIMES DAILY, First dose on Sun04/29/19 at 2100, Until Discontinued, Recovery (Recovery-Hospital Unit), Routine Given 04/30/2019 7:48 A M EDT 1 tablet Given 04/29/2019 8:12 PM EDT 1 tablet sodium chloride 0.9 % (flush) flush 3 mL 3 mL, Intravenous, EVERY 12 HOURS SCHEDULED (2 times per day), First dose on Sun04/29/19 at 1130, Until Discontinued, Recovery (Recovery-Hospital Unit), Routine Given 04/30/2019 7:48 AM EDT 6 mLs Given 04/29/2019 8:43 PM EDT 3 mLs documented in this encounter Active and Recently Administered Medications Times are shown in EDT. Scheduled Medication Order 04/28/2019 04/29/2019 04/30/2019 acetaminophen (TYLENOL) tablet 1,000 mg (COMPLETED) 1,000 mg, Oral, ONCE, 1 dose, On Sun04/29/19 at 0715, Administer on arrival in Same Day Program, Day of Surgery (Day of Procedure), Routine 716 (Given - Provider: Carolina Diaz RN) acetaminophen (TYLENOL) tablet 500 mg 500 mg, Oral, EVERY 4 HOURS SCHEDULED, First dose on Sun04/29/19 at 1200, Until Discontinued, Maximum dose of acetaminophen is 4000 mg from all sources in 24 hours., Recovery (Recovery-Hospital Unit), Routine 1139 (Given - Provider: Jia Agudelo RN)1531 (Given - Provider: Jia Agudelo RN)2010 (Given - Provider: Priscilla Jarquin RN)2317 (Given - Provider: Priscilla Jarquin RN) 0400 (Given - Provider: Priscilla Jarquin RN)0748 (Given - Provider: Jia Agudelo, JAYNA)1141 (Given - Provider: Jia Agudelo RN) aspirin EC tablet 81 mg 81 mg, Oral, 2 TIMES DAILY, First dose on Sun04/29/19 at 2100, Until Discontinued, Recovery (Recovery-Hospital Unit), Routine 2010 (Given - Provider: Priscilla Jarquin RN) 0748 (Given - Provider: Jia Agudelo RN) ceFAZolin (Ancef) 2 g in dextrose 5% 56 mL (COMPLETED) 2 g, Intravenous, EVERY 3 HOURS, 1 dose, First dose on Sun04/29/19 at 0715, Redose after 3 hours., Intra-Operative (Intra-Procedure), Indication for (Active or Suspected): Prophylaxis 725 (Given - Provider: Rojas Terrell CRNA) celecoxib (CeleBREX) capsule 400 mg (COMPLETED) 400 mg, Oral, ONCE, 1 dose, On Sun04/29/19 at 0715, Administer on arrival to Same Day Program, Day of Surgery (Day of Procedure), Routine 718 (Given - Provider: Carolina Diaz, RN) dexamethasone (DECADRON) injection 4 mg 4 mg, Intravenous, 2 TIMES DAILY, First dose on Sun04/29/19 at 2100, Until Discontinued, Recovery (Recovery-Hospital Unit), Routine 2007 (Given - Provider: Priscilla Jarquin RN) 48 (Given - Provider: Jia Agudelo, JAYNA) famotidine (PEPCID) injection 20 mg (COMPLETED) 20 mg, Intravenous, ONCE, 1 dose, On Sun04/29/19 at 0715, Day of Surgery (Day of Procedure), Routine 720 (Given - Provider: Carolina Diaz, JAYNA) gabapentin (NEURONTIN) capsule 600 mg (COMPLETED) 600 mg, Oral, ONCE, 1 dose, On Sun04/29/19 at 0715, Administer on arrival in Same Day Program, Day of Surgery (Day of Procedure), Routine 714 (Given - Provider: Carolina Diaz, JAYNA) senna-docusate (PERICOLACE) 8.6-50 mg per tablet 1 tablet 1 tablet, Oral, 2 TIMES DAILY, First dose on Sun04/29/19 at 2100, Until Discontinued, Recovery (Recovery-Hospital Unit), Routine 2011 (Given - Provider: Priscilla Jarquin RN) 0748 (Given - Provider: Jia Agudelo, JAYNA) sodium chloride 0.9 % (flush) flush 3 mL 3 mL, Intravenous, EVERY 12 HOURS SCHEDULED (2 times per day), First dose on Sun04/29/19 at 1130, Until Discontinued, Recovery (Recovery-Hospital Unit), Routine 1130 (Not Given - Provider: Jia Agudelo, JAYNA - Reason: See comment - Comment: IV infusing)2042 (Given - Provider: Priscilla Jarquin RN) 0748 (Given - Provider: Jia Agudelo, JAYNA) Continuous Medication Order 04/28/2019 04/29/2019 04/30/2019 lactated ringers infusion (CANCELED) 1,000 mL, at 50 mL/hr, Intravenous, CONTINUOUS, Starting on Sun04/29/19 at 0715, Until Sun04/29/19 at 1055, Day of Surgery (Day of Procedure) 0705 (New Bag - Provider: Carolina Diaz RN)0726 (New Bag - Provider: Rojas Terrell CRNA)0759 (New Bag - Provider: Rojas Terrell CRNA)0850 (Anesthesia Volume Adjustment - Provider: Rojas Terrell CRNA) sodium chloride 0.9% infusion 1,000 mL, at 100 mL/hr, Intravenous, CONTINUOUS, Starting on Sun04/29/19 at 1130, Until Sun04/30/19 at 1129, Recovery (Recovery-Hospital Unit) 1141 (New Bag - Provider: Joselyn Agudelo RN)1800 (Stopped - Provider: Jia Agudelo RN) PRN Medication Order 04/28/2019 04/29/2019 04/30/2019 bisacodyl (DULCOLAX) suppository 10 mg 10 mg, Rectal, ONCE PRN, 1 dose, Starting on Sun04/29/19 at 1103, Until Sun04/30/19 at 1514, Constipation, Administer if no bowel movement within 72 hours and Miralax given with no results If multiple PRN bowel medications ordered, start with Miralax, then bisacodyl. Multiple medications may be given concomitantly for constipation., Recovery (Recovery-Hospital Unit), Routine BUpivacaine (PF) (MARCAINE) 0.25 % (2.5 mg/mL) injection (CANCELED) ONCE PRN, Starting on Sun04/29/19 at 0841, Until Sun04/29/19 at 1054, Intra-Operative (Intra-Procedure), Routine 0841 (Given - Provider: Brett David MD) BUpivacaine-EPINEPHrine 0.25 %-1:200,000 injection (CANCELED) ONCE PRN, Starting on Sun04/29/19 at 0842, Until Sun04/29/19 at 1054, Intra-Operative (Intra-Procedure), Routine 0842 (Given - Provider: Brett David MD) celecoxib (CeleBREX) capsule 200 mg 200 mg, Oral, 2 TIMES DAILY PRN, Starting on Sun04/29/19 at 1103, Until Sun04/30/19 at 1514, Pain, OR GIVE KETOROLAC - NOT BOTH, Recovery (Recovery-Hospital Unit), Routine 2317 (Given - Provider: Priscilla Jarquin RN) ketorolac (TORADOL) injection 30 mg 30 mg, Intravenous, EVERY 6 HOURS PRN, Starting on Sun04/29/19 at 1103, Until Sun04/30/19 at 1514, Pain, To be begin 6 hours post last dose given in OR Case, Recovery (Recovery-Hospital Unit), Routine 1651 (Given - Provider: Jia Agudelo RN - Comment: LEFT HIP AND LOW BACK) 0621 (Given - Provider: Priscilla Jarquin RN) ketorolac (TORADOL) injection (CANCELED) ONCE PRN, Starting on Sun04/29/19 at 0842, Until Sun04/29/19 at 1054, Intra-Operative (Intra-Procedure), Routine 0842 (Given - Provider: Brett David MD) magnesium hydroxide (Milk of Magnesia) (240 mg/mL) oral liquid 10 mL 10 mL, Oral, ONCE PRN, 1 dose, Starting on Sun04/29/19 at 1103, Until Sun04/30/19 at 1514, Constipation, Administer if needed per patient's routine or if no bowel movement within 72 hours If multiple PRN bowel medications ordered, start with Miralax, then bisacodyl then Milk of Magnesia, Recovery (Recovery-Hospital Unit), Routine ondansetron (ZOFRAN) injection 4 mg(Linked Group 1) 4 mg, Intravenous, EVERY 8 HOURS PRN, Starting on Sun04/29/19 at 1103, Until Sun04/30/19 at 1514, Nausea, Vomiting, May repeat times one in 30 minutes if ineffective. If multiple antiemetics are ordered, use ondansetron first, Recovery (Recovery-Hospital Unit), Routine ondansetron (ZOFRAN) tablet 4 mg(Linked Group 1) 4 mg, Oral, EVERY 8 HOURS PRN, Starting on Sun04/29/19 at 1103, Until Sun04/30/19 at 1514, Nausea, Vomiting, If multiple antiemetics are ordered, use ondansetron first. PO Preferred. If patient unable to take PO, may give IV if ordered. May repeat times one in 45 minutes if ineffective., Recovery (Recovery-Hospital Unit), Routine oxyCODONE (ROXICODONE) immediate release tablet 5-10 mg 5-10 mg, Oral, EVERY 4 HOURS PRN, Starting on Sun04/30/19 at 0602, Until Sun04/30/19 at 1514, Pain, 5 mg for moderate pain, 10 mg for severe pain, Routine 0621 (Given - Provid er: Priscilla Jarquin RN)1141 (Given - Provider: Jia Agudelo RN) polyethylene glycol (MIRALAX) packet 17 g 17 g, Oral, DAILY PRN, Starting on Sun04/29/19 at 1103, Until Sun04/30/19 at 1514, Constipation, Start Post OP day 1 if no BM, Recovery (Recovery-Hospital Unit), Routine sodium chloride 0.9 % (flush) flush 5-20 mL 5-20 mL, Intravenous, EVERY 1 MIN PRN, Starting on Sun04/29/19 at 1103, Until Sun04/30/19 at 1514, flush, Flush pertains to all indwelling lines. Flush per protocol found in the job aid using the link provided on this medication record., Recovery (Recovery-Hospital Unit), Routine traMADol (ULTRAM) tablet 25-50 mg (CANCELED) 25-50 mg, Oral, EVERY 6 HOURS PRN, Starting on Sun04/29/19 at 1103, Until Sun04/30/19 at 0602, Pain, Give 25 mg for mild to moderate pain (1-6), 50 mg for severe pain (7-10), Recovery (Recovery-Hospital Unit), Routine 1531 (Given - Provider: Jia Agudelo, JAYNA)2123 (Given - Provider: Priscilla Jarquin, JAYNA) 0400 (Given - Provider: Priscilla Jarquin RN) Linked Groups Order Group 1: ondansetron (ZOFRAN) tablet 4 mgJump to med 4 mg, Oral, EVERY 8 HOURS PRN, Starting on Sun04/29/19 at 1103, Until Sun04/30/19 at 1514, Nausea, Vomiting, If multiple antiemetics are ordered, use ondansetron first. PO Preferred. If patient unable to take PO, may give IV if ordered. May repeat times one in 45 minutes if ineffective., Recovery (Recovery-Hospital Unit), Routine Or ondansetron (ZOFRAN) injection 4 mgJump to med 4 mg, Intravenous, EVERY 8 HOURS PRN, Starting on Sun04/29/19 at 1103, Until Sun04/30/19 at 1514, Nausea, Vomiting, May repeat times one in 30 minutes if ineffective. If multiple antiemetics are ordered, use ondansetron first, Recovery (Recovery-Hospital Unit), Routine documented in this encounter Care Teams Environmental Health Nurse Relationship Specialty Start Date End Date Yadira Llanes PA [address] [place] [address] PCP - General Family Medicine 04/17/19 documented as of this encounter
--- OUTSIDE RECORDS SUMMARY | 2024-04-21 04:21 | XMS_ITS ---
Author Organization Unknown Address [address] [place] [phone] Phone Care Team Providers Care News Writer Name Role Phone JACIEL MIRZA Registered Nurse Unavailable GUILLAUME Quiñonez Attending Unavailable IMELDA CASE Primary Unavailable UNLISTED PROVIDER - REQUESTED Xhandoff Un available Results XR KNEE 4V LT* - Completed: 01/03/2022 14:04 LOINC: LEFT KNEE - 4 VIEWS:There ma y be a small knee joint effusion visible on the lateral view. No other soft tissue abnormality seen. There is minimal marginal osteophyte formation of the joints of the knee consistent with degenerative change and there is a small superior patellar enthesophyte. CONCLUSION: Mild degenerative changes, small joint effusion noted. No evidence of acute fracture or dislocation. Dictated by: ESE ARIZMENDI RADIOLOGIST Transcribed by: RICHARD 01/04/22/07:54 D Monday, January 03, 2022 2:04:55 PM [id number] Electronically Reviewed and Signed By: TOMASA ARIZMENDI RADIOLOGIST 01/09/22 11:19 Copy for: [facility] HEALTH INFORMATION MGMT DISCHARGED Social History Type Status Start Date End Date Code Code Syst em Smoking History Never smoker (Never Smoked) 881555043 SNOMED CT Sex Female Vital Signs Vital Sign Value Unit Cambria Value [facility]ria Unit Date/Time Recent/Initial? Code Code System Body Mass Index 24.96 kg/m2 01/03/2022 13:27 Initial 16267 -5 LOINC Systolic Blood Pressure 130 mm[Hg] 01/03/2022 13:27 Initial 8480- 6 LOINC Diastolic Blood Pressure 90 mm[Hg] 01/03/2022 13:27 Initial 8462- 4 LOINC Body Surface Area 1.77 m2 01/03/2022 13:27 Initial 3140- 1 LOINC Height 165.100 0 cm 65.00 in 01/03/2022 13:27 Initial 8302- 2 LOINC O2 Saturation 100 % 2021 13:27 Initial 05944 -5 LOINC Pulse 87.0 /min 01/03/2022 13:27 Initial 8867- 4 LOINC Respiration 18 /min 01/04/20 13:27 Initial 9279- 1 LOINC Temperature 37.2 Nicol 99.0 F 01/04/20 13:27 Initial 8310- 5 LOINC Weight 68.04 kg 150.00 lbs 01/03/2022 13:27 Initial 88292 -7 LOINC Hospital Discharge Instructions Should you have any questions prior to discharge, please contact a member of your healthcare team. If you have left the hospital and have any questions, please contact your primary care physician. Reason For Referral No Data Found Allergies and Adverse Reactions Allergy Substance Reaction Severity Start Date Concern Status Co de Code System No Known Drug Allergies Active 517801221 SNOMED-CT Plan of Treatment No Data Found Encounters Encounter Diagnosis Start Date Code Code Sys tem Pain in left knee 01/03/2022 SNOMED-CT Personal Care Team Section Performer Name Performer Role Active Date Inactive Da kathryn
--- OUTSIDE RECORDS SUMMARY | 2024-04-21 04:21 | XMS_ITS | Encounter Summary ---
Author Organization [facility] Address [facility] [place] [address] Care Team Providers Care Engraver Machine Name Role Phone Yadira Llanes Primary Care Provider [phone] Reason for Visit * Auth/Cert Specialty Diagnoses [...] Expiration Date Visits Re quested Visits Authorized [id number] 1 1 Encounter Details Date Type Department Care Team (Late Contact Info) Description 04/29/2019 11:25 AM EDT Ancillary Procedure Radiology Xray at [facility] [place] [id number] Social History Tobacco Use Types Packs/Day Years [...] 1:00 PM EDT Office Visit Dermatology at [facility] [address] [place] [address] Skyla Campbell MD [facility] DR CHIQUITA MELVIN-DERMATOLOGY [place], [place] [id number] documented as of this encounter Procedures Procedure Name Priority Date/Time Associated Diagnosis Comments XR FLUORO NO RAD <1HR - OR USE Routine 04/29/2019 9:25 AM EDT documented in this encounter Results * XR Fluoro No Rad <1Hr - OR Use (04/29/2019 9:25 AM EDT) Narrative RAD - 04/29/2019 2:41 PM EDT This exam is auto-finalizing. No interpretation was done. Brett David MD IMG FLUORO ORDERABL ES Performing Organization Address City/State/[facility] Co de Phone Number [place], [place] documented in this encounter Visit Diagnoses Not on filedocumented in this encounter Care Teams Engraver Machine Relationship Specialty Start Date End Date Yadira Llanes PA [address] [place] [address] PCP - General Family Medicine 04/17/19 documented as of this encounter
--- OUTSIDE RECORDS SUMMARY | 2024-04-21 04:21 | XMS_ITS | Encounter Summary ---
Author Organization [facility] [place] [address] Care Team Providers Care Comfort Advisor Name Role Phone Yadira Llanes Primary Care Provider [phone] Encounter Details Date Type Department Care Team (Late st Contact Info) Description 04/28/2019 [place] [phone] Alexsandra Shelley Social History Tobacco Use Types Packs/Day Years [...] Dermatology at [facility] [address] [place] [address] Skyla Campbell MD [facility] DR CHIQUITA [place] [address] documented as of this encounter Visit Diagnoses Not on filedocumented in this encounter Care Teams Comfort Advisor Relationship Specialty Start Date End Date Yadira Llanes PA [address] [place] [address] PCP - General Family Medicine 04/17/19 documented as of this encounter
--- OUTSIDE RECORDS SUMMARY | 2024-04-21 04:21 | XMS_ITS | Encounter Summary ---
[facility] Organization [facility] [place] [address] Care Team Providers Care Project Management Advisor Name Role Phone Yadira Llanes Primary Care Provider [phone] Reason for Visit * Auth/Cert Specialty Diagnoses / Procedures Referred By Ray cornelius Referred To Contact Diagnoses Osteoarthritis of right hip Osteoarthritis of the hip Procedures PRO TOTAL HIP ARTHROPLASTY @TOTAL HIP ARTHROPLASTY, ANTERIOR APPROACH (WRVU 20.72) MODIFIER ACTIS HIP STEM DEPUY MODIFIER PINNACLE ACETABULUM DEPUY Referral ID Status Reason Start Date Expiration Date Visits Re quested Visits Authorized [id number] 1 1 Encounter Details Date Type Department Care Team (Late st Contact Info) Description 06/18/2019 9:48 AM EDT - 06/18/2019 12:06 PM EDT Surgery [place] [address] Brett David MD [facility] DR ORTHOPAEDIC [place] [address] TOTAL HIP ARTHROPLASTY, ANTERIOR APPROACH (WRVU 19.6) [...] Sign Reading Time Taken Comments Blood Pressure 124/62 06/18/2019 12:00 PM EDT Pulse 61 06/18/2019 12:00 PM EDT Temperature 37.1 ??C (98.8 ??F) 06/18/2019 11:16 AM E DT Respiratory Rate 24 06/18/2019 12:00 PM EDT Oxygen Saturation 95% 06/18/2019 12:00 PM EDT Inhaled Oxygen Concentration - - Weight - - Height - - Body Mass Index - - documented in this encounter Discharge Summaries * Sulma Bennett, TRANSFORMER INSPECTOR - 06/19/2019 12:02 PM EDT Discharge Summary Patient Name: Mag Rider Patient Age: 63 y.o. Language: Macanese Race: White Ethnicity: Not nor Admit date: 06/18/2019 Discharge date and time: 06/19/2019 Attending Physician: Brett David MD Discharge Physician: Brett David MD Follow-up Recommendations for Providers: See discharge instructions for additional details. Future Appointments Date Time Provider Department Center 07/28/2019 9:45 AM [facility] DX ROOM 1 Xray [facility] Rad 07/28/2019 10:40 AM Wesley Tovar PA [facility] 3C [facility] Inpatient Provider Contact Information: Brett David MD Orthopedics: [phone] After hours and weekends, call [facility] Talent Management Specialist, , and have the Orthopedic resident paged. [...] Primary * Wesley Tovar PA - Physician Farm Butcher * Lubna Valles MD - Resident Procedure(s): [...] Weight: Wt Readings from Last 1 Encounters: 10/09/19 66.7 kg (147 lb) Height: Ht Readings from Last 1 Encounters: 10//19 162.6 cm (5' 4) HC: HC Readings [...] 3 wbc, hgb, hct plt Recent Labs 06/19/1925006/09/19 16404/30/19 0633 WBC 14.0* 6.7 14.6* HGB 10.3* 12.5 11.8 HCT 30.6* 38.2 34.5* PLATELET 285 365* 305 Last 3 Lytes Recent Labs 06/19/1925006/09/19164004/30/19 0633 NA 137 142 142 K 4.3 [...] number below. Electronically signed by: Aneesh Orellana [facility] ([phone]), at 06/09/2019 2:44 PM Xr Pelvis And [...] to: Home with VNA for home PT [facility] PHONE: [phone] FAX: [phone] Updated Allergies/ADRs: Allergies Allergen Reactions ??? Codeine [...] bowel movement. You can also take an hpxt-mkx-hzkaqea medication, Miralax if needed to combat constipation. [...] as much as possible. Call your doctor ([phone]) if you develop: 1. Fever greater than 100.5 2. Severe nausea or vomiting 3. Increasing pain that is not controlled by pain medications 4. Increasing redness, swelling, or drainage from incisions 5. Change in sensation FOLLOW-UP APPOINTMENTS: 1. You will have follow-up appointments at [facility] as indicated below in Future Appointment and Orders. 2. You will need to have x-rays prior to your follow-up appointment on 07/28/19. Please come to Radiology, desk 3T, 1 hour BEFORE that appointment for these x-rays. Future Appointments Date Time Provider Department Center 07/28/2019 9:45 AM [facility] DX ROOM 1 MH Xray [facility] Rad 07/28/2019 10:40 AM Wesley Tovar PA [facility] 3C [facility] If you have questions or concerns: Sunday through Sunday, 8 AM - 5 PM, please call Dr. Brett David MD's office at . If it is after 5 PM, the weekend, or holidays, please call and ask to speak with theOrthopedic resident on-call. General Instructions None Future Appointments and Orders Future Appointments and Orders Future Appointments Provider Department Dept Phone 07/28/2019 9:45 AM [facility] DX ROOM 1 XRay at [facility] Arrive at: [facility]T [phone] Please go to [facility] ([place] Location). 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 PHONE: [phone] FAX: [phone] Home care orders for Total Hip Replacements w PT services only. Longterm(SN) eval if indicated on admission visit 1. [...] patient's PCP: JOE Albrecht [address] [place] [address] All VNA agencies which cover the area of patient's residence have been reviewed, either verbally erick writing, and patient/family have chosen the home health care agency as noted for home services. Questions: Agency name and contact information: [facility] home care Patient location post discharge: home What services are requested: Physical Therapy Start date: Responsible MD post discharge contact info: Walker standard [EQ135 Custom] As directed Process Instructions: Scheduling Instructions: Comments: Mag Rider [address] [facility] [address] (home) Telephone Information: FW Diagnosis: Right DARRELL with Unsteady gait Significant weakness, ataxia or gait abnormality Patient's: Hgt: 162.6 cm Wgt: 66.7 kg VENDOR: [facility] Ordering: Front wheel walker Deliver to pt's hospital room #: 326-A Questions: Vendor Name/Contact information: [facility] Primary Care Provider: JOE Albrecht [phone] Discharge References/Attachments None documented in this encounter Discharge Instructions * Patient Instructions* Sulma Bennett, TRANSFORMER INSPECTOR - 06/18/2019 11:46 AM EDT Activity: 1. [...] bowel movement. You can also take an lwjm-exy-eufqvxq medication, Miralax if needed to combat constipation. [...] as much as possible. Call your doctor ([phone]) if you develop: 1. Fever greater than 100.5 2. Severe nausea or vomiting 3. Increasing pain that is not controlled by pain medications 4. Increasing redness, swelling, or drainage from incisions 5. Change in sensation FOLLOW-UP APPOINTMENTS: 1. You will have follow-up appointments at [facility] as indicated below in Future Appointment and Orders. 2. You will need to have x-rays prior to your follow-up appointment on 07/28/19. Please come to Radiology, desk 3T, 1 hour BEFORE that appointment for these x-rays. Future Appointments Date Time Provider Department Center 07/28/2019 9:45 AM [facility] DX ROOM 1 MH Xray [facility] Rad 07/28/2019 10:40 AM Wesley Tovar PA [facility] [address] [place] [address] If you have questions or concerns: Sunday [...] Advised that patient needs a FWW. 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 Patient requests referral to [facility] for FWW. Expected date of discharge: TODAY (DC at 12:00 noon) Referral routed to the Fpga Engineer for matching with agency/vendor and to provide any required information. Tiesha Soriano RN CM Pager [phone] * Lubna Valles MD - 06/19/2019 5:59 [...] Time Provider Department Center 07/28/2019 9:45 AM [facility] DX ROOM 1 MH Xray [facility] Rad 07/28/2019 10:40 AM Wesley Tovar PA [facility] 3C [facility] * Maggie Bryant RN - 06/18/2019 5:00 [...] Time Provider Department Center 07/28/2019 9:45 AM [facility] DX ROOM 1 MH Xray [facility] Rad 07/28/2019 10:40 AM Wesley Tovar PA [facility] [address] [place] [address] * Gisela Hubbard RN - 06/18/2019 11:23 [...] 0.27) performed by Brett David MD at [facility] MAIN OR ??? PRO TOTAL HIP ARTHROPLASTY Left 04/29/2019 @TOTAL HIP ARTHROPLASTY, ANTERIOR APPROACH (WRVU 20.72) performed by Brett David MD at [facility] MAIN OR ??? PRO TOTAL HIP ARTHROPLASTY Right 06/18/2019 @TOTAL HIP ARTHROPLASTY, ANTERIOR APPROACH (WRVU 20.72) performed by Brett David MD at [facility] OR ??? TEAR DUCT SURGERY Bilateral 1990s [...] Therapy: 32(eval) Bethanie Sagastume, PT, DPT Pager: [phone] Physical Therapy Inpatient Rehabilitation Department * Plan of Care - Alex Goodson OT - 06/19/2019 10:21 AM EDT Chart reviewed and orders received. Patient dressing self on her own with recent ant DARRELL sx. Patient denied OT needs. We will monitor till d/c. Alex Goodson OTR/L 1324 * Initial Assessments - Tiesha Soriano RN [...] Admission order reviewed. Primary Insurance on file: P Secondary Insurance on file: N/A Prescription Insurance: yes Primary care provider on file: JOE Albrecht [phone] Advance Directive on file and Code Status: [...] current: Pending PT consult. 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 A letter describing our affiliations was reviewed with them and they were educated about their right to choose where referrals are placed. Patient requests referral to: [facility] PHONE: [phone] FAX: [phone] Expected date of discharge: today Referral routed to the Fpga Engineer for matching with agency/vendor and to provide [...] ready with resumption of home care services. air drier machine operator/Assistant Superintendent For Curriculum will continue to follow patient???s progress and remain available if situation changes for coordination of care, psychosocial support and/or discharge planning. Tiesha Soriano RN Pager [phone] * Plan of Care - Glenn Beltran [...] despite utilizing prns and scheduled pain meds-see MAR. VSS, resting in between care, able to [...] David MD - 06/18/2019 10:52 AM EDT [facility] Operative Note Patient Name: Mag Rider : [id number] MR#: [id number] Case Date: 06/18/2019 Surgeon: Surgeon(s) and Role: * Brett David MD - Primary * Wesley Tovar PA - Physician Farm Butcher * Lubna Valles MD - Resident Preoperative Diagnosis: Osteoarthritis right Hip Postoperative Diagnosis: Same Procedure Performed: right Total Hip Arthroplasty (CPT code 66294) Anesthesia: Spinal IVF: 1000ml of crystaloid Estimated [...] Femoral Head: 36mm +1.5 biolox Acetabulum: DePuy [place] Gription, Size 52 Adjuvant 6.5mm screw fixation x 2 (30mm, 30mm) Liner: Altrx polyethylene, Size [id number] Intraoperative Findings: Arthritic changes in both the [...] component positioning, verify leg length, and offset baptism. Satisfied, the hip was dislocated using traction [...] [facility] HANA [facility] Attestation: Case Date: 06/18/2019 I was present and I participated during the entire procedure (does not need to include opening and closing). This case was performed with a Physician Farm Butcher who was crucial in aiding with patient [...] Implant Name Type Inv. Item Serial No. Smocker Lot No. LRB No. Used Action CUP,HIP,ACETB,GRPTN,SCTR,52MM ([id number]) (AutoReq) - [id number] IMPLANTS CUP,HIP,ACETB,GRPTN,SCTR,52MM ([id number]) (AutoReq) Protek-dor ALBERTO [id number] Right 1 Implanted SCREW,CACLS,PNNCL,6.5X30MM ([id number]) (AutoReq) - [id number] IMPLANTS SCREW,CACLS,PNNCL,6.5X30MM ([id number]) (AutoReq) Protek-dor ALBERTO [id number] Right 1 Implanted SCREW,CACLS,PNNCL,6.5X30MM ([id number]) (AutoReq) - [id number] IMPLANTS SCREW,CACLS,PNNCL,6.5X30MM ([id number]) (AutoReq) Colibria NANCY ALBERTO [id number] Right 1 Implanted INSER,ALTRX,NT,66V22RD ([id number]) (AutoReq) - [id number] IMPLANTS INSER,ALTRX,NT,62X28YN ([id number]) (AutoReq) Colibria NANCY ALBERTO [id number] Right 1 Implanted HEAD,DLTA,CRMC,+1.5,12/14,36MM ([id number]) (AutoReq) - [id number] IMPLANTS HEAD,DLTA,CRMC,+1.5,12/14,36MM ([id number]) (AutoReq) Colibria NANCY ALBERTO [id number] Right 1 Implanted STEM,ACTIS,FEML,HIGH,SZ4 ([id number]) (AutoReq) - [id number] IMPLANTS STEM,ACTIS,FEML,HIGH,SZ4 ([id number]) (AutoReq) Colibria NANCY ALBERTO [id number] Right 1 Implanted documented in this encounter Plan of Treatment Upcoming Encounters Date Type Department Care Team (Late st Contact Info) Description 06/25/2024 1:00 PM EDT Office Visit Dermatology at [address] [place] [address] Skyla Campbell MD [facility] DR CHIQUITA WARREN-[place] [address] documented as of this encounter Procedures Procedure [...] the hip Arthroplasty Acetabular/Prox Fem Prostc Agrft/Algrft (33410) Yes 06/18/2019 9:37 AM EDT Osteoarthritis of the hip documented in this encounter Results * (ABNORMAL) Differential, Automated (06/19/2019 2:51 AM EDT) Neutrophil % 86.0 % [facility] Neutrophil Absolute 12.05(H) 1.70 - 6.10 x10(3)/mc L [facility] Lymph % 5.6 % [facility] Lymphocytes Abs 0.8(L) 0.9 - 3.2 x10(3)/mc L [facility] Monocyte % 7.8 % [facility] Monocyte Abs 1.1(H) 0.3 - 0.9 x10(3)/mc L [facility] Eos % 0.0 % [facility] Eosinophils Abs 0.0 0.0 - 0.4 x10(3)/mc L [facility] Basophil % 0.1 % [facility] Baso Absolute 0.0 0.0 - 0.1 x10(3)/mc L [facility] Immature Gran % 0.50 % [facility] Comment: Immature granulocytes(IG's)percentage and absolute count will include metamyelocytes, myelocytes, and promyelocytes. Blood smears from CBCs yielding IG's will be scanned manually for concordance. If this scan disagrees with the automated IG or if promyelocytes are noted, a manual differential will be performed. Immature Gran Absolute 0.07(H) 0.00 - 0.04 x10(3)/mc L [facility] Blood specimen (specimen) 06/19/2019 2:51 AM EDT 06/19/2019 3:22 AM EDT Narrative Resulting Agency Comment Spec In Lab Lbuna Valles MD HEMATOLOGY ORDERABL ES [facility] [place] [address] * (ABNORMAL) Hemogram (06/19/2019 2:51 AM EDT) White Blood Cell 14.0(H) 4.0 - 9.5 x10(3)/mc L [facility] Red Blood Cell 3.10(L) 4.00 - 5.21 x10(6)/mc L [facility] Hemoglobin 10.3(L) 11.7 - 15.5 gm/dL [facility] Hematocrit 30.6(L) 35.7 - 45.8 % [facility] Mean Cell Volume 98.7(H) 82.6 - 94.4 fL [facility] Mean Cell Hemoglobin 33.2(H) 27.1 - 32.0 pg [facility] Mean Cell Hemoglobin Concentration 33.7 31.7 - 35.0 gm/dL [facility] Platelet 285 145 - 357 x10(3)/mc L [facility] RDW Standard Deviation 42.5 37.0 - 46.0 fL [facility] RDW coefficient of variation 11.8 11.5 - 14.1 % [facility] Mean Platelet Volume 9.6 7.6 - 12.9 fL [facility] NRBC% auto 0.0 % [facility] NRBC Absolute 0.000 0.000 - 0.000 x10(3)/mc L [facility] Blood specimen (specimen) 06/19/2019 2:51 AM EDT 06/19/2019 3:22 AM EDT Narrative Resulting Agency Comment Spec In Lab Lubna Valles MD HEMATOLOGY ORDERABL ES [facility] [place] [address] * (ABNORMAL) Basic Metabolic Panel (non-fasting) (06/19/2019 2:51 AM EDT) Glucose 157 65 - 199 mg/dL [facility] Comment:Diabetes: >=200 mg/d L plus symptoms Blood Urea Nitrogen 14 8 - 18 mg/dL [facility] Creatinine 0.58(L) 0.70 - 1.20 mg/dL [facility] Sodium 137 135 - 145 mmol/L [facility] Potassium 4.3 3.5 - 5.0 mmol/L [facility] Comment: Please note: ??Patients with WBC >100,000 may have falsely elevated Potassium levels. ??For accurate Potassium quantification in these patients send serum separator tube (gold top) for subsequent determinations. ??Contact the Clinical Chemistry Laboratory if there are any questions. Chloride 107 98 - 107 mmol/L [facility] Carbon Dioxide 21(L) 22 - 31 mmol/L [facility] Anion Gap 9 5 - 15 mmol/L [facility] Calcium 8.9 8.5 - 10.5 mg/dL [facility] Est Glomerular Filtration Rate 99 >=60 mL/min/1. 73 m?? [facility] Comment: The eGFR was calculated using the CKD-EPI equation. As with all creatinine based estimates of kidney function, eGFR values calculated with the CKD-EPI equation are not accurate in patients with acute kidney failure, extremes of body mass or the acutely ill. http://Gyst/[facility]nk eGFR 115 >=60 mL/min/1. 73 m?? [facility] Comment: The eGFR was calculated using the CKD-EPI equation. As with all creatinine based estimates of kidney function, eGFR values calculated with the CKD-EPI equation are not accurate in patients with acute kidney failure, extremes of body mass or the acutely ill. http://Gyst/[facility] CITYnkf Blood specimen (specimen) 06/19/2019 2:51 AM EDT 06/19/2019 3:22 AM EDT Narrative Resulting Agency Comment Spec In Lab Brett David MD CHEMISTRY ORDERABLE S [facility] [place] [address] * XR Pelvis (Generic) (06/18/2019 11:53 AM [...] SMITH FLUORO ORDERABL ES Performing Organization Address City/State/[facility] Co de Phone Number [place], [place] documented in this encounter Visit Diagnoses Not on filedocumented in this encounter Admitting Diagnoses Diagnosis Presence [...] Given 06/18/2019 9:55 PM EDT 81 mg BUpivacaine (PF) (MARCAINE) 0.25 % (2.5 mg/mL) injection ONCE PRN, Starting on Sun06/18/19 at 1004, Until Becky 06/19/19 at 1537, Intra-Operative (Intra-Procedure), Routine Given 06/18/2019 10:05 AM EDT 50 mLs 19- Surgical Site Given 06/18/2019 10:04 AM EDT 10 mLs 1 9- Surgical Site celecoxib (CeleBREX) capsule 200 mg 200 mg, Oral, 2 TIMES DAILY, First dose on Sun06/18/19 at 2100, Until Discontinued, Routine Given 06/19/2019 8:02 AM EDT 200 mg Given 06/18/2019 9:51 PM EDT 200 mg cloNIDine injection ONCE PRN, Starting on Sun06/18/19 at 1005, Until Becky 06/19/19 at 1537, Intra-Operative (Intra-Procedure), Routine Given 06/18/2019 10:05 AM EDT 50 mcg 19- Surgical Site gabapentin (NEURONTIN) capsule 300 mg 300 mg, [...] 06/19/19 at 1537, Pain, Routine Given 06/19/2019 12:20 AM EDT 15 mg ketorolac (TORADOL) injection ONCE PRN, Starting on Sun06/18/19 at 1005, Until Becky 06/19/19 at 1537, Intra-Operative (Intra-Procedure), Routine Given 06/18/2019 10:05 AM EDT 30 mg 19- Surgical Site ondansetron (ZOFRAN) injection 4 mg 4 mg, [...] Given 06/18/2019 9:52 PM EDT 5 mLs documented in this encounter Active and Recently Administered Medications Times are shown in EDT. Scheduled Medication Order 06/17/2019 06/18/2019 06/19/2019 acetaminophen (TYLENOL) tablet 1,000 mg (COMPLETED) 1,000 mg, Oral, ONCE, 1 dose, On Sun06/18/19 at 0845, Administer on arrival in Same Day Program, Day of Surgery (Day of Procedure), Routine 08 (Given - Provider: Adina Bee RN) acetaminophen (TYLENOL) tablet 1,000 mg 1,000 mg, Oral, EVERY 8 HOURS SCHEDULED, First dose on Sun06/18/19 at 1400, Until Discontinued, Maximum dose of acetaminophen is 4000 mg from all sources in 24 hours., Routine 1736 (Given - Provider: Maggie Bryant RN) 002 (Given - Provider: Glenn Beltran, JAYNA)08 (Given - Provider: Sulma Cruz) aspirin EC [...] (Intra-Procedure), Indication for (Active or Suspected): Prophylaxis 42 (Given - Provider: Camilo Bush CRNA) celecoxib [...] 08 (Given - Provider: Adina Bee, JAYNA) dexamethasone (DECADRON) tablet 4 mg 4 mg, Oral, DAILY, 2 doses, First dose on Sun06/18/19 at 1730, Last dose on Sun06/19/19 at 0900, Routine 1735 (Given - Provider: Maggie Bryant, JAYNA) 0900 (Hold - Provider: Sulma Cruz - Reason: Order parameters not met - Comment: Dose rescheduled for 1729) gabapentin (NEURONTIN) capsule 300 mg(Linked Group 1) 300 mg, Oral, NIGHTLY, First dose on Sun06/20/19 at 2100, Until Discontinued, Routine gabapentin (NEURONTIN) capsule 600 mg (COMPLETED) 600 mg, Oral, ONCE, 1 dose, On Sun06/18/19 at 0845, Administer on arrival in Same Day Program, Day of Surgery (Day of Procedure), Routine 835 (Given - Provider: Adina Bee, JAYNA) gabapentin (NEURONTIN) capsule 600 mg(Linked Group 1) 600 mg, Oral, NIGHTLY, 2 doses, First dose on Sun06/18/19 at 2100, Last dose on Sun06/19/19 at 2100, Routine 2151 (Not Given - Provider: Glenn Beltran RN - Reason: Patient/family refused) pantoprazole (PROTONIX) tablet 20 mg 20 mg, Oral, DAILY, First dose on Sun06/18/19 at 1730, Until Discontinued, DO NOT CRUSH OR OPEN 1735 (Given - Provider: Maggie Bryant RN) 08 (Given - Provider: Sulma Cruz) polyethylene glycol [...] 2151 (Given - Provider: Glenn Beltran RN) 0802 (Given - Provider: Sulma Cruz) sodium chloride [...] Procedure) 0942 (New Bag - Provider: Camilo Bush CRNA - Comment: over 30 minutes) Continuous Medication [...] Intra-Operative (Intra-Procedure), Routine 1004 (Given - Provider: Brtet David MD)1005 (Given - Provider: Brett David [...] Subcutaneous, ONCE PRN, 1 dose, Starting on 06/18/19 at 1703, Until Becky [...] Starting on Becky 06/19/19 at 0332, Until Bceky 06/19/19 at 0831, Pain, Routine 0340 (Given - Provid er: Glenn Beltran RN) oxyCODONE (ROXICODONE) immediate release tablet 5 mg 5 mg, Oral, EVERY 4 HOURS PRN, Starting on Sun06/19/19 at 1227, Until Becky 06/19/19 at 1537, Pain, Routine 1236 (Given - Provid er: Sulma Cruz) oxyCODONE (ROXICODONE) immediate release tablet 5-10 mg(Linked Group 3) 5-10 mg, Oral, EVERY 4 HOURS PRN, Starting on Sun06/19/19 at 0830, Until Becky 06/19/19 at 1537, [...] at 1703, Until Becky 06/19/19 at 1537, flush, Flush pertains to all [...] Routine 1520 (Given - Provider: Gisela Hubbard RN)2151 (Given - Provider: Glenn Beltran RN) Linked [...] Sun06/18/19 at 1703, Until Sun06/19/19 at 1537, Nausea, Vomiting, If multiple antiemetics [...] PRN, Starting on Sun06/19/19 at 0830, Until Becky 06/19/19 at 1537, Pain, moderate pain (4-6), Initial dose 5mg. If pain control not adequate in 60 minutes, give additional 5mg, Routine Or oxyCODONE (ROXICODONE) immediate release tablet 10-15 mgJump to med 10-15 mg, Oral, EVERY 4 HOURS PRN, Starting on Sun06/19/19 at 0830, Until Becky 06/19/19 at 1537, Pain, severe pain (7-10), Initial dose 10mg. If pain control not adequate in 60 minutes, give additional 5mg, Routine documented in this encounter Care Teams Project Management Advisor Relationship Specialty Start Date End Date Yadira Llanes PA [address] [place] [address] PCP - General Family Medicine 8/8/19 documented as of this encounter
--- OUTSIDE RECORDS SUMMARY | 2024-04-21 04:21 | XMS_ITS | Encounter Summary ---
Author Organization [facility] Address [facility] [place] [address] Care Team Providers Care Histopathologist Name Role Phone Unavailable Primary Care Provider Unavailabl e Encounter Details Date Type Department Care Team (Late st Contact Info) Description 02/14/2019 Ancillary Procedure [place] [address] Brett David MD [facility] [place] [address] Social History Tobacco Use Types Packs/Day Years [...] 1:00 PM EDT Office Visit Dermatology at [facility] [address] [place] [address] Skyla Campbell MD [facility] DR CHIQU[place] [address] documented as of this encounter Procedures Procedure Name Priority Date/Time Associated Diagnosis Comments FILM LIBRARY STORAGE ONLY DX HIP Routine 02/14/2019 12:00 AM EDT documented in this encounter Results * Film Library- Storage Only DX Hip (02/14/2019 12:00 AM EDT) Narrative [facility] - 02/21/2019 3:59 PM EDT This exam is auto-finalizing. It's purpose is for storage only. Brett David MD IMG FILM LIBRARY OR DERABLES Performing Organization Address City/State/[facility] Co de Phone Number [place], [place] documented in this encounter Visit Diagnoses Not on filedocumented in this encounter
--- OUTSIDE RECORDS SUMMARY | 2024-04-21 04:21 | XMS_ITS ---
Author Organization Unknown Address [address] [place] [phone] Phone Care Team Providers Care Weight Control Lecturer Name Role Phone EPHRAIM RANDOLPH Attending Unavailable IMELDA CASE Primary Unavailable Social History Type Status Start Date End Date Code Code Syst em Smoking History Never smoker (Never Smoked) [id number] SNOMED CT Sex Female Hospital Discharge Instructions Should you have any questions prior to discharge, please contact a member of your healthcare team. If you have left the hospital and have any questions, please contact your primary care physician. Reason For Referral No Data Found Allergies and Adverse Reactions Allergy Substance Reaction Severity Start Date Concern Status Co de Code System No Known Drug Allergies Active 423423479 SNOMED-CT Plan of Treatment No Data Found Encounters Encounter Diagnosis Start Date Code Code Sys tem 01/25/2022 [id number] SNOMED-CT Personal Care Team Section Performer Name Performer Role Active Date Inactive Da kathryn
--- OUTSIDE RECORDS SUMMARY | 2024-04-21 04:21 | XMS_ITS | Encounter Summary ---
Author Organization [facility] Address [facility] [place] [address] Care Team Providers Care Power Plant Inspector Name Role Phone Yadira Llanes Primary Care Provider [phone] Reason for Visit * Auth/Cert Specialty Diagnoses [...] Expiration Date Visits Re quested Visits Authorized [id number] 1 1 Encounter Details Date Type Department Care Team (Latest Contact Info) Description 04/29/2019 6:29 AM EDT - 04/30/2019 1:14 PM EDT Hospital Encounter Med Surg Unit at [address] [id number] Brett David MD [facility] ORTHOPAEDIC [place] [address] Status post total replacement of left hip, DAA. Dr. David. 04/29/2019 Discharge Disposition: Home with VNA Social History [...] Sign Reading Time Taken Comments Blood Pressure 134/62 04/30/2019 7:48 AM EDT Pulse 61 04/30/2019 7:48 AM EDT Temperature 36.8 ??C (98.2 ??F) 04/30/2019 7:48 AM ED T Respiratory Rate 16 04/30/2019 7:48 AM EDT Oxygen Saturation 97% 04/30/2019 7:48 AM EDT Inhaled Oxygen Concentration - - [...] Mag Rider Patient Age: 63 y.o. Language: Niuean Race: White Ethnicity: Not nor Admit date: 04/29/2019 Discharge date and time: 04/30/2019 Attending Physician: Brett David MD Discharge Physician: Brett David MD Follow-up Recommendations for Providers: See discharge instructions for additional details. Future Appointments Date Time Provider Department Center 06/09/2019 2:00 PM [facility] DX ROOM 3 Xray [facility] Rad 06/09/2019 3:00 PM Brett David MD [facility] 3C [facility] Inpatient Provider Contact Information: Brett David MD Orthopedics: [phone] After hours and weekends, call [facility] Mate Relief, , and have the Orthopedic resident paged. [...] Hospital Course: The patient was admitted via [facility] for the above operation. DVT prophylaxis was: [...] fiber while on narcotic pain meds. 4. Alan/Sutures: No external alan or sutures inplace. Sutures are internal and [...] bowel movement. You can also take an vkgf-hcd-mlrakhk medication, Miralax if needed to combat constipation. [...] 1. You do NOT have any external alan or sutures in place. Your sutures are [...] as much as possible. Call your doctor ([phone]) if you develop: 1. Fever greater than 100.5 2. Severe nausea or vomiting 3. Increasing pain that is not controlled by pain medications 4. Increasing redness, swelling, or drainage from incisions 5. Change in sensation FOLLOW-UP APPOINTMENTS: 1. You will have follow-up appointments at [facility] as indicated below in Future Appointment and Orders. 2. You will need to have x-rays prior to your follow-up appointment on 06/09/2019. Please come to Radiology, desk 3T, 1 hour BEFORE that appointment for these x-rays. Future Appointments Date Time Provider Department Center 06/09/2019 2:00 PM [facility] DX ROOM 3 Xray [facility] Rad 06/09/2019 3:00 PM Brett David MD [facility] 3C [facility] If you have questions or concerns: [...] Provider Department Dept Phone 06/09/2019 2:00 PM [facility] DX ROOM 3 XRay at [place] Arrive at: Production Leader Area 3T [phone] Please go to Production Leader Area 3T ([place] Location). 06/09/2019 3:00 PM Brett David MD Orthopaedics at [facility] Arrive at: Production Leader Area 3C [phone] Future Orders Complete By Expires Full code [...] Referral to Home Health - at DISCHARGE [[id number] CPT(R)] As directed Process Instructions: Scheduling Instructions: Comments: DOCUMENTATION FOR VNA SERVICES (INCLUDING THOSE PATIENTS WITH MEDICARE COVERAGE REQUIRING HOME VNA SERVICES AND/OR HOSPICE SERVICES) This is preliminary information related to the patient's needs and confirmation of Face to Face Encounter. The denoted information will require completion and an electronic signature by the physicianupon finalization of these orders. PATIENT'S LOCATION: Home Address: [address] [place] [address] Tel. #: [phone] Nickel Operator's Name: self In discussion with the attending physician, it is certified that this patient is under their care and that they, or a nurse practitioner, clinical nurse specialist or physician's recruitment and outreach assistant who is working directly with them, [...] home health services. SERVICES REQUESTED: RN () CLIENT SOLUTIONS SPECIALIST (X) OT (X) PT (X) ST () MEAT PROCESSOR () Hospice () To provide the following care/treatments with the clinical findings supporting the need for services as follows: HOME CARE ORDERS: PT 2/week, OT 2/week, CLIENT SOLUTIONS SPECIALIST to assess for shower safety and possible tub bench START OF CARE DATE: within 24 hours of discharge All VNA agencies which cover the area of patient's residence have been reviewed, either verbally erick writing, and patient/family have chosen the home health care agency as follows for home services: HOME HEALTH CARE AGENCY: [facility] Ordering Provider: Dr. Brett David Ordering Provider Phone #: [phone] [address] Questions: Agency name and contact information: [facility] Patient location post discharge: Home What services are requested: Physical Therapy Occupational Therapy Home Health Aide Start date: 04/30/2019 Responsible MD post discharge contact info: Dr. David Primary Care Provider: JOE Albrecht [phone] Discharge References/Attachments None Click refresh button immediately [...] bowel movement. You can also take an eyeb-spb-xaewxtm medication, Miralax if needed to combat constipation. [...] 1. You do NOT have any external alan or sutures in place. Your sutures are [...] Some patients have an additional item called [place] on their skin. If you have this [...] as much as possible. Call your doctor ([phone]) if you develop: 1. Fever greater than 100.5 2. Severe nausea or vomiting 3. Increasing pain that is not controlled by pain medications 4. Increasing redness, swelling, or drainage from incisions 5. Change in sensation FOLLOW-UP APPOINTMENTS: 1. You will have follow-up appointments at [facility] as indicated below in Future Appointment and Orders. 2. You will need to have x-rays prior to your follow-up appointment on 06/09/2019. Please come to Radiology, desk 3T, 1 hour BEFORE that appointment for these x-rays. Future Appointments Date Time Provider Department Center 06/09/2019 2:00 PM [facility] DX ROOM 3 MH Xray [facility] Rad 06/09/2019 3:00 PM Brett David MD [address] If you have questions or concerns: [...] Time Provider Department Center 06/09/2019 2:00 PM [facility] DX ROOM 3 Xray [facility] Rad 06/09/2019 3:00 PM Brett David MD [facility] 3C [facility] JOE HASTINGS 04/30/2019 * Madina Carter RN [...] lateral leg and knee when applying weight. call center dispatcher PA notified of patient's request to changefrom [...] min, charges: Self Care x1 * Jia Agudelo, RN - 04/29/2019 4:02 PM EDT Pt [...] 30 minutes prior to transferring to the [facility] unit. Pt somewhat anxious regarding her care, and is hoping to be discharged home today, however, there is some ambiguity regarding assistance at home at this point. Attempted to answer her many questions, particularly regarding activity and ROM, encouraged pt to refer to PT and surgeon for specifics. Report to Myah Agudelo RN, transferred to [facility] in hospital bed. documented in this encounter [...] PM EDT VNA referral was sent to [facility]. Margarita in intake [...] is in agreement Charges: Ev Low Com, Thac 2016 PT Evaluation Code Rationale: ?? Diagnosis & [...] Use/Abuse: denies Primary Care Provider: JOE Albrecht [phone] Pharmacy: [facility] /Prescription Coverage: Primary Insurance: [facility] Secondary Insurance: N/A DME: has walker, raised toilet seat being delivered today, does not think she will need a tub bench, discussed how to obtain one if needed Community Resources: denies need VNA: [facility] Home Health Transportation: daughter Anticipated Barriers to discharge: denies Plan: likely d/c home this afternoon with VNA services and family support The best phone number to reach you post discharge is [phone]. A member of the Case Management team will continue to monitor progress and collaborate with the interdisciplinary team to create a safe discharge plan. See [facility] guidelines for further clinical documentation during patient???s hospital stay. Billy Chaudhari * Op Note - Wesely Tovar PA - 04/29/2019 9:37 AM EDT [facility] Operative Note [address] [facility] [address] [place] [address] ?? Patient Name: Mag Rider : [id number] MR#: [id number] ?? Case Date: 04/29/2019 Case Scheduled Time: 734 ?? Surgeon: Surgeon(s) and Role: * Brett David MD - Primary Tovar, Wesley SINGH - blood bank assistant ?? Preoperative Diagnosis: Osteoarthritis left Hip ?? Postoperative Diagnosis: Same ?? Procedure Performed: left Total Hip Arthroplasty (CPT code 66862) Anesthesia: Spinal ?? IVF: 1600ml of crystaloid [...] fixation x 2 (30mm, 30mm) Liner: Size [id number] ?? Intraoperative Findings: Arthritic changes in both [...] component positioning, verify leg length, and offset jewish. ?? Satisfied, the hip was dislocated using [...] [facility] ?? Attestation: Case Date: 04/29/2019 ?? I [...] Implant Name Type Inv. Item Serial No. Pier Master Assistant Lot No. LRB No. Used Action SHELL,R3,ACET,3HOL,52MM ([id number]) (AutoReq) - [id number] IMPLANTS SHELL,R3,ACET,3HOL,52MM ([id number])(AutoReq) ?? [employer] HOLM NEPH [id number] Left 1 Implanted ? * Brief Op Note - Wesley Tovar PA - 04/29/2019 9:37 AM EDT [facility] Operative Note [address] [address] ?? Patient Name: Mag Rider : [id number] MR#: [id number] ?? Case Date: 04/29/2019 Case Scheduled Time: 734 ?? Surgeon: Surgeon(s) and Role: * Brett David MD - Primary Wesley Tovar-C - blood bank assistant ?? Preoperative Diagnosis: Osteoarthritis left Hip ?? Postoperative Diagnosis: Same ?? Procedure Performed: left Total Hip Arthroplasty (CPT code 88556) Anesthesia: Spinal ?? IVF: 1600ml of crystaloid [...] fixation x 2 (30mm, 30mm) Liner: Size [id number] ?? Intraoperative Findings: Arthritic changes in both [...] component positioning, verify leg length, and offset jewish. ?? Satisfied, the hip was dislocated using [...] off the HANA table back to the [facility]. ?? Attestation: Case Date: 04/29/2019 ?? I [...] Implant Name Type Inv. Item Serial No. Pier Master Assistant Lot No. LRB No. Used Action SHELL,R3,ACET,3HOL,52MM ([id number]) (AutoReq) - [id number] IMPLANTS SHELL,R3,ACET,3HOL,52MM ([id number])(AutoReq) ?? [employer]OL[employer] [id number] Left 1 Implanted ? * Op Note - Brett David MD - 04/29/2019 8:51 AM EDT [facility] Operative Note [facility] [address] [place] [address] Patient Name: Mag Rider : [id number] MR#: [id number] Case Date: 04/29/2019 Case Scheduled Time: 734 Surgeon: Surgeon(s) and Role: * Brett David MD - Primary Wesley Tovar-C - blood bank assistant Preoperative Diagnosis: Osteoarthritis left Hip Postoperative Diagnosis: Same Procedure Performed: left Total Hip Arthroplasty (CPT code 69030) Anesthesia: Spinal IVF: 1600ml of crystaloid Estimated [...] fixation x 2 (30mm, 30mm) Liner: Size [id number] Intraoperative Findings: Arthritic changes in both the [...] component positioning, verify leg length, and offset jewish. Satisfied, the hip was dislocated using traction [...] [facility] the HANA [facility] Attestation: Case Date: 04/29/2019 I performed this procedure without the involvement of a resident. This case was performed with a Physician Athletic Trainer as there was no qualified resident available. [...] Implant Name Type Inv. Item Serial No. Pier Master Assistant Lot No. LRB No. Used Action SHELL,R3,ACET,3HOL,52MM ([id number]) (AutoReq) - [id number] IMPLANTS SHELL,R3,ACET,3HOL,52MM ([id number])(AutoReq) [employer] HOLM NEPH [id number] Left 1 Implanted documented in this encounter Plan of Treatment Upcoming Encounters Date Type Department Care Team (Late st Contact Info) Description 06/25/2024 1:00 PM EDT Office Visit Dermatology at [facility] [address] [place] [address] Skyla Campbell MD [facility] DR CHIQUITA WARREN[place] [address] documented as of this encounter Procedures Procedure [...] Hip Unilateral With Pelvis Minimum 4 Views ([id number]) 04/29/2019 7:28 AM EDT Hip osteoarthritis Arthroplasty Acetabular/Prox Fem Prostc Agrft/Algrft ([id number]) 04/29/2019 7:28 AM EDT Hip osteoarthritis ANTIBODY [...] 6:33 AM EDT) Neutrophil % 86.0 % [facility] Neutrophil Absolute 12.54(H) 1.70 - 6.10 x10(3)/mc L [facility] Lymph % 6.6 % [facility] Lymphocytes Abs 1.0 0.9 - 3.2 x10(3)/mc L [facility] Monocyte % 7.0 % [facility] Monocyte Abs 1.0(H) 0.3 - 0.9 x10(3)/mc L [facility] Eos % 0.0 % [facility] Eosinophils Abs 0.0 0.0 - 0.4 x10(3)/mc L [facility] Basophil % 0.1 % [facility] Baso Absolute 0.0 0.0 - 0.1 x10(3)/mc L [facility] Immature Gran % 0.30 % [facility] Comment: Immature granulocytes(IG's)percentage and absolute count [...] Wesley [facility] HEMATOLOGY ORDERABLE S [facility] [address] [place] [address] * (ABNORMAL) Hemogram (04/30/2019 6:33 AM EDT) White Blood Cell 14.6(H) 4.0 - 9.5 x10(3)/mc L [facility] Red Blood Cell 3.51(L) 4.00 - 5.21 x10(6)/mc L [facility] Hemoglobin 11.8 11.7 - 15.5 gm/dL LAB[facility] Hematocrit 34.5(L) 35.7 - 45.8 % [facility] Mean Cell Volume 98.3(H) 82.6 - 94.4 fL LAB[facility] Mean Cell Hemoglobin 33.6(H) 27.1 - 32.0 pg [facility] Mean Cell Hemoglobin Concentration 34.2 31.7 - 35.0 gm/dL [facility] Platelet 305 145 - 357 x10(3)/mc L [facility] RDW Standard Deviation 44.4 37.0 - 46.0 fL [facility] RDW coefficient of variation 12.1 11.5 - 14.1 % LAB[facility] Mean Platelet Volume 9.7 7.6 - 12.9 fL [facility] Blood specimen (specimen) 04/30/2019 6:33 AM EDT 04/30/2019 6:44 AM EDT Narrative Resulting Agency Comment Spec In Lab / APD Wesley [facility] HEMATOLOGY [facility] S [facility] [address] [place] [address] * (ABNORMAL) Basic Metabolic Panel (non-fasting) (04/30/2019 6:33 AM EDT) Glucose 152 65 - 199 mg/dL LAB[facility] Comment:Diabetes: >=200 mg/d L plus symptoms Blood Urea Nitrogen 14 8 - 18 mg/dL [facility] Creatinine 0.70 0.70 - 1.20 mg/dL [facility] Sodium 142 135 - 145 mmol/L LAB[facility] Potassium 4.7 3.5 - 5.0 mmol/L [facility] Comment: Please note: ??Patients with WBC >100,000 may have falsely elevated Potassium levels. ??For accurate Potassium quantification in these patients send serum separator tube (gold top) for subsequent determinations. ??Contact the Clinical Chemistry Laboratory if there are any questions. Chloride 107 98 - 107 mmol/L LAB[facility] Carbon Dioxide 21(L) 22 - 31 mmol/L [facility] Anion Gap 14 5 - 15 mmol/L [facility] Calcium 9.5 8.5 - 10.5 mg/dL [facility] Est Glomerular Filtration Rate 94 >=60 mL/min/1. 73 m?? [facility] Comment: The eGFR was calculated using the CKD-EPI equation. As with all creatinine based estimates of kidney function, eGFR values calculated with the CKD-EPI equation are not accurate in patients with acute kidney failure, extremes of body mass or the acutely ill. http://[employer]/[facility] eGFR 108 >=60 mL/min/1. 73 m?? [facility] Comment: The eGFR was calculated using the CKD-EPI equation. As with all creatinine based estimates of kidney function, eGFR values calculated with the CKD-EPI equation are not accurate in patients with acute kidney failure, extremes of body mass or the acutely ill. http://[employer]/[facility]nk[facility] Blood specimen (specimen) 04/30/2019 6:33 AM EDT 04/30/2019 6:44 AM EDT Narrative Resulting Agency Comment Spec In Lab / APD Brett David MD CHEMISTRY ORDERABLE S [facility] [address] [place] [address] * XR Pelvis (Generic) (04/29/2019 9:51 AM [...] OR Use (04/29/2019 9:25 AM EDT) Narrative [facility] - 04/29/2019 2:41 PM EDT This exam is auto-finalizing. No interpretation was done. Brett SMITH FLUORO ORDERABL ES [place], [place] * ABORH Recheck Status (04/29/2019 7:07 AM EDT) ABORH Recheck Order Order Placed [facility] ABORH Type Recheck Complete [facility] Blood specimen (specimen) 04/29/2019 7:07 AM EDT 04/29/2019 7:07 AM EDT Narrative Resulting Agency Comment Spec In Lab / APD Wesley [facility] BLO[facility] LAB ORDER OLAF Performing Organization Address [facility]/ZIP Co de Phone Number [facility] [address] [place] [address] * Antibody Screen Gel (APD) (04/29/2019 7:07 AM EDT) AB Screen Interp Negative [facility] Blood specimen (specimen) 04/29/2019 7:07 AM EDT 04/29/2019 7:07 AM EDT Narrative Resulting Agency Comment Spec In Lab / APD Wesley DIAZ BLOOD BANK LAB ORDER OLAF Performing Organization Address [facility] Co de Phone Number [facility] [address] [place] [address] * ABORh type Gel (APD) (04/29/2019 7:07 AM EDT) Expires at 2359 on: 05/02/2019 [facility] ABORH Type A Pos [facility] Blood specimen (specimen) 04/29/2019 7:07 AM EDT 04/29/2019 7:07 AM EDT Narrative Resulting Agency Comment Spec In Lab / APD Wesley DIAZ BLOOD BANK LAB ORDER OLAF Performing Organization Address [facility] Co de Phone Number [facility] [address] [place] [address] * SCAN DOC: TELEMETRY STRIPS (04/29/2019 12:00 AM EDT) Narrative 04/29/2019 12:00 AM EDT Ordered by an unspecified provider. Scanning Provider MEDIA MGR SCAN EXT O RDR/RSLT documented in this encounter Visit Diagnoses Diagnosis Status post total replacement of left hip, DAA. Dr. David. 04/29/2019 Status post total replacement of left hip, ANASTASIA. Dr. David. 04/29/2019 documented in this encounter Administered Medications Inactive Administered Medications - up to 3 most recent administrations Medication Order MAR Action Action Date Dose Rate Site acetaminophen (TYLENOL) tablet 1,000 mg 1,000 mg, Oral, ONCE, 1 dose, On Sun04/29/19 at 0715, Administer on arrival in Same Day Program, Day of Surgery (Day of Procedure), Routine Given 04/29/2019 7:17 AM EDT 1,000 mg acetaminophen (TYLENOL) tablet 500 mg 500 mg, [...] Given 04/29/2019 8:11 PM EDT 81 mg celecoxib (CeleBREX) capsule 200 mg 200 mg, Oral, 2 TIMES DAILY PRN, Starting on Sun04/29/19 at 1103, Until Sun04/30/19 at 1514, Pain, OR GIVE KETOROLAC - NOT BOTH, Recovery (Recovery-Hospital Unit), Routine Given 04/29/2019 11:17 PM E DT 200 mg celecoxib (CeleBREX) capsule 400 mg 400 mg, Oral, ONCE, 1 dose, On Sun04/29/19 at 0715, Administer on arrival to Same Day Program, Day of Surgery (Day of Procedure), Routine Given 04/29/2019 7:19 AM EDT 400 mg dexamethasone (DECADRON) injection 4 mg 4 mg, Intravenous, 2 TIMES DAILY, First dose on Sun04/29/19 at 2100, Until Discontinued, Recovery (Recovery-Hospital Unit), Routine Given 04/30/2019 7:48 AM EDT 4 mg Given 04/29/2019 8:08 PM EDT 4 mg famotidine (PEPCID) injection 20 mg 20 mg, Intravenous, ONCE, 1 dose, On Sun04/29/19 at 0715, Day of Surgery (Day of Procedure), Routine Given 04/29/2019 7:21 AM EDT 20 mg gabapentin (NEURONTIN) capsule 600 mg 600 mg, Oral, ONCE, 1 dose, On Sun04/29/19 at 0715, Administer on arrival in Same Day Program, Day of Surgery (Day of Procedure), Routine Given 04/29/2019 7:15 AM EDT 600 mg ketorolac (TORADOL) injection 30 mg 30 mg, Intravenous, EVERY 6 HOURS PRN, Starting on Sun04/29/19 at 1103, Until Sun04/30/19 at 1514, Pain, To be begin 6 hours post last dose given in OR Case, Recovery (Recovery-Hospital Unit), Routine Given 04/30/2019 6:21 AM EDT 30 mg Given 04/29/2019 4:51 PM EDT 30 mg lactated ringers infusion 1,000 mL, at 50 mL/hr, Intravenous, CONTINUOUS, Starting on Sun04/29/19 at 0715, Until Sun04/29/19 at 1055, Day of Surgery (Day of Procedure) New Bag 04/29/2019 7:59 AM EDT New Bag 04/29/2019 7:26 AM EDT New Bag 04/29/2019 7:05 AM EDT 1,000 mLs 50 mL/hr ondansetron (ZOFRAN) injection 4 mg 4 mg, [...] Given 04/29/2019 8:43 PM EDT 3 mLs sodium chloride 0.9% infusion 1,000 mL, at 100 mL/hr, Intravenous, CONTINUOUS, Starting on Sun04/29/19 at 1130, Until Sun04/30/19 at 1129, Recovery (Recovery-Hospital Unit) New Bag 04/29/2019 11:41 AM EDT 1,000 mLs 100 m L/hr traMADol (ULTRAM) tablet 25-50 mg 25-50 mg, Oral, EVERY 6 HOURS PRN, Starting on Sun04/29/19 at 1103, Until Sun04/30/19 at 0602, Pain, Give 25 mg for mild to moderate pain (1-6), 50 mg for severe pain (7-10), Recovery (Recovery-Hospital Unit), Routine Given 04/30/2019 4:00 AM EDT 50 mg Given 04/29/2019 9:23 PM EDT 50 mg Given 04/29/2019 3:31 PM EDT 50 mg 19 - Surgical Site documented in this encounter Active and Recently Administered Medications Times are shown in EDT. Scheduled Medication Order 04/28/2019 04/29/2019 04/30/2019 acetaminophen (TYLENOL) tablet 1,000 mg (COMPLETED) 1,000 mg, Oral, ONCE, 1 dose, On Sun04/29/19 at 0715, Administer on arrival in Same Day Program, Day of Surgery (Day of Procedure), Routine 716 (Given - Provider: Carolina Diaz, JAYNA) acetaminophen (TYLENOL) tablet 500 mg 500 mg, [...] Priscilla Jarquin RN)0748 (Given - Provider: Jia Agudelo RN)1141 (Given - Provider: Jia Agudelo RN) aspirin [...] Routine 718 (Given - Provider: Carolina Diaz, JAYNA) dexamethasone (DECADRON) injection 4 mg 4 mg, Intravenous, 2 TIMES DAILY, First dose on Sun04/29/19 at 2100, Until Discontinued, Recovery (Recovery-Hospital Unit), Routine 2007 (Given - Provider: Priscilla Jarquin RN) 0748 (Given - Provider: Jia Agudelo RN) famotidine (PEPCID) injection 20 mg (COMPLETED) 20 mg, Intravenous, ONCE, 1 dose, On Sun04/29/19 at 0715, Day of Surgery (Day of Procedure), Routine 720 (Given - Provider: Carolina Diaz RN) gabapentin (NEURONTIN) capsule 600 mg (COMPLETED) 600 mg, Oral, ONCE, 1 dose, On Sun04/29/19 at 0715, Administer on arrival in Same Day Program, Day of Surgery (Day of Procedure), Routine 714 (Given - Provider: Carolina Diaz RN) senna-docusate (PERICOLACE) 8.6-50 mg per tablet 1 tablet 1 tablet, Oral, 2 TIMES DAILY, First dose on Sun04/29/19 at 2100, Until Discontinued, Recovery (Recovery-Hospital Unit), Routine 2011 (Given - Provider: Priscilla Jarquin RN) 0748 (Given - Provider: Jia Agudelo RN) sodium chloride 0.9 % (flush) flush 3 mL 3 mL, Intravenous, EVERY 12 HOURS SCHEDULED (2 times per day), First dose on Sun04/29/19 at 1130, Until Discontinued, Recovery (Recovery-Hospital Unit), Routine 1130 (Not Given - Provider: Jia Agudelo RN - Reason: See comment - Comment: IV infusing)2042 (Given - Provider: Priscilla Jarquin RN) 0748 (Given - Provider: Jia Agudelo RN) Continuous Medication Order 04/28/2019 04/29/2019 04/30/2019 lactated [...] Unit) 1141 (New Bag - Provider: Joselyn Agudelo, JAYNA)1800 (Stopped - Provider: Jia Agudelo RN) PRN [...] Unit), Routine 1531 (Given - Provider: Jia Agudelo RN)2123 (Given - Provider: Priscilla Jarquin RN) 0400 (Given - Provider: Priscilla Jarquin RN) [...] Routine documented in this encounter Care Teams Power Plant Inspector Relationship Specialty Start Date End Date Yadira Llanes PA [address] [place], [place] [id number] PCP - General Family Medicine 04/17/19 documented as of this encounter
--- OUTSIDE RECORDS SUMMARY | 2024-04-21 04:21 | XMS_ITS | Encounter Summary ---
Author Organization [facility] Address [facility] [place] [address] Care Team Providers Care Tugboat Dispatcher Name Role Phone Yadira Llanes Primary Care Provider [phone] Encounter Details Date Type Department Care Team (Latest Contact Info) Description 05/22/2019 3:04 PM EDT - 05/22/2019 11:59 PM EDT Hospital Encounter XRay at [address] [place] [address] Brett David MD [facility] [place] [address] Status post total replacement of left hip, DAA. Dr. David. 04/29/2019 Discharge Disposition: Home Social History Tobacco Use [...] for 30 days. 60 tablet 04/30/2019 05/30/2019 gabapentin (NEURONTIN) 300 mg Capsule Take 1 [...] 04/30/2019 06/09/2019 documented as of this encounter Plan of Treatment Upcoming Encounters Date Type Department Care Team (Late st Contact Info) Description 06/25/2024 1:00 PM EDT Office Visit Dermatology at [address] [address] Skyla Campbell MD [facility] DR CHIQUITA [place] [address] documented as of this encounter Procedures Procedure Name Priority Date/Time Associated Diagnosis Comments XR PELVIS AND HIP 2 VIEWS LEFT Routine 05/22/2019 3:23 PM EDT Status post total replacement of left hip, DAA. Dr. David. 04/29/2019 documented in this encounter Results * XR Pelvis and Hip 2 Views Left (05/22/2019 3:23 PM EDT) Anatomical Region Laterality Modality Pelvis, Hip Left Digital Radiogra phy Impressions 05/22/2019 4:02 PM EDT Unchanged postarthroplasty appearance compared to 04/29/2019. Thank you for letting us participate in the care of this patient. For questions regarding this report, please contact the number below. ? Narrative 05/22/2019 4:02 PM EDT EXAMINATION: XR PELVIS AND HIP [...] femoral neck. The remainder of the imaged portion of the bony pelvic ring is unchanged. Procedure Note Mary Gerber MD - 05/22/2019 EXAMINATION: XR PELVIS AND HIP 2 VIEWS LEFT CLINICAL HISTORY: L DARRELL TECHNIQUE: AP pelvis. AP and lateral view left hip. COMPARISON: 04/29/2019. FINDINGS: Left hip arthroplasty equipment in unchanged position, with nonew or increased periprosthetic lucency seen. No periprosthetic fracturesidentified. Unchanged right hip arthropathy including prominent subchondral cysticchanges by the acetabular roof and bony buttressing along the inferior rightfemoral neck. The remainder of the imaged portion of the bony pelvic ring isunchanged. IMPRESSION Unchanged postarthroplasty appearance compared to 04/29/2019. Thank you for letting us participate in the care of this patient. Forquestions regarding this report, please contact the number below. Brett David MD IMG DX ORDERABLES documented in this encounter Visit Diagnoses Diagnosis Status post total replacement of left hip, DAA. Dr. David. 04/29/2019 documented in this encounter Care Teams Tugboat Dispatcher Relationship Specialty Start Date End Date Yadira Llanes PA [address] [place] [address] PCP - General Family Medicine 04/17/19 documented as of this encounter
--- OUTSIDE RECORDS SUMMARY | 2024-04-21 04:21 | XMS_ITS | Encounter Summary ---
Author Organization [facility] [place] [address] Care Team Providers Care Parcel Contractor Name Role Phone Yadira Llanes Primary Care Provider [phone] Encounter Details Date Type Department Care Team (Late st Contact Info) Description 05/22/2019 Orders [place] [address] Brett David MD [facility] [place] [address] Status post total replacement of left hip, [...] 1:00 PM EDT Office Visit Dermatology at [facility] [address] [place] [address] Skyla Campbell MD [facility] DR CHIQUITA [place] [address] documented as of this encounter Results * XR Pelvis and [...] 04/29/2019 documented in this encounter Care Teams Parcel Contractor Relationship Specialty Start Date End Date Yadira Llanes PA [address] [place] [address] PCP - General Family Medicine 04/17/19 documented as of this encounter
--- OUTSIDE RECORDS SUMMARY | 2024-04-21 04:21 | XMS_ITS | Encounter Summary ---
Author Organization [facility] [place] [address] Care Team Providers Care Electrical Tech/Project Manager Name Role Phone Yadira Llanes Primary Care Provider [phone] Reason for Visit * Auth/Cert Specialty Diagnoses [...] Expiration Date Visits Re quested Visits Authorized [id number] 1 1 Encounter Details Date Type Department Care Team (Late st Contact Info) Description 04/29/2019 7:26 AM EDT Anesthesia Event Operating Room [address] [place] [address] Rojas Terrell CRNA [address] [place] [address] Anesthesia Record Procedure Summary Procedure Name Responsible Anesthesiologist Anesthesia Start Time Anesthesia Stop Time TOTAL HIP ARTHROPLASTY, ANTERIOR APPROACH (WRVU 19.6) (Left: Hip) Rojas Terrell CRNA 04/29/19 0726 04/29/19 0911 Events Date Time Event Comment 04/29/2019 0710 0726 Start 0728 AN Verify 0729 An Start Data 0732 Spinal 0736 Anesthesia Ready 0740 Quick Note Occasional unif ocal PVCs with some bigeminy noted. 0758 Procedure Start 0901 Procedure Stop 0901 an stop data 0905 Recovery or ICU Handoff Nidhi ent care was transferred to the destination unit staff after review of the patient's medical history, current anesthetic/surgical status and plan, according to the Provider Handoff Checklist. 09 Stop Meds Name Total Midazolam 3 mg IV Lidocaine 20 mg Propofol INF 551.2 mg Tranexamic Acid 1,000 mg Ondansetron 4 mg Dexamethasone 10 mg ceFAZolin (Ancef) 2 g in dextrose 5% 56 mL 2 g BUpivacaine 0.75% with dextrose 12 mg lactated ringers infusion 1,600 mL * Agents Name O2 Air N2O O2 Auxiliary Flowmeter 1 * Blood No blood administrations on file. Lines, Drains, and Airways Type Details Placement Removal (RETIRED) Peripheral IV Line - Single Lumen 04/29/19; 0659; basilic vein (medial side of arm), right; vhoc-uvl-konfii catheter system; 20 gauge; lmb rn; distraction; site care per policy/procedure, removed per policy/procedure, catheter/device intact, removed per physician; 04/30/19; 1238 04/29/19 0659 by Carolina Diaz RN 04/30/19 1238 by Jia Agudelo RN Incision 04/29/19; 0822; hip; 05/08/22 (LDA cleanup utility RA#[id number]); 1715 (LDA cleanup utility RA#[id number]) 04/29/19 0822 by Natalia Stallworth RN 05/08/22 1715 by Toyin Velez documented [...] OR Notes * Anesthesia Postprocedure Evaluation - Rojas Terrell CRNA - 04/29/2019 9:11 AM EDT Department of Anesthesiology Post-procedure Note Patient: Mag Rider Procedure Summary Date: 04/29/19 Room / Location: ON LICENSE OF [facility] OR MAIN OR Anesthesia Start: 725 Anesthesia Stop: 910 Procedures: @TOTAL HIP ARTHROPLASTY, ANTERIOR APPROACH (WRVU 20.72) (Left Hip) HIP INTRAOP RADIOLOGIC EXAMINATION, UNILATERAL, W PELVIS; 4+ VIEWS (WRVU 0.27) (Left Pelvis) MODIFIER SCOTT & NEPHEW - POLAR STEM CEMENTLESS (N/A Hip) MODIFIER SCOTT & NEPHEW - R3 ACETABULAR CUP (Left Hip) Diagnosis: (Hip osteoarthritis) Surgeon: Brett David MD Responsible Provider: Rojas Terrell CRNA Anesthesia Type: spinal ASA Status: 2 All Anesthesia Providers: JOSÉ Independent: Rojas Terrell CRNA Vitals Value Taken Time BP 130/60 Temp 36.6 Pulse 89 Resp 18 SpO2 100 Pain Level Patient Location: PACU/SD Level of Consciousness: Awake and Alert Pain Management: Satisfactory Analgesia PONV: None Cardiovascular Status: At Baseline and Hemodynamically Stable Respiratory Status: At Baseline and Supplemental O2 (NC or FM) Postoperative Fluid Status: Intravascular EUvolemia Possible Anesthetic Complications: NONE apparent at time of evaluation Final Primary Anesthesia Type: Spinal (The anesthetic type performed was the same as planned.) Comments: Vital signs stable, report to RN using checklist. Rojas Terrell CRNA * Anesthesia Procedure Notes - Rojas Terrell CRNA - 04/29/2019 7:54 AM EDT Associated Order(s): Neuraxial (Operative Procedure/ APS) Procedure: Neuraxial Block Primary Anesthetic Type: Spinal The patient was greeted. The sedation plan, its benefits, risks and alternatives were discussed with the patient. The patient has consented to the procedure. The medical history and chart were reviewed. The timeout was performed. Start time: 04/29/2019 7:32 AM End time: 04/29/2019 7:36 AM Patient Location: Operating Room Patient Prep Position: Sitting Prep: Hand Hygiene, Hat, Mask, Sterile Gloves and Povidone-Iodine Injection technique: single-shot Skin Anesthetic Lidocaine 1% 2 ml Procedure Technique Level of needle insertion: L3-4 Needle approach: midline Needle Type: Pencan Gauge: 24 Number of attempts: 1 Medications: Date/Time: 04/29/2019 7:35 AM BUpivacaine 0.75% with dextrose, 12 mg Events/Notes Events: None Additional Notes: #24g pencil point via introducer L3-L4 after sterile prep and skin wheel. +CSF, no heme, no paresthesia. 12mg hyperbaric bupivacaine administered. Pt tolerated well with excellent block results. Resident/RATE MANAGER: Rojas Terrell CRNA Second Resident/RATE MANAGER: Fellow: Attending Physician: ~~~~~~~~~~~~~~~~~~~~~~~~~~~~~~~~~~~~~~~~~~~~~~~~~~~~~~~~~~~~ * Anesthesia Preprocedure Evaluation - Rojas Terrell CRNA - 04/23/2019 11:33 AM EDT Pre-Anesthesia Evaluation for: Mag Rider a 63 y.o. female. Procedure(s): @TOTAL HIP ARTHROPLASTY, ANTERIOR APPROACH (WRVU 20.72) HIP INTRAOP RADIOLOGIC EXAMINATION, UNILATERAL, W PELVIS; 4+ VIEWS (WRVU 0.27) MODIFIER SCOTT & NEPHEW - POLAR STEM CEMENTLESS MODIFIER SCOTT & NEPHEW - R3 ACETABULAR CUP Patient Active Problem List Diagnosis ??? Primary osteoarthritis of both hips No past medical history on file. No past surgical history on file. Social History Tobacco Use ??? Smoking status: Never Smoker ??? Smokeless tobacco: Never Used Substance Use Topics ??? Alcohol use: Never Frequency: Never Social History Substance and Sexual Activity Drug Use Never Allergies Allergen Reactions ??? Codeine N & V Medications: MAR and/or home medications have been reviewed. Physical Exam: There were no vitals filed for this visit. There is no height or weight on file to calculate BMI. Airway Assessment: Mallampati: II TM distance: >3 FB Neck ROM: full Cardiovascular Assessment: cardiovascular exam normal Pulmonary Assessment: pulmonary exam normal Dental Assessment: Misc Assessment: Patient is wearing No contact(s). IV access: Peripheral line Anesthesia Plan: ASA 2 spinal, with a(n) intravenous induction Patient consents to Spinal Anesthetic after discussion of risks, benefits and questions answered. Patient consents to General Anesthesia as back up plan. Informed Consent: Anesthetic plan and risks discussed with patient. PAT Clinic Note documented in this encounter Miscellaneous Notes * Addendum Note - Rojas Terrell CRNA - 04/29/2019 10:06 AM EDT Addendum created 04/29/19 1006 by Rojas Terrell CRNA Order list changed documented in this encounter Plan of Treatment Upcoming Encounters Date Type Department Care Team (Late st Contact Info) Description 06/25/2024 1:00 PM EDT Office Visit Dermatology at [facility] [address] [place] [address] Skyla Campbell MD [facility] DR CHIQUITA [place] [address] documented as of this encounter Procedures Procedure Name Priority Date/Time Associated Diagnosis Comments ANE NEURAXIAL UPDATED Routine 04/29/2019 7:54 AM EDT documented in this encounter Results * Neuraxial (Operative Procedure/ APS) (04/29/2019 7:54 AM EDT) Narrative Rojas Terrell CRNA - 04/29/2019 7:54 AM EDT Rojas Terrell CRNA ? 04/29/2019 ??8:00 AM Procedure: ?? Neuraxial Block Primary Anesthetic Type: Spinal The patient was greeted. The sedation plan, its benefits, risks and alternatives were discussed with the patient. ??The patient has consented to the procedure. ??The medical history and chart were reviewed. ??The timeout was performed. Start time: 04/29/2019 7:32 AM End time: 04/29/2019 7:36 AM Patient Location: Operating Room Patient Prep Position: Sitting Prep: Hand Hygiene, Hat, Mask, Sterile Gloves and Povidone-Iodine Injection technique: single-shot Skin Anesthetic Lidocaine 1% ??2 ml Procedure Technique Level of needle insertion: L3-4 Needle approach: midline Needle Type: Pencan Gauge: 24 Number of attempts: 1 Medications: Date/Time: ??04/29/2019 7:35 AM BUpivacaine 0.75% with dextrose, 12 mg Events/Notes Events: ??None Additional Notes: ??#24g pencil point via introducer L3-L4 after sterile prep and skin wheel. +CSF, no heme, no paresthesia. 12mg hyperbaric bupivacaine administered. ??Pt tolerated well with excellent block results. Resident/RATE MANAGER: ? Rojas Terrell CRNA Second Resident/RATE MANAGER: Fellow: ? Attending Physician: ? ~~~~~~~~~~~~~~~~~~~~~~~~~~~~~~~~~~~~~~~~~~~~~~~~~~~~~~~~~~~~ Rojas Terrell RATE MANAGER MARKET PRESIDENT [facility] documented in this encounter Visit Diagnoses Not on filedocumented in this encounter Administered Medications Inactive Administered Medications - up to 3 most recent administrations Medication Order MAR Action Action Date Dose Rate Site BUpivacaine 0.75% in dextrose 8.25% (intrathecal) (SENSORCAINE) 0.75 % (7.5 mg/mL) injection Intrathecal, Starting on Sun04/29/19 at 0735, Until Sun04/29/19 at 0735, Anesthesia Intra-op, Routine Given 04/29/2019 7:35 AM EDT 12 mg ceFAZolin (Ancef) 2 g in dextrose 5% 56 mL 2 g, Intravenous, EVERY 3 HOURS, 1 dose, First dose on Sun04/29/19 at 0715, Redose after 3 hours., Intra-Operative (Intra-Procedure), Indication for (Active or Suspected): Prophylaxis Given 04/29/2019 7:26 AM EDT 2 g dexamethasone (DECADRON) injection PRN, Starting on Sun04/29/19 at 0752, Until Sun04/29/19 at 0911, Anesthesia Intra-op, Routine Given 04/29/2019 7:52 AM EDT 10 mg lactated ringers infusion 1,000 mL, at 50 mL/hr, Intravenous, CONTINUOUS, Starting on Sun04/29/19 at 0715, Until Sun04/29/19 at 1055, Day of Surgery (Day of Procedure) New Bag 04/29/2019 7:59 AM EDT New Bag 04/29/2019 7:26 AM EDT New Bag 04/29/2019 7:05 AM EDT 1,000 mLs 50 mL/hr lidocaine (PF) (XYLOCAINE) 100 mg/5 mL (2 %) injection PRN, Starting on Sun04/29/19 at 0736, Until Sun04/29/19 at 0911, Anesthesia Intra-op, Routine Given 04/29/2019 7:36 AM EDT 20 mg midazolam (PF) (VERSED) multi-dose injection PRN, Starting on Sun04/29/19 at 0726, Until Sun04/29/19 at 0911, Anesthesia Intra-op, Routine Given 04/29/2019 7:30 AM EDT 1 mg Given 04/29/2019 7:26 AM EDT 2 mg ondansetron (ZOFRAN) injection PRN, Starting on Sun04/29/19 at 0752, Until Sun04/29/19 at 0911, Anesthesia Intra-op, Routine Given 04/29/2019 7:52 AM EDT 4 mg propofol (DIPRIVAN) infusion CONTINUOUS PRN, Starting on Sun04/29/19 at 0736, Until Sun04/29/19 at 0911, Anesthesia Intra-op, Routine Rate/Dose Change 04/29/2019 8:41 AM EDT 50 mcg/kg/min 20.7 mL/hr New Bag 04/29/2019 7:36 AM EDT 100 mcg/kg/min 41.3 mL/h r tranexamic acid (CYKLOKAPRON) 100 mg/mL bolus injection (Anesthesia) PRN, Starting on Sun04/29/19 at 0726, Until Sun04/29/19 at 0911, Anesthesia Intra-op, Routine Given 04/29/2019 7:26 AM EDT 1,000 mg documented in this encounter Care Teams Electrical Tech/Project Manager Relationship Specialty Start Date End Date Yadira Llanes PA [address] [place] [address] PCP - General Family Medicine 04/17/19 documented as of this encounter
--- OUTSIDE RECORDS SUMMARY | 2024-04-21 04:21 | XMS_ITS | Encounter Summary ---
Author Organization [facility] Address [facility] [place] [address] Care Team Providers Care Entry Table Operator Name Role Phone Yadira Llanes Primary Care Provider [phone] Encounter Details Date Type Department Care Team (Late st Contact Info) Description 05/30/2019 Telephone [place] [address] Brett David MD [facility] DR ORTHOPAEDIC [place] [address] Social History Tobacco Use Types Packs/Day Years [...] Telephone Encounter - Denae Martinez RMA - 05/30/2019 2:56 PM EDT Triage Note Subjective: Discharge from service Sp Left DARRELL, DAA. Dr. David. 04/29/2019 Harper questions/Assessment: armando Avila called to let Dr David know that the [facility] has dischargedher from there service today. She has met her goals. Per ARMANDO Avila Mag is refusing to go to outpt physical therapy. documented in this encounter Plan of Treatment Upcoming Encounters Date Type Department Care Team (Late st Contact Info) Description 06/25/2024 1:00 PM EDT Office Visit Dermatology at [facility] [address] [place] [address] Skyla Campbell MD [facility] DR CHIQUITA WARR[place] [address] documented as of this encounter Visit Diagnoses Not on filedocumented in this encounter Care Teams Entry Table Operator Relationship Specialty Start Date End Date Yadira Llanes PA [address] [place] [address] PCP - General Family Medicine 04/17/19 documented as of this encounter
--- OUTSIDE RECORDS SUMMARY | 2024-04-21 04:21 | XMS_ITS | Encounter Summary ---
Author Organization [facility] Address [facility] [place] [address] Care Team Providers Care Dry Color Mixer Name Role Phone Unavailable Primary Care Provider Unavailabl e Encounter Details Date Type Department Care Team (Late st Contact Info) Description 01/19/2019 Ancillary Procedure [place] [address] [facility] [address] [place] [address] Social History Tobacco Use Types Packs/Day Years [...] 1:00 PM EDT Office Visit Dermatology at [facility] [address] [place] [address] [facility] [address] CHIQUITA [place] [address] documented as of this encounter Procedures Procedure Name Priority Date/Time Associated Diagnosis Comments FILM LIBRARY STORAGE ONLY DX HIP Routine 01/19/2019 12:00 AM EDT documented in this encounter Results * Film Library- Storage Only DX Hip (01/19/2019 12:00 AM EDT) Narrative [facility] - 02/21/2019 4:00 PM EDT This exam is auto-finalizing. It's purpose is for storage only. Brett David MD IMG FILM LIBRARY OR DERABLES Performing Organization Address City/State/[facility] Co de Phone Number [place], [place] documented in this encounter Visit Diagnoses Not on filedocumented in this encounter
--- OUTSIDE RECORDS SUMMARY | 2024-04-21 04:21 | XMS_ITS | Encounter Summary ---
Author Organization [facility] Address [facility] [place] [address] Care Team Providers Care Manager Employee Benefits Name Role Phone Yadira Llanes Primary Care Provider [phone] Reason for Visit * Reason Onset Date Comments Physical Therapy 05/20/2019 Encounter Details Date Type Department Care Team (Late st Contact Info) Description 05/20/2019 Telephone [place] [address] Brett David MD [facility] [place] [address] Physical Therapy Social History Tobacco Use Types Packs/Day Years [...] encounter Miscellaneous Notes * Telephone Encounter - Denny Howe - 05/20/2019 10:17 AM EDT [employer] from [employer] [facility] called and requested a referral, OP note, demographics, and snapshot be sentto them. A referral was generated and faxed via [email or web address] at 10:17 AM on 05/20/2019 No further questions/concerns. documented in this encounter Plan of Treatment Upcoming Encounters Date Type Department Care Team (Late st Contact Info) Description 06/25/2024 1:00 PM EDT Office Visit Dermatology at [facility] [address] [address] Sykla Campbell MD [facility] DR CHIQUITA [place] [address] documented as of this encounter Visit Diagnoses Not on filedocumented in this encounter Care Teams Manager Employee Benefits Relationship Specialty Start Date End Date Yadira Llanes PA [address] [place] [address] PCP - General Family Medicine 04/17/19 documented as of this encounter
[2024-04-21] MEDS: Acetaminophen 325 MG TAB 650 MG PO (04:58)
[2024-04-21] MEDS: Ketorolac 15 MG/ML VIAL IM (04:58)
== END 2024-04-21 05:37 | disposition left against medical advice (07) ==
PROVIDERS: Emergency Provider Student in an Organized Health Care Education/Training Program; PCP Physician Assistant Medical
DX: M25.561 Pain in right knee (principal); X50.0XXA Overexertion from strenuous movement or load, initial encounter; Y93.01 Activity, walking, marching and hiking
CPT/HCPCS: 29505; 96372; 99284; 99283; J1885

== ENCOUNTER 2024-04-28 15:48 | Outpatient (CLI) | payer MEDICARE, OTHER, SELFPAY ==
--- NOTE | 2024-04-28 14:30 | DI.RAD_ITS ---
Exam(s) XR WRIST LT LIMITED EXAM: XR WRIST LT LIMITED CLINICAL HISTORY: S/P ORIF L DISTAL RAD FX. TECHNIQUE: 2D digital imaging was performed. Two images were obtained. PA and lateral views were ob tained. COMPARISON: CR XR WRIST LT COMPLETE from 03/19/2024 FINDINGS: BONES: There are stable post operative changes present. The fractures appear to be well healed. No new fracture or dislocation. JOINTS: The joint spaces are well maintained. SOFT TISSUE: Normal. IMPRESSION: Stable postoperative changes. The prior fractures appear well healed. DATA REPOSITORY: RADIATION DOSE DELIVERED:
== END 2024-04-28 15:49 | disposition home or self-care (01) ==
LOC: DIORS 15:48
PROVIDERS: PCP Physician Assistant Medical; Referring Provider Physician Assistant Medical; Visit Provider Student in an Organized Health Care Education/Training Program
DX: S52.572D Other intraarticular fracture of lower end of left radius, subsequent encounter for closed fracture with routine healing; X58.XXXD Exposure to other specified factors, subsequent encounter
CPT/HCPCS: 73100

== ENCOUNTER → 2024-05-22 10:34 | Outpatient (BNVA) | payer MEDICARE, OTHER, SELFPAY | PROVIDERS: PCP Physician Assistant Medical; Referring Provider Physician Assistant Medical ==

== ENCOUNTER 2024-05-29 10:42 | Outpatient (CLI) | payer MEDICARE, OTHER, SELFPAY ==
--- NOTE | 2024-05-29 08:41 | DI.RAD_ITS ---
Exam(s) XR WRIST LT LIMITED EXAM: XR WRIST LT LIMITED CLINICAL HISTORY: S/P ORIF L DISTAL RAD FX. TECHNIQUE: 2D digital imaging was performed. COMPARISON: CR XR WRIST LT LIMITED from 04/28/2024 FINDINGS: Two views Again noted is a volar fixation plate in the distal radius which again appears satisfactory. No loos ening. No evidence of osteomyelitis. Fracture appears healed. Disuse osteopenia noted. IMPRESSION: Stable satisfactory appearance. DATA REPOSITORY: RADIATION DOSE DELIVERED:
== END 2024-05-29 10:43 | disposition home or self-care (01) ==
LOC: DIORS 10:42
PROVIDERS: PCP Physician Assistant Medical; Referring Provider Physician Assistant Medical; Visit Provider Student in an Organized Health Care Education/Training Program
DX: S52.572D Other intraarticular fracture of lower end of left radius, subsequent encounter for closed fracture with routine healing (principal); X58.XXXD Exposure to other specified factors, subsequent encounter
CPT/HCPCS: 73100

== ENCOUNTER 2024-06-14 14:08 | Outpatient (REF) | payer MEDICARE, SELFPAY | END 2024-06-14 14:09 | disposition home or self-care (01) | LOC: LBN 14:08 | PROVIDERS: PCP Physician Assistant Medical; Visit Provider Family Medicine | DX: N39.0 Urinary tract infection, site not specified (principal); R82.89 Other abnormal findings on cytological and histological examination of urine | CPT/HCPCS: 87086 ==

== ENCOUNTER 2024-06-18 15:18 | Outpatient (REF) | payer MEDICARE, OTHER, SELFPAY | END 2024-06-18 15:19 | disposition home or self-care (01) | LOC: LBN 15:18 | PROVIDERS: PCP Physician Assistant Medical; Visit Provider Nurse Practitioner Family | DX: R10.2 Pelvic and perineal pain (principal); R82.89 Other abnormal findings on cytological and histological examination of urine | CPT/HCPCS: 87077; 87086; 87186 ==

== ENCOUNTER 2024-07-10 11:40 | Outpatient (CLI) | payer MEDICARE, OTHER, SELFPAY ==
--- NOTE | 2024-07-10 11:00 | DI.RAD_ITS ---
Exam(s) XR WRIST LT LIMITED EXAM: XR WRIST LT LIMITED INDICATION: fracture follow up. COMPARISON: No exams were available for comparison TECHNIQUE: 2D digital imaging was performed. Two views. FINDINGS: Volar fixation of plate again noted, unchanged in alignment. No abnormal surrounding lucencies. Deg enerative changes again noted at distal radial ulnar joint. The bones appear demineralized. DATA REPOSITORY: RADIATION DOSE DELIVERED:
== END 2024-07-10 11:41 | disposition home or self-care (01) ==
LOC: DIORS 11:40
PROVIDERS: PCP Physician Assistant Medical; Referring Provider Physician Assistant Medical; Visit Provider Student in an Organized Health Care Education/Training Program
DX: S52.612D Displaced fracture of left ulna styloid process, subsequent encounter for closed fracture with routine healing (principal); S52.572D Other intraarticular fracture of lower end of left radius, subsequent encounter for closed fracture with routine healing; X58.XXXD Exposure to other specified factors, subsequent encounter
CPT/HCPCS: 99213; 73100

== ENCOUNTER 2025-01-09 12:51 | Outpatient (REF) | payer MEDICARE, OTHER, SELFPAY ==
--- NOTE | 2025-01-09 13:41 | SKI_PTH ---
PATIENT: Mag Rider LOC: [facility] U#:[id number] AGE/SX: 69/F ROOM: RE01/09/[address]: Joe Chamorro : 1955 BED: DIS: 01/09/2025 SPEC #: [id number] RECD: 01/12/25 13:03 STATUS: MARIANNA ESPANA #: [id number] BASIL[place]: 01/09/25 13:[address]: Joe Chamorro DEPT: Surgical Specimen RECD BY: Sandy Dunn ENTERED: 01/12/25 13:03 SP TYPE: CHRISTIANO COLLADO DR: Yadira Llanes Tissues: 1 - SKIN BIOPSY(SHAVE/PUNCH) Procedures: SKIN LEVEL 4 Comments: [id number]
== END 2025-01-09 12:52 | disposition home or self-care (01) ==
LOC: LBN 12:51
PROVIDERS: PCP Physician Assistant Medical; Visit Provider Student in an Organized Health Care Education/Training Program
DX: L57.0 Actinic keratosis (principal)
CPT/HCPCS: 88305

== ENCOUNTER → 2025-01-09 12:51 | Outpatient (BNVA) | payer MEDICARE, OTHER, SELFPAY | PROVIDERS: PCP Physician Assistant Medical; Referring Provider Physician Assistant Medical; Visit Provider Student in an Organized Health Care Education/Training Program | DX: L57.0 Actinic keratosis | CPT/HCPCS: 11403; 99215 ==

== ENCOUNTER → 2025-01-27 08:53 | Outpatient (BNVA) | payer MEDICARE, OTHER, SELFPAY | PROVIDERS: PCP Physician Assistant Medical; Referring Provider Physician Assistant Medical; Visit Provider Student in an Organized Health Care Education/Training Program | DX: Z48.02 Encounter for removal of sutures | CPT/HCPCS: 99024 ==

== ENCOUNTER 2025-03-17 13:44 | Inpatient (IN) | payer MEDICARE, OTHER, SELFPAY ==
[2025-03-17] VITALS (40 sets, daily range): BP systolic 120–200; BP diastolic 30–61; PULSE 49–80; RESP 10–32; TEMP 36.9; O2SAT 90–98
--- NOTE | 2025-03-17 14:17 | ED.GENADUL_ITS ---
Discharge Plan Discharge Details Chief Complaint: Abd Prob Clinical Impression: Acute left flank pain, Hematuria Primary Care Provider: Yadira Llanes ED Provider: Rojas Murphy Home Meds and New Rx's Prescriptions: No Action No Known Home Meds HPI General Date/Time Provider Initiated Documentation: 03/17/25 14:10 . HPI Narrative: MDM This is an uncomfortable appearing normothermic and not tachycardic 69-year-old female with left flank pain concerning for the possibility of ureterolithiasis for which she will undergo CT scan. Diverticulitis is certainly also on the differential. Given pain going back I sent a lipase to assess for pancreatitis. Will obtain a twelve-lead ECG and send troponins given nausea agents asked to assess for ACS. No rash to flank to suggest zoster. No pain out of proportion to suggest necrotizing soft tissue infection. No right lower quadrant tenderness to suggest appendicitis. Based on age ovarian torsion is less likely. No abnormal vaginal discharge to suggest PID. No dysuria to suggest UTI and urine is nitrite negative. There is large blood and 50+ RBCs more concerning for ureterolithiasis. No history of AAA nor hypotension to suggest increased risk for ruptured AAA. No black or bloody stool to suggest acute blood loss anemia. Will treat with fentanyl, ondansetron and reassess. 3:52 PM ECG showing sinus bradycardia rate of 56. Normal axis. Intervals within normal limits. No ST segment abnormalities. No T wave version. Patient does have some mild ST segment depressions V3 through V5. In the system, for comparison, there is an old ECG from 2019. Patient does have mild ST depressions V4 through V6. These are slightly more pronounced on today's ECG. Initial reassuring troponin. 5 PM Patient felt improved. She is pending CT scan. I signed patient out to Dr. Fowler. HPI This is a patient with a history of kidney stones presenting with severe left flank pain. The patient reports experiencing severe pain in her left flank, which radiates to her back. The pain began approximately 10 minutes before arrival and is described as unbearable. She has a history of kidney stones but notes that this episode feels different from previous ones. She has never required a stent for her kidney stones. The patient reports no fevers or chills. She also reports no burning sensation during urination but mentions that her urine appears darker than usual. Yesterday, the patient went for a 14-mile bike ride in the morning and experienced mild abdominal pain, which she initially attributed to possible food poisoning from a late-night meal. 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 She also experienced significant abdominal pain. Upon returning home, she took charcoal, rested, and abstained from eating, instead hydrating extensively. The following morning, she felt well enough to go for another bike ride but noticed an unusual sensation in her upper stomach after eating. 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 She has no history of stomach surgeries. She reports no chest pain. She has a past history of esophageal ulcers and reflux, which were resolved many years ago. Exam General: Well-appearing in no acute distress speaking in complete sentences. Head: Normocephalic, atraumatic. Eye: Extraocular eye movements intact. No conjunctival injection. No scleral icterus. Ear, nose, mouth, throat: Grossly normal inspection. Normal voice, handling secretions normally. Neck: Trachea midline. Cardiovascular: Well-perfused distal extremities. Regular rate and rhythm Respiratory: Nonlabored respiration. Clear lungs bilaterally Gastrointestinal: Nondistended abdomen. Soft. Left lower quadrant tenderness. No rebound. No guarding. Left CVA tenderness Musculoskeletal: No significant lower extremity pitting edema. Moving all 4 extremities spontaneously. Skin: Normal for age and race, grossly normal temperature and turgor. No acute rash. Neurologic: Alert and appropriate, no apparent acute deficits. Related Data Home Medications ?Medication ?Instructions ?Recorded ?Confirmed Unknown [No Known Home Meds] 05/30/24 0 03/17/25 Allergies Allergy/AdvReac Type Severity Reaction Status Date / Time No Known Allergies Allergy Verified 03/17/25 14:07 General Stated Complaint: Abd Prob MAXWELL: 3 Course Vital Signs Vital signs: Vital Signs Temperature 36.9 C 03/17/25 14:03 Pulse 80 03/17/25 14:03 Respiratory Rate 16 03/17/25 14:03 Pulse Oximetry 97 03/17/25 14:03 Temperature 36.9 C 03/17/25 14:03 Temperature Source Tympanic 03/17/25 14:03 Pulse 80 03/17/25 14:03 Respiratory Rate 16 03/17/25 14:03 Blood Pressure Position Sitting 03/17/25 14:03 Pulse Oximetry 97 03/17/25 14:03 Oxygen Delivery Method Room Air 03/17/25 14:03 Oxygen Flow Rate 0 03/17/25 14:03 Pain Level 10 03/17/25 14:03 PFSH All Active Problems Hematuria (Acute) Acute left flank pain (Acute) Cancer of skin of lower leg (Acute) Displaced fracture of left ulna styloid process, initial encounter for closed fracture (Acute 03/19/24) Intra-articular fracture of distal end of left radius with volar angulation (Acute 03/19/24) S/P ORIF: 03/19/2024 Medical History No significant past medical history Surgical History History of total left hip arthroplasty Social History Smoking/Tobacco Use Status: Never Smoking risk assessment performed?: Yes Alcohol Intake: never Drug use: Never Substance use type: does not use Housing: house Do you feel safe at home: Yes Do you feel safe in your relationship?: Yes
--- NOTE | 2025-03-17 14:30 | RT.EKG_ITS ---
APPROVED REPORT Exam: Resting ECG Reason for Exam: Nausea abdominal pain Patient Location: E HR:56 bpm ECG Measurements Heart Rate 56 AXIS SD 149 P 42 QRSd 82 QRS 67 QT 424 T 57 QTc 409 Conclusion Sinus bradycardia...rate< 60 No occlusion KS
--- NOTE | 2025-03-17 14:30 | DI.CT_ITS ---
Exam(s) CT ABDOMEN PELVIS W EXAM: CT ABDOMEN PELVIS W CLINICAL HISTORY: Left lower quadrant pain left flank pain. TECHNIQUE: Imaging Protocol: Axial computed tomography images with coronal and sagittal reformatted images were created and reviewed CONTRAST MATERIAL: Intravenous: Omnipaque 350 Contrast volume:75 ml Oral: no COMPARISON: No exams were available for comparison FINDINGS: ABDOMEN and PELVIS: Lung Bases: No acute findings. Liver: Normal density. No suspicious mass. Gallbladder and biliary tract: No radiodense calculus. No wall thickening or pericholecystic fluid. No biliary dilation. Pancreas: Normal density. No abnormal calcifications or inflammatory process. No evidence of mass. Spleen: Normal. Kidneys: Normal size, contour and axis. 8 millimeter calculus the lower pole of the left kidney. Mild to moderate left hydronephrosis secondary to a 6 millimeter calculus at the ureteropelvic junction. Additional stone in the distal in left ureter, at the level of the mid pelvis, measuring 7 millimeters. Mild delay and left nephrogram. No suspicious masses seen. Adrenal glands: No masses seen. Vasculature: Abdominal aorta non-dilated. Moderate atherosclerotic changes. Soft tissues: Tiny fatty hernia at the umbilicus. Bladder: Artifact related to bilateral hip prostheses. The bladder is nearly empty. No gross wall thickening or calculi. Bowel: No obstruction. No bowel wall thickening. Appendix normal. Peritoneal cavity: No ascites. No focal collection. No mesenteric inflammatory response. No free air. Bones: Bilateral hip prostheses. Reproductive organs: Unremarkable. Lymph nodes: No pathologically enlarged lymph nodes. IMPRESSION:: 7 millimeter stone in the distal left ureter. Additional 6 millimeter stone at the ureteropelvic junction. There is mild to moderate left hydronephrosis. Additional 8 millimeter stone is noted at the lower pole of the left kidney. Findings called to ER provider. RADIATION DOSE DELIVERED: Total DLP DATA REPOSITORY: All CT scans at this facility are submitted to the National Radiology Data Registry (NRDR) Dose Index Registry (DIR) with the [employer] (ACR). RADIATION OPTIMIZATION: All CT scans at this facility use at least one of these dose optimization techniques: automated exposure control; mA and/or kV adjustment per patient size (includes targeted exams where dose is matched to clinical indication); or iterative reconstruction.
[2025-03-17 14:31] LABS: Glucose Negative (Negative)
[2025-03-17 14:38] LABS: RBC >50 HPF (0-2); WBC Negative HPF (0-5)
[2025-03-17 14:39] LABS: C & S Indicated? No
[2025-03-17 15:20] LABS: Abs Immature Grans 0.02 10^3/uL (0.0-0.06); HCT 41.6 % (36.0-46.0); HGB 14.1 g/dL (11.2-15.7); Immature Grans % 0.2 %; MCH 32.6 pg (27.0-33.0); MCHC 33.9 % (32.0-36.0); MCV 96 fL (80-95); MPV 9.2 fL (8.0-11.0); Platelet Count 290 10^3/uL (130-400); RBC 4.32 10^6/uL (3.93-5.22); RDW 11.8 % (11.7-14.6); RDW-SD 41.6 fL; WBC 8.37 10^3/uL (4.4-10.8)
[2025-03-17] MEDS: fentaNYL 100 MCG/2 ML VIAL 50 MCG IVP ×2 (15:22→15:35)
[2025-03-17] MEDS: Normal Saline 500 ML IV (15:26)
[2025-03-17 15:46] LABS: Lipase 35 U/L (<78); Troponin I 5 ng/L (<or=51)
[2025-03-17 15:53] LABS: ALT 26 U/L (14-59); AST 16 U/L (15-37); Albumin 4.0 g/dL (3.4-5.0); Alkaline Phosphatase 107 U/L (46-116); Anion Gap 11.4 mmol/L (3-11); BUN 20 mg/dL (7-18); Bilirubin, Total 0.4 mg/dL (0.2-1.0); CO2 22.6 mmol/L (21.0-32.0); Calcium 9.0 mg/dL (8.5-10.1); Chloride 106 mmol/L (98-107); Estimated GFR 61.75 (mL/min/1.73m2); Glucose 117 mg/dL (74-106); Potassium 4.2 mmol/L (3.5-5.1); Sodium 140 mmol/L (136-145); Total Protein 7.6 g/dL (6.4-8.2)
[2025-03-17] MEDS: Ketorolac 15 MG/ML VIAL IVP (16:11)
[2025-03-17 16:52] LABS: Troponin I 5 ng/L (<or=51)
[2025-03-17] MEDS: Normal Saline - Diluent 50 ML VIAL IJ (17:18)
[2025-03-17] MEDS: Omnipaque 350 MG/ML 100 ML BTL IJ (17:19)
[2025-03-17] MEDS: Acetaminophen 500 MG TAB 1000 MG PO (18:14)
[2025-03-17 19:03] LABS: Troponin I 8 ng/L (<or=51)
--- NOTE | 2025-03-17 20:17 | HPE_ITS ---
Date of service: 03/17/25 Time of Service: 20:17 Assessment and Plan Assessment and plan (1) Left ureteral stone: Start date: 03/17/25 Status: Acute Assessment and plan: This is a 69-year-old lady with a previous history of ureteral stones presenting with severe left flank pain and renal colic associate with nausea and vomiting. She is slightly dehydrated from her episode. This been occurring over the last day. She will be admitted for IV hydration, pain management and will be initiated on Flomax orally. Dr. Kennedy has been consulted and will see the patient in the morning. There is no indication for advice at this time or immediate stenting. She will most likely need procedural removal of her stones. They are quite large being 7 mm in the distal left ureter and 6 mm at the left UP junction as well as an 8 mm stone in the lower pole of the left kidney. She is a full code. (2) Hydronephrosis due to obstruction of ureter: Start date: 03/17/25 Status: Acute Assessment and plan: IV hydration with Flomax and pain management with morphine IV. She will also have warm packs to her left flank. Dr. Kennedy will follow-up patient in the morning. (3) Acute dehydration: Start date: 03/17/25 Status: Acute Assessment and plan: Acute IV hydration with normal saline. She will have rate of 150 cc an hour. There is no previous history of cardiac disease or heart failure. History of Present Illness History of Present Illness Chief Complaint: Left flank pain. Narrative: This is a 69-year-old female patient who has a history of ureterolithiasis in the past but always passed the stones as an outpatient. She had an episode when she was many years ago and 2 years ago. She tries to stay well- hydrated and take supplements as well as eats as natural as possible. She is overweight. 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 She presented with a 12 to 24-hour history of abdominal pain on the left side which began after she went on 14 mile bike ride the day prior to presentation. It has crescendoed and she has associated nausea and vomiting with severe flank pain not proving. She presented to the ED and CT of the abdomen did reveal left ureterolithiasis with hydronephrosis. She had 3 stones with 2 in the ureter and a larger 1 in the lower renal pole. Dr. Kennedy did advise IV hydration, pain management and he will follow her up in the morning. Patient did attempt to go home but was in severe pain and finally did agree to morphine IV for pain management. She was also given Flomax. She was hesitant to take morphine because of the previous problem with anesthesia when she was younger where she thought the morphine caused a locked in syndrome where she could hear the people around her but not respond to them. She has not had a previous allergy. She is not having significant side effects to IV morphine presently. She has been having warm packs to her back which is helpful as well. She also responded to Toradol. She will be admitted for continued treatment with Dr. Kennedy consulted in the morning. There does not appear to be an infection with urinalysis showing mostly hematuria and antibiotic were not recommended. She is a full code. Review of Systems Narrative: 13 point review of systems otherwise unrevealing or stable. PFSH All Active Problems Acute dehydration (Acute) Hydronephrosis due to obstruction of ureter (Acute) Left ureteral stone (Acute) Cancer of skin of lower leg (Acute) Displaced fracture of left ulna styloid process, initial encounter for closed fracture (Acute 03/19/24) Intra-articular fracture of distal end of left radius with volar angulation (Acute 03/19/24) S/P ORIF: 03/19/2024 Medical History No significant past medical history Surgical History History of total left hip arthroplasty Social History Smoking/Tobacco Use Status: Never Smoking risk assessment performed?: Yes Alcohol Intake: never Drug use: Never Substance use type: does not use Housing: house Do you feel safe at home: Yes Do you feel safe in your relationship?: Yes Meds Allergies and Home Medications Allergies Allergy/AdvReac Type Severity Reaction Status Date / Time No Known Allergies Allergy Verified 03/17/25 14:07 Exam Narrative Exam Narrative: General: Patient is moderately obese, appears to be in pain with flattened affect and poor eye contact. She is speaking normally. She is alert and oriented x 3. She is in moderate distress from her flank pain. HEENT: Normocephalic, eyes with pupils equal and reactive to light symmetrically, extraocular movement intact and sclera anicteric. Oropharynx with moist mucosa and fair dentition. Neck: Supple without JVD. Back: Stooped posture, no CVA tenderness. Lungs: Clear to auscultation and percussion with no focalizing rales or rhonchi. No expiratory wheeze. Breast: Exam deferred. Heart: Regular rate and rhythm with no murmurs gallops appreciated. Abdomen: Obese contour, soft to palpation but slight guarding and tenderness to deep palpation of the left lower abdomen though there is no focal pain or rebound. No palpable hepatosplenomegaly. Bowel sounds positive all quadrants. Genitalia/rectal: Exam deferred. Extremities: Without clubbing, cyanosis or pitting edema. Good peripheral pulses. Skin: Normal color, warm and slightly moist with patient in pain and having slight sweats. Neuro: Cranial nerves II through XII gross intact, no focalized motor deficits and no tremor. Psych: Pleasant affect and slightly anxious with her flank pain being severe. Mood appears otherwise normal. No abnormal thought processes. Remote and recent memory intact. Results Imaging Imaging Studies: EXAM: CT ABDOMEN PELVIS W CLINICAL HISTORY: Left lower quadrant pain left flank pain. TECHNIQUE: Imaging Protocol: Axial computed tomography images with coronal and sagittal reformatted images were created and reviewed CONTRAST MATERIAL: Intravenous: Omnipaque 350 Contrast volume:75 ml Oral: no COMPARISON: No exams were available for comparison FINDINGS: ABDOMEN and PELVIS: Lung Bases: No acute findings. Liver: Normal density. No suspicious mass. Gallbladder and biliary tract: No radiodense calculus. No wall thickening or pericholecystic fluid. No biliary dilation. Pancreas: Normal density. No abnormal calcifications or inflammatory process. No evidence of mass. Spleen: Normal. Kidneys: Normal size, contour and axis. 8 millimeter calculus the lower pole of the left kidney. Mild to moderate left hydronephrosis secondary to a 6 millimeter calculus at the ureteropelvic junction. Additional stone in the distal in left ureter, at the level of the mid pelvis, measuring 7 millimeters. Mild delay and left nephrogram. No suspicious masses seen. Adrenal glands: No masses seen. Vasculature: Abdominal aorta non-dilated. Moderate atherosclerotic changes. Soft tissues: Tiny fatty hernia at the umbilicus. Bladder: Artifact related to bilateral hip prostheses. The bladder is nearly empty. No gross wall thickening or calculi. Bowel: No obstruction. No bowel wall thickening. Appendix normal. Peritoneal cavity: No ascites. No focal collection. No mesenteric inflammatory response. No free air. Bones: Bilateral hip prostheses. Reproductive organs: Unremarkable. Lymph nodes: No pathologically enlarged lymph nodes. IMPRESSION:: 7 millimeter stone in the distal left ureter. Additional 6 millimeter stone at the ureteropelvic junction. There is mild to moderate left hydronephrosis. Additional 8 millimeter stone is noted at the lower pole of the left kidney. Labs 03/17/25 15:05 03/17/25 15:05 Labs: Laboratory Results - last 24 hr 03/17/25 03/17/25 03/17/25 14:15 15:05 16:23 WBC 8.37 RBC 4.32 Hgb 14.1 Hct 41.6 MCV 96 H MCH 32.6 MCHC 33.9 RDW 11.8 Plt Count 290 MPV 9.2 Immature Gran % 0.2 Neutrophils % 78.4 Lymphocytes % 14.0 Monocytes % 6.8 Eosinophils % 0.1 Basophils % 0.5 Nucleated RBC % 0.0 Absolute Neutrophils 6.56 Absolute Lymphocytes 1.17 L Absolute Monocytes 0.57 Absolute Eosinophils 0.01 Absolute Basophils 0.04 Sodium 140 Potassium 4.2 Chloride 106 Carbon Dioxide 22.6 Anion Gap 11.4 H BUN 20 H Creatinine 1.0 Est GFR (CKD-EPI 2020) 61.75 Glucose 117 H Calcium 9.0 Total Bilirubin 0.4 AST 16 ALT 26 Alkaline Phosphatase 107 Troponin I 5 5 Total Protein 7.6 Albumin 4.0 Lipase 35 Urine Color Dark Yellow Urine Clarity Cloudy Urine pH 5.5 Ur Specific [place] >= 1.030 H Urine Protein 100 H Urine Ketones 15 H Urine Blood Large H Urine Nitrite Negative Urine Bilirubin Small H Urine Urobilinogen 0.2 Ur Leukocyte Esterase Negative Urine RBC >50 H Urine WBC Negative Ur Epithelial Cells Negative Urine Crystals Few Calcium Oxalate Urine Bacteria Few Urine Casts Negative Urine Mucus Negative Ur Culture Indicated? No Urine Glucose Negative 03/17/25 18:38 WBC RBC Hgb Hct MCV MCH MCHC RDW Plt Count MPV Immature Gran % Neutrophils % Lymphocytes % Monocytes % Eosinophils % Basophils % Nucleated RBC % Absolute Neutrophils Absolute Lymphocytes Absolute Monocytes Absolute Eosinophils Absolute Basophils Sodium Potassium Chloride Carbon Dioxide Anion Gap BUN Creatinine Est GFR (CKD-EPI 2020) Glucose Calcium Total Bilirubin AST ALT Alkaline Phosphatase Troponin I 8 Total Protein Albumin Lipase Urine Color Urine Clarity Urine pH Ur Specific [place] Urine Protein Urine Ketones Urine Blood Urine Nitrite Urine Bilirubin Urine Urobilinogen Ur Leukocyte Esterase Urine RBC Urine WBC Ur Epithelial Cells Urine Crystals Urine Bacteria Urine Casts Urine Mucus Ur Culture Indicated? Urine Glucose Last Vital Signs Temp 36.9 C 03/17/25 14:03 Pulse 64 03/17/25 17:36 Resp 32 H 03/17/25 15:39 BP 166/44 H 03/17/25 17:36 Pulse Ox 98 03/17/25 17:36 Time Spent Time spent with Patient: 55-74 minutes Time was spent: preparing to see the patient(eg.review tests), obtaining and/or reviewing separately otained hiistory, ordering medications,tests, procedures, referring, communicating with other health day care home mother, indepentently interpreting results, counseling the patient and care coordination
[2025-03-17] MEDS: Ondansetron 4 MG/2 ML VIAL IVP (20:37)
[2025-03-17] MEDS: MORPHine 4 MG/ML SYR IVP ×2 (20:38→22:48)
[2025-03-17] MEDS: Normal Saline 1,000 ML 150 ML IV (22:47)
[2025-03-17] MEDS: Tamsulosin 0.4 MG CAPCR PO (22:49)
[2025-03-18] VITALS (103 sets, daily range): BP systolic 86–154; BP diastolic 30–57; PULSE 46–70; RESP 12–22; TEMP 36–37; O2SAT 86–98
[2025-03-18] MEDS: MORPHine 4 MG/ML SYR IVP ×3 (02:35→18:14)
[2025-03-18] MEDS: Heparin 5,000 UNITS/ML VIAL 5000 UNITS SC ×2 (07:28→15:21)
[2025-03-18] MEDS: Normal Saline 1,000 ML 150 ML IV ×3 (07:39→23:22)
[2025-03-18] MEDS: Ondansetron 4 MG/2 ML VIAL IVP (07:43)
[2025-03-18 08:00] LABS: HCT 36.1 % (36.0-46.0); HGB 12.4 g/dL (11.2-15.7); MCH 33.5 pg (27.0-33.0); MCHC 34.3 % (32.0-36.0); MCV 98 fL (80-95); MPV 9.2 fL (8.0-11.0); Platelet Count 214 10^3/uL (130-400); RBC 3.70 10^6/uL (3.93-5.22); RDW 11.8 % (11.7-14.6); RDW-SD 42.6 fL; WBC 7.99 10^3/uL (4.4-10.8)
[2025-03-18 08:11] LABS: ALT 21 U/L (14-59); AST 14 U/L (15-37); Albumin 3.3 g/dL (3.4-5.0); Alkaline Phosphatase 90 U/L (46-116); Anion Gap 9.3 mmol/L (3-11); BUN 17 mg/dL (7-18); Bilirubin, Total 0.6 mg/dL (0.2-1.0); CO2 22.7 mmol/L (21.0-32.0); Calcium 8.3 mg/dL (8.5-10.1); Chloride 106 mmol/L (98-107); Estimated GFR 55.07 (mL/min/1.73m2); Glucose 114 mg/dL (74-106); Magnesium 2.3 mg/dL (1.8-2.4); Potassium 3.9 mmol/L (3.5-5.1); Sodium 138 mmol/L (136-145); Total Protein 6.4 g/dL (6.4-8.2)
[2025-03-18] MEDS: Tamsulosin 0.4 MG CAPCR PO (10:46)
--- NOTE | 2025-03-18 11:03 | PDOC.CMIN ---
Date of service: 03/18/25 Time of Service: 11:04 Care Management Initial Assmt Initial Assessment Reason for Hospitalization: L ureteral stone, hydronephrosis d/t obstruction of ureter Functional Status/Living Situation Patient Presentation: Mag was sitting up on the edge of her bed, eating her lunch when CM met with her. She stated that she is doing ok today, and not feeling too much pain, but expressed that it is difficult for her to be in the hospital because she is very independent and active in the community. She reported that she lives alone in [place], and has four children who live all throughout the country- in [place], [place], [place] and [place]. 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 She described music as a universal language that doesn't require words, and discussed the healing benefits of music. Mag has reported to her RN that she wants to take minimal medication, as needed, and has expressed concern about taking medications if they are not necessary; the provider was made aware of her wishes. Per report, there is a urology consult placed that will likely happen tomorrow. She is looking forward to returning home. CM will continue to follow. Town of Residence: [place] Resides with: Alone Significant Other/Family: Out of area Natural Supports: sonChirag and daughter, Adeline listed on HIPAA, and two other children. All of her kids live out of town. 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 Medications Medication Management: No Issues/Barriers identified Physical Functioning/Mobility Assistive Device: none Advance Directives Advance Directives: Do you have an Advance Directive: N 02/01/24, 00:39 AD On File at [facility]: N 07/15/19, 15:34 Date Asked 03/17/25 03/17/25, 14:31 AD Date Reviewed COLST On File at [facility] No 03/19/24, 07:38 COLST Date Scanned Code Status Resuscitation Status Full Code Insurance Coverage/Financial Issues Insurance: [facility] Care Team Visit Care Team Role Provider Type Mary Pitt APRN MD [facility] STAFF PHYSICIAN Yadira Llanes Primary Care Provider PHYSICIANS ASSISTANT Jose Angel Kennedy MD Other Providers [facility] STAFF PHYSICIAN Antonia Fowler DO Emergency Provider [facility] STAFF PHYSICIAN Wesley Acuna Admit Provider NON-[facility] STAFF PHYSICIAN Attending Provider Discharge Potential Discharge Needs: PCP F/U Appt Anticipated Barriers to Discharge: None Identified Patient/Family Education Needs: Review discharge instructions, discuss Ask Me Three Transportation: Private vehicle Plan: Anticipate Mag will return home once medically cleared. She will transport home via private vehicle by family. She will follow up with her PCP and discharge plan of care. CM will continue to follow. Social Determinants of Health Screening Social Determinants of health last assessed in clinic: 03/18/25 Will the Patient Participate in the Screening?: Yes Do you worry about having a steady place to live?: no Problems where you live: no known problems In the past 12 months, have you had to go without electric, gas, oil or water in your home?: no 1. Within the past 12 months, we worried whether our food would run out before we got money to buy more.: Never true 2. Within the past 12 months, the food we bought just didn't last and we didn't have money to get more.: Never true Has lack of transportation kept you from medical appointments or from doing things needed for daily living?: no Has anyone in your life made you feel unsafe or unsupported?: no How hard is it for you to pay for the very basics like food, housing, medical care, and heating? Would you say it is:: Not hard at all Do you want help finding or keeping work or a job?: I do not need or want help If for any reason you need help with day-to-day activities such as bathing, preparing meals, shopping, managing finances, etc., do you get the help you need?: I get all the help I need How often do you feel lonely or isolated from those around you?: Never Do you speak a language other than [place] at home?: No Does the patient want assistance with any of the above?: No PFSH All Active Problems DVT (deep venous thrombosis) (Chronic) Acute dehydration (Acute) Hydronephrosis due to obstruction of ureter (Acute) Left ureteral stone (Acute) Cancer of skin of lower leg (Acute) Displaced fracture of left ulna styloid process, initial encounter for closed fracture (Acute 03/19/24) Intra-articular fracture of distal end of left radius with volar angulation (Acute 03/19/24) S/P ORIF: 03/19/2024 Medical History No significant past medical history Surgical History History of total left hip arthroplasty Social History Smoking/Tobacco Use Status: Never Smoking risk assessment performed?: Yes Alcohol Intake: never Drug use: Never Substance use type: does not use Housing: house Do you feel safe at home: Yes Do you feel safe in your relationship?: Yes
--- NOTE | 2025-03-18 14:03 | PGE_ITS ---
Date of Service Date of service: 03/18/25 Time of Service: 11:00 Assessment and Plan Assessment and plan (1) Left ureteral stone: Start date: 03/17/25 Status: Acute Assessment and plan: As per CT imaging on admission:as per report Large being 7 mm in the distal left ureter and 6 mm at the left UP junction as well as an 8 mm stone in the lower pole of the left kidney Continue IV hydration, pain management Continue Flomax consultations urologist Dr. Kennedy pending (2) Hydronephrosis due to obstruction of ureter: Start date: 03/17/25 Status: Acute Assessment and plan: Continue IV hydration , Flomax and morphine IV PRN and Ketorolac PRN for pain management No CHRIS and normal UA Aqua pack for left flank pain Ans as above (3) Acute dehydration: Start date: 03/17/25 Status: Acute Assessment and plan: Ongoing IV hydration labs in AM (4) DVT (deep venous thrombosis): Status: Chronic Assessment and plan: On heparin discussed with Dr. Black Subjective Subjective Patient reports: tolerating liquids well, voiding w/o difficulty, no bowel movement, nausea, afebrile and other (reports fatigue); denies vomiting or shortness of breath Exam Narrative Exam Narrative: 89-year-old female patient appearing older than stated age, in no acute distress, no focal deficits, unlabored breathing, clear breath sounds bilaterally, regular heart S1-2, abdomen left lower quadrant tenderness/flank pain, minimal left CVA tenderness Objective Last Vital Signs Temp 36.0 C L 03/18/25 08:46 Pulse 57 L 03/18/25 08:46 Resp 14 03/18/25 08:46 BP 119/48 L 03/18/25 08:46 Pulse Ox 96 03/18/25 08:46 Laboratory Results - last 24 hr 03/17/25 03/17/25 03/17/25 14:15 15:05 16:23 WBC 8.37 RBC 4.32 Hgb 14.1 Hct 41.6 MCV 96 H MCH 32.6 MCHC 33.9 RDW 11.8 Plt Count 290 MPV 9.2 Immature Gran % 0.2 Neutrophils % 78.4 Lymphocytes % 14.0 Monocytes % 6.8 Eosinophils % 0.1 Basophils % 0.5 Nucleated RBC % 0.0 Absolute Neutrophils 6.56 Absolute Lymphocytes 1.17 L Absolute Monocytes 0.57 Absolute Eosinophils 0.01 Absolute Basophils 0.04 Sodium 140 Potassium 4.2 Chloride 106 Carbon Dioxide 22.6 Anion Gap 11.4 H BUN 20 H Creatinine 1.0 Est GFR (CKD-EPI 2020) 61.75 Glucose 117 H Calcium 9.0 Magnesium Total Bilirubin 0.4 AST 16 ALT 26 Alkaline Phosphatase 107 Troponin I 5 5 Total Protein 7.6 Albumin 4.0 Lipase 35 Urine Color Dark Yellow Urine Clarity Cloudy Urine pH 5.5 Ur Specific [place] >= 1.030 H Urine Protein 100 H Urine Ketones 15 H Urine Blood Large H Urine Nitrite Negative Urine Bilirubin Small H Urine Urobilinogen 0.2 Ur Leukocyte Esterase Negative Urine RBC >50 H Urine WBC Negative Ur Epithelial Cells Negative Urine Crystals Few Calcium Oxalate Urine Bacteria Few Urine Casts Negative Urine Mucus Negative Ur Culture Indicated? No Urine Glucose Negative 03/17/25 03/18/25 18:38 07:45 WBC 7.99 RBC 3.70 L Hgb 12.4 Hct 36.1 MCV 98 H MCH 33.5 H MCHC 34.3 RDW 11.8 Plt Count 214 MPV 9.2 Immature Gran % Neutrophils % Lymphocytes % Monocytes % Eosinophils % Basophils % Nucleated RBC % Absolute Neutrophils Absolute Lymphocytes Absolute Monocytes Absolute Eosinophils Absolute Basophils Sodium 138 Potassium 3.9 Chloride 106 Carbon Dioxide 22.7 Anion Gap 9.3 BUN 17 Creatinine 1.1 H Est GFR (CKD-EPI 2020) 55.07 Glucose 114 H Calcium 8.3 L Magnesium 2.3 Total Bilirubin 0.6 AST 14 L ALT 21 Alkaline Phosphatase 90 Troponin I 8 Total Protein 6.4 Albumin 3.3 L Lipase Urine Color Urine Clarity Urine pH Ur Specific [place] Urine Protein Urine Ketones Urine Blood Urine Nitrite Urine Bilirubin Urine Urobilinogen Ur Leukocyte Esterase Urine RBC Urine WBC Ur Epithelial Cells Urine Crystals Urine Bacteria Urine Casts Urine Mucus Ur Culture Indicated? Urine Glucose Time Spent with Patient Time Spent with Patient: >50 minutes Time was spent: preparing to see the patient(eg.review tests), obtaining and/or reviewing separately otained hiistory, ordering medications,tests, procedures, referring, communicating with other health managed care liaison, indepentently interpreting results, counseling the patient and care coordination
--- NOTE | 2025-03-18 14:16 | W.PC.ACHO ---
Registration Status: ADM IN Primary Language: Preferred Language: ED Information & Data Chief Complaint Abd Prob 03/17/25 14:17 Triage Note Pt reports L lower sided abd 03/17/25 14:03 pain and L sided lower back pain that started yesterday and worsened today. HX of kidney stones pt states this feels different than kidney stones Medical / Surgical History (Last Reviewed 03/17/25 @ 20:17 by Wesley Acuna) No significant past medical history (Last Reviewed 03/17/25 @ 20:17 by Wesley Acuna) History of total left hip arthroplasty Most Recent Vital Signs Temperature 36.0 C L 03/18/25 08:46 Temperature Source Tympanic 03/18/25 08:43 Pulse 57 L 03/18/25 08:46 Pulse Rhythm Regular 03/18/25 08:46 Pulse 58 L 03/18/25 08:20 Respiratory Rate 14 03/18/25 08:46 Respiratory Effort Normal, Non-Labored 03/18/25 08:46 Respiratory Depth Normal 03/18/25 08:46 Respiratory Pattern Normal 03/18/25 08:46 Blood Pressure 119/48 L 03/18/25 08:46 Blood Pressure Mean 71 03/18/25 08:43 Blood Pressure Position Supine 03/18/25 05:18 Pulse Oximetry 96 03/18/25 08:46 Oxygen Delivery Method Room Air 03/18/25 08:46 Oxygen Flow Rate 0 03/18/25 08:46 Pain Level 7 03/18/25 08:46 Allergies No Known Allergies Allergy (Verified 03/17/25 14:07) Active Medications Generic Name Dose Route Start Last Admin Trade Name Freq PRN Reason Stop Dose Admin Heparin Sodium (Porcine) 5,000 units 03/18/25 06:00 03/18/25 07:28 Heparin 5,000 Units/Ml Vial SC 5,000 units Q8H DERRELL Administration Sodium Chloride 1,000 mls @ 150 mls/hr 03/17/25 22:06 03/18/25 07:39 Saline 1000ml Bag IV 150 mls/hr INFUSION DERRELL Administration Morphine Sulfate 4 mg 03/17/25 22:06 03/18/25 03:50 Morphine 4 Mg/Ml Syr IVP 4 mg Q1H PRN Administration Pain Ondansetron HCl 4 mg 03/17/25 21:27 03/18/25 07:43 Ondansetron 4 Mg/2 Ml Vial IVP 4 mg Q4H PRN PRN Administration Tamsulosin HCl 0.4 mg 03/18/25 08:30 03/18/25 10:46 Tamsulosin 0.4 Mg Capcr PO 0.4 mg DAILY DERRELL Administration IV IV Catheter Type [Left Saline Lock Antecubital] IV Catheter Gauge [Left 18 Antecubital] Diet Orders Category Date Time Status Regular/Normal [DIET] Nutrition 03/18/25 Breakfast Active Diagnostics 03/18/25 03/17/25 03/17/25 Range/Units 07:45 18:38 16:23 WBC 7.99 (4.4-10.8) 10^3/uL RBC 3.70 L (3.93-5.22) 10^6/uL Hgb 12.4 (11.2-15.7) g/dL Hct 36.1 (36.0-46.0) % MCV 98 H (80-95) fL MCH 33.5 H (27.0-33.0) pg MCHC 34.3 (32.0-36.0) % RDW 11.8 (11.7-14.6) % Plt Count 214 (130-400) 10^3/uL MPV 9.2 (8.0-11.0) fL Immature Gran % % Neutrophils % % Lymphocytes % % Monocytes % % Eosinophils % % Basophils % % Nucleated RBC % (0.0-0.3) % Absolute Neutrophils (1.2-6.7) 10^3/uL Absolute Lymphocytes (1.2-3.4) 10^3/uL Absolute Monocytes (0.1-0.8) 10^3/uL Absolute Eosinophils (0.0-0.7) 10^3/uL Absolute Basophils (0.0-0.2) 10^3/uL Sodium 138 (136-145) mmol/L Potassium 3.9 (3.5-5.1) mmol/L Chloride 106 (98-107) mmol/L Carbon Dioxide 22.7 (21.0-32.0) mmol/L Anion Gap 9.3 (3-11) mmol/L BUN 17 (7-18) mg/dL Creatinine 1.1 H (0.55-1.02) mg/dL Est GFR (CKD-EPI 2020) 55.07 (mL/min/1.73m2) Glucose 114 H (74-106) mg/dL Calcium 8.3 L (8.5-10.1) mg/dL Magnesium 2.3 (1.8-2.4) mg/dL Total Bilirubin 0.6 (0.2-1.0) mg/dL AST 14 L (15-37) U/L ALT 21 (14-59) U/L Alkaline Phosphatase 90 (46-116) U/L Troponin I 8 5 (<or=51) ng/L Total Protein 6.4 (6.4-8.2) g/dL Albumin 3.3 L (3.4-5.0) g/dL Lipase (<78) U/L Urine Color (Yellow) Urine Clarity (Clear) Urine pH (5-8) Ur Specific [place] (1.005-1.025) Urine Protein (Neg-Trace) mg/dL Urine Ketones (Negative) mg/dL Urine Blood (Negative) Urine Nitrite (Negative) Urine Bilirubin (Negative) Urine Urobilinogen (Up to 0.2) mg/dL Ur Leukocyte Esterase (Negative) Urine RBC (0-2) HPF Urine WBC (0-5) HPF Ur Epithelial Cells (Negative) HPF Urine Crystals (Negative) HPF Urine Bacteria (Negative) HPF Urine Casts (Negative) LPF Urine Mucus (Negative) Ur Culture Indicated? Urine Glucose (Negative) mg/dL 03/17/25 03/17/25 Range/Units 15:05 14:15 WBC 8.37 (4.4-10.8) 10^3/uL RBC 4.32 (3.93-5.22) 10^6/uL Hgb 14.1 (11.2-15.7) g/dL Hct 41.6 (36.0-46.0) % MCV 96 H (80-95) fL MCH 32.6 (27.0-33.0) pg MCHC 33.9 (32.0-36.0) % RDW 11.8 (11.7-14.6) % Plt Count 290 (130-400) 10^3/uL MPV 9.2 (8.0-11.0) fL Immature Gran % 0.2 % Neutrophils % 78.4 % Lymphocytes % 14.0 % Monocytes % 6.8 % Eosinophils % 0.1 % Basophils % 0.5 % Nucleated RBC % 0.0 (0.0-0.3) % Absolute Neutrophils 6.56 (1.2-6.7) 10^3/uL Absolute Lymphocytes 1.17 L (1.2-3.4) 10^3/uL Absolute Monocytes 0.57 (0.1-0.8) 10^3/uL Absolute Eosinophils 0.01 (0.0-0.7) 10^3/uL Absolute Basophils 0.04 (0.0-0.2) 10^3/uL Sodium 140 (136-145) mmol/L Potassium 4.2 (3.5-5.1) mmol/L Chloride 106 (98-107) mmol/L Carbon Dioxide 22.6 (21.0-32.0) mmol/L Anion Gap 11.4 H (3-11) mmol/L BUN 20 H (7-18) mg/dL Creatinine 1.0 (0.55-1.02) mg/dL Est GFR (CKD-EPI 2020) 61.75 (mL/min/1.73m2) Glucose 117 H (74-106) mg/dL Calcium 9.0 (8.5-10.1) mg/dL Magnesium (1.8-2.4) mg/dL Total Bilirubin 0.4 (0.2-1.0) mg/dL AST 16 (15-37) U/L ALT 26 (14-59) U/L Alkaline Phosphatase 107 (46-116) U/L Troponin I 5 (<or=51) ng/L Total Protein 7.6 (6.4-8.2) g/dL Albumin 4.0 (3.4-5.0) g/dL Lipase 35 (<78) U/L Urine Color Dark Yellow (Yellow) Urine Clarity Cloudy (Clear) Urine pH 5.5 (5-8) Ur Specific [place] >= 1.030 H (1.005-1.025) Urine Protein 100 H (Neg-Trace) mg/dL Urine Ketones 15 H (Negative) mg/dL Urine Blood Large H (Negative) Urine Nitrite Negative (Negative) Urine Bilirubin Small H (Negative) Urine Urobilinogen 0.2 (Up to 0.2) mg/dL Ur Leukocyte Esterase Negative (Negative) Urine RBC >50 H (0-2) HPF Urine WBC Negative (0-5) HPF Ur Epithelial Cells Negative (Negative) HPF Urine Crystals Few Calcium Oxalate (Negative) HPF Urine Bacteria Few (Negative) HPF Urine Casts Negative (Negative) LPF Urine Mucus Negative (Negative) Ur Culture Indicated? No Urine Glucose Negative (Negative) mg/dL Intake and Output - 24 Hour Total 03/17/25 13:44 thru 03/18/25 05:55 Intake Total 1510 Balance 1510 Weight 71.668 kg Intake: IV 1510 Falls Risk Assessment History of Falls No History 03/18/25 08:46 Ambulatory Aids Independent 03/18/25 08:46 Tubes/Lines W/no contributing factors 03/18/25 08:46 Gait Evaluation No gait disturbance 03/18/25 08:46 Fall Total Score 10 03/18/25 08:46 Level of Risk Standard/Low Risk 03/18/25 08:46 Problems (Last Reviewed 03/17/25 @ 20:17 by Wesley Acuna) Acute dehydration (Acute) Hydronephrosis due to obstruction of ureter (Acute) Left ureteral stone (Acute) v v v v v v v v v Sending and/or Receiving Nurses: Please use comment section below to note any information pertinent to the patient hand-off not included above. Information / Comments: PT arrived via wheelchairfrom ED to 212. Report received from: MD Maggie
[2025-03-18] MEDS: Normal Saline Flush 10 ML SYR IVP (18:13)
[2025-03-18] MEDS: Ketorolac 30 MG/ML VIAL IVP (23:21)
[2025-03-19] VITALS (34 sets, daily range): BP systolic 127–162; BP diastolic 41–92; PULSE 44–74; RESP 11–22; TEMP 36–36.5; O2SAT 91–98; BMI 27.6
[2025-03-19] MEDS: Normal Saline 1,000 ML 150 ML IV (06:29)
[2025-03-19 07:26] LABS: Abs Immature Grans 0.01 10^3/uL (0.0-0.06); HCT 33.4 % (36.0-46.0); HGB 11.3 g/dL (11.2-15.7); Immature Grans % 0.2 %; MCH 33.4 pg (27.0-33.0); MCHC 33.8 % (32.0-36.0); MCV 99 fL (80-95); MPV 9.5 fL (8.0-11.0); Platelet Count 197 10^3/uL (130-400); RBC 3.38 10^6/uL (3.93-5.22); RDW 11.8 % (11.7-14.6); RDW-SD 42.7 fL; WBC 4.68 10^3/uL (4.4-10.8)
[2025-03-19 07:28] LABS: Anion Gap 8.0 mmol/L (3-11); BUN 11 mg/dL (7-18); CO2 23.0 mmol/L (21.0-32.0); Calcium 8.0 mg/dL (8.5-10.1); Chloride 110 mmol/L (98-107); Estimated GFR 55.07 (mL/min/1.73m2); Glucose 98 mg/dL (74-106); Magnesium 2.3 mg/dL (1.8-2.4); Potassium 4.2 mmol/L (3.5-5.1); Sodium 141 mmol/L (136-145)
[2025-03-19] MEDS: Tamsulosin 0.4 MG CAPCR PO (08:52)
[2025-03-19] MEDS: Ketorolac 30 MG/ML VIAL IVP (08:53)
--- NOTE | 2025-03-19 09:54 | W.UROLOGYCON ---
Date of service: 03/19/25 Time of Service: 06:50 Assessment and Plan Assessment and plan (1) Left ureteral stone: Status: Acute (2) Hydronephrosis due to obstruction of ureter: Status: Acute Assessment and plan: Her stones have not progressed with conservative management, so she is agreeable to surgical intervention. We talked about simply placing a ureteral stent to relieve the hydronephrosis versus attempting ureteroscopy to treat the stones at the same time. If I am not able to visualize the stones, we would still plan to place a ureteral stent and make a return trip to the operating room after a week or 2 to address the stones. If I am able to visualize her stones today, we would plan to treat the stones with holmium laser and extract the stone fragments. Either way, we would place a ureteral stent following her surgery. She is motivated for a metabolic workup after she is discharged. History of Present Illness History of Present Illness Chief Complaint: Left ureteral stones Narrative: This is a 69-year-old woman who has a past history of kidney stones. She had 1 episode of renal colic about 3 years ago. She was seen in urgent care. No imaging studies were obtained. She passed her stone after a few weeks of conservative management. We do not know of her stone chemical composition. She presented to the emergency department about 36 hours ago with an acute onset of left-sided pain. She was found to have a nonobstructing stone in the lower pole of her left kidney into ureteral stones. Her pain could not be controlled as an outpatient so she was admitted to the hospital for hydration and analgesia. She has had persistent pain since admission. She has not had any fever or chills. She describes her pain as being both in the low abdomen and toward the back. She has not seen any gross hematuria. She has not passed any stones as far she can tell. Review of Systems Narrative: No fevers or chills No vision change or dysphasia No diabetes or thyroid dysfunction No shortness of breath, cough or hemoptysis No chest pain or palpitations No nausea, vomiting, hepatitis, ulcers, jaundice No seizures, strokes or peripheral neuropathy No bleeding disorders or anemia No gout PFSH All Active Problems DVT (deep venous thrombosis) (Chronic) Acute dehydration (Acute) Hydronephrosis due to obstruction of ureter (Acute) Left ureteral stone (Acute) Cancer of skin of lower leg (Acute) Displaced fracture of left ulna styloid process, initial encounter for closed fracture (Acute 03/19/24) Intra-articular fracture of distal end of left radius with volar angulation (Acute 03/19/24) S/P ORIF: 03/19/2024 Medical History No significant past medical history Surgical History History of total left hip arthroplasty Social History Smoking/Tobacco Use Status: Never Smoking risk assessment performed?: Yes Alcohol Intake: never Drug use: Never Substance use type: does not use Housing: house Do you feel safe at home: Yes Do you feel safe in your relationship?: Yes Exam Narrative Exam Narrative: She appears uncomfortable but does not appear septic or toxic Her vital signs are documented elsewhere Her chest wall motion is normal. She is not short of breath at rest. Her abdomen is soft with no peritoneal signs She is awake and alert I reviewed her CT scan on the PACS system. There are 2 rather large stones in the left ureter. The more distal stone was about two thirds of the way down the ureter and the more proximal stone is about one third of the way down. There is also a nonobstructing stone in the lower pole of the left kidney Results Last Vital Signs Temp 36.4 C L 03/19/25 07:31 Pulse 58 L 03/19/25 07:31 Resp 16 03/19/25 07:31 BP 135/62 03/19/25 07:31 Pulse Ox 94 03/19/25 07:31 Labs 03/19/25 06:52 03/19/25 06:36 Labs: Laboratory Results - last 24 hr 03/19/25 03/19/25 06:36 06:52 WBC 4.68 RBC 3.38 L Hgb 11.3 Hct 33.4 L MCV 99 H MCH 33.4 H MCHC 33.8 RDW 11.8 Plt Count 197 MPV 9.5 Immature Gran % 0.2 Neutrophils % 62.0 Lymphocytes % 23.7 Monocytes % 12.4 Eosinophils % 1.3 Basophils % 0.4 Nucleated RBC % 0.0 Absolute Neutrophils 2.90 Absolute Lymphocytes 1.11 L Absolute Monocytes 0.58 Absolute Eosinophils 0.06 Absolute Basophils 0.02 Sodium 141 Potassium 4.2 Chloride 110 H Carbon Dioxide 23.0 Anion Gap 8.0 BUN 11 Creatinine 1.1 H Est GFR (CKD-EPI 2020) 55.07 Glucose 98 Calcium 8.0 L Magnesium 2.3
--- NOTE | 2025-03-19 12:18 | ANES.PREOP_ITS ---
General Info Date of Service Date Performed: 03/19/25 Height: 5 ft 4 in Weight: 73.2 kg Body Mass Index (BMI): 27.6 Surgical Procedure: Operation Date: 03/19/25 12:25 Proposed Procedure Side Surgeon p Cystoscopy/Laser/Retrograde/Ureteroscopy/ Stent Placement Left Jose Angel Kennedy MD Meds Allergies and Home Medications Allergies Allergy/AdvReac Type Severity Reaction Status Date / Time No Known Allergies Allergy Verified 03/17/25 14:07 Current Visit Medications: Current Medications Generic Name Dose Route Start Last Admin Trade Name Freq PRN Reason Stop Dose Admin Acetaminophen 650 mg 03/17/25 22:06 Acetaminophen 325 Mg Tab PO Q4H PRN PRN Al Hydrox/Mg Hydrox/Simethicone 30 ml 03/17/25 22:25 Mylanta Suspension 30 Ml Cup PO Q2H PRN PRN Docusate Sodium 100 mg 03/17/25 22:25 Docusate Sodium 100 Mg Cap PO TID PRN PRN Heparin Sodium (Porcine) 5,000 units 03/18/25 06:00 03/19/25 05:36 Heparin 5,000 Units/Ml Vial SC Not Given Q8H DERRELL Sodium Chloride 1,000 mls @ 150 mls/hr 03/17/25 22:06 03/19/25 06:29 Saline 1000ml Bag IV 150 mls/hr INFUSION DERRELL Administration Cefazolin Sodium/Dextrose 2 gm in 50 mls @ 100 mls/hr 03/19/25 10:00 Ancef Duplex IVPB 03/19/25 23:59 PREOP [facility] IV Miscellaneous Supplies 1 each 03/17/25 22:06 Iv Access IV DIRECTED [facility] Ketorolac Tromethamine 30 mg 03/17/25 22:06 03/19/25 08:53 Ketorolac 30 Mg/Ml Vial IVP 03/22/25 22:05 30 mg Q6H PRN Administration Moderate Pain Magnesium Hydroxide 30 ml 03/17/25 22:25 Milk Of Magnesia 30 Ml Cup PO DAILY PRN PRN Morphine Sulfate 4 mg 03/17/25 22:06 03/18/25 18:14 Morphine 4 Mg/Ml Syr IVP 4 mg Q1H PRN Administration Pain Ondansetron HCl 4 mg 03/17/25 21:27 03/18/25 07:43 Ondansetron 4 Mg/2 Ml Vial IVP 4 mg Q4H PRN PRN Administration Polyethylene Glycol 17 gm 03/17/25 22:25 Polyethylene Glycol 3350 17 Gm Packet PO DAILY PRN PRN Constipation Sodium Chloride 0 ml 03/18/25 08:30 03/19/25 00:14 Normal Saline Flush 10 Ml Syr IVP Not Given BID DERRELL Sodium Chloride 0 ml 03/17/25 22:25 Normal Saline 10 Ml Vial IJ DIRECTED PRN Sodium Chloride 0 ml 03/17/25 22:25 03/18/25 18:13 Normal Saline Flush 10 Ml Syr IVP 20 ml PRN PRN Administration Tamsulosin HCl 0.4 mg 03/18/25 08:30 03/19/25 08:52 Tamsulosin 0.4 Mg Capcr PO 0.4 mg DAILY DERRELL Administration PFSH Active Problems Active Problems: Problem Status Onset Code DVT (deep venous thrombosis) Chronic I82.409 Acute dehydration Acute E86.0 Hydronephrosis due to obstruction of ureter Acute N13.1 Left ureteral stone Acute N20.1 Cancer of skin of lower leg Acute C44.701 Displaced fracture of left ulna styloid process, initial encounter for closed fracture Acute 03/19/24 S52.612A Intra-articular fracture of distal end of left radius with volar angulation Acute 03/19/24 S52.572A Medical History Medical History No significant past medical history Surgical History Surgical History History of total left hip arthroplasty Tobacco Smoking/Tobacco Use Status: Never Alcohol Alcohol Intake: never Substance Use Substance use: Never Substance use type: does not use Vital Signs and Lab Results Vital Signs Most Recent Vital Signs in EMR: Most Recent Vital Signs Temp Pulse Resp BP Pulse Ox 36.4 C L 52 L 16 133/52 L 98 03/19/25 11:36 03/19/25 11:36 03/19/25 11:36 03/19/25 11:36 03/19/25 11:36 Lab Results 03/19/25 06:52 03/19/25 06:36 Complete Blood Count: 2 WBC, (4.4-10.8) 4.68 10^3/uL Today, 06:52 RBC, (3.93-5.22) 3.38 10^6/uL L Today, 06:52 Hgb, (11.2-15.7) 11.3 g/dL Today, 06:52 Hct, (36.0-46.0) 33.4 % L Today, 06:52 Plt Count, (130-400) 197 10^3/uL Today, 06:52 Complete Metabolic Panel: 2 Sodium, (136-145) 141 mmol/L Today, 06:36 Potassium, (3.5-5.1) 4.2 mmol/L Today, 06:36 Chloride, (98-107) 110 mmol/L H Today, 06:36 Carbon Dioxide, (21.0-32.0) 23.0 mmol/L Today, 06:36 BUN, (7-18) 11 mg/dL Today, 06:36 Creatinine, (0.55-1.02) 1.1 mg/dL H Today, 06:36 Est GFR (CKD-EPI 2020), (mL/min/1.73m2) 55.07 Today, 06:36 Magnesium, (1.8-2.4) 2.3 mg/dL Today, 06:36 Calcium, (8.5-10.1) 8.0 mg/dL L Today, 06:36 Albumin, (3.4-5.0) 3.3 g/dL L 03/18/25, 07:45 Glucose, (74-106) 98 mg/dL Today, 06:36 Liver Function Panel: 2 ALT, (14-59) 21 U/L 03/18/25, 07:45 AST, (15-37) 14 U/L L 03/18/25, 07:45 Cardiac Panel: 2 Troponin I, (<or=51) 8 ng/L 03/17/25 Pancreas Panel: 2 Lipase, (<78) 35 U/L 03/17/25, 15:05 Anesthesia Assessment and Plan Anesthesia History Personal History: No History of Anesthesia Complications Family History: No Family History of Anesthesia Complications Exercise Tolerance Exercise Tolerance: Metabolic Equivalents>4 Cardiac & Pulmonary Exam Cardiac Exam: Normal S1/S2 Heart Sounds Pulmonary Exam: Clear Bilateral Breath Sounds Implantable Cardiac Device Does patient have a Pacemaker or an ICD?: No Airway Exam Known Difficult Airway: No Mallampati Class: 3 Mouth Opening: Normal (> 3cm) Thyromental Distance: Greater than 3 cm Neck Range of Motion: Full ROM Neck Circumference: Normal Teeth Condition: Normal Dentition ASA Classification ASA Score: ASA 2 Emergency Case?: No NPO Status NPO Status: NPO Clears >2 hours, Solids >8 hours Anesthesia Plan Resuscitation Status: Full Code Anesthesia Technique: General Anesthesia Airway Planned: Endotracheal Tube Monitors Used: Standard Monitors Preoperative Comments:: 69 yo female for cysto due to stones. Sig PMHx: DVT (listed, but she denies). Exercises daily. denies EtOH/smoking. No home meds Previous Anes: - ORIF wrist, LMA 4 --> glide 3 grade 2a due to significant reactivity with just prep and also secretions noted in gastric port of LMA.
--- NOTE | 2025-03-19 12:30 | DI.RAD_ITS ---
Exam(s) XR RETROGRADE IN OR EXAM: XR RETROGRADE IN OR CLINICAL HISTORY: Left ureteral stone. TECHNIQUE: Fluoroscopy was provided for the referring physician for guidance with performing retrograde procedure. COMPARISON: CT CT ABDOMEN PELVIS W from 03/17/2025 FINDINGS: Please see procedure note for details. Fluoro time: 69.9 seconds RADIATION DOSE DELIVERED: sarah Wang=16.4 mGy
[2025-03-19] MEDS: Lactated Ringers 1,000 ML 30 ML IV (13:07)
[2025-03-19] MEDS: Lidocaine 2% Jelly 11 ML SYR (13:47)
[2025-03-19] MEDS: Omnipaque 300 MG/ML 50 ML BTL (14:30)
--- NOTE | 2025-03-19 14:30 | CHAPLAIN ---
Mag was in the phone when I stopped in her, she paused to greet me and I quickly introduced myself and explained my role.
--- NOTE | 2025-03-19 14:45 | ROE_ITS ---
Operative Note Operative Note PRE-OP DIAGNOSIS: Left ureteral stones POST-OP DIAGNOSIS: same Left lower pole renal stone PROCEDURE: Cystoscopy, left retrograde pyelogram, left semirigid ureteroscopy with holmium laser lithotripsy of left distal ureteral stone, extraction of stone fragments, left flexible ureteroscopy with holmium laser lithotripsy of left upper ureteral stone in the left lower pole stone with stone extraction, insert left ureteral stent SURGEON: Jose Angel Kennedy ANESTHESIA TYPE: Local By Surgeon and General LMA/ETT Refer to Anesthesia Record ESTIMATED BLOOD LOSS: 5 PATHOLOGY: none sent (Stones for chemical analysis) COMPLICATIONS: None Patient was transported to: PACU Patient's condition: stable Implants: 6 [place] by 22 to 30 cm left ureteral stent Indications: This is a 69-year-old woman who has a past history of kidney stones. She passed her stone previously and did not require surgical treatment. She recently presented to our emergency department with left renal colic. A CT scan demonstrated 2 stones in her left ureter along with a nonobstructing stone in the left lower pole calyx. She was unable to tolerate outpatient therapy, so she was admitted for hydration and analgesia. Her stones did not progress and she remains symptomatic. She presents for ureteroscopy and stone manipulation. Findings: Large left distal ureteral stone, large left proximal ureteral stone, large left lower pole kidney stone Procedure Description: The patient was given preoperative antibiotics and brought to the operating room on 03/19/2025. After successful induction of general anesthesia, she was placed in the dorsal lithotomy position. The genitalia is prepped and draped. 2% Xylocaine jelly was then instilled into the urethra. A 22 [place] rigid cystoscope is passed through the urethra into the bladder. The bladder was inspected using a 30 degree lens. The base of the bladder had descended consistent with a cystocele. Both ureteral orifices appeared normal with no blood coming from the other side. The remainder of the bladder showed no papillary or nodular lesions. The left ureteral orifice was cannulated with a 5 [place] access catheter and a retrograde pyelogram was obtained by injecting Omnipaque through the access catheter under fluoroscopic guidance. We outlined a filling defect in the left distal ureter just below the level of the pelvic brim. I was able to pass a guidewire through the lumen of the access catheter and remove the catheter. We removed the cystoscope and passed the semirigid ureteroscope through the urethra into the bladder. The scope was advanced up the ureter until a large stone was visualized. The stone was treated with a 365 ?m holmium laser fiber. We used combination of fragmentation settings and dusting settings. The stone fragmented quite nicely and I was then able to grasp multiple stone fragments using a 0 tip stone basket. Each of the fragments were sent to pathology for chemical analysis. Once no remaining distal ureteral stone fragments were identified, I passed a dual-lumen catheter over the wire. I injected Omnipaque through the second port of the dual-lumen catheter and we outlined the proximal ureteral filling defect. I then passed a second guidewire and removed the dual-lumen catheter. We chose one of the wires as a working wire and the other as a safety wire. We passed a ureteral access sheath over the working wire leaving the safety wire in place. I then passed a disposable flexible ureteroscope through the lumen of the access sheath and advanced the scope up to the level of the stone. The stone was visualized and was likewise treated with a 365 ?m holmium laser fiber. We used dusting settings and as the stone was being treated, the stone migrated up into one of the midpole calyces. We were then able to advance the scope further and completely treat the stone until no large stone fragments remained. We were then able to visualize the lower pole stone and likewise treat that stone with the 365 ?m holmium laser fiber. I was able to grasp the remaining stone fragment from the lower pole stone in a ZeroTip stone basket and removed with the stone fragment in its entirety. At the completion of the procedure, visualization in the kidney was compromised by the presence of a blood clot that had formed. Because of the blood clot, I am not certain that all stone fragments had been extracted. We removed the ureteroscope and the ureteral access sheath. We placed a 6 [place] variable length stent over the safety wire. The proximal end was curled in the renal pelvis and the distal end was curled in the bladder. The positioning of the stent was confirmed both fluoroscopically and cystoscopically. We will make arrangements for a return trip to the operating room in about 2 weeks. We will plan to remove the stent and repeat ureteroscopy to ensure all stone fragments have been addressed. The patient tolerated this procedure well with no complications. She was taken to the recovery room in stable condition. Date of Procedure: 03/19/25
--- NOTE | 2025-03-19 14:50 | W.ANESPOSTOP ---
Postoperative Evaluation Date, Time and Location Date Performed: 03/19/25 Time Performed: 14:50 Patient Location: PACU Vital Signs Most Recent Imported Vital Signs: Most Recent Vital Signs Temp Pulse Resp BP Pulse Ox 36.3 C L 52 L 16 133/52 L 98 03/19/25 14:39 03/19/25 11:36 03/19/25 11:36 03/19/25 11:36 03/19/25 11:36 Pain Score Most Recent Pain Score: Most Recent Pain Score Pain Level 0 03/19/25 11:36 Assessment Mental Status: Arousable with meaningful communication Airway and Respiratory Function: Patent airway with normal (patient baseline) respiratory exam Cardiovascular Function: Hemodynamically Stable Hydration Status: Adequately Hydrated Nausea & Vomiting: No Nausea or Vomiting Pain: Pain is tolerable per patient Peripheral Nerve Block: Patient did not receive a nerve block
[2025-03-19] MEDS: Phenazopyridine 200 MG TAB PO (16:43)
--- NOTE | 2025-03-19 18:20 | CMPROGNOTE_ITS ---
Date of service: 03/19/25 Time of Service: 18:20 Care Management Progress Note Progress Note Text Progress Note Text: Mag was in the OR this afternoon when CM attempted to meet with her. Per report, she was taken to the OR for a cystoscopy, and for stent placement. She will be discharged home once medically cleared; she has been looking forward to returning home. CM will continue to follow. Discharge Potential Discharge Needs: PCP F/U Appt and Surgical F/U Appt (Urology) Anticipated Barriers to Discharge: None Identified Patient/Family Education Needs: Review discharge instructions, discuss Ask Me Three Transportation: Private vehicle Plan: Anticipate Mag will return home once medically cleared. She will transport home via private vehicle by family. She will follow up with her PCP and discharge plan of care. CM will continue to follow. Social Determinants of Health Screening Social Determinants of health last assessed in clinic: 03/19/25 Will the Patient Participate in the Screening?: Yes Do you worry about having a steady place to live?: no Problems where you live: no known problems In the past 12 months, have you had to go without electric, gas, oil or water in your home?: no 1. Within the past 12 months, we worried whether our food would run out before we got money to buy more.: Never true 2. Within the past 12 months, the food we bought just didn't last and we didn't have money to get more.: Never true Has lack of transportation kept you from medical appointments or from doing things needed for daily living?: no Has anyone in your life made you feel unsafe or unsupported?: no How hard is it for you to pay for the very basics like food, housing, medical care, and heating? Would you say it is:: Not hard at all Do you want help finding or keeping work or a job?: I do not need or want help If for any reason you need help with day-to-day activities such as bathing, preparing meals, shopping, managing finances, etc., do you get the help you need?: I get all the help I need How often do you feel lonely or isolated from those around you?: Never Do you speak a language other than Upper Sor[place] at home?: No Does the patient want assistance with any of the above?: No
--- NOTE | 2025-03-19 18:54 | PGE_ITS ---
Date of Service Date of service: 03/19/25 Time of Service: 16:30 Assessment and Plan Assessment and plan (1) Left ureteral stone: Start date: 03/17/25 Status: Acute Assessment and plan: As per CT imaging on admission:as per report Large being 7 mm in the distal left ureter and 6 mm at the left UP junction as well as an 8 mm stone in the lower pole of the left kidney Continue IV hydration, pain management resume diet Continue Flomax consultations urologist Dr. Kennedy: OR this PM -left flexible ureteroscopy with holmium laser lithotripsy of left upper ureteral stone in the left lower pole stone with stone extraction, insert left ureteral stent -No antibiotic at d/c (2) Hydronephrosis due to obstruction of ureter: Start date: 03/17/25 Status: Acute Assessment and plan: Continue IV hydration , Flomax and morphine IV PRN and Ketorolac PRN for pain management UA negative Aqua pack for left flank pain And as above (3) Acute dehydration: Start date: 03/17/25 Status: Acute Assessment and plan: IV hydration reduced to 75cc/hr encourage oral fluid zofran PRN for N/V labs in AM (4) DVT (deep venous thrombosis): Status: Chronic Assessment and plan: On heparin refused multiple times Will add TEDs discussed with Dr. Black Subjective Subjective Patient reports: no new complaints, feels better, tolerating liquids well and voiding w/o difficulty; denies diarrhea, vomiting, shortness of breath or fever Exam Narrative Exam Narrative: 69-year-old female patient appearing younger than stated age, in no acute distress, no neurological focal deficits, unlabored breathing, clear breath sounds bilaterally, regular heart S1-2, abdomen left lower quadrant tenderness/flank pain resolved, no CVA tenderness Objective Last Vital Signs Temp 36 C L 03/19/25 16:23 Pulse 52 L 03/19/25 16:23 Resp 14 03/19/25 16:23 BP 150/52 H 03/19/25 16:23 Pulse Ox 92 03/19/25 16:23 Laboratory Results - last 24 hr 03/19/25 03/19/25 06:36 06:52 WBC 4.68 RBC 3.38 L Hgb 11.3 Hct 33.4 L MCV 99 H MCH 33.4 H MCHC 33.8 RDW 11.8 Plt Count 197 MPV 9.5 Immature Gran % 0.2 Neutrophils % 62.0 Lymphocytes % 23.7 Monocytes % 12.4 Eosinophils % 1.3 Basophils % 0.4 Nucleated RBC % 0.0 Absolute Neutrophils 2.90 Absolute Lymphocytes 1.11 L Absolute Monocytes 0.58 Absolute Eosinophils 0.06 Absolute Basophils 0.02 Sodium 141 Potassium 4.2 Chloride 110 H Carbon Dioxide 23.0 Anion Gap 8.0 BUN 11 Creatinine 1.1 H Est GFR (CKD-EPI 2020) 55.07 Glucose 98 Calcium 8.0 L Magnesium 2.3 Time Spent with Patient Time Spent with Patient: >50 minutes Time was spent: preparing to see the patient(eg.review tests), obtaining and/or reviewing separately otained hiistory, ordering medications,tests, procedures, referring, communicating with other health respiratory care technician, indepentently interpreting results, counseling the patient and care coordination
[2025-03-19] MEDS: Normal Saline Flush 10 ML SYR IVP (19:26)
[2025-03-19] MEDS: Normal Saline 1,000 ML 75 ML IV (19:26)
[2025-03-20] MEDS: Tamsulosin 0.4 MG CAPCR PO (07:35)
[2025-03-20 07:52] VITALS: BP 152/59; PULSE 57; RESP 20; TEMP 36.5; O2SAT 93
--- NOTE | 2025-03-20 09:12 | DSE_ITS ---
Date of service: 03/20/25 Time of Service: 10:34 DS: Diagnosis Discharge Diagnosis (1) Left ureteral stone: Status: Acute (2) Hydronephrosis due to obstruction of ureter: Status: Acute (3) Acute dehydration: Status: Acute (4) DVT (deep venous thrombosis): Status: Chronic Discharge Plan Disposition Patient Disposition: Home Condition: Improving Discharge Details Reason For Visit: Left Obstructing Ureteral Stone with Hydronephrosi Admit Date/Time: 03/17/25 20:30 Admit Provider: Wesley Acuna Attending Provider: Wesley Acuna Primary Care Provider: Yadira Llanes [facility] Course Hospital Course: This i 69-year-old female patient with a previous history of ureteral stones presented to the ED on 03/17/2025 with severe left flank pain and renal colic associate with nausea and vomiting. Work-up in the ED resulted with findings of 7 millimeter stone in the distal left ureter, 6 millimeter stone at the ureteropelvic junction, mild to moderate left hydronephrosis and 8 millimeter stone is noted at the lower pole of the left kidney as well as dehydration. She was admitted for IV hydration, pain management and Flomax was initiated orally. Urologist, Dr. Kennedy was consulted and proceeded with the following procedure on 03/19/25: left flexible ureteroscopy with holmium laser lithotripsy of left upper ureteral stone in the left lower pole stone with stone extraction, and left ureteral stent insertion. Pain was controlled overnight, the patient remained hemodynamically stable and was able to tolerate oral intake and will be discharged home with PCP within 7 days of discharge; urology follow-up to to arranged by urology office. Discussed with Dr. Black Discharge Instructions Instructions: Ureteral Stent (DC) Additional Instructions: As discussed surology follow-up to be scheduled by Dr. Kennedy's office. Please follow-up with the urology clinic On Sunday if they have confirmed and appointment by calling their office. Please take the nausea and pain medication as needed. Return to the emergency department immediately with any worsening or poorly controlled pain, intractable vomiting, hematuria with blood clots, fevers or if you develop any signs of urinary tract infection as discussed duirng your visit to the ED on 03/17/25. Stand Alone Forms: Nursing Discharge Form Referrals: Jose Angel Kennedy MD [ [facility] STAFF PHYSICIAN, Urology] Referral Note: Urology office will give you a call on Sunday to set up an appointment. Yadira Llanes [Primary Care Provider, Medicine] - 03/31/25 12:45 pm Referral Note: Follow up with your PCP please 1-2 weeks. Activity:: Activity as Tolerated Equipment/Supplies:: No Equipment Needed Diet:: As Tolerated Discharge Orders Discharge Orders: Discharge Order (Routine); Ordered 03/20/25 Ordered By: Mary Pitt DS: Summary Time Spent with Patient providing and/or coordinating discharge services: Greater than 30 minutes Status at Discharge Functional status at discharge: independent ambulation Overall status at discharge: patient is progressing back to baseline Mental Status: mental status grossly normal Speech and Movement: speech and movement normal Mood: congruent mood Affect: other (Normal to flat ) Exam Narrative Exam Narrative: 69-year-old female patient in no acute distress, ambulating in room , alert and oriented X 4, appears non-focal neurologically, clear breath sounds bilaterally with decreased bases, regular heart S1-2, abdomen is non-distended, soft and non-tender- minimal supra-pubic discomfort s/p squatting reported, no CVA tenderness, moves all 4 ext. Psych Mental Status: mental status grossly normal Speech and Movement: speech and movement normal Mood: congruent mood Affect: other (Normal to flat ) Attitude: cooperative Thought Process: normal Thought Content: normal Insight: fair Judgment: fair DS: Data Vitals/I&O Vitals and I&O: Vital Signs Temperature 36.5 C 03/20/25 07:52 Temperature Source Tympanic 03/20/25 07:52 Pulse 57 L 03/20/25 07:52 Pulse Rhythm Regular 03/18/25 08:46 Pulse 62 03/19/25 15:31 Respiratory Rate 20 03/20/25 07:52 Respiratory Effort Normal, Non-Labored 03/18/25 08:46 Respiratory Depth Normal 03/18/25 08:46 Respiratory Pattern Normal 03/18/25 08:46 Blood Pressure 152/59 H 03/20/25 07:52 Blood Pressure Mean 90 03/20/25 07:52 Blood Pressure Position Supine 03/18/25 05:18 Pulse Oximetry 93 03/20/25 07:52 Respiratory End-tidal CO2 29 03/19/25 15:26 Oxygen Delivery Method Room Air 03/20/25 07:52 Oxygen Flow Rate 0 07/11/25 07:52 Pain Level 3 03/19/25 19:37 Comment patient asleep asked to sleep 03/20/25 04:04 Intake & Output 03/19/25 03/19/25 03/20/25 11:59 23:59 11:59 Intake Total 1000 / 2800 1800 / 2800 300 / 300 Output Total 2250 / 4650 2400 / 4650 1900 / 1900 Balance -1250 / -1850 -600 / -1850 -1600 / -1600 Weight 73.2 kg 73.2 kg Intake: IV 1000 / 2400 1400 / 2400 Oral 400 / 400 300 / 300 Output: Urine 2250 / 4650 2400 / 4650 1900 / 1900 Other: Urine Color Pale [place] Urine Appearance Clear Clear Clear Urine Odor None None Strong Comment strained - no stones independent to bathroom Patient stated she had voided independently 4 times. I emptied the hat which totaled 900. Emesis Description None Data Completed and Pending Labs on day of discharge: Labs from last 24 hours 03/19/25 13:50 Stone Source Pending Stone Comment Pending Kidney Stone Analysis Pending [facility] All Active Problems DVT (deep venous thrombosis) (Chronic) Acute dehydration (Acute) Hydronephrosis due to obstruction of ureter (Acute) Left ureteral stone (Acute) Cancer of skin of lower leg (Acute) Displaced fracture of left ulna styloid process, initial encounter for closed fracture (Acute 03/19/24) Intra-articular fracture of distal end of left radius with volar angulation (Acute 03/19/24) S/P ORIF: 03/19/2024 Medical History No significant past medical history Surgical History History of total left hip arthroplasty Social History Smoking/Tobacco Use Status: Never Smoking risk assessment performed?: Yes Alcohol Intake: never Drug use: Never Substance use type: does not use Housing: house Do you feel safe at home: Yes Do you feel safe in your relationship?: Yes Time Spent with Patient Time Spent with Patient: 70-84 minutes4 Time was spent: preparing to see the patient(eg.review tests), obtaining and/or reviewing separately otained hiistory, ordering medications,tests, procedures, referring, communicating with other health doggy daycare activities director, indepentently interpreting results, counseling the patient and care coordination
[2025-03-20 10:27] LABS: Abs Immature Grans 0.02 10^3/uL (0.0-0.06); HCT 36.1 % (36.0-46.0); HGB 12.8 g/dL (11.2-15.7); Immature Grans % 0.3 %; MCH 33.7 pg (27.0-33.0); MCHC 35.5 % (32.0-36.0); MPV 9.6 fL (8.0-11.0); Platelet Count 255 10^3/uL (130-400); RBC 3.80 10^6/uL (3.93-5.22); RDW 11.6 % (11.7-14.6); RDW-SD 39.8 fL; WBC 7.20 10^3/uL (4.4-10.8)
[2025-03-20 10:31] LABS: MCV 95 fL (80-95)
[2025-03-20 10:32] LABS: Anion Gap 12.3 mmol/L (3-11); BUN 12 mg/dL (7-18); CO2 23.7 mmol/L (21.0-32.0); Calcium 9.3 mg/dL (8.5-10.1); Chloride 106 mmol/L (98-107); Estimated GFR 49.61 (mL/min/1.73m2); Glucose 131 mg/dL (74-106); Potassium 3.7 mmol/L (3.5-5.1); Sodium 142 mmol/L (136-145)
--- NOTE | 2025-03-20 15:06 | PDOC.CMDIS ---
Date of service: 03/20/25 Time of Service: 15:06 LACE Index Scoring Tool Questions: Length of Stay (in days): 3 Was the patient admitted via the E.D.?: Yes E.D. Visits: 0 Answers: Total Score: 6 Risk of Readmission: Low Risk Care Management Discharge Plan Reason for Hospitalization: Left obstructing ureteral stone Discharge Plan: Mag returned home today with no new services. Her family drove her home via private vehicle. She will follow up with her PCP and discharge plan of care. She is happy to be going home. Patient/Family Education Needs: Review discharge instructions and limitations, discussion of self care needs including ask me three.
== END 2025-03-20 13:45 | disposition home or self-care (01) | DRG 661 ==
LOC: ER 19:55 → EDHOLD 21:13 → MS 03-18 08:34
PROVIDERS: Emergency Medicine; Urology; Admitting Provider Family Medicine; Emergency Provider Emergency Medicine; PCP Physician Assistant Medical; Responsible Provider Nurse Practitioner Acute Care; Visit Provider Family Medicine
PROC: 0TC18ZZ Extirpation of Matter from Left Kidney, Via Natural or Artificial Opening Endoscopic (ICD-10-PCS; CPT 52356; principal; 2025-03-19 12:15)
DX: N13.1 Hydronephrosis with ureteral stricture, not elsewhere classified (principal); Z96.642 Presence of left artificial hip joint; E86.0 Dehydration; Z86.718 Personal history of other venous thrombosis and embolism
CPT/HCPCS: 52356; 00123; 36415; 76000; 80048; 80053; 83690; 85027; 93005; 96361; 96374; 96375; 99222; 99285; 74177; 74420; 81003; 81015; 82365; 83735; 84484; 85025; 93010; 99233; 99239; J0131; J0690; J1100; J1644; J1885; J2003; J2270; J2405; J2704; J3010; J3490; Q9967

== ENCOUNTER → 2025-03-19 10:59 | Outpatient (BNVA) | payer MEDICARE, SELFPAY | PROVIDERS: PCP Physician Assistant Medical; Referring Provider Physician Assistant Medical; Visit Provider Urology ==

== ENCOUNTER 2025-03-27 17:48 | Outpatient (REF) | payer MEDICARE, SELFPAY ==
[2025-03-27 22:13] LABS: Glucose Negative (Negative)
== END 2025-03-27 17:49 | disposition home or self-care (01) ==
LOC: LBN 17:48
PROVIDERS: PCP Physician Assistant Medical; Visit Provider Nurse Practitioner Family
DX: R39.15 Urgency of urination (principal)
CPT/HCPCS: 81003; 81015; 87086

== ENCOUNTER 2025-04-02 07:12 | Day surgery (SDC) | payer MEDICARE, OTHER, SELFPAY ==
[2025-04-02] VITALS (13 sets, daily range): BP systolic 119–153; BP diastolic 38–89; PULSE 44–62; RESP 14–20; TEMP 36–36.3; O2SAT 95–100; BMI 26.4
[2025-04-02] MEDS: Lactated Ringers 1,000 ML 80 ML IV (07:55)
--- NOTE | 2025-04-02 08:23 | W.PM.HP.N ---
Date of service: 04/02/25 Time of Service: 08:23 Assessment and Plan Assessment and plan (1) Left ureteral stone: Status: Acute Assessment and plan: We will plan to remove the indwelling ureteral stent and pass a flexible ureteroscope up to the kidney to ensure all stone fragments have been addressed. (2) History of ureteroscopic laser fragmentation of ureteral calculus: History of Present Illness History of Present Illness Chief Complaint: Left ureteral stone Narrative: This is a 69-year-old woman who has a history of an obstructing left ureteral stone. In fact, she was identified as having a large distal ureteral stone, a large proximal ureteral stone and a large nonobstructing lower pole kidney stone. He had undergone ureteroscopy and holmium laser lithotripsy of all three stones. We were not 100% convinced that all stone fragments in the kidney had been addressed. We placed a ureteral stent and she returns now for staged ureteroscopy to remove any residual stone fragments. She has had significant stent discomfort since her last procedure. She has had negative urine cultures recently. Her stone composition was 100% calcium oxalate monohydrate. She is interested in 24-hour urine studies when she has recovered from the procedures. Review of Systems Narrative: No fevers or chills No vision change or dysphasia No diabetes or thyroid dysfunction No shortness of breath, cough or hemoptysis No chest pain or palpitations No nausea, vomiting, hepatitis, ulcers, jaundice No seizures, strokes or peripheral neuropathy No bleeding disorders or anemia No gout PFSH All Active Problems (Updated 04/02/25 @ 08:30 by Jose Angel Kennedy MD) Hydronephrosis due to obstruction of ureter (Acute) Left ureteral stone (Acute) Cancer of skin of lower leg (Acute) Displaced fracture of left ulna styloid process, initial encounter for closed fracture (Acute 03/19/24) Intra-articular fracture of distal end of left radius with volar angulation (Acute 03/19/24) S/P ORIF: 03/19/2024 Medical History No significant past medical history Surgical History (Updated 04/02/25 @ 08:30 by Jose Angel Kennedy MD) History of ureteroscopic laser fragmentation of ureteral calculus H/O wrist surgery History of total left hip arthroplasty bilateral Social History Smoking/Tobacco Use Status: Never Smoking risk assessment performed?: Yes Alcohol Intake: never Drug use: Never Substance use type: does not use Housing: house Do you feel safe at home: Yes Do you feel safe in your relationship?: Yes Meds Allergies and Home Medications Allergies Allergy/AdvReac Type Severity Reaction Status Date / Time No Known Allergies Allergy Verified 04/02/25 07:35 Home Medications ?Medication ?Instructions ?Recorded ?Confirmed ?Type Unknown [No Known Home Meds] 03/31/25 03/31/25 History Exam Const General: cooperative Neck Neck: supple Resp Effort & Inspection: normal respiratory effort Auscultation: clear to auscultation bilaterally Cardio Rate: regular rate Rhythm: regular rhythm GI Palpation: soft and no masses Neuro General: patient alert, patient awake and patient oriented x3 Results Labs Labs: RUN DATE: 04/02/25 [facility] PAGE 1 RUN TIME: [id number] RUN USER: [place] [address] Devika Li MD PATIENT REPORT PATIENT: Mag Rider LOC: U #: [id number] /SX: [id number] F ROOM: [facility] RE03/17/[address]: LITA RYAN STATUS: DIS IN BED: A DIS: 03/20/25 SPEC #: [id number] [place]: 03/19/25 STATUS: COMP REQ #: [id number] RECD: 03/19/[address]: JOSE ANGEL KENNEDY MD ENTERED: 03/19/[address] [facility] [address]: LITA RYAN KIMBERLY FAX #: ORDERED: Stone Anaylsis QUERIES: Source: Left Ureter Test Result Flag Reference Verified Kidney Stone Analysis Source: Left Ureter 03/31/25 Interpretation SEE BELOW 03/31/25 RESULT: 100% Calcium oxalate monohydrate. Result Comment See Comment 03/31/25 For stones containing calcium oxalate, calcium phosphate, and/or uric acid, a 24 hr urinary supersaturation test may help detect underlying risk factors for this type of stone formation and provide guidance for a stone prevention strategy. ADDITIONAL INFORMATION This test was developed and its performance characteristics determined by [facility] in a manner consistent with CLIA requirements. This test has not been cleared or approved by the U.S. Food and Drug Administration. Test Performed by: [facility] [place] [id number] Transmissions Systems Operator: Adrien Madrigal Ph.D.; CLIA# [id number] Patient: Mag Rider LABORATORY Acct#[id number] Unit#[id number] Last Vital Signs Temp 36.0 C L 04/02/25 07:35 Pulse 62 04/02/25 07:35 Resp 16 04/02/25 07:35 BP 134/72 04/02/25 07:35 Pulse Ox 100 04/02/25 07:35 Time Spent Time spent with Patient: <40 minutes Time was spent: other
--- NOTE | 2025-04-02 08:41 | ANES.PREOP_ITS ---
General Info Date of Service Date Performed: 03/19/25 Height: 5 ft 4 in Weight: 70 kg Body Mass Index (BMI): 26.4 Surgical Procedure: Operation Date: 04/02/25 08:40 Proposed Procedure Side Surgeon p Cystoscopy/Retrograde/Ureteroscopy/Stent Placement/Extraction of Any Remaining Stones Left Jose Angel Kennedy MD Meds Allergies and Home Medications Allergies Allergy/AdvReac Type Severity Reaction Status Date / Time No Known Allergies Allergy Verified 04/02/25 07:35 Home Medication ?Medication ?Instructions ?Recorded Unknown [No Known Home Meds] 03/31/25 Current Visit Medications: Current Medications Generic Name Dose Route Start Last Admin Trade Name Freq PRN Reason Stop Dose Admin Ringer's Solution 1,000 mls @ 80 mls/hr 04/02/25 06:00 04/02/25 07:55 IV 04/02/25 23:59 80 mls/hr INFUSION DERRELL Administration Cefazolin Sodium/Dextrose 2 gm in 50 mls @ 100 mls/hr 04/02/25 06:00 Ancef Duplex IVPB 04/02/25 23:59 PREOP DERRELL IV Miscellaneous Supplies 1 each 04/02/25 06:00 Iv Access IV 04/02/25 23:59 DIRECTED DERRELL Sodium Chloride 0 ml 04/02/25 06:00 Normal Saline Flush 10 Ml Syr IV 04/02/25 23:59 PRN PRN Sodium Chloride 0 ml 04/02/25 06:00 Normal Saline 10 Ml Vial IJ 04/02/25 23:59 DIRECTED PRN Sterile Water 0 ml 04/02/25 06:00 Water,Injection,Sterile 10 Ml Vial IJ 04/02/25 23:59 DIRECTED PRN PFSH Active Problems Active Problems: Problem Status Onset Code Hydronephrosis due to obstruction of ureter Acute N13.1 Left ureteral stone Acute N20.1 Cancer of skin of lower leg Acute C44.701 Displaced fracture of left ulna styloid process, initial encounter for closed fracture Acute 03/19/24 S52.612A Intra-articular fracture of distal end of left radius with volar angulation Acute 03/19/24 S52.572A Medical History Medical History No significant past medical history Surgical History Surgical History (Updated 04/02/25 @ 08:30 by Jose Angel Kennedy MD) History of ureteroscopic laser fragmentation of ureteral calculus H/O wrist surgery History of total left hip arthroplasty bilateral Tobacco Smoking/Tobacco Use Status: Never Alcohol Alcohol Intake: never Substance Use Substance use: Never Substance use type: does not use Vital Signs and Lab Results Vital Signs Most Recent Vital Signs in EMR: Most Recent Vital Signs Temp Pulse Resp BP Pulse Ox 36.0 C L 62 16 134/72 100 04/02/25 07:35 04/02/25 07:35 04/02/25 07:35 04/02/25 07:35 04/02/25 07:35 Lab Results Complete Blood Count: WBC, (4.4-10.8) 7.20 10^3/uL 03/20/25, 09:50 RBC, (3.93-5.22) 3.80 10^6/uL L 03/20/25, 09:50 Hgb, (11.2-15.7) 12.8 g/dL 03/20/25, 09:50 Hct, (36.0-46.0) 36.1 % 03/20/25, 09:50 Plt Count, (130-400) 255 10^3/uL 03/20/25, 09:50 Complete Metabolic Panel: Sodium, (136-145) 142 mmol/L 03/20/25, 09:50 Potassium, (3.5-5.1) 3.7 mmol/L 03/20/25, 09:50 Chloride, (98-107) 106 mmol/L 03/20/25, 09:50 Carbon Dioxide, (21.0-32.0) 23.7 mmol/L 03/20/25, 09 :50 BUN, (7-18) 12 mg/dL 03/20/25, 09:50 Creatinine, (0.55-1.02) 1.2 mg/dL H 03/20/25, 09:50 Est GFR (CKD-EPI 2020), (mL/min/1.73m2) 49.61 03/20/25, 09:50 Magnesium, (1.8-2.4) 2.3 mg/dL 03/19/25, 06:36 Calcium, (8.5-10.1) 9.3 mg/dL 03/20/25, 09:50 Albumin, (3.4-5.0) 3.3 g/dL L 03/18/25, 07:45 Glucose, (74-106) 131 mg/dL H 03/20/25, 09:50 Liver Function Panel: ALT, (14-59) 21 U/L 03/18/25, 07:45 AST, (15-37) 14 U/L L 03/18/25, 07:45 Cardiac Panel: Troponin I, (<or=51) 8 ng/L 03/17/25 Pancreas Panel: Lipase, (<78) 35 U/L 03/17/25, 15:05 Imaging and Studies Imaging and Studies Study information below may be from another EMR and interpreted by another provider. Please see original notes in EMR for more complete details. EKG Summary: EKG PATIENT NAME: Mag Rider UNIT #: [id number] ORDERING PROVIDER: Rojas Murphy M.D. PRIMARY CARE PROVIDER: EVIE SINGLETARY DATE/TIME OF SERVICE: 03/17/25 1548 : 1955 PERFORMING LOCATION: [place] APPROVED REPORT Exam: Resting ECG Reason for Exam: Nausea abdominal pain Patient Location: E HR:56 bpm ECG Measurements Heart Rate 56 AXIS KS 149 P 42 QRSd 82 QRS 67 QT 424 T57 QTc 409 Conclusion Sinus bradycardia...rate< 60 No occlusion RI <Electronically signed by Rojas Murphy M.D. in [place]> E-Sign Date: 03/17/25 E-Sign Time: 7568 ADDENDUM APPROVED REPORT Exam: Resting ECG Reason for Exam: Nausea abdominal pain Patient Location: E HR:56 bpm ECG Measurements Heart Rate 56 AXIS KS 149 P 42 QRSd 82 QRS 67 QT 424 T57 QTc 409 Conclusion Sinus bradycardia...rate< 60 No occlusion RI I have reviewed and I agree with the emergency room physician's ECG interpretation. Electronically signed by: <Electronically signed by Rubia Mckeon M.D. in [place]> 03/19/25 0818 Cosigned by: Anesthesia Assessment and Plan Anesthesia History Personal History: No History of Anesthesia Complications Family History: No Family History of Anesthesia Complications Exercise Tolerance Exercise Tolerance: Metabolic Equivalents>4 Pertinent Negatives Pertinent Negatives: No Major Cardiovascular Symptoms or Complaints, No Major Pulmonary Symptoms or Complaints and No History of CVA/TIA Cardiac & Pulmonary Exam Cardiac Exam: Normal S1/S2 Heart Sounds Pulmonary Exam: Clear Bilateral Breath Sounds Implantable Cardiac Device Does patient have a Pacemaker or an ICD?: No Airway Exam Known Difficult Airway: No Mallampati Class: 3 Mouth Opening: Normal (> 3cm) Thyromental Distance: Greater than 3 cm Neck Range of Motion: Full ROM Neck Circumference: Normal Teeth Condition: Normal Dentition ASA Classification ASA Score: ASA 2 Emergency Case?: No NPO Status NPO Status: NPO Clears >2 hours, Solids >8 hours Anesthesia Plan Resuscitation Status: Full Code Anesthesia Technique: General Anesthesia Airway Planned: Endotracheal Tube Monitors Used: Standard Monitors Preoperative Comments:: Past Anesthetic: 69 yo female for cysto due to stones. Sig PMHx: DVT (listed, but she denies). Exercises daily. denies EtOH/smoking. No home meds Previous Anes: - ORIF wrist, LMA 4 --> glide 3 grade 2a due to significant reactivity with just prep and also secretions noted in gastric port of LMA. Planned GETA today discussed, patient consents. Reports no changes since last visit
[2025-04-02] MEDS: ceFAZolin 2 GM/50 ML BAG IVPB (09:24)
[2025-04-02] MEDS: Lidocaine 2% Jelly 11 ML SYR (09:39)
[2025-04-02] MEDS: Omnipaque 300 MG/ML 50 ML BTL (09:40)
--- NOTE | 2025-04-02 10:03 | W.PM.DSUDISC ---
Date of service: 04/02/25 Discharge Plan Disposition Patient Disposition: Home Discharge Details Reason For Visit: ureteroscopy and remove stone fragments Attending Provider: Jose Angel Kennedy Primary Care Provider: Yadira Llanes Home Meds and New Rx's Prescriptions: No Action No Known Home Meds Discharge Instructions Additional Instructions: no need to strain urine followup 6 to 8 weeks with renal ultrasound prior to visit Activity:: Activity as Tolerated Shower/Bathe:: 24 hours Diet:: As Tolerated Discharge Orders Discharge Orders: Discharge Order (Routine); Ordered 04/02/25 Ordered By: Jose Angel eKnnedy DS: Diagnosis Discharge Diagnosis (1) Left ureteral stone: Status: Acute (2) History of ureteroscopic laser fragmentation of ureteral calculus:
--- NOTE | 2025-04-02 10:09 | DI.RAD_ITS ---
Exam(s) XR RETROGRADE IN OR EXAM: XR RETROGRADE IN OR CLINICAL HISTORY: LEFT URETERAL STONE. TECHNIQUE: Fluoroscopy was provided for the referring physician for guidance with performing retrograde procedure. COMPARISON: XR RETROGRADE IN OR from 03/19/2025 FINDINGS: Please see procedure note for details. Fluoro time: 21 seconds RADIATION DOSE DELIVERED: sarah Wang=3.9 mGy
--- NOTE | 2025-04-02 10:11 | ROE_ITS ---
Operative Note Operative Note PRE-OP DIAGNOSIS: left ureteral stones POST-OP DIAGNOSIS: same left kidney stone PROCEDURE: cystoscopy, remove left ureteral stent, left retrograde pyelogram, left flexible ureteroscopy with extraction of stone fragments SURGEON: Jose Angel Kennedy ANESTHESIA TYPE: Local By Surgeon and General LMA/ETT Refer to Anesthesia Record ESTIMATED BLOOD LOSS: 5 PATHOLOGY: none sent COMPLICATIONS: None Patient was transported to: PACU Patient's condition: stable Implants: none Indications: This is a 69-year-old woman who presented previously with 2 ureteral stones and a lower pole left-sided kidney stone. She underwent ureteroscopy and holmium laser lithotripsy of all stones. The ureteral stones were completely cleared out, but I was not certain that all kidney stone fragments had been addressed. She presents now for stent removal and repeat ureteroscopy. Findings: multiple small stone fragments lower pole Procedure Description: The patient was given IV antibiotics and brought to the operating room on 04/02/2025. After successful induction of general anesthesia, she was placed in the dorsal lithotomy position. Her genitalia was prepped and draped. 2% Xylocaine jelly was instilled into the urethra to act as a local anesthetic. A 22 Setswana rigid cystoscope was passed through the urethra into the bladder. The bladder was inspected with a 30 degree lens. A stent could be seen protruding from the left ureteral orifice. The stent was grasped and alligator forceps and brought to the level of the urethral meatus. A guidewire was passed through the lumen of the stent and the stent was removed leaving the wire in place. The dual-lumen catheter was advanced over the wire and the tip of the dual-lumen catheter was positioned in the mid left ureter. We performed a retrograde pyelogram by injecting Omnipaque through the second lumen of the catheter. This allowed us to outline the calyces. No specific filling defects were identified. The dual-lumen catheter was then used to pass a second guidewire. We chose one of the wires as a working wire and the other as a safety wire. We passed a ureteral access sheath over the working wire leaving the safety wire in place. The flexible ureteroscope was then advanced through the lumen of the access sheath. In the lower pole calyces, we found multiple small stone fragments. The largest of these fragments were grasped and a ZeroTip stone basket and extracted. We did not send the stone fragments for chemical analysis as we had already tested her stones previously. At the completion of the procedure, no large stone burden was identified in the kidney. We withdrew the ureteroscope and ureteral access sheath and found no stones within the ureter and no evidence of ureteral injury. I then passed a ureteral access catheter over the remaining guidewire. I removed the guidewire and injected Omnipaque through the access catheter. Delayed films showed adequate emptying of the kidney with no extravasation of contrast. We elected not to replace the ureteral stent after this procedure. The patient tolerated the procedure well with no complications. Date of Procedure: 04/02/25
[2025-04-02] MEDS: Phenazopyridine 200 MG TAB PO (10:59)
[2025-04-02] MEDS: traMADol 50 MG TAB PO (10:59)
--- NOTE | 2025-04-02 13:37 | W.ANESPOSTOP ---
Postoperative Evaluation Date, Time and Location Date Performed: 04/02/25 Time Performed: 13:37 Patient Location: Day Surgery Unit Vital Signs Most Recent Imported Vital Signs: Most Recent Vital Signs Temp Pulse Resp BP Pulse Ox 36.3 C L 44 L 20 153/61 H 99 04/02/25 11:11 04/02/25 11:11 04/02/25 11:11 04/02/25 11:11 04/02/25 11:11 Pain Score Most Recent Pain Score: Most Recent Pain Score Pain Level 0 04/02/25 10:30 Assessment Mental Status: Awake (Alert & Oriented to Patient Baseline) Airway and Respiratory Function: Patent airway with normal (patient baseline) respiratory exam Cardiovascular Function: Hemodynamically Stable Hydration Status: Adequately Hydrated Nausea & Vomiting: No Nausea or Vomiting Pain: Pt. Denies Any Pain Peripheral Nerve Block: Patient did not receive a nerve block Postoperative Comments:: Seen earlier today: some slight dizziness I dont feel like myself Patient understood this will continue to get better. No N/V. Discussed PVCs during case and possible origins. Patient aware if wants to further dig into their origin she will reach out to her PCP.
== END 2025-04-02 12:53 | disposition home or self-care (01) ==
PROVIDERS: PCP Physician Assistant Medical; Visit Provider Urology
PROC: (CPT 52352; principal; 2025-04-02 08:30)
DX: N20.1 Calculus of ureter (principal); Z87.442 Personal history of urinary calculi
CPT/HCPCS: 52352; 74420; J0131; J0690; J1100; J1885; J2003; J2405; J2704; J3475; Q9967

== ENCOUNTER 2025-05-08 00:33 | Outpatient (CLI) | payer MEDICARE, OTHER, SELFPAY ==
--- NOTE | 2025-05-08 05:30 | DI.US_ITS ---
Exam(s) US RENAL EXAM: US RENAL CLINICAL HISTORY: ? hydronephrosis,CALCULUS OF URETER,H/O URETEROSCOPIC LASER FRAGMENTATION TECHNIQUE: Ultrasound of both kidneys performed using standard protocol. COMPARISON: CT CT ABDOMEN PELVIS W from 03/17/2025 FINDINGS: RIGHT KIDNEY: Measures 9.6 cm in length. No cysts evident. Normal cortical thickness and corticomedullary differentiation .No solid masses No intrarenal calculi nor hydronephrosis. LEFT KIDNEY: Measures 0.5 cm in length. No cysts evident. Normal cortical thickness and corticomedullary differentiaion. No solids masses. There is a 3 millimeter echogenic focus in the mid-pole region left kidney. Probably represents small nonobstructive calculus at this level. URINARY BLADDER: Prevoid volume is 400 cc Postvoid volume is 49 cc No evidence of bladder mass nor diverticuli. There are no shadowing calculi seen in the bladder lumen. Ureterovesical jets: Both identified and appear symmetrical IMPRESSION: 1. No significant ultrasound findings in the right kidney 2. Small 3 millimeter echogenic focus in the midpole level of the left kidney may represent nonobstructive calculus at this level. 3. No hydronephrosis on either side. Mildly increased postvoid residual volume in the urinary bladder (49 cc). DATA REPOSITORY:
== END 2025-05-08 00:53 ==
LOC: DI 00:34
PROVIDERS: PCP Physician Assistant Medical; Visit Provider Urology
DX: N20.1 Calculus of ureter (principal); Z98.890 Other specified postprocedural states; Z87.442 Personal history of urinary calculi
CPT/HCPCS: 76770

== ENCOUNTER → 2025-07-10 15:03 | Outpatient (BNVA) | payer MEDICARE, OTHER, SELFPAY | PROVIDERS: PCP Physician Assistant Medical; Referring Provider Physician Assistant Medical; Visit Provider Urology | DX: N13.1 Hydronephrosis with ureteral stricture, not elsewhere classified (principal); N20.2 Calculus of kidney with calculus of ureter | CPT/HCPCS: 99214; 81002 ==

== ENCOUNTER 2025-07-26 14:55 | Outpatient (REF) | payer MEDICARE, OTHER, SELFPAY ==
[2025-07-26 14:58] LABS: Sodium, Urine 42 mmol/L
[2025-07-26 15:08] LABS: Creatinine,Urine 25.9 mg/dL
[2025-07-27 11:32] LABS: Creatinine,24hr Ur 0.85 g/24hr (0.60-1.80); Total Volume 3300 ml
[2025-07-28 09:18] LABS: Calcium Urine 10.0 mg/dL (See Note); Timed Urine Volume 3300 mL
[2025-07-28 09:21] LABS: Timed Urine Volume 3300 mL
[2025-07-29 09:47] LABS: Citrate Excretion, 24hr, U 1145 mg/24 h
[2025-07-29 12:18] LABS: Oxalate, U 0.69 mmol/24 h; Oxalate, U 60.7 mg/24 h (9.7 - 40.5)
[2025-08-03 10:10] LABS: Timed Urine Volume 3300 mL
== END 2025-07-26 14:56 | disposition home or self-care (01) ==
LOC: LBN 14:55
PROVIDERS: PCP Physician Assistant Medical; Visit Provider Urology
DX: N20.0 Calculus of kidney (principal); N20.1 Calculus of ureter
CPT/HCPCS: 82507; 83735; 81050; 82340; 82570; 83945; 84300; 84560